=== PATIENT | male | born 1975 | race Caucasian/White ===

== ENCOUNTER 2024-07-14 11:38 | Inpatient (IN) | payer BC, SELFPAY ==
[2024-07-14] VITALS (60 sets, daily range): BP systolic 72–127; BP diastolic 47–91; PULSE 2–78; BMI 36.4; BMI 36.3
[2024-07-14] MEDS: DUONEB 3 ML INH ×2 (08:46→20:20)
--- NOTE | 2024-07-14 08:52 | ED.GENMED ---
History of Present Illness
<Sae Mott PA-C - Last Filed: 07/14/24 09:40>
General
Chief Complaint: Breathing Problem
Source: patient
Exam Limitations: none
Time Seen by Provider: 07/14/24 08:38
History of Present Illness
History of Present Illness:
49-year-old male with history of hypertension presents via EMS from home with increased difficulty breathing. He and his have been sick for the past several days with flulike symptoms including fever cough fatigue. Shortness of breath got
worse today. Patient denies chest pain. He was hypoxic on EMS arrival and they placed him on a nonrebreather and presented here.
Phy Exam
<Sae Mott PA-C - Last Filed: 07/14/24 09:40>
Physical Exam
Physical Exam:
General: Ill-appearing male with increased work of breathing
HEENT normocephalic atraumatic
Heart: Regular rate and rhythm
Lungs: Diffuse wheeze prolonged expiratory phase
Extremities: No edema
Abdomen is soft and nontender
Scores
<Sae Mott PA-C - Last Filed: 07/14/24 09:40>
Heart Failure Risk
Heart Failure Risk Score: Not Applicable
Course
<Sae Mott PA-C - Last Filed: 07/14/24 09:40>
Orders/Labs/Results
Orders:
Orders
07/14/24 08:39
Electrocardiogram (*1) Urgent
Reason for Study: Shortness of Breath
EKG- Treatment ONCE
Ipratropium/Albuterol Sulfate [Duoneb] 3 ml INH R NOW STA
CR Chest Portable - 1 View Urgent
Comment:
Reason For Exam: sob
Reason Study Needs to be Portable: Patient Unstable
07/14/24 08:45
Blood Culture Q30M
JEREMIAH Source: Blood/Venous
Specimen Description:
Hydrocortisone Sod Succinate [Solu-Cortef] 125 mg IV NOW STA
07/14/24 08:48
COVID-19 Antigen Stat
Source: Nasal Swab
Complete Blood Count/With Diff Urgent
Comprehensive Metabolic Panel Urgent
Lactic Acid Q4H
Comment: CANCEL 2nd LACTIC ACID IF 1st LACTIC ACID IS LESS THAN 2
NT-proBNP Urgent
Troponin I Urgent
Venous Blood Gas Urgent
%Oxygen/Room Air: nonrebreather
Blood Culture Q30M
JEREMIAH Source: Blood/Venous
Specimen Description:
Influenza A+B Rapid Molecular Urgent
JEREMIAH Source: Nasal Swab
Specimen Description:
07/14/24 09:34
0.9% Sodium Chloride 1000 ml [Nss] 1,000 ml IV BOLUS
07/14/24 12:45
Lactic Acid Q4H
Comment: CANCEL 2nd LACTIC ACID IF 1st LACTIC ACID IS LESS THAN 2
Abnormal Lab Results
07/14/24
08:48
RBC 4.12 L 10^6/uL
(4.70-6.10)
Hgb 12.5 L g/dL
(13.0-18.0)
MCV 94.9 H fL
(80.0-94.0)
MCHC 32.0 L g/dL
(33.0-37.0)
MPV 10.6 H fL
(7.4-10.4)
Absolute Neuts (auto) 8.4 H 10^3/uL
(1.4-6.5)
Absolute Monos (auto) 0.8 H 10^3/uL
(0.1-0.6)
Neutrophils % 78.7 H %
(42.2-75.2)
Lymphocytes % 12.5 L %
(20.5-51.1)
VBG pH 7.23 L
(7.32-7.43)
VBG pCO2 63 H mmHg
(35-48)
BUN 28 H mg/dl
(9-20)
Creatinine 2.9 H mg/dL
(0.7-1.3)
Glucose 121 H mg/dl
(70-99)
Alkaline Phosphatase 158 H U/L
(38-126)
07/14/24 08:48
07/14/24 08:48
Vital Signs
Initial and Last Documented VS:
Initial Vital Signs
Pulse Resp Pulse Ox
78 19 90
07/14/24 08:47 07/14/24 08:47 07/14/24 08:47
Last Documented Vital Signs
Temp Pulse Resp BP Pulse Ox
98.5 F 79 22 108/65 96
07/14/24 08:52 07/14/24 08:52 07/14/24 08:52 07/14/24 08:52 07/14/24 08:52
<Jazlyn Mohan, DO - Last Filed: 07/14/24 09:40>
Orders/Labs/Results
Orders:
Orders
07/14/24 08:39
Electrocardiogram (*1) Urgent
Reason for Study: Shortness of Breath
EKG- Treatment ONCE
Ipratropium/Albuterol Sulfate [Duoneb] 3 ml INH R NOW STA
CR Chest Portable - 1 View Urgent
Comment:
Reason For Exam: sob
Reason Study Needs to be Portable: Patient Unstable
07/14/24 08:45
Blood Culture Q30M
JEREMIAH Source: Blood/Venous
Specimen Description:
Hydrocortisone Sod Succinate [Solu-Cortef] 125 mg IV NOW STA
07/14/24 08:48
COVID-19 Antigen Stat
Source: Nasal Swab
Complete Blood Count/With Diff Urgent
Comprehensive Metabolic Panel Urgent
Lactic Acid Q4H
Comment: CANCEL 2nd LACTIC ACID IF 1st LACTIC ACID IS LESS THAN 2
NT-proBNP Urgent
Troponin I Urgent
Venous Blood Gas Urgent
%Oxygen/Room Air: nonrebreather
Blood Culture Q30M
JEREMIAH Source: Blood/Venous
Specimen Description:
Influenza A+B Rapid Molecular Urgent
JEREMIAH Source: Nasal Swab
Specimen Description:
07/14/24 09:34
0.9% Sodium Chloride 1000 ml [Nss] 1,000 ml IV BOLUS
07/14/24 12:45
Lactic Acid Q4H
Comment: CANCEL 2nd LACTIC ACID IF 1st LACTIC ACID IS LESS THAN 2
Abnormal Lab Results
07/14/24
08:48
RBC 4.12 L 10^6/uL
(4.70-6.10)
Hgb 12.5 L g/dL
(13.0-18.0)
MCV 94.9 H fL
(80.0-94.0)
MCHC 32.0 L g/dL
(33.0-37.0)
MPV 10.6 H fL
(7.4-10.4)
Absolute Neuts (auto) 8.4 H 10^3/uL
(1.4-6.5)
Absolute Monos (auto) 0.8 H 10^3/uL
(0.1-0.6)
Neutrophils % 78.7 H %
(42.2-75.2)
Lymphocytes % 12.5 L %
(20.5-51.1)
VBG pH 7.23 L
(7.32-7.43)
VBG pCO2 63 H mmHg
(35-48)
BUN 28 H mg/dl
(9-20)
Creatinine 2.9 H mg/dL
(0.7-1.3)
Glucose 121 H mg/dl
(70-99)
Alkaline Phosphatase 158 H U/L
(38-126)
07/14/24 08:48
07/14/24 08:48
Vital Signs
Initial and Last Documented VS:
Initial Vital Signs
Pulse Resp Pulse Ox
78 19 90
07/14/24 08:47 07/14/24 08:47 07/14/24 08:47
Last Documented Vital Signs
Temp Pulse Resp BP Pulse Ox
98.5 F 79 22 108/65 96
07/14/24 08:52 07/14/24 08:52 07/14/24 08:52 07/14/24 08:52 07/14/24 08:52
<Sae Mott PA-C - Last Filed: 07/14/24 09:40>
MDM/Problems Addressed
Differential Diagnosis Includes:
Respiratory distress. Consider pneumonia versus acute bronchitis versus COVID versus flu
Patient hypoxic here will require BiPAP. DuoNebs ordered. Septic workup initiated show portable chest x-ray pending
<Jazlyn Mohan DO - Last Filed: 07/14/24 09:40>
*Critical Care Note
Total Time (30-74mins, 75-104mins- exclusive of procedures): 37
comment:
The high probability of a clinically significant, sudden or life threatening deterioration of the cardiopulmonary system(s) required my full and direct attention, intervention and personal management. The aggregate critical care time was 37 minutes.
This time is in addition to time spent performing reported procedures but includes the following:
[x] Data Review and interpretation
[x] Patient assessment and monitoring of vital signs
[x] Documentation
[x] Medication orders and management
ED Attending Note
<Sae Mott PA-C - Last Filed: 07/14/24 09:40>
-
Portions of this chart may have been created with voice recognition software.� Occasional wrong word or��sound alike� substitutions may have occurred due to the inherent limitations of voice recognition software.
<Jazlyn Mohan DO - Last Filed: 07/14/24 09:40>
ED Attending Note
Patient seen and examined by attending physician: Yes
I performed the substantive portion of visit, reviewed & personally made and approve the management plan that is documented in note by myself or SHANTI.: Yes
I performed a history and physical exam of patient and discussed management with resident, I reviewed resident's note and agree with documented findings and plan of care.: Yes
ED Attending Note:
49-year-old male with history of tobacco abuse presenting to the emergency department for difficulty breathing. Patient arrives by medics, which were called by . Patient and his have been sick for the past several days with flulike
symptoms. Per medics, satting in the 70s on their arrival, placed on nonrebreather. Patient somewhat of a limited historian. Does admit to cough and difficulty breathing. Vital signs are significant for hypoxia.
On exam, patient with mild to moderate increased work of breathing, with diffuse rhonchorous breath sounds and expiratory wheezing. Ultimately suspect pneumonia versus viral syndrome with concomitant reactive airway disease. Patient denies known
history of asthma. Respiratory called to bedside for BiPAP given patient's oxygen saturations and work of breathing. Will plan for septic work include, VBG, cultures, lactic acid. Will obtain a chest x-ray imaging. Will start patient on DuoNebs
and steroids
09:15 -patient is flu positive. Consistent with symptoms. Saturations improved on BiPAP as well as respiratory effort. Holding antibiotics given positive viral infection. Plan for admission.
Discharge Plan
Departure
Patient Disposition: Admit
Date of Disposition: 07/14/24
Time of Disposition: 09:39
Presentation/result/management discussed w/ accepting MD/DO: Hospitalist
Discharge Problem:
Influenza A
Interventions
Interventions:
*Risk Screen - Suicide Last Done: 07/14/24 08:52
*General Assessment Last Done: 07/14/24 08:52
*Neglect/Abuse Screening Last Done: 07/14/24 08:52
*ED- Fall Risk Assessment Last Done: 07/14/24 08:52
*ED COVID-19 Vaccine History Last Done: 07/14/24 08:52
Discharge Date and Time
Print Language: URDU
[2024-07-14 08:58] LABS: Venous Blood Gas B.E. -2.4 mmol/L (-4 to +4); Venous Blood Gas HCO3 26.4 mmol/L (22-27); Venous Blood Gas O2 Sat % 68.7 %; Venous Blood Gas pCO2 63 mmHg (35-48); Venous Blood Gas pH 7.23 (7.32-7.43); Venous Blood Gas pO2 41 mmHg (30-50)
[2024-07-14 09:05] LABS: % Basophils 0.4 % (0-2); % Eosinophils 0.5 % (0-6); % Immature Granulocytes 0.3 % (0-0.5); % Lymphocytes 12.5 % (20.5-51.1); % Monocytes 7.6 % (1.7-9.3); % Neutrophils 78.7 % (42.2-75.2); Absolute Eosinophils 0.1 10^3/uL (0-0.7); Absolute Lymphocytes 1.3 10^3/uL (1.2-3.4); Absolute Monocytes 0.8 10^3/uL (0.1-0.6); Absolute Neutrophils 8.4 10^3/uL (1.4-6.5); Hematocrit 39.1 % (39.0-52.0); Hemoglobin 12.5 g/dL (13.0-18.0); Mean Corpuscular Hgb 30.3 pg (27.0-31.0); Mean Corpuscular Volume 94.9 fL (80.0-94.0); Mean Platelet Volume 10.6 fL (7.4-10.4); Nucleated Red Blood Cells % 0 % (-); Platelet Count 213 10^3/uL (130-400); Red Blood Cell Count 4.12 10^6/uL (4.70-6.10); White Blood Cell Count 10.6 10^3/uL (4.8-10.8)
[2024-07-14 09:13] LABS: Lactic Acid 1.1 mmol/L (0.7-2.0)
[2024-07-14 09:14] LABS: ALT (SGPT) 21 U/L (0-50); AST (SGOT) 30 U/L (17-59); Albumin 3.8 g/dl (3.5-5.0); Alkaline Phosphatase 158 U/L (38-126); Blood Urea Nitrogen 28 mg/dl (9-20); Calcium 8.7 mg/dl (8.4-10.2); Carbon Dioxide 28 mmol/L (22-30); Chloride 99 mmol/L (98-107); Estimated Creatinine Clearance 40 ml/min; Glucose 121 mg/dl (70-99); Sodium 135 mmol/L (135-145); Total Bilirubin 0.5 mg/dl (0.2-1.3); Total Protein 6.7 g/dl (6.3-8.2); eGFR 25.87
[2024-07-14 09:25] LABS: NT-proBNP 127 pg/ml; Troponin I < 0.012 ng/ml
[2024-07-14 09:30] LABS: COVID-19 Antigen Negative (Negative)
[2024-07-14] MEDS: SOLU-CORTEF 125 MG IV (09:44)
[2024-07-14] MEDS: NSS 1000 IV ×3 (09:46→23:29)
--- NOTE | 2024-07-14 10:09 | PHANOTE ---
MED REC NOTE- CALLED PATIENT SPOUSE BUT NO ANSWER, PATIENT HAS NO ECW. FATHER IN ROOM BUT DOES NOT KNOW MUCH ABOUT PATIENT MEDICATION
--- NOTE | 2024-07-14 10:22 | HPS.HSE ---
Family Physician
-
Family Physician: Giovani Voss
Chief Complaint
-
shortnoess of breath
History of Present Illness
Mr. Neil George is a 49 yo man with hx essential HTN, psychiatric history presents from home by EMS, as found patient lethargic and short of breath.
Patient arrived via EMS on 15L; when on RA dropped to SpO2 60's and was placed on BiPAP. Patient appears in less distress on BiPAP, able to answer questions. He states symptoms started 4 days ago. + cough/congestion and felt feverish. has
flu at home. No nausea/vomiting/diarrhea. He has not been eating or drinking a lot; also is on Mounjaro started one month ago.
+ chest pain with coughing. No LE swelling. No rash.
Medical History
Past Medical History
Past Medical History: Reports Other (essential HTN, psychiatric history)
Past Surgical History: Reports Other
Social History
Tobacco: Smoker
Alcohol: Occasional
Family History
Family History: Not pertinent
Allergies / Home Medications
Allergies reflects when Allergies were last updated in [facility].
Home Medications with original date entered in [facility]
Allergy/Medication List:
Allergies
Allergy/AdvReac Type Severity Reaction Status Date / Time
grass pollen Allergy Intermediate Rash Verified 07/14/24 08:56
Home Medications
atenolol 25 mg tablet 25 mg PO DAILY 07/14/24
atorvastatin 20 mg tablet (Lipitor) 20 mg PO QPM 07/14/24
fluvoxamine 100 mg tablet 100 mg PO HS 07/14/24
fluvoxamine 50 mg tablet 50 mg PO DAILY 07/14/24
lithium carbonate 300 mg tablet 1,200 mg PO HS 07/14/24
losartan 50 mg tablet 50 mg PO BID 07/14/24
lurasidone 40 mg tablet 40 mg PO QPM 07/14/24
pregabalin 50 mg capsule (Lyrica) 100 mg PO HS 07/14/24
quetiapine 50 mg tablet (Seroquel) 50 mg PO HS 07/14/24
tirzepatide (weight loss) 2.5 mg/0.5 mL subcutaneous solution (Zepbound) 2.5 mg SC QWEEK 07/14/24
awaiting home med rec
Review of Systems
-
History Source: Patient
A 12 point ROS was completed and negative except as noted: Yes
Physical Exam
Vital Signs
Vital Signs
Temp Pulse Resp BP Pulse Ox
98.5 F 79 22 108/65 96
07/14/24 08:52 07/14/24 08:52 07/14/24 08:52 07/14/24 08:52 07/14/24 08:52
Physical Exam
General: Other (somnolent on BiPAP, awakens to voice )
HEENT: PERRLA
Respiratory: Wheezes
Cardiac: S1/S2 and Regular Rhythm
GI: Soft, Non Tender and Non Distended
Musculoskeletal: No Edema
Skin: Warm and Dry; No Rash
Neuro: AO x 3
Psych: Calm
Laboratory Results
-
07/14/24 08:48
07/14/24 08:48
Laboratory Results
Lactic Acid 1.1 mmol/L (0.7-2.0) 07/14/24 08:48
Total Bilirubin 0.5 mg/dl (0.2-1.3) 07/14/24 08:48
AST 30 U/L (17-59) 07/14/24 08:48
ALT 21 U/L (0-50) 07/14/24 08:48
Alkaline Phosphatase 158 U/L (38-126) H 07/14/24 08:48
Troponin I < 0.012 ng/ml 07/14/24 08:48
Data Reviewed
-
Diagnostic Radiology: Report Reviewed by me
Lab Data: Labs Reviewed by me
Impression/Plan
-
Mr. Neil George is a 49 yo man with hx essential HTN, psychiatric history presents from home by EMS, as found patient lethargic and short of breath.
Triage VS: T 98.5, RR 22, P 79, BP 108/65, SpO2 90% (on 15L). Patient dropped to SpO2 70's on RA, placed on BiPAP. His systolic BP dropped to 70's s/p 2L with good response.
LABS: WBC 10.6, Hg 12.5, PLT 213, Na 135, K+ 4.0, Cl 99, CO2 28, BUN 28, Cr 2.9, Glucose 121, Lactate 1.1
Trop < 0.012, BNP 127
Covid Negative; Influenza Positive
CXR
IMPRESSION:
Increased interstitial markings within both lungs, most likely bilateral interstitial-type pneumonia. No evidence for associated pleural effusion.
MAR: Hydrocortisone, duonebs, 1L IVF
Influenza with superimposed bacterial infection
Hypoxic Respiratory Failure 2/2 Above
Sepsis 2/2 Above
-placed on BiPAP in ER
-admit to IMU
-start Tamiflu
-Vanc/Cefepime/Azithro
-F/U testing for Legionella; strep pneumo; MRSA swab
-sputum culture
-acapella, mucinex
Current smoker, suspect COPD acute exacerbation; wheezing heard on exam
-duonebs standing and PRN
-IV Decadron
-Pulmonary consulted
-nicotine cessation education, patch ordered
Psychiatry history
-*awaiting home med rec
Acute Kidney Injury
-patient recently started Mounjaro one month ago - likely need to hold at discharge
-urine studies
-s/p 2L in ER, NS @ 125
-trend renal function, avoid nephrotoxic medications
DVT PPx Hep subQ
FULL CODE
76 minutes spent on patient care
[2024-07-14] MEDS: TAMIFLU 75 MG PO (12:02)
[2024-07-14] MEDS: MAXIPIME 2000 MG IV ×2 (12:03→23:27)
[2024-07-14] MEDS: STERILE WATER FOR INJECTION 10 ML IV ×2 (12:04→23:27)
[2024-07-14] MEDS: ZITHROMAX INFUSION 250 IV (12:08)
--- NOTE | 2024-07-14 12:31 | CON.PUL ---
Consultation
Consultation Request
Date/Time Consultation Requested: 07/14/2024
Date/Time Consultation Performed: 07/14/2024
Requesting Provider: Dr. Vanegas
Performing Provider: Dr. Osmin Cotton
Reason for Consultation: Acute hypoxemic respiratory failure-pneumonia
Medical History
-
History of Present Illness:
49-year-old man with history of hypertension, psychiatric history presenting from home via EMS as a found him lethargic and short of breath.
Patient arrived via EMS with 15 L via nasal cannula. Saturations down to 60%. He was placed on BiPAP for increased work of breathing.
Symptoms started about 4 days ago. Including congestion, coughing and fevers. His has the flu at home.
Denies nausea, vomiting or diarrhea. Does report decreased appetite.
He started a month ago on Monjaro.
Patient is a smoker.
Chest x-ray showed increased interstitial markings bilaterally..
In the emergency room patient is somnolent but arousable-currently on BiPAP. Difficult to obtain history.
His father is at the bedside.
After taking a few deep breath pulse ox increased from 88 to 90%.
Denies abdominal pain
Past Medical History
Past Medical History: Other (See assessment and plan)
Social History
Tobacco: Smoker
Alcohol: None
Drug: None
Personal:
Living: With Family
Family History
Family History: Reviewed & Not Pertinent
Allergies / Home Medications
Allergies
Allergy/AdvReac Type Severity Reaction Status Date / Time
grass pollen Allergy Intermediate Rash Verified 07/14/24 08:56
Home Medications
�Medication �Instructions �Recorded �Confirmed �Last Taken �Type
atenolol 25 mg tablet 25 mg PO DAILY 07/14/24 Unknown History
atorvastatin 20 mg tablet (Lipitor) 20 mg PO QPM 07/14/24 Unknown History
fluvoxamine 100 mg tablet 100 mg PO HS 07/14/24 Unknown History
fluvoxamine 50 mg tablet 50 mg PO DAILY 07/14/24 Unknown History
lithium carbonate 300 mg tablet 1,200 mg PO HS 07/14/24 Unknown History
losartan 50 mg tablet 50 mg PO BID 07/14/24 Unknown History
lurasidone 40 mg tablet 40 mg PO QPM 07/14/24 Unknown History
pregabalin 50 mg capsule (Lyrica) 100 mg PO HS 07/14/24 Unknown History
quetiapine 50 mg tablet (Seroquel) 50 mg PO HS 07/14/24 Unknown History
tirzepatide (weight loss) 2.5 2.5 mg SC QWEEK 07/14/24 Unknown History
mg/0.5 mL subcutaneous solution
(Zepbound)
Review of Systems
-
Unable to Obtain full review of systems at this time due to: Acuity
Vitals / Labs / Diagnostic Testing
Vital Signs
Temp Pulse Resp BP Pulse Ox
98.5 F 79 22 108/65 96
07/14/24 08:52 07/14/24 08:52 07/14/24 08:52 07/14/24 08:52 07/14/24 08:52
Lab Data
07/14/24 08:48
07/14/24 08:48
Microbiology
07/14/24 08:48 Nasal Swab Influenza Types A & B (JAYLIN) - Final
Influenza A Positive, NAAT
Diagnostic Testing:
Physical Exam
-
HEENT: Normocephalic
Cardiovascular: S1/S2
Respiratory: Wheeze (Mild expiratory) and Rales
GI: Soft and Non Distended
Neurology: No Motor Deficits and Other (Drowsy but easily aroused. Will follow commands on demand. Taking deep breaths on demand. Coughing on demand.)
Skin: Warm
General: Respiratory Distress and Comfortable (On BiPAP therapy)
Assessment
-
49-year-old man with past medical history noted. Admitted through the emergency room via EMS-4 days of symptoms including cough and congestion. Patient was found lethargic and with increased work of breathing by . Found to be hypoxemic down
to 60%. Required noninvasive mechanical ventilation and oxygen supplementation in the emergency room. I was consulted for evaluation-patient seen by me in the emergency room. Concern for worsening respiratory failure.
Currently on BiPAP 15 L via nasal cannula. Unable to provide much history.
Acute hypoxemic respiratory failure due to influenza A-required noninvasive mechanical ventilation due to increased work of breathing-15 L.
COVID-negative
Chest x-ray with increased bilateral interstitial markings.
Normal troponins
Normal proBNP.
Acute kidney injury-suspect prerenal-volume depletion.
Altered mental status: Somnolent.
Conditions present prior admission:
Smoker
? Bipolar disorder-on multiple medications
Obesity
Hypertension
-
Assessment and plan:
Patient is critically ill: Hypoxemic respiratory failure-borderline hypotension. Suspect acute kidney injury from volume depletion-prerenal.
Clinical picture consistent with viral pneumonia and influenza A-cannot rule out bacterial superinfection.
Critically ill.
-
In the emergency room patient currently on BiPAP 17/7. 15 L nasal cannula pulse ox 88 to 90%.
He is somnolent but easily aroused-following commands.
Obtain ABG now-if there is decompensated hypercapnic respiratory failure despite BiPAP may need to move to intubation. Respiratory therapy has been notified.
-
Slight bronchospasm on exam. Patient is an active smoke-no formal COPD diagnosis.
Continue IV corticosteroids for now-hopefully can wean off quickly.
Dpzaty-nxq-rkzgn nebulizers
-
Agree with antibiotics to treat possible bacterial superinfection cefepime/azithromycin/vancomycin for severe pneumonia
Blood cultures
Sputum culture if able
Urine antigen testing for Legionella and strep pneumococcus
Tamiflu 5-10 days per
Monitor fever curve and leukocytosis.
-
For now would keep n.p.o. with head of the bed elevation
-
Patient takes multiple psychoactive medications.
Hopefully can restart tomorrow-today patient is very somnolent-would hold p.m. doses for now.
-
Hold antihypertensive
Follow hemodynamics.
IV hydration has been ordered.
Vasopressors will be started to maintain mean arterial blood pressure 65 mmHg or higher if necessary
Follow renal function
-
Smoking cessation-nicotine patch has been ordered
-
DVT prophylaxis with heparin subcu
-
I updated Dr. Vanegas-prefers this patient being transferred to the critical care unit due to borderline hemodynamics, change in mental status with lethargy/somnolence, risk for progression, acute kidney injury. High risk situation.
I updated critical care physician-Dr. Tan as well.
-
Dr. Cotton updated father at the bedside-critical situation. Risk of progressing to needing intubation and mechanical ventilation.
-
Critical care statement: A total of 38 minutes of critical care time was provided for this patient today. This includes management of unstable vital signs, evaluation of the patient at bedside, reviewing the patient�s pertinent medical records
including ventilator settings, arterial blood gases, radiographs, microbiology, laboratory evaluations and��discussion with primary team, critical care nursing, and respiratory therapy.
[2024-07-14] MEDS: VANCOCIN 540 MG IV (13:16)
--- NOTE | 2024-07-14 13:33 | PHA.VAN.IN ---
Assessment
- Assessment
Renal Function: Appears elevated from baseline (recent baseline unknown; presented in [facility])
Plan
- Plan
Initial / Loading Dose: 2000mg - 07/14 13:16
Maintenance Regimen: dosing by level
Monitoring: random 07/15 0600
MRSA Screen: Ordered per protocol
Pharmacokinetics Vancomycin I
- -
Patient Age: 49
Patient Sex: Male
Vancomycin Day #: 1
Indication: Pulmonary/Respiratory
Requesting Provider: Dr. Vanegas
Pertinent Antimicrobial Allergies:
no pertinent antibiotic allergies
Height / Weight:
Height 5 ft 10 in
Actual Weight 115 kg
Pertinent Past Medical History: BMI ~36
- Vital Signs / Lab Results
Temp Pulse Resp BP Pulse Ox
98.5 F 69 16 103/73 99
07/14/24 08:52 07/14/24 13:15 07/14/24 13:15 07/14/24 13:15 07/14/24 13:15
Lab Results - Hematology
07/14/24
08:48
WBC 10.6
Lab Results - Chemistry
07/14/24
08:48
BUN 28 H
Creatinine 2.9 H
Estimated Creat Clear 40
Albumin 3.8
07/14/24 07/14/24
08:48 12:45
Lactic Acid 1.1 Cancelled
Microbiology Results
07/14/24 08:48 Influenza Types A & B (JAYLIN) - Final
Nasal Swab Influenza A Positive, NAAT
[2024-07-14 13:42] LABS: B.E. -3.5 mmol/L; HCO3 23.5 mmol/L (21-28); O2 Saturation % 99.1 % (94-98); PCO2 50 mmHg (35-48); PO2 92 mmHg (83-108); pH 7.28 (7.35-7.45)
--- NOTE | 2024-07-14 16:06 | CM ---
CM attempted bedside meeting with pt- sleeping soundly
Call with spouse/Kassandra
They resides in a 2SH with 2STE, full flight to 2nd floor
Pt is indep with his ADLs, no DMEs in home
Currently unemployed and insurance coverage through spouse's plan
Pt daily smoker, 1 pack daily
Spouse also sick with flu at home
PCP- Giovani Wasserman
Rx- DAVID Mukherjee
Discharge Disposition- anticipate home, watch for O2 needs
[2024-07-14 16:12] LABS: B.E. -4.4 mmol/L; HCO3 22.9 mmol/L (21-28); O2 Saturation % 97.5 % (94-98); PCO2 51 mmHg (35-48); PO2 76 mmHg (83-108); pH 7.26 (7.35-7.45)
[2024-07-14] MEDS: HEPARIN 5000 UNITS SC ×2 (18:49→23:28)
[2024-07-14] MEDS: NICODERM TRANSDERMAL 21 MG TRANSDERM (18:49)
--- NOTE | 2024-07-14 19:10 | PTCARENOTE ---
Pt received from the ED, on BIPAP 15/8 15L in circuit, having some difficulty maintaining O2 sat initially but now that he is settled O2 is up to 95%. BiPAP settings switched to maintain TV of 550mls. Pt is Ox3 and somewhat drowsy. He occasionally
has a full body twitch, his tells me he was told to stop his lithium due to this. NSR on tele, + pulses, no edema. Round, obese, distended ABD. LBM 3 days ago. Normoactive bowel sounds. Pt has urinal in the room, informed of outstanding sample.
Skin intact. IV sites intact. Report given to next shift.
[2024-07-14] MEDS: LUVOX 100 MG PO (20:19)
[2024-07-14] MEDS: MUCINEX 600 MG PO (20:19)
[2024-07-14] MEDS: LIPITOR 20 MG PO (20:19)
[2024-07-14] MEDS: LATUDA 40 MG PO (20:19)
[2024-07-14] MEDS: SEROQUEL 50 MG PO (20:20)
[2024-07-14] MEDS: DUONEB INH (20:20)
[2024-07-14] MEDS: TAMIFLU 30 MG PO (20:20)
[2024-07-14] MEDS: DECADRON 4 MG IV (20:20)
[2024-07-14] MEDS: LYRICA 100 MG PO (20:20)
[2024-07-14 20:36] LABS: B.E. -3.9 mmol/L; PCO2 49 mmHg (35-48); PO2 100 mmHg (83-108); pH 7.28 (7.35-7.45)
[2024-07-14 20:58] LABS: Urine Albumin 1+ (Neg - Trace); Urine Bilirubin Negative (Negative); Urine Character Clear (Clear); Urine Color Yellow; Urine Glucose Negative (Negative); Urine Ketone Negative (Negative); Urine Leukocyte Negative (Negative); Urine Nitrite Negative (Negative); Urine Occult Blood Negative (Negative); Urine Urobilinogen Negative (Neg - 1+)
--- NOTE | 2024-07-14 21:15 | RESPNOTE ---
PT was taken off of the BIPAP for a trial, in order to have a little break, receive meds and a drink. PT was placed on a 15L midflow for the time being, will re-place the BIPAP for HS use, or earlier if needed
[2024-07-14 21:26] LABS: Urine Sodium 11 mmol/L (30-90)
[2024-07-14 21:42] LABS: Urine Bacteria Few (Negative); Urine Red Blood Cell 0-2 /HPF (0-2); Urine White Cell 0-2 /HPF (0-5)
--- NOTE | 2024-07-14 22:27 | PTCARENOTE ---
Pt received at 19:00, Ox3, drowsy but easily arousable to verbal stimuli. SR 60s-70s, occasional PVCs. Breath sounds coarse bilaterally, expiratory wheezes bilaterally upon initial assessment--since improved. Bipap 16/8 w/ 15L, pulse ox mid to upper
90s. Pt placed on midflow NC, 15L at 21:15. Pt desat to mid 70s on midflow NC approx 22:00, RT placed pt back on bipap--tolerating, sats now 98-100%. Condom cath now in place, cloudy yellow urine. Safe environment maintained, call cook within reach.
Pt updated.
[2024-07-15] VITALS (34 sets, daily range): BP systolic 74–117; BP diastolic 44–73; BMI 36.0
[2024-07-15 04:41] LABS: Venous Blood Gas HCO3 22.9 mmol/L (22-27); Venous Blood Gas O2 Sat % 99.7 %; Venous Blood Gas pCO2 60 mmHg (35-48); Venous Blood Gas pO2 113 mmHg (30-50)
[2024-07-15] MEDS: DECADRON 4 MG IV (04:42)
[2024-07-15 04:44] LABS: Venous Blood Gas pH 7.19 (7.32-7.43)
[2024-07-15 04:45] LABS: % Basophils 0.1 % (0-2); % Immature Granulocytes 0.3 % (0-0.5); % Lymphocytes 10.2 % (20.5-51.1); % Monocytes 3.7 % (1.7-9.3); % Neutrophils 85.7 % (42.2-75.2); Absolute Monocytes 0.4 10^3/uL (0.1-0.6); Absolute Neutrophils 8.4 10^3/uL (1.4-6.5); Hematocrit 37.2 % (39.0-52.0); Hemoglobin 11.7 g/dL (13.0-18.0); Mean Corp Hgb Conc. 31.5 g/dL (33.0-37.0); Mean Corpuscular Hgb 30.3 pg (27.0-31.0); Mean Corpuscular Volume 96.4 fL (80.0-94.0); Mean Platelet Volume 10.7 fL (7.4-10.4); Nucleated Red Blood Cells % 0 % (-); Platelet Count 212 10^3/uL (130-400); Red Blood Cell Count 3.86 10^6/uL (4.70-6.10); Red Cell Dist. Width 12.8 % (11.5-14.5); White Blood Cell Count 9.8 10^3/uL (4.8-10.8)
[2024-07-15 04:54] LABS: INR 0.96; PT 13.1 Sec (11.4-14.6)
[2024-07-15 04:55] LABS: APTT 29.4 Sec (23.4-35.0)
[2024-07-15 05:12] LABS: Vancomycin Random 16.1 ug/ml
[2024-07-15] MEDS: DIPRIVAN 100 IV ×3 (05:15→17:53)
[2024-07-15 05:17] LABS: Blood Urea Nitrogen 27 mg/dl (9-20); Carbon Dioxide 24 mmol/L (22-30); Chloride 111 mmol/L (98-107); Estimated Creatinine Clearance 57 ml/min; Glucose 135 mg/dl (70-99); Lithium 1.6 mmol/L (0.6-1.2); Potassium 5.1 mmol/L (3.5-5.1); Sodium 142 mmol/L (135-145); eGFR 40.41
--- NOTE | 2024-07-15 05:25 | W.PN.UPDATE ---
Addendum entered and electronically signed by QUYNH Arrieta 07/15/24 07:00:
After intubation patient continued to be hypoxic saturating in the 70-80s % sustained. Plateau pressures 20-30, peak pressure 30s. Given fentanyl 100mcg, versed 5mg IV, and nimbex for paralytic to help with oxygenation. Increased peep slowly to
20, adjusted TV from 500 to 400, oxyen saturation 80s%. Chest xray worsening infiltrates bilaterally with L>R. Turned patient to be on right side to help assist with ventilating by gravity to left lung. Case discussed with Dr. Tan, advertising layout worker.
Original Note:
Update Note
Progress Note Update
0500- Patient more obtundent on bipap, morning labs obtained. VBG results pH 7.19, CO2 60 (worsening hypercapnia from previous), HCO3 22.9. Decision made with worsening acute hypercapnic respiratory failure due to influenza and inability protect his
airway due to changes in mental status. Awoke patient and did tell him intubation was necessary, he verbalized 'yes' to intubation. Patient's Kassandra was called at [phone] and updated, agreed with intubation, all questions answered.
Patient's has also been sick with the flu and been coughing. Anesthesia CNRA was called for intubation, intubation without incident. Sedation protocol initiated with propofol and fentanyl gtts. Chest xray obtained for ETT placement.
--- NOTE | 2024-07-15 05:28 | W.PN.ANESINT ---
Anesthesia Intubation Note
- Intubation Note
Intubation Note:
Diagnosis: respiratory distress
Blade: glidescope 4
Tube Size: 8.0 HiLo
Depth: 23 cm
Side Taped: center
Drugs Used: 200 mg propofol, 50mg rocuronium
Grade View: 1
EtCO2 Present: ETCO2 color change present on ETCO2 detector
Atraumatic: yes
Attempts: 1
Insertion Start and Stop Time: 509 start 05 end
SaO2 Pre: 90
SaO2 Post: 94
Glidescope Used: yes
Other Airway Adjustments: none
Pre-Oxygenated: patient was on bipap prior to intubation
Portable Chest X-Ray: ordered
RSI: no
Suctioned: minimal secretions
Bilateral Breath Sounds Confirmed: yes
Vent Settings:
Settings per __X_Attending Physician
Yoko Kilgore CRNA
[2024-07-15] MEDS: SUBLIMAZE 100 MCG IV ×2 (05:30→05:54)
[2024-07-15] MEDS: SUBLIMAZE 100 IV ×2 (05:31→21:57)
[2024-07-15] MEDS: NSS 1000 IV (05:34)
[2024-07-15] MEDS: VERSED 5 MG IV (05:52)
[2024-07-15] MEDS: NIMBEX 17 MG IV (05:57)
[2024-07-15 06:34] LABS: ALT (SGPT) 20 U/L (0-50); AST (SGOT) 23 U/L (17-59); Alkaline Phosphatase 155 U/L (38-126); Direct Bilirubin 0.3 mg/dl (0.0-0.4); Total Bilirubin 0.5 mg/dl (0.2-1.3); Total Protein 6.8 g/dl (6.3-8.2)
[2024-07-15 06:59] LABS: Triglycerides 236 mg/dl (10-149)
--- NOTE | 2024-07-15 07:17 | PTCARENOTE ---
Addendum entered by Liliana Ritchie RN 07/15/24 07:19:
Pt now on AC 16/400/100%/+20.
Original Note:
Pt increasingly lethargic, VBG with AM labs 7.19/60/113/22.9. Pt intubated, #8ETT, at 25cm on the R. Initially placed on AC 16/500/100%/+5, desat to high 70s-low 80s, bagged with minimal effect. Placed back on ventilator, versed IVP x1 and fentanyl
IVP x1. Remained in the 80s, nimbex IVP ordered and given. TOF baseline 4/4 with 4mA. Coarse breath sounds, diminished more on the L than the R. Increased thick clear oral secretions. Kilpatrick catheter in place, clear yellow urine.
[2024-07-15] MEDS: LEVOPHED 250 IV (07:18)
--- NOTE | 2024-07-15 07:18 | RESPNOTE ---
PT was intubated @ 0500 and his sats never came up from the time he was on BIPAP until after intubation. Per LICENSE AND PERMIT SPECIALIST we proceeded to go up on the PEEP by +2 CM increments until PEEP +18, then decrease Vt to 400 ML and step his PEEP up to +20 CM and stop
there. PT sats came up some at times, but stayed in the mid 80's mostly. His peak pressures and plateau pressures were normal and stable throughout, despite the pressure changes.
--- NOTE | 2024-07-15 07:41 | W.PN.HOSP.TC ---
Addendum entered and electronically signed by Makenna Vanegas MD 07/15/24 15:11:
Toxic metabolic encephalopathy
in setting of hypercarbic resp failure now s/p intubation
Original Note:
Today's Communication/Plan
-
vent management per inpatient auditor
sedation
Levophed
Tamiflu
IV Vanc/Cefepime/Azithromycin
NS @ 125
Duonebs, steroids
F/U Psych recs on Higbee dosing
Assessment / Plan
Assessment / Plan
Mr. Neil George is a 49 yo man with hx essential HTN, psychiatric history presents from home by EMS, as found patient lethargic and short of breath. Patient was noted to be hypoxic, arrived on 15L NRB and required BiPAP in the ER.
Wheezing heard on exam. He tested positive for Influenza with CXR concerning for superimposed bacterial pneumonia.
CXR
IMPRESSION:
Increased interstitial markings within both lungs, most likely bilateral interstitial-type pneumonia. No evidence for associated pleural effusion.
Influenza with superimposed bacterial infection
Hypoxic Respiratory Failure 2/2 Above
Sepsis 2/2 Above; Septic Shock
-placed on BiPAP in ER; admitted to ICU and required intubation overnight in setting of worsening respiratory acidosis
-Pressors started overnight; continue Levophed as needed
-vent management per Preparation Plant Supervisor
-continue Tamiflu
-Vanc/Cefepime/Azithro (day 2)
-F/U testing for Legionella; strep pneumo; MRSA swab
-Follow up blood and sputum cultures
-acapella, mucinex
Current smoker, suspect COPD acute exacerbation; wheezing heard on exam
-duonebs standing and PRN
-IV Decadron
-Pulmonary/Preparation Plant Supervisor consult appreciated
-nicotine cessation education, patch ordered
Psychiatry history
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
Fluvoxamine 50mg PO QD
Fluvoxamine 100mg PO qhs
Higbee Carbonate 1200mg PO qhs
Lurasidone 40mg PO qhs
Seroquel 50mg PO qhs
-*lithium level is 1.6 --> I reached out to Psychiatry for recommendations on dosing - will hold now
Acute Kidney Injury
-patient recently started Mounjaro one month ago and has been eating and drinking less prior to illness - likely need to hold at discharge
-urine studies with low urine sodium
-s/p 2L in ER, NS @ 125; creatinine improving today (2.9 --> 2.0)
-avoid nephrotoxic medications
Essential HTN
-hold THREADING MACHINE TENDER regimen: ATenolol 25mg PO QD; Losartan 50mg PO BID; amlodipine 10mg PO QD
DVT PPx Hep subQ
GI PPx Protonix
FULL CODE
Total Critical Care Time 45 minutes. I was immediately available to the patient and staff. I personally examined, reviewed labs, diagnostic images/reports, interpretations, treatment plans, discussed patient care with other providers and family
or caregivers (if patient is unable to make decisions), entered orders as appropriate and documented the medical record.
Anticipated Discharge: > 48 hours
Subjective/Interval History
-
Date of Service: July 15, 2024
intubated, sedated
Objective Data
-
Labs:
Laboratory Results
07/14/24 07/15/24 07/15/24
20:29 04:33 06:00
WBC 9.8
Hgb 11.7 L
Hct 37.2 L
Plt Count 212
PT 13.1
INR 0.96
APTT 29.4
HCO3 23.0 Pending
Sodium 142
Potassium 5.1 D
Chloride 111 H
Carbon Dioxide 24
BUN 27 H
Creatinine 2.0 H
Glucose 135 H
Calcium 9.0
Total Bilirubin 0.5
AST 23
ALT 20
Alkaline Phosphatase 155 H
Vital Signs:
Vital Signs
Temp Pulse Resp BP Pulse Ox
98.4 F 66 15 110/72 85
07/15/24 00:00 07/15/24 00:45 07/15/24 00:45 07/15/24 00:00 07/15/24 06:30
I&O
07/14/24 07/15/24 07/16/24
06:59 06:59 06:59
Intake Total 1375 / 1375
Output Total 2400 / 2400
Balance -1025 / -1025
Review of Systems
-
Unable to obtain full review of systems at this time due to: Patient Intubation
History Source: Patient
Physical Exam
-
General: Intubated
Respiratory: Negative Wheezes
Cardiac: Regular Rhythm and S1/S2
GI: Soft and Nontender
Musculoskeletal: No Edema
Skin: Warm and Dry; Negative Rash
Neuro: Sedated
Psych: Calm
Data Reviewed
-
Diagnostic Radiology: Report Reviewed by me
Labs: Labs Reviewed by me
[2024-07-15] MEDS: DUONEB 3 ML INH ×4 (07:42→19:54)
[2024-07-15] MEDS: NICODERM TRANSDERMAL 21 MG TRANSDERM (07:44)
[2024-07-15] MEDS: HEPARIN 5000 UNITS SC ×2 (07:44→16:16)
[2024-07-15] MEDS: MUCINEX PO (08:39)
[2024-07-15] MEDS: ZITHROMAX 500 MG TUBE (08:39)
[2024-07-15 08:41] LABS: B.E. -6.5 mmol/L; HCO3 21.9 mmol/L (21-28); O2 Saturation % 99.8 % (94-98); PCO2 56 mmHg (35-48); PO2 114 mmHg (83-108)
[2024-07-15] MEDS: TAMIFLU 30 MG PO ×2 (09:01→20:42)
--- NOTE | 2024-07-15 09:39 | PTCARENOTE ---
all vss pulled over from previous shift
--- NOTE | 2024-07-15 12:05 | PTCARENOTE ---
Dr Tan at bedside placing central line and arnaldo, once done, plan to prone pt
[2024-07-15] MEDS: PROTONIX IV 40 MG IV (12:33)
[2024-07-15] MEDS: REFRESH CELLUVISC GEL 1 DROPS OPHTH ×2 (12:33→20:42)
[2024-07-15] MEDS: NSS (PRESERVATIVE FREE) 10 ML IV (12:34)
[2024-07-15] MEDS: STERILE WATER FOR INJECTION 10 ML IV (12:36)
[2024-07-15] MEDS: MAXIPIME 2000 MG IV (12:36)
[2024-07-15] MEDS: NIMBEX 200 MG IV (12:37)
[2024-07-15] MEDS: NIMBEX 200 ML IV (12:37)
[2024-07-15] MEDS: SUBLIMAZE 50 MCG IV ×6 (12:41→22:09)
[2024-07-15 13:27] LABS: B.E. -7.3 mmol/L; HCO3 20.5 mmol/L (21-28); O2 Saturation % 98.2 % (94-98); PCO2 50 mmHg (35-48); PO2 87 mmHg (83-108); pH 7.22 (7.35-7.45)
--- NOTE | 2024-07-15 13:30 | PTCARENOTE ---
Systems reviewed. No changes. Pt started on paralytic per Dr Tan prior to proning. BIS monitor noted and adjusted sedation as charted.
--- NOTE | 2024-07-15 13:30 | RESPNOTE ---
Patient placed in prone position per MD orders. Patient airway secure, ventilator volumes maintained with no loss of peep.
--- NOTE | 2024-07-15 14:09 | PN.CDI ---
CDI
- -
CDI:
Physician Documentation Request
Admit Date: 07/14/24 11:38
Dear Doctor Guilherme,
Please review the following and provide your response in the progress notes.
Clinical Indicators:
- Patient admit for sepsis and acute respiratory failure with Influenza A
- 07/14 H&P ' found patient lethargic and short of breath'
- RN note 'increasingly lethargic'
- 07/15 Update note 'Patient more obtundent on bipap...worsening acute hypercapnic respiratory failure'
Please clarify in the Progress Notes and Discharge Summary which, if any of the following, is the most likely etiology of the confusion/altered mental status.
Acute metabolic encephalopathy
Toxic metabolic encephalopathy
Acute or subacute confusional state due to (specify known or suspected etiology)
Other
Use of terms such as suspected, likely, concern for, or probable (associated with a specific diagnosis that is being evaluated, monitored, or treated as if it exists) are acceptable and can be coded in the inpatient setting, when documented at the
time of discharge.
Thank you,
Leanne Obrien RN
CDI Specialist
Please use your independent medical judgment in providing your response.
[2024-07-15] MEDS: LUVOX 50 MG TUBE (14:46)
--- NOTE | 2024-07-15 14:55 | W.PN.INTV ---
Addendum entered and electronically signed by Luz Tan MD 07/15/24 17:20:
5 PM, follow-up ABG shows PF ratio more than 300. FiO2 further lower down to 60%.
Addendum entered and electronically signed by Luz Tan MD 07/15/24 15:43:
ABG was repeated after proning. 1-1/2-hour after proning, 7.25, 46, 388. 100% FiO2 with PEEP of 18.
Considering significant improvement in PaO2 with proning, I contacted you plan center again and transfer for ECMO was paused.
Lower FiO2 to 80%, follow-up ABG at 5 PM. Continue high PEEP for now
Original Note:
Today's Communication / Plan
Recommendations
- Initiate paralytics, cisatracurium
- Start proning in view of severely reduced PF ratio
- Continue high PEEP at 18 and 100% FiO2
- Central line and arterial line placed
- Patient scheduled to be transferred to [facility] for ECMO initiation
Assessment
-
Patient is a 49-year-old gentleman with history of hypertension, depression, who was brought from home via EMS as patient's found him lethargic and short of breath. Patient reportedly had been sick for the last 3 to 4 days. Patient required
15 L via nasal cannula initially and was subsequently transition to BiPAP support as his initial saturations were around 60%. Patient responded well to BiPAP and was noted to have hypercapnia also. Overnight he continued to develop worsening
hypercapnia and inability to ventilate and oxygenate and required intubation and mechanical ventilation. Post ventilation, patient has been very difficult to oxygenate. He has been on 100% FiO2 and PEEP has been slowly increased all the way up to
18 now. His PF ratio continues to be severely low. He has been on deep sedation and also paralytics were initiated. Patient found to have influenza A screen positive.
#1. Influenza A with severe acute hypoxic respiratory failure. (Intubated 07/15)
- Patient was initially on 15 L oxygen, subsequently transition to BiPAP and now on mechanical ventilation
- Currently patient on lung protective mechanical ventilation, tidal volume 400 which is little less than 6 mL/kg body weight, 100% FiO2, PEEP of 18. Patient's peak pressures are around 29 and plateau pressure around 24 with driving pressure of
6-7. Most recent ABG on the settings are 7.22, 50, 87. With the PF ratio of 87.
-Initiate proning protocol
- Patient is currently deeply sedated and paralytic infusion has been started with cisatracurium. In view of low PF ratio of 87 on 100% FiO2 with PEEP of 18 in the setting of deep sedation and paralysis, contacted [facility]
transfer center. Case discussed with Dr. Christianson from ECMO service. Patient accepted at [facility] for further management.
- In view of influenza, steroids were discontinued. No wheezing noted on exam.
- Continue broad-spectrum empiric antibiotics with cefepime and azithromycin. Vancomycin was discontinued considering nasal MRSA screen was negative.
#2. ESAU on admission. Cr was 2.9 on admission, improved to 2.0 today after IVF bolus.
- Suspect prerenal, responded well to hydration. Nonoliguric. Total urine output 2.7 L.
- Discontinue maintenance IV fluids as patient is receiving multiple medications via IV
#3. Hypotension with shock. Suspect this is related to deep sedation as well as initiation of paralytic medications. Shock related to influenza A also in differential diagnosis.
- Left IJ central line placed, left radial artery line placed.
- Levophed initiated to keep MAP above 65.
#4. History of smoking. Patient might have underlying COPD.
- Continue DuoNeb.
- No wheezing on exam now. Discontinue steroids in the setting of influenza A.
DVT prophylaxis with subcu heparin. GI prophylaxis with pantoprazole.
Critical Care time 85 mins -- The patient is admitted for acute critical illness for the treatment of vital organ failure and/or prevention of further life-threatening conditions. Total care includes time spent in review of history, physical exam,
medications, hemodynamic/ventilator parameters, laboratory data, imaging and discussion with house staff, pharmacy, respiratory therapy, onshore diver, and nursing. Time also included updating patient's at bedside. Subsequently calls to
[facility] transfer center and discussion with CT surgery attending regarding ECMO initiation.
Subjective Dataa
Subjective Data
Date of Service:
Date of Service: July 15, 2024
Subjective:
Patient currently intubated, mechanically ventilated and sedated.
Review of Systems
General: Unobtainable - Sedation
Objective Data
Data Reviewed
Vital Signs / I&O / Oxygen:
Vital Signs
Temp Pulse Resp BP Pulse Ox
95.8 F L 69 20 105/62 99
07/15/24 14:00 07/15/24 14:00 07/15/24 14:00 07/15/24 12:45 07/15/24 14:00
Intake and Output
07/14/24 07/15/24 07/16/24
06:59 06:59 06:59
Intake Total 1375 / 1539.8 505.3 / 505.3
Output Total 2400 / 2445 320 / 320
Balance -1025 / -905.2 185.3 / 185.3
SaO2 [A/C] 97
SaO2 99
Physical Exam
General: Comfortable
HEENT: Normocephalic
Cardiovascular: S1-S2
Respiratory: Rhonchi
GI: Soft and Non Distended
Neurology: Other (Patient sedated with propofol and fentanyl)
Skin: Warm
Labs/Micro/Reports
Lab Data
07/15/24 04:33
07/15/24 04:33
Laboratory Results
07/14/24 07/14/24 07/15/24
16:00 20:29 04:33
PT 13.1
INR 0.96
APTT 29.4
pH 7.26 L 7.28 L
pCO2 51 H 49 H
pO2 76 L 100
HCO3 22.9 23.0
O2 Delivery Level
07/15/24 07/15/24
08:32 13:06
PT
INR
APTT
pH 7.20 L 7.22 L
pCO2 56 H 50 H
pO2 114 H 87
HCO3 21.9 20.5 L
O2 Delivery Level
Microbiology
07/15/24 04:32 Nose Nasal Screen MRSA (PCR) - Final
MRSA not detected - performed by PCR methodology.
07/14/24 08:48 Blood/Venous Blood Culture - Preliminary
No Growth in 24 hours- Final report to follow
07/14/24 20:39 Urine Legionella Urinary Antigen - Final
Negative for Legionella pneumophila Serogroup 1 antigen.
A negative result does not rule out the possiblity of
Legionella infection due to other serogroups or species of
Legionella. Clinical correlation is recommended.
07/14/24 20:39 Urine Streptococcus pneumoniae Antigen (M - Final
Negative for Streptococcus pneumoniae antigen.
A negative result does not exclude infection with
Streptococcus pneumoniae. Clinical correlation is
recommended.
07/14/24 08:48 Nasal Swab Influenza Types A & B (JAYLIN) - Final
Influenza A Positive, NAAT
--- NOTE | 2024-07-15 15:09 | OR.RPT ---
Operative Report
Operative Report
Left IJ Central Line placement
Indication: Shock, need central access for multiple pressors
Consent obtained from: Patient's spouse at bedside.
Time-out was performed and patient was placed in Trendelenburg position. Ultrasound was used to assess patency of left IJ vein. Under sterile conditions area was cleaned with chlorhexidine and then a full body drape was placed. 3 mL of local
anesthesia with lidocaine was injected. Under real-time ultrasound guidance, long axis view, the needle was inserted and vein was punctured, once blood was aspirated, syringe was removed and guidewire was advanced which did not meet any resistance.
Subsequently needle was withdrawn and guidewire was left in place. Ultrasound was used again to confirm presence of guidewire inside the vein lumen. A small yariel was placed at the skin and a dilator was advanced to about 50% of its length.
Dilator was removed and central venous catheter was advanced over guidewire and subsequently guidewire was removed. All 3 ports were capped and they were easy to flush and were withdrawing blood without any resistance. Central line was sutured to
the skin and dressing was applied.
Ultrasound of the lungs was performed and good lung sliding was obtained. Patient stayed hemodynamically stable through the procedure.
Complications: None
Blood loss: Minimal
Time spent: 30 min
Date of Service: 07/15/2024
--- NOTE | 2024-07-15 15:10 | OR.RPT ---
Operative Report
Operative Report
Left Radial Arterial catheter placement
Informed consent was obtained from patient's spouse at bedside. Patient in shock on pressor therapy and needs invasive blood pressure monitoring as well as frequent ABGs
Bedside ultrasound was used to confirm patency of left radial artery. Under sterile condition area was subsequently cleaned and a drape was placed. Under direct ultrasound visualization,, radial artery was cannulated. Once blood was noted in the
chamber guidewire was advanced. Arterial catheter was subsequently advanced over the guidewire, and then guidewire was removed. Pressure tubing was subsequently attached to the catheter and arterial waveform was noted on the monitor. Subsequently
a dressing was placed.
Complications: None
Blood loss: None
Time spent: 20 min
Date of service: 07/15/2024
[2024-07-15 15:11] LABS: B.E. -6.9 mmol/L; HCO3 20.2 mmol/L (21-28); PCO2 46 mmHg (35-48); PO2 388 mmHg (83-108); pH 7.25 (7.35-7.45)
--- NOTE | 2024-07-15 15:16 | W.PN.UPDATE ---
Update Note
Progress Note Update
Pt is a 49 yo man with HTN, psychiatric history, who was brought from home by EMS, found pt lethargic and short of breath. In ED O2 sat dropped to 60's on room air and pt was placed on BiPAP, was able to answer questions. Pt reported
cough/congestion/feeling feverish for 4 days. at home, has flu. Pt has not been eating or drinking a lot; was also started on Mounjaro one month ago. Pt + for influenza A, intubated due to CO2 retention, inadequate ventilation. Pt
prescribed [place] ER, level on admission 1.6. Pt also noted to be on Luvox, Latuda, Seroquel. Currently unable to take po.
MSE: pt intubated, sedated, calm.
Imp: Unspecified mood d/o, likely hx of Bipolar d/o, OCD- need further history to clarify
Rec: hold [place] and monitor level. Okay to hold off po psychotropics for now. Will reassess regimen when pt able to be interviewed
will follow
--- NOTE | 2024-07-15 15:22 | W.DCSUMMARY ---
Discharge Summary
Discharge Data
Date of Admission: 07/14/24
Date of Discharge: 07/15/24
-
Pending Results: Yes
Additional Pending Results:
blood cultures
Hospital Course
Discharging Physician : Dr. Makenna Vanegas
Disposition : [facility]
Primary care physician : Dr. Giovani Voss
Principal Discharge diagnosis : Influenza A with severe acute hypoxic respiratory failure
Hospital Course :
Mr. Neil George is a 49 yo man with hx essential HTN, psychiatric history presents from home by EMS as found patient lethargic and short of breath, he was placed on 15L NRB. Patient was noted to be hypoxic on arrival with SpO2 70's and
placed on BiPAP. He tested positive for influenza with CXR showing increased interstitial markings within both lungs. Wheezing heard on exam. He was started on Tamiflu, Vanc/Cefepime/Azithro, duonebs and steroids and admitted to the ICU. Patient
with worsening hypercarbic respiratory failure overnight requiring intubation. Post intubation patient difficulty to oxygenate requiring increasing PEEP with persistent low PF ratios. Paralytics initiated. Skiver Machine, Dr. Tan, discussed case
with Dr. Christianson from ECMO service at [facility] and decision made to transfer for further management.
Patient had ESAU on admission with creatinine 2.7, creatinine improving post fluids.
He became hypotensive post intubation requiring Levophed initiation. Left IJ central line placed, left radial artery line placed.
Time spent on discharge was 45 minutes.
Important imaging findings :
Procedure findings :
Discharge Plan
-
Patient Disposition: Acute Care Hospital
Discharge Orders:
Discharge Patient (As Directed); Ordered 07/15/24
Ordered By: Makenna Vanegas
Discharge Date and Time
Print Language: LIBYAN
[2024-07-15] MEDS: ROBITUSSIN 200 MG TUBE ×2 (16:16→20:42)
[2024-07-15] MEDS: LATUDA PO (16:16)
--- NOTE | 2024-07-15 16:21 | PTCARENOTE ---
systems reviewed. no new changes. continue to titrate sedation as charted. weaning fio2 based on abg per Dr Tan. remains on 18 peep. levo has been weaned off.
[2024-07-15 17:16] LABS: B.E. -6.5 mmol/L; HCO3 20.2 mmol/L (21-28); PCO2 44 mmHg (35-48); PO2 282 mmHg (83-108); pH 7.27 (7.35-7.45)
[2024-07-15] MEDS: LIPITOR 20 MG TUBE (17:22)
--- NOTE | 2024-07-15 18:09 | PTCARENOTE ---
prior to last repositioning, pt briefly opened eyes and having twitchy movements. had been off propofol about an hour. hr and bp increasing, gave fentanyl bolus which briefly improved symptoms, but shortly after hr, bp and movements continued.
additional fentanyl bolus given and propofol restarted as charted. nimbex not reduced at this time. sats maintained t/o 99%. Dr Tan updated. otherwise no changes.
[2024-07-15] MEDS: LUVOX 100 MG TUBE (20:43)
[2024-07-15] MEDS: SEROQUEL 50 MG TUBE (20:43)
[2024-07-15] MEDS: LYRICA 100 MG TUBE (20:44)
--- NOTE | 2024-07-15 22:50 | PTCARENOTE ---
Pt received at 19:00, intubated on sedation and paralytic and in prone position. BIS mostly 40s, increased to 70s-80 with PRN fentanyl boluses given as ordered. TOF with 2/4 at 4mA. Sinus cleopatra, 50s. L radial a-line, zeroed and transduced. #8 ETT,
25cm at the lip. AC 20/400/60%/+14. Received on PEEP 18, decreased by RT. Breath sounds coarse bilaterally. R nare DHT, 75cm. Kilpatrick with clear yellow urine. and sister at bedside, updated. Head turns q2h while prone.
[2024-07-15 23:06] LABS: HCO3 22.2 mmol/L (21-28); PCO2 44 mmHg (35-48); PO2 158 mmHg (83-108); pH 7.31 (7.35-7.45)
[2024-07-16] VITALS (21 sets, daily range): BP systolic 85–144; BP diastolic 46–77; BMI 35.8
[2024-07-16] MEDS: SUBLIMAZE 50 MCG IV ×6 (00:05→21:31)
[2024-07-16] MEDS: MAXIPIME 2000 MG IV ×2 (00:13→11:20)
[2024-07-16] MEDS: STERILE WATER FOR INJECTION 10 ML IV ×2 (00:13→11:20)
[2024-07-16] MEDS: ROBITUSSIN 200 MG TUBE ×6 (00:14→22:10)
[2024-07-16] MEDS: HEPARIN 5000 UNITS SC ×3 (00:14→15:50)
--- NOTE | 2024-07-16 00:52 | PTCARENOTE ---
ABG 7.31/44/158/22.2, vent settings changed per provider--AC 20/500/50%/+12. Tolerating, pulse ox 98%. TOF = 4/4 on 4mA. Paralytics off per provider, restraints re-ordered.
--- NOTE | 2024-07-16 01:43 | PTCARENOTE ---
Pt attempting to lift and turn head, PRN fentanyl given and propofol and fentanyl gtts titrated. Pt BIS = 82, RASS = +2, dyssynchronous with ventilator--low volumes and increased peak pressures. Bolus and gtt titrations effective.
[2024-07-16] MEDS: NIMBEX 17 MG IV ×4 (02:19→20:36)
[2024-07-16] MEDS: DIPRIVAN 100 IV ×4 (02:20→20:52)
[2024-07-16 03:18] LABS: B.E. -4.8 mmol/L; HCO3 19.4 mmol/L (21-28); O2 Saturation % 99.6 % (94-98); PCO2 32 mmHg (35-48); PO2 143 mmHg (83-108); pH 7.39 (7.35-7.45)
[2024-07-16 03:20] LABS: % Basophils 0.1 % (0-2); % Immature Granulocytes 0.1 % (0-0.5); % Lymphocytes 11.1 % (20.5-51.1); % Monocytes 5.9 % (1.7-9.3); % Neutrophils 82.8 % (42.2-75.2); Absolute Monocytes 0.5 10^3/uL (0.1-0.6); Absolute Neutrophils 7.5 10^3/uL (1.4-6.5); Hematocrit 31.6 % (39.0-52.0); Hemoglobin 10.3 g/dL (13.0-18.0); Mean Corp Hgb Conc. 32.6 g/dL (33.0-37.0); Mean Corpuscular Hgb 30.4 pg (27.0-31.0); Mean Corpuscular Volume 93.2 fL (80.0-94.0); Mean Platelet Volume 10.6 fL (7.4-10.4); Nucleated Red Blood Cells % 0 % (-); Platelet Count 201 10^3/uL (130-400); Red Blood Cell Count 3.39 10^6/uL (4.70-6.10); Red Cell Dist. Width 12.5 % (11.5-14.5); White Blood Cell Count 9.1 10^3/uL (4.8-10.8)
--- NOTE | 2024-07-16 03:36 | PTCARENOTE ---
With 02:00 head reposition, pt became agitated and biting on ETT, desat to 13%. Fentanyl and nimbex bolus given, ventilated with ambu bag. Now tolerating vent settings and satting 98-100%.
[2024-07-16 03:44] LABS: Triglycerides 286 mg/dl (10-149)
[2024-07-16 03:50] LABS: ALT (SGPT) 14 U/L (0-50); AST (SGOT) 15 U/L (17-59); Albumin 2.9 g/dl (3.5-5.0); Alkaline Phosphatase 118 U/L (38-126); Blood Urea Nitrogen 35 mg/dl (9-20); Calcium 9.3 mg/dl (8.4-10.2); Carbon Dioxide 20 mmol/L (22-30); Chloride 113 mmol/L (98-107); Direct Bilirubin 0.3 mg/dl (0.0-0.4); Estimated Creatinine Clearance 63 ml/min; Glucose 123 mg/dl (70-99); Magnesium 2.4 mg/dl (1.6-2.3); Potassium 4.8 mmol/L (3.5-5.1); Sodium 141 mmol/L (135-145); Total Bilirubin 0.5 mg/dl (0.2-1.3); Total Protein 5.4 g/dl (6.3-8.2); eGFR 45.86
--- NOTE | 2024-07-16 06:01 | PTCARENOTE ---
Pt repostitioned from prone to supine position 04:15. Pt given fentanyl and nimbex bolus prior. Tolerated repositioning. On current gtt settings, propofol 20mcg/kg/min and fent 125mcg/hr, opens eyes and bites ETT with repositioning. Pt desatting to
87%, vent settings adjusted, 20/500/60%/+12, now satting mid 90s. Dani hugger on, temp 96.6 rectally. Levophed restarted, at 2mcg/min to maintain map > 65.
[2024-07-16] MEDS: DUONEB 3 ML INH ×4 (07:13→20:05)
[2024-07-16 07:41] LABS: B.E. -7.5 mmol/L; HCO3 19.7 mmol/L (21-28); O2 Saturation % 96.2 % (94-98); PCO2 46 mmHg (35-48); PO2 72 mmHg (83-108); pH 7.24 (7.35-7.45)
--- NOTE | 2024-07-16 07:51 | PTCARENOTE ---
Shortly after report, pt coughed and dropped sats in to 70s with biting tube. RT placed oral airway, suctioned for yellow sputum and fentanyl bolus given with improvement in sats. Propofol increased slightly. ABG drawn and sent as requested, vent
settings adjusted to 20/450/18/[address] Tan based on am abg. Pt maintained on levo, fent and propofol per worklist. Otherwise please see worklist.
[2024-07-16] MEDS: SUBLIMAZE 100 IV ×2 (07:56→13:53)
[2024-07-16] MEDS: LUVOX 50 MG TUBE (08:01)
[2024-07-16] MEDS: NICODERM TRANSDERMAL 21 MG TRANSDERM (08:01)
[2024-07-16] MEDS: MIRALAX 17 GRAMS TUBE (08:01)
[2024-07-16] MEDS: PROTONIX IV 40 MG IV (08:02)
[2024-07-16] MEDS: REFRESH CELLUVISC GEL 1 DROPS OPHTH ×2 (08:02→21:31)
[2024-07-16] MEDS: NSS (PRESERVATIVE FREE) 10 ML IV (08:02)
[2024-07-16] MEDS: ZITHROMAX 500 MG TUBE (08:03)
[2024-07-16] MEDS: TAMIFLU 30 MG PO (08:05)
--- NOTE | 2024-07-16 08:35 | PTCARENOTE ---
Addendum entered by Tash Soares RN 07/16/24 09:13:
Dr Tan also increased fio2 to 80
Original Note:
pt agitated with mouth care, opening eyes, fighting ventilator, no improvement with fent bolus in addition to increase fent and prop gtts Dr Tan at bedsid, paralytic bolus given and drip resumed.
--- NOTE | 2024-07-16 09:13 | PTCARENOTE ---
Kassandra called and was given update
[2024-07-16 10:54] LABS: B.E. -6.5 mmol/L; HCO3 20.2 mmol/L (21-28); PCO2 44 mmHg (35-48); PO2 219 mmHg (83-108); pH 7.27 (7.35-7.45)
[2024-07-16] MEDS: LR 500 IV (11:09)
--- NOTE | 2024-07-16 11:33 | W.PN.HOSP.TC ---
Today's Communication/Plan
-
Continue Tamiflu and broad-spectrum
Trend ABG and P/F ratio
ICU planning to prone today
Trend BMP and UOP closely
Consider tube feeding
Holding lithium
Assessment / Plan
Assessment / Plan
#VDRF
#ARDS
#Influenza with superimposed CAP
-Presented with acute hypoxemic respiratory failure, failed BiPAP and required intubation
-Initially found to be flu positive, concerns for superimposed bacterial pneumonia
-Was started on Tamiflu and broad-spectrum antibiotics with vancomycin/cefepime/azithromycin
-Developed worsening P/F ratio on ABG, initial plan for transfer to [facility] for ECMO however improved with prone
-Urine Legionella antigen, strep pneumo antigen were negative; blood cultures NGTD
-Continue with broad-spectrum antibiotics, Tamiflu, pulmonary toileting
-Continue to prone as needed and monitor ABG and P/F
-May need to move forward with ECMO if proning becomes not effective
-Wean FiO2 as possible, SAT and SBT when appropriate
#Circulatory shock
-Likely either related to paralytic agents for intubation versus septic shock due to CAP
-Ultimately required Levophed for hemodynamic support, remains on as of 07/16
-Home antihypertensive regimen now held, BP borderline on lower-dose levo
-Remains on antibiotics as above, blood cultures NGTD
-Continue to wean vasopressors as possible, MAP goal >65
-Follow blood cultures and continue antibiotics for now
#Suspected COPD
#Current tobacco use
-Was noted to have wheezing earlier; no signs of significant hypercapnia
-Was on IV steroids temporarily, DC'd due to concurrent influenza and increased risk of mortality
-Will continue with bronchodilators RTC when able to provide
-nicotine cessation education, patch ordered
#Acute Kidney Injury
-Likely prerenal in the context of reduced intake prior to arrival, infection and shock here
-Urine studies with low sodium consistent with prerenal etiology, improving with IVF
-Creatinine trend here 2.9�2 0.0�1.8; remains with good UOP though slightly worse today
-Continue IVF and trend BMP and UOP, avoid nephrotoxins
-MAP goal >65
#Essential HTN
-No known history of hypertensive systemic disease
-Home regimen currently held due to circulatory shock as above
-hold MAPPING ENGINEER regimen: Atenolol 25mg PO QD; Losartan 50mg PO BID; amlodipine 10mg PO QD
#Psychiatry history
-continue MAPPING ENGINEER home regimen:
Fluvoxamine 50mg PO QD
Fluvoxamine 100mg PO qhs
[place] Carbonate 1200mg PO qhs
Lurasidone 40mg PO qhs
Seroquel 50mg PO qhs
-lithium level is 1.6 --> I reached out to Psychiatry for recommendations on dosing - will hold now
DVT PPx Hep subQ
GI PPx Protonix
Diet: NPO, will need post pyloric feeding for TFs, per ICU
FULL CODE
Anticipated Discharge: > 48 hours
Subjective/Interval History
-
Date of Service: July 16, 2024
Seen and examined at the bedside. No acute events reported overnight. Stable on mechanical ventilator and vasopressors
Yesterday had significant improvement to P/F ratio with proning, transferred to [place] for ECMO was held. Per nurse, urine output slightly lower today
ROS limited due to intubated status.
Objective Data
-
Labs:
Laboratory Results
07/16/24 07/16/24 07/16/24
03:10 07:31 10:44
WBC 9.1
Hgb 10.3 L
Hct 31.6 L
Plt Count 201
HCO3 19.4 L 19.7 L 20.2 L
Sodium 141
Potassium 4.8
Chloride 113 H
Carbon Dioxide 20 L
BUN 35 H
Creatinine 1.8 H
Glucose 123 H
Calcium 9.3
Total Bilirubin 0.5
AST 15 L
ALT 14
Alkaline Phosphatase 118
07/16/24
11:00
WBC
Hgb
Hct
Plt Count
HCO3 Cancelled
Sodium
Potassium
Chloride
Carbon Dioxide
BUN
Creatinine
Glucose
Calcium
Total Bilirubin
AST
ALT
Alkaline Phosphatase
Vital Signs:
Vital Signs
Temp Pulse Resp BP Pulse Ox
97.2 F 58 20 96/53 100
07/16/24 11:18 07/16/24 11:03 07/16/24 11:03 07/16/24 09:41 07/16/24 11:05
I&O
07/15/24 07/16/24 07/17/24
06:59 06:59 06:59
Intake Total 1375 / 1539.8 857.1 / 890.8 882.7 / 882.7
Output Total 2400 / 2445 1515 / 1545 135 / 135
Balance -1025 / -905.2 -657.9 / -654.2 747.7 / 747.7
Review of Systems
-
Unable to obtain full review of systems at this time due to: Patient Intubation
Physical Exam
-
General: Well Developed, No Apparent Distress and Obese
HEENT: Normocephalic, Atraumatic, Moist Mucous Membranes, Anicteric and PERRLA ([place] bilateral)
Respiratory: Clear to Auscultation and Non Labored Respirations; Negative Accessory Resp Muscle Use
Cardiac: Regular Rhythm and S1/S2; Negative Murmur, Rub or Gallop
GI: Soft, Nontender, Nondistended and Normal Bowel Sounds
Musculoskeletal: No Clubbing, No Cyanosis and No Edema
Skin: Warm, Dry and Normal Turgor; Negative Rash
Neuro: Sedated and Nonfocal/Grossly Intact
Data Reviewed
-
Labs: Labs Reviewed by me, Discussed with Physician (Color Paste Mixing Supervisor) and Discussed with Patient
--- NOTE | 2024-07-16 11:52 | PTCARENOTE ---
Systems reviewed. No changes at this time. ABG reviewed with Dr Tan, holding on proning at this time. Father and brother in to see pt and updated.
--- NOTE | 2024-07-16 12:52 | PTCARENOTE ---
Dr Tan in to update , tf initiated.
[2024-07-16] MEDS: LEVOPHED 250 IV (13:52)
--- NOTE | 2024-07-16 15:07 | W.PN.INTV ---
Today's Communication / Plan
Recommendations
- LR 500 mL bolus.
- Initiate tube feeding via Dobbhoff tube
- Change vent settings to volume control, 450, 20, 80%, PEEP of 18. ABGs every 6 hours
- Withhold proning considering PF ratio is above 150 today
- Follow-up labs in a.m.
-Continue deep sedation and paralytics. If continued improvement noted, will discontinue/wean paralytics in a.m.
- Follow-up chest x-ray in a.m.
Assessment
-
Patient is a 49-year-old gentleman with history of hypertension, depression, who was brought from home via EMS as patient's found him lethargic and short of breath. Patient reportedly had been sick for the last 3 to 4 days. Patient required
15 L via nasal cannula initially and was subsequently transition to BiPAP support as his initial saturations were around 60%. Patient responded well to BiPAP and was noted to have hypercapnia also. Overnight he continued to develop worsening
hypercapnia and inability to ventilate and oxygenate and required intubation and mechanical ventilation. Post ventilation, patient has been very difficult to oxygenate. He has been on 100% FiO2 and PEEP has been slowly increased all the way up to
18 now. His PF ratio continues to be severely low. He has been on deep sedation and also paralytics were initiated. Patient found to have influenza A screen positive.
#1. Influenza A with severe acute hypoxic respiratory failure. (Intubated 07/15)
- Patient was initially on 15 L oxygen, subsequently transition to BiPAP and now on mechanical ventilation
- Currently patient on lung protective mechanical ventilation, tidal volume 450 which is around 6 mL/kg body weight, 80% FiO2, PEEP of 18. Patient's peak pressures are around 30 and plateau pressure around 25 with driving pressure of 7. Most
recent ABG on the settings are 7.27, 44, 219.
- Current PF ratio 260, hold off proning today. Continue supine ventilation. Check serial ABGs every 6 hours
-Follow-up chest x-ray today stable.
- 07/15, patient had severely low PF ratio of 87 and [facility] was contacted for consideration of ECMO. Subsequently once patient was proned his PO2 significantly improved to above 300 hence transferred to [facility] was canceled.
- In view of influenza, steroids were discontinued. No wheezing noted on exam.
- Continue broad-spectrum empiric antibiotics with cefepime and azithromycin. Vancomycin was discontinued considering nasal MRSA screen was negative. Completed 3 days of azithromycin.
- Tracheal aspirate sent for culture and sensitivities
- Resume home psychiatric medications
#2. ESAU on admission. Cr was 2.9 on admission, improved to 1.9 today after IVF bolus.
- Suspect prerenal, responded well to hydration. Nonoliguric. Total urine output 1380 ml
- LR 500 ml bolus given. Labs in AM.
#3. Hypotension with shock. Suspect this is related to deep sedation as well as initiation of paralytic medications. Shock related to influenza A also in differential diagnosis.
- Left IJ central line placed, left radial artery line placed.
- Levophed initiated to keep MAP above 65.
#4. History of smoking. Patient might have underlying COPD.
- Continue DuoNeb.
- No wheezing on exam now. Discontinued steroids in the setting of influenza A.
DVT prophylaxis with subcu heparin. GI prophylaxis with pantoprazole.
Updated patient's spouse at bedside.
Critical Care time 48 mins -- The patient is admitted for acute critical illness for the treatment of vital organ failure and/or prevention of further life-threatening conditions. Total care includes time spent in review of history, physical exam,
medications, hemodynamic/ventilator parameters, laboratory data, imaging and discussion with house staff, pharmacy, respiratory therapy, slot technician, and nursing. Time also included updating patient's at bedside. Subsequently calls to
[facility] transfer center and discussion with CT surgery attending regarding ECMO initiation.
Subjective Dataa
Subjective Data
Date of Service:
Date of Service: July 16, 2024
Subjective:
Patient intubated, mechanically ventilated and sedated.
Review of Systems
General: Unobtainable - Sedation
Objective Data
Data Reviewed
Vital Signs / I&O / Oxygen:
Vital Signs
Temp Pulse Resp BP Pulse Ox
97.2 F 63 20 96/56 98
07/16/24 11:18 07/16/24 14:42 07/16/24 14:42 07/16/24 13:30 07/16/24 14:42
Intake and Output
07/15/24 07/16/24 07/17/24
06:59 06:59 06:59
Intake Total 1375 / 1539.8 857.1 / 890.8 1026.6 / 1026.6
Output Total 2400 / 2445 1515 / 1545 225 / 225
Balance -1025 / -905.2 -657.9 / -654.2 801.6 / 801.6
SaO2 [A/C] 99
SaO2 98
Physical Exam
General: Comfortable
HEENT: Normocephalic
Cardiovascular: S1-S2
Respiratory: Other (Good air entry bilaterally.)
GI: Soft and Non Distended
Neurology: Other (Patient sedated with propofol and fentanyl)
Skin: Warm
Labs/Micro/Reports
Lab Data
07/16/24 03:10
07/16/24 03:10
Laboratory Results
07/15/24 07/15/24 07/15/24
15:01 17:01 22:58
pH 7.25 L 7.27 L 7.31 L
pCO2 46 44 44
pO2 388 H 282 H 158 H
HCO3 20.2 L 20.2 L 22.2
O2 Delivery Level
07/15/24 07/16/24 07/16/24
23:00 03:10 07:31
pH Cancelled 7.39 7.24 L
pCO2 Cancelled 32 L 46
pO2 Cancelled 143 H 72 L
HCO3 Cancelled 19.4 L 19.7 L
O2 Delivery Level Cancelled
07/16/24 07/16/24
10:44 11:00
pH 7.27 L Cancelled
pCO2 44 Cancelled
pO2 219 H Cancelled
HCO3 20.2 L Cancelled
O2 Delivery Level Cancelled
Microbiology
07/16/24 07:38 Sputum Gram Stain - Preliminary
07/14/24 08:48 Blood/Venous Blood Culture - Preliminary
No Growth in 48 hours- Final report to follow
07/15/24 04:33 Blood/Venous Blood Culture - Preliminary
No Growth in 24 hours- Final report to follow
07/15/24 04:32 Nose Nasal Screen MRSA (PCR) - Final
MRSA not detected - performed by PCR methodology.
07/14/24 20:39 Urine Legionella Urinary Antigen - Final
Negative for Legionella pneumophila Serogroup 1 antigen.
A negative result does not rule out the possiblity of
Legionella infection due to other serogroups or species of
Legionella. Clinical correlation is recommended.
07/14/24 20:39 Urine Streptococcus pneumoniae Antigen (M - Final
Negative for Streptococcus pneumoniae antigen.
A negative result does not exclude infection with
Streptococcus pneumoniae. Clinical correlation is
recommended.
07/14/24 08:48 Nasal Swab Influenza Types A & B (JAYLIN) - Final
Influenza A Positive, NAAT
[2024-07-16 15:53] LABS: B.E. -5.7 mmol/L; HCO3 21.1 mmol/L (21-28); O2 Saturation % 99.1 % (94-98); PCO2 46 mmHg (35-48); PO2 123 mmHg (83-108); pH 7.27 (7.35-7.45)
--- NOTE | 2024-07-16 16:15 | PTCARENOTE ---
systems reviewed. Pt bis increasing with activity, but drops again once left alone. Sedation continues as charted. Paralytics continue, will decrease per protocol at 6 if no improvement in train of 4. Weaning levo as able, urine output has
improved. ABG results reviewed with DR Tan, fio2 decreased to 16 and repeat abg at 8pm. TF advanced as charted. in to see pt and updated.
[2024-07-16] MEDS: NIMBEX 200 ML IV (16:43)
[2024-07-16] MEDS: NIMBEX 200 MG IV (16:43)
[2024-07-16] MEDS: LIPITOR 20 MG TUBE (17:42)
[2024-07-16 20:11] LABS: HCO3 22.2 mmol/L (21-28); O2 Saturation % 99.1 % (94-98); PCO2 44 mmHg (35-48); PO2 93 mmHg (83-108); pH 7.31 (7.35-7.45)
--- NOTE | 2024-07-16 22:00 | RESPNOTE ---
PT was proned at his time, with his head facing left. PT was bagged during the turn and tolerated well.
[2024-07-16] MEDS: TAMIFLU 75 MG TUBE (22:10)
[2024-07-16] MEDS: LUVOX 100 MG TUBE (22:11)
[2024-07-16] MEDS: SEROQUEL 50 MG TUBE (22:11)
[2024-07-16] MEDS: LYRICA 100 MG TUBE (22:11)
[2024-07-16 22:52] LABS: B.E. -3.7 mmol/L; HCO3 22.1 mmol/L (21-28); O2 Saturation % 99.9 % (94-98); PCO2 42 mmHg (35-48); PO2 195 mmHg (83-108); pH 7.33 (7.35-7.45)
--- NOTE | 2024-07-17 | RESPNOTE ---
PT's head was turned form prone facing left to prone facing right at this time.
--- NOTE | 2024-07-17 00:28 | PTCARENOTE ---
Received pt at 19:00, intubated on sedation/pressors/paralytics. BIS 30s, TOF = 4/4 on 4mA-nimbex bolus given and gtt titrated. 20:00 ABG = 7.31/44/93/22.2 on AC 20/450/60%/+16. Dr. Tan notified of results, decision made to prone patiet. Pt
turned to prone position at 21:45, tolerating reposition. Post prone ABG at 22:45 = 7.33/45/195/22.1, Dr. Tan aware, no vent changes. Levophed titrated off, prop/fent/nimbex continue as ordered, titrations per protocol.
TOF now 1/4, 4mA, BIS remains high 30s-low 40s. NSR, HR 60s. weak but palpable pulses. L radial a-line, zeroed/transduced, correlating with cuff pressure. Breath sounds coarse bilaterally, #8 ETT, 25cm @ the lip, repositioning with head turns while
proned. Vent settings as above. R nare DHT, TF placed on hold to prone, remains on hold at this time. Kilpatrick with clear yellow urine. Skin intact, protective foams placed for proning.
updated, head turns q2h while prone. Plan of care ongoing.
[2024-07-17] MEDS: MAXIPIME 2000 MG IV (00:36)
[2024-07-17] MEDS: HEPARIN 5000 UNITS SC ×3 (00:36→16:21)
[2024-07-17] MEDS: STERILE WATER FOR INJECTION 10 ML IV (00:36)
[2024-07-17] MEDS: ROBITUSSIN 200 MG TUBE ×6 (00:37→19:34)
[2024-07-17] MEDS: SUBLIMAZE 100 IV ×3 (01:59→21:48)
--- NOTE | 2024-07-17 02:00 | RESPNOTE ---
PT's head was turned form prone facing right to prone facing left at this time, PT tolerated well and was bagged during the head turned without incident.
[2024-07-17] MEDS: DIPRIVAN 100 IV ×4 (02:13→20:51)
--- NOTE | 2024-07-17 04:00 | RESPNOTE ---
PTs head was turned form prone facing left to prone, facing right at this time and the PT tolerated well and was bagged during the turn andplaced back on the vent.
[2024-07-17 04:30] LABS: B.E. -3.5 mmol/L; HCO3 22.1 mmol/L (21-28); PCO2 41 mmHg (35-48); PO2 217 mmHg (83-108); pH 7.34 (7.35-7.45)
[2024-07-17 04:38] LABS: % Basophils 0.1 % (0-2); % Eosinophils 0.6 % (0-6); % Immature Granulocytes 0.5 % (0-0.5); % Lymphocytes 15.3 % (20.5-51.1); % Monocytes 6.8 % (1.7-9.3); % Neutrophils 76.7 % (42.2-75.2); Absolute Eosinophils 0.1 10^3/uL (0-0.7); Absolute Immature Granulocytes 0.1 10^3/uL (0-0.05); Absolute Lymphocytes 1.4 10^3/uL (1.2-3.4); Absolute Monocytes 0.6 10^3/uL (0.1-0.6); Absolute Neutrophils 7.2 10^3/uL (1.4-6.5); Hematocrit 32.3 % (39.0-52.0); Hemoglobin 10.3 g/dL (13.0-18.0); Mean Corp Hgb Conc. 31.9 g/dL (33.0-37.0); Mean Corpuscular Hgb 30.1 pg (27.0-31.0); Mean Corpuscular Volume 94.4 fL (80.0-94.0); Mean Platelet Volume 10.5 fL (7.4-10.4); Nucleated Red Blood Cells % 0 % (-); Platelet Count 235 10^3/uL (130-400); Red Blood Cell Count 3.42 10^6/uL (4.70-6.10); Red Cell Dist. Width 12.8 % (11.5-14.5); White Blood Cell Count 9.3 10^3/uL (4.8-10.8)
[2024-07-17 04:56] LABS: ALT (SGPT) 11 U/L (0-50); AST (SGOT) 10 U/L (17-59); Albumin 2.9 g/dl (3.5-5.0); Alkaline Phosphatase 116 U/L (38-126); Blood Urea Nitrogen 31 mg/dl (9-20); Carbon Dioxide 23 mmol/L (22-30); Chloride 116 mmol/L (98-107); Estimated Creatinine Clearance 71 ml/min; Glucose 122 mg/dl (70-99); Lithium 1.4 mmol/L (0.6-1.2); Magnesium 2.5 mg/dl (1.6-2.3); Phosphorus 3.2 mg/dl (2.5-4.5); Sodium 144 mmol/L (135-145); Total Bilirubin 0.6 mg/dl (0.2-1.3); Total Protein 5.5 g/dl (6.3-8.2); eGFR 52.82
--- NOTE | 2024-07-17 05:41 | PTCARENOTE ---
Pt assessment unchanged, tolerating prone position. Prop/fent/nimbex continue--see worklist.
--- NOTE | 2024-07-17 06:00 | RESPNOTE ---
PT head was turned from prone facing right to prone facing left at this time. PT tolerated the head turn fine and was bagged during the turn
[2024-07-17] MEDS: DUONEB 3 ML INH ×4 (07:41→19:55)
[2024-07-17] MEDS: NICODERM TRANSDERMAL 21 MG TRANSDERM (08:34)
[2024-07-17] MEDS: MIRALAX 17 GRAMS TUBE (08:34)
[2024-07-17] MEDS: LUVOX 50 MG TUBE (08:35)
[2024-07-17] MEDS: REFRESH CELLUVISC GEL 1 DROPS OPHTH ×2 (08:36→19:34)
[2024-07-17] MEDS: PROTONIX IV 40 MG IV (08:36)
[2024-07-17] MEDS: NSS (PRESERVATIVE FREE) 10 ML IV (08:36)
[2024-07-17] MEDS: TAMIFLU 75 MG TUBE ×2 (08:59→19:35)
--- NOTE | 2024-07-17 11:37 | W.PN.HOSP.TC ---
Today's Communication/Plan
-
Currently prone, per ICU will be supine and near 1 to 2 PM today
Continue to trend ABG and P to F ratio
Continue antibiotics and Tamiflu
Wean pressors, FiO2, PEEP as possible
SAT + SBT per ICU
Assessment / Plan
Assessment / Plan
#VDRF
#ARDS
#Influenza with superimposed CAP
-Initially found to be flu positive, concerns for superimposed bacterial pneumonia
-Was started on Tamiflu and broad-spectrum antibiotics with vancomycin/cefepime/azithromycin
-Urine Legionella antigen, strep pneumo antigen were negative; blood cultures NGTD
-Continue with broad-spectrum antibiotics, Tamiflu, pulmonary toileting
-Continue to prone as needed and monitor ABG and P/F ratio Q6
-May need to move forward with ECMO if proning loses efficacy
-Wean FiO2 and PEEP as possible, SAT and SBT when appropriate
#Circulatory shock
-Likely either related to paralytic agents for intubation versus septic shock due to CAP
-Ultimately required Levophed for hemodynamic support, remains on as of 07/16
-Home antihypertensive regimen now held, BP borderline on lower-dose levo
-Remains on antibiotics as above, blood cultures NGTD
-Continue to wean vasopressors as possible, MAP goal >65
-Follow blood cultures and continue antibiotics for now
#Suspected COPD
#Current tobacco use
-Was noted to have wheezing earlier; no signs of significant hypercapnia
-Was on IV steroids temporarily, DC'd due to concurrent influenza and increased risk of mortality
-Will continue with bronchodilators RTC when able to provide
-Nicotine cessation education, patch ordered
#Acute Kidney Injury
-Likely prerenal in the context of reduced intake prior to arrival, infection and shock here
-Urine studies with low sodium consistent with prerenal etiology, improving with IVF
-Creatinine trend here 2.9�2 0.0�1.8; remains with good UOP though slightly worse today
-Continue IVF and trend BMP and UOP, avoid nephrotoxins
-MAP goal >65
#Essential HTN
-No known history of hypertensive systemic disease
-Home regimen currently held due to circulatory shock as above
-hold PHYSICIAN OFFICE SPECIALIST regimen: Atenolol 25mg PO QD; Losartan 50mg PO BID; amlodipine 10mg PO QD
#Psychiatry history
-continue PHYSICIAN OFFICE SPECIALIST home regimen: Fluvoxamine (50 AM + 100 HS), lithium carbonate 1200 HS, lurasidone 40 HS, Seroquel 50 HS
-[place] level is 1.6 --> I reached out to Psychiatry for recommendations on dosing - was held at that time
-Repeat lithium level 1.4 as of 07/17, lithium remains held, no signs of nephrogenic DI
-psychiatry on board
DVT PPx Hep subQ
GI PPx Protonix
Diet: Tube feeds with Jevity
FULL CODE
Anticipated Discharge: > 48 hours
Subjective/Interval History
-
Date of Service: July 17, 2024
Seen and examined at the bedside. No acute events reported overnight. Hemodynamically stable on low-dose Levophed. Respiratory status stable on CMV 20/450/60/16 with P peak 27. Afebrile
Day 3 of mechanical ventilation and ICU level care. Has been responding well to proning. AM lithium level high at 1.4, renal function improving
No signs of barotrauma on high PEEP. No ROS due to intubated status and sedation
Objective Data
-
Labs:
Laboratory Results
07/17/24
04:22
WBC 9.3
Hgb 10.3 L
Hct 32.3 L
Plt Count 235
HCO3 22.1
Sodium 144
Potassium 4.0
Chloride 116 H
Carbon Dioxide 23
BUN 31 H
Creatinine 1.6 H
Glucose 122 H
Calcium 9.0
Total Bilirubin 0.6
AST 10 L
ALT 11
Alkaline Phosphatase 116
Vital Signs:
Vital Signs
Temp Pulse Resp BP Pulse Ox
97.2 F 56 20 94/54 100
07/17/24 07:54 07/17/24 11:29 07/17/24 11:29 07/16/24 20:00 07/17/24 11:29
I&O
07/16/24 07/17/24 07/18/24
06:59 06:59 06:59
Intake Total 857.1 / 890.8 2044.0 / 2077.3 281.1 / 281.1
Output Total 1515 / 1545 1930 / 1930 345 / 345
Balance -657.9 / -654.2 114.0 / 147.3 -63.9 / -63.9
Review of Systems
-
Unable to obtain full review of systems at this time due to: Patient Intubation
Physical Exam
-
General: Well Developed, No Apparent Distress and Obese
HEENT: Normocephalic, Atraumatic, Moist Mucous Membranes, Anicteric and PERRLA
Respiratory: Clear to Auscultation and Non Labored Respirations; Negative Wheezes, Rales or Rhonchi
Cardiac: Regular Rhythm and S1/S2; Negative Murmur, Rub or Gallop
GI: Soft, Nontender, Nondistended and Normal Bowel Sounds
Genito-urinary: Clear Urine and Kilpatrick
Musculoskeletal: No Clubbing, No Cyanosis and No Edema
Skin: Warm and Dry; Negative Rash
Neuro: Sedated and Nonfocal/Grossly Intact
Data Reviewed
-
Labs: Labs Reviewed by me and Discussed with Physician (Hand Bobbin Cleaner)
--- NOTE | 2024-07-17 12:18 | W.PN.INTV ---
Addendum entered and electronically signed by Luz Tan MD 07/17/24 16:38:
- ABG 1 hour after reverting to supine position, 7.3, 41, 126 at FiO2 of 60%, PF ratio 200.
- Will discontinue paralytics and continue propofol and fentanyl infusions with as needed Ativan for agitation. Will continue to try to minimize the use of paralytics.
Original Note:
Today's Communication / Plan
Recommendations
- Continue proning for 16 hrs, then supine.
- f/u ABG once supine. d/c Paralytics once supine.
- Continue lung protective ventilation, 450/20/16/60% currently with Peak pressure in mid 20's.
- Tube feeding
- D/c Cefepime
- CXR in AM
- Wean FiO2/PEEP as tolerated
Assessment
-
Patient is a 49-year-old gentleman with history of hypertension, depression, who was brought from home via EMS as patient's found him lethargic and short of breath. Patient reportedly had been sick for the last 3 to 4 days. Patient required
15 L via nasal cannula initially and was subsequently transition to BiPAP support as his initial saturations were around 60%. Patient responded well to BiPAP and was noted to have hypercapnia also. Overnight he continued to develop worsening
hypercapnia and inability to ventilate and oxygenate and required intubation and mechanical ventilation. Post ventilation, patient has been very difficult to oxygenate. He has been on 100% FiO2 and PEEP has been slowly increased all the way up to
18 now. His PF ratio continues to be severely low. He has been on deep sedation and also paralytics were initiated. Patient found to have influenza A screen positive.
#1. Influenza A with severe acute hypoxic respiratory failure. (Intubated 07/15)
- Patient was initially on 15 L oxygen, subsequently transition to BiPAP and now on mechanical ventilation
- Currently patient on lung protective mechanical ventilation, tidal volume 450 which is around 6 mL/kg body weight, FiO2 doen to 60%, PEEP of 16. Patient's peak pressures are around 26. Most recent ABG on the settings are 7.34, 41, 217, while
proned
- 07/15, patient had severely low PF ratio of 87 and [facility] was contacted for consideration of ECMO. Subsequently once patient was proned his PO2 significantly improved to above 300 hence transferred to [facility] was canceled.
- In view of influenza, steroids were discontinued. No wheezing noted on exam.
- Completed 3 days of azithromycin. off Vancomcyin since MRSA negative. d/c Cefepime as all cultures including tracheal aspirates negative, and no davis consolidation on imaging.
- Tracheal aspirate sent for culture and sensitivities, negative so far.
- Resumed home psychiatric medications
- Continue proning for 16 hrs then supine, f/u ABG after supine position. Once supine, will d/c paralytics and monitor. Continue Propofol (20) and Fentanyl (100).
- Continue Tube feeding
#2. ESAU on admission. Cr was 2.9 on admission, improved to 1.6 today after IVF bolus.
- Suspect prerenal, responded well to hydration. Nonoliguric. Total urine output 2135 ml last 24 hrs
#3. Hypotension with shock. Suspect this is related to deep sedation as well as initiation of paralytic medications. Shock related to influenza A also in differential diagnosis.
- Left IJ central line placed, left radial artery line placed.
- Levophed initiated to keep MAP above 65.
#4. History of smoking. Patient might have underlying COPD.
- Continue DuoNeb.
- No wheezing on exam now. Discontinued steroids in the setting of influenza A.
DVT prophylaxis with subcu heparin. GI prophylaxis with pantoprazole.
Updated patient's spouse at bedside.
Critical Care time 51 mins -- The patient is admitted for acute critical illness for the treatment of vital organ failure and/or prevention of further life-threatening conditions. Total care includes time spent in review of history, physical exam,
medications, hemodynamic/ventilator parameters, laboratory data, imaging and discussion with house staff, pharmacy, respiratory therapy, rivet tosser, and nursing. Time also included updating patient's at bedside. Subsequently calls to
[facility] transfer center and discussion with CT surgery attending regarding ECMO initiation.
Subjective Dataa
Subjective Data
Date of Service:
Date of Service: July 17, 2024
Subjective:
Patient intubated, sedated.
Review of Systems
General: Unobtainable - Sedation
Objective Data
Data Reviewed
Vital Signs / I&O / Oxygen:
Vital Signs
Temp Pulse Resp BP Pulse Ox
97.6 F 66 20 94/54 100
07/17/24 12:06 07/17/24 12:00 07/17/24 11:29 07/16/24 20:00 07/17/24 12:00
Intake and Output
07/16/24 07/17/24 07/18/24
06:59 06:59 06:59
Intake Total 857.1 / 890.8 2044.0 / 2077.3 312.0 / 312.0
Output Total 1515 / 1545 1930 / 1930 390 / 390
Balance -657.9 / -654.2 114.0 / 147.3 -78.0 / -78.0
SaO2 [A/C] 100
SaO2 100
Physical Exam
General: Comfortable
HEENT: Normocephalic
Cardiovascular: S1-S2
Respiratory: Non-Labored Respirations and Other (Good air entry bilaterally.)
GI: Soft and Non Distended
Neurology: Other (Patient sedated with propofol and fentanyl)
Skin: Warm
Labs/Micro/Reports
Lab Data
07/17/24 04:22
07/17/24 04:22
Laboratory Results
07/16/24 07/16/24 07/16/24
15:44 20:05 22:00
pH 7.27 L 7.31 L Cancelled
pCO2 46 44 Cancelled
pO2 123 H 93 Cancelled
HCO3 21.1 22.2 Cancelled
O2 Delivery Level Cancelled
07/16/24 07/17/24
22:46 04:22
pH 7.33 L 7.34 L
pCO2 42 41
pO2 195 H 217 H
HCO3 22.1 22.1
O2 Delivery Level
Microbiology
07/16/24 07:38 Sputum Respiratory Culture - Preliminary
Usual Respiratory Alana
07/16/24 07:38 Sputum Gram Stain - Preliminary
07/14/24 08:48 Blood/Venous Blood Culture - Preliminary
No Growth in 72 hours- Final report to follow
07/15/24 04:33 Blood/Venous Blood Culture - Preliminary
No Growth in 48 hours- Final report to follow
07/15/24 04:32 Nose Nasal Screen MRSA (PCR) - Final
MRSA not detected - performed by PCR methodology.
07/14/24 20:39 Urine Legionella Urinary Antigen - Final
Negative for Legionella pneumophila Serogroup 1 antigen.
A negative result does not rule out the possiblity of
Legionella infection due to other serogroups or species of
Legionella. Clinical correlation is recommended.
07/14/24 20:39 Urine Streptococcus pneumoniae Antigen (M - Final
Negative for Streptococcus pneumoniae antigen.
A negative result does not exclude infection with
Streptococcus pneumoniae. Clinical correlation is
recommended.
07/14/24 08:48 Nasal Swab Influenza Types A & B (JAYLIN) - Final
Influenza A Positive, NAAT
--- NOTE | 2024-07-17 12:20 | PTCARENOTE ---
Pt remains paralyzed and sedated in prone position. Will return to supine between 1330 and 1400 today. Levophed remains off. BP via left radial A-line. Sinus rhythm. +2 pedal edema. Lungs course. No secretions suctioned via ETT. No BM. Tube
feeds on hold. Clear yellow urine via [place]. All other assessments unchanged.
[2024-07-17 14:05] VITALS: BMI 36.3
--- NOTE | 2024-07-17 15:08 | PTCARENOTE ---
Supine at 1345. SpO2 99-100% on 60% FiO2. CXR complete. Tube feeds started. ABG drawn at 1501. Nimbex d/c'd. Remains on propofol and fentanyl. Family at bedside.
--- NOTE | 2024-07-17 15:14 | CM ---
Patient chart reviewed
Patient intubated on 07/15
PLAN: tbd, depends on patient progress, CM to continue to follow for needs
[2024-07-17 15:17] LABS: B.E. -5.9 mmol/L; HCO3 20.2 mmol/L (21-28); PCO2 41 mmHg (35-48); PO2 126 mmHg (83-108)
[2024-07-17] MEDS: SUBLIMAZE 50 MCG IV ×3 (16:09→20:13)
--- NOTE | 2024-07-17 16:41 | PTCARENOTE ---
Pt coughing and gagging on ETT with any care/repositioning. Vent dyssynchrony, pt not getting volumes, SpO2 dropping to 85%, lips and tongue cyanotic, BIS 97. Fentanyl bolus given, propofol and fentanyl gtts increased. Pt continued to
occasionally fight vent. MD notified and came to bedside. New order for Lorazepam.
[2024-07-17] MEDS: ATIVAN 2 MG IV ×2 (16:56→20:57)
[2024-07-17] MEDS: LIPITOR 20 MG TUBE (16:56)
[2024-07-17 18:08] VITALS: BP 84/56
--- NOTE | 2024-07-17 20:10 | PTCARENOTE ---
Resumed care of pt this evening. Received pt on deep sedation, intubated and vented. Pt tolerating vent settings satting at 98% pulse ox. 2000 PO2 >90. BIS greater than 40.
[2024-07-17 20:17] LABS: B.E. -4.4 mmol/L; HCO3 22.1 mmol/L (21-28); O2 Saturation % 99.1 % (94-98); PCO2 46 mmHg (35-48); PO2 91 mmHg (83-108); pH 7.29 (7.35-7.45)
[2024-07-17] MEDS: NSS (PRESERVATIVE FREE) 1 ML IV (20:58)
[2024-07-17] MEDS: SEROQUEL 50 MG TUBE (21:33)
[2024-07-17] MEDS: LUVOX 100 MG TUBE (21:33)
[2024-07-17] MEDS: LYRICA 100 MG TUBE (21:33)
[2024-07-18] VITALS (13 sets, daily range): BP systolic 79–112; BP diastolic 55–70; BMI 36.7
[2024-07-18] MEDS: HEPARIN 5000 UNITS SC ×3 (00:14→15:54)
[2024-07-18] MEDS: ROBITUSSIN 200 MG TUBE ×6 (00:14→20:00)
[2024-07-18] MEDS: SUBLIMAZE 50 MCG IV ×4 (00:44→15:55)
[2024-07-18] MEDS: TYLENOL ORAL SOLUTION 650 MG PO ×2 (01:10→20:00)
[2024-07-18] MEDS: ATIVAN 2 MG IV (01:12)
[2024-07-18] MEDS: NSS (PRESERVATIVE FREE) 1 ML IV (01:13)
[2024-07-18] MEDS: LEVOPHED 250 IV (02:11)
--- NOTE | 2024-07-18 02:30 | PTCARENOTE ---
Levo gtt initiated due to hypotension.
[2024-07-18] MEDS: SUBLIMAZE 100 IV ×4 (04:15→21:41)
[2024-07-18] MEDS: DIPRIVAN 100 IV ×3 (04:15→20:24)
[2024-07-18 04:58] LABS: % Basophils 0.1 % (0-2); % Eosinophils 1.9 % (0-6); % Immature Granulocytes 0.6 % (0-0.5); % Lymphocytes 20.3 % (20.5-51.1); % Monocytes 8.5 % (1.7-9.3); % Neutrophils 68.6 % (42.2-75.2); Absolute Eosinophils 0.2 10^3/uL (0-0.7); Absolute Immature Granulocytes 0.1 10^3/uL (0-0.05); Absolute Lymphocytes 2.1 10^3/uL (1.2-3.4); Absolute Monocytes 0.9 10^3/uL (0.1-0.6); Absolute Neutrophils 7.1 10^3/uL (1.4-6.5); B.E. -5.4 mmol/L; HCO3 21.9 mmol/L (21-28); Hematocrit 32.6 % (39.0-52.0); Mean Corp Hgb Conc. 30.7 g/dL (33.0-37.0); Mean Corpuscular Hgb 29.9 pg (27.0-31.0); Mean Corpuscular Volume 97.3 fL (80.0-94.0); Mean Platelet Volume 10.6 fL (7.4-10.4); Nucleated Red Blood Cells % 0 % (-); O2 Saturation % 98.5 % (94-98); PCO2 50 mmHg (35-48); PO2 82 mmHg (83-108); Platelet Count 212 10^3/uL (130-400); Red Blood Cell Count 3.35 10^6/uL (4.70-6.10); Red Cell Dist. Width 13.5 % (11.5-14.5); White Blood Cell Count 10.4 10^3/uL (4.8-10.8); pH 7.25 (7.35-7.45)
[2024-07-18 05:29] LABS: ALT (SGPT) 11 U/L (0-50); AST (SGOT) 10 U/L (17-59); Albumin 3.2 g/dl (3.5-5.0); Alkaline Phosphatase 125 U/L (38-126); Blood Urea Nitrogen 32 mg/dl (9-20); Calcium 8.6 mg/dl (8.4-10.2); Carbon Dioxide 22 mmol/L (22-30); Chloride 115 mmol/L (98-107); Direct Bilirubin 0.3 mg/dl (0.0-0.4); Estimated Creatinine Clearance 60 ml/min; Glucose 158 mg/dl (70-99); Potassium 4.3 mmol/L (3.5-5.1); Sodium 144 mmol/L (135-145); Total Bilirubin 0.4 mg/dl (0.2-1.3); Total Protein 5.9 g/dl (6.3-8.2); Triglycerides 400 mg/dl (10-149); eGFR 42.98
--- NOTE | 2024-07-18 06:10 | PTCARENOTE ---
Vent settings changed by RT per order.
[2024-07-18] MEDS: DUONEB 3 ML INH ×4 (07:15→20:18)
[2024-07-18] MEDS: TAMIFLU 75 MG TUBE ×2 (07:31→20:00)
[2024-07-18] MEDS: NICODERM TRANSDERMAL 21 MG TRANSDERM (07:31)
[2024-07-18] MEDS: NSS (PRESERVATIVE FREE) 10 ML IV (07:31)
[2024-07-18] MEDS: MIRALAX 17 GRAMS TUBE ×2 (07:31→20:00)
[2024-07-18] MEDS: LUVOX 50 MG TUBE (07:31)
[2024-07-18] MEDS: PROTONIX IV 40 MG IV (07:32)
[2024-07-18] MEDS: LR 500 IV ×2 (07:32→12:45)
[2024-07-18] MEDS: REFRESH CELLUVISC GEL 1 DROPS OPHTH ×2 (07:33→19:59)
[2024-07-18 08:13] LABS: B.E. -4.7 mmol/L; HCO3 21.1 mmol/L (21-28); PCO2 41 mmHg (35-48); PO2 91 mmHg (83-108); pH 7.32 (7.35-7.45)
--- NOTE | 2024-07-18 11:12 | W.PN.HOSP.TC ---
Today's Communication/Plan
-
Continue Tamiflu
Trend ABG and P/F ratio
Prone as indicated
May need to reinitiate transfer for ECMO if P/F worsening
500 mL LR bolus now (1 L total today)
Assessment / Plan
Assessment / Plan
#VDRF
#ARDS
#Influenza with superimposed CAP
-Initially found to be flu positive, concerns for superimposed bacterial pneumonia
-Was started on Tamiflu and broad-spectrum antibiotics with vancomycin/cefepime/azithromycin
-Urine Legionella antigen, strep pneumo antigen were negative; blood cultures were negative
-Broad-spectrum antibiotics discontinued, sputum cultures negative, no consolidation on x-ray
-Continue with Tamiflu for 10-day course, continue with pulmonary toileting
-Continue to prone as needed and monitor ABG and P/F ratio Q6
-May need to move forward with ECMO if proning loses efficacy
-Wean FiO2 and PEEP as possible, SAT and SBT when appropriate
#Circulatory shock
-Likely either related to paralytic agents for intubation versus septic shock due to CAP
-Ultimately required Levophed for hemodynamic support, remains on as of 07/16
-Home antihypertensive regimen now held, BP borderline on lower-dose levo
-Remains on antibiotics as above, blood cultures NGTD
-Continue to wean vasopressors as possible, MAP goal >65
-Follow blood cultures and continue antibiotics for now
#Suspected COPD
#Current tobacco use
-Was noted to have wheezing earlier; no signs of significant hypercapnia
-Was on IV steroids temporarily, DC'd due to concurrent influenza and increased risk of mortality
-Will continue with bronchodilators RTC when able to provide
-Nicotine cessation education, patch ordered
#Acute Kidney Injury
-Likely prerenal in the context of reduced intake prior to arrival, infection and shock here
-Urine studies with low sodium consistent with prerenal etiology, improving with IVF
-Creatinine trend here 2.9�2 0.0�1.8; remains with good UOP though slightly worse today
-Continue IVF and trend BMP and UOP, avoid nephrotoxins
-MAP goal >65
#Essential HTN
-No known history of hypertensive systemic disease
-Home regimen currently held due to circulatory shock as above
-hold IT COMPLIANCE MANAGER regimen: Atenolol 25mg PO QD; Losartan 50mg PO BID; amlodipine 10mg PO QD
#Psychiatry history
-continue IT COMPLIANCE MANAGER home regimen: Fluvoxamine (50 AM + 100 HS), lithium carbonate 1200 HS, lurasidone 40 HS, Seroquel 50 HS
-[place] level is 1.6 --> I reached out to Psychiatry for recommendations on dosing - was held at that time
-Repeat lithium level 1.4 as of 07/17, lithium remains held, no signs of nephrogenic DI
-psychiatry on board
DVT PPx Hep subQ
GI PPx Protonix
Diet: Tube feeds with Jevity
FULL CODE
Anticipated Discharge: > 48 hours
Subjective/Interval History
-
Date of Service: July 18, 2024
Seen and examined at the bedside. No acute events reported overnight. Remains on CMV 22//16/60 with P peak 31, day 4 of MV. Weaned off of pressors and hemodynamically stable as of this morning
Urine output has been low at times but responding to IV fluids. Renal function without improvement on morning labs. Last ABG with PO2 91
Unable to obtain ROS due to intubated status
Objective Data
-
Labs:
Laboratory Results
07/18/24 07/18/24 07/18/24
04:43 07:56 13:00
WBC 10.4
Hgb 10.0 L
Hct 32.6 L
Plt Count 212
HCO3 21.9 21.1 Pending
Sodium 144
Potassium 4.3
Chloride 115 H
Carbon Dioxide 22
BUN 32 H
Creatinine 1.9 H
Glucose 158 H
Calcium 8.6
Total Bilirubin 0.4
AST 10 L
ALT 11
Alkaline Phosphatase 125
Vital Signs:
Vital Signs
Temp Pulse Resp BP Pulse Ox
99.4 F 66 22 85/56 98
07/18/24 08:00 07/18/24 11:00 07/18/24 07:18 07/18/24 10:50 07/18/24 11:07
I&O
07/17/24 07/18/24 07/19/24
06:59 06:59 06:59
Intake Total 2044.0 / 2077.3 1736.3 / 1845.0 1061.0 / 1061.0
Output Total 1930 / 1929 1001 / 1001 440 / 440
Balance 114.0 / 147.3 735.3 / 844.0 621.0 / 621.0
Review of Systems
-
Unable to obtain full review of systems at this time due to: Patient Intubation
Physical Exam
-
General: Well Developed, No Apparent Distress, Intubated and Obese
HEENT: Normocephalic, Atraumatic, Moist Mucous Membranes, Anicteric and PERRLA
Respiratory: Clear to Auscultation and Non Labored Respirations; Negative Wheezes, Rales or Rhonchi
Cardiac: Regular Rhythm and S1/S2; Negative Murmur, Rub or Gallop
GI: Soft, Nontender, Nondistended and Normal Bowel Sounds
Genito-urinary: Clear Urine and [place]
Musculoskeletal: No Clubbing, No Cyanosis and No Edema
Skin: Warm, Dry and Normal Turgor; Negative Rash
Neuro: Sedated and Nonfocal/Grossly Intact
Psych: Calm
Data Reviewed
-
Labs: Labs Reviewed by me, Discussed with Physician (printing screen assembler) and Discussed with Patient
--- NOTE | 2024-07-18 12:00 | PTCARENOTE ---
Pt remains sedated on fentanyl and propofol. 500ml bolus given per order at 0732. Levophed off at 0834 and restarted at 1057.
All other assessments unchanged.
[2024-07-18 12:50] LABS: B.E. -4.5 mmol/L; HCO3 21.1 mmol/L (21-28); O2 Saturation % 99.1 % (94-98); PCO2 40 mmHg (35-48); PO2 89 mmHg (83-108); pH 7.33 (7.35-7.45)
--- NOTE | 2024-07-18 13:45 | RESPNOTE ---
Patient is now turned to the Prone position and ventilator settings are the same. Patient is tolerating the settings and vital signs are within limits. Will continue to monitor.
--- NOTE | 2024-07-18 13:56 | PTCARENOTE ---
Pt proned at 1330. SpO2 100% on 60% FiO2. Lungs course. Scant thin secretions via ETT. Received second 500ml bolus of LR and Levophed weaned off.
--- NOTE | 2024-07-18 14:09 | W.PN.INTV ---
Today's Communication / Plan
Recommendations
- Ringer lactate 500 mL bolus
- Changed to volume assist-control, 500/20/60%/16
- Resume proning considering PF ratio right around 150, for 16 hrs then supine
- Check ABG 1 hour after proning
Assessment
-
Patient is a 49-year-old gentleman with history of hypertension, depression, who was brought from home via EMS as patient's found him lethargic and short of breath. Patient reportedly had been sick for the last 3 to 4 days. Patient required
15 L via nasal cannula initially and was subsequently transition to BiPAP support as his initial saturations were around 60%. Patient responded well to BiPAP and was noted to have hypercapnia also. Overnight he continued to develop worsening
hypercapnia and inability to ventilate and oxygenate and required intubation and mechanical ventilation. Post ventilation, patient has been very difficult to oxygenate. He has been on 100% FiO2 and PEEP has been slowly increased all the way up to
18 now. His PF ratio continues to be severely low. He has been on deep sedation and also paralytics were initiated. Patient found to have influenza A screen positive.
#1. Influenza A with severe acute hypoxic respiratory failure. (Intubated 07/15)
- Patient was initially on 15 L oxygen, subsequently transition to BiPAP and now on mechanical ventilation
- Currently patient on lung protective mechanical ventilation, tidal volume 500 mL, around 7 mL/kg ideal body weight, respiratory rate 20, FiO2 60%, PEEP of 16. Plateau pressure 26, with a PEEP of 16, driving pressure around 10 with lung compliance
around 50
- 07/15, patient had severely low PF ratio of 87 and [facility] was contacted for consideration of ECMO. Subsequently once patient was proned his PO2 significantly improved to above 300 hence transferred to [facility] was canceled.
- 07/18. ABG 7.33, 40, 89 at 60% FiO2, PF ratio right around 150. Initiate proning at 1 PM today for 16 hours, check ABG 1 hour after proning
- In view of influenza, steroids were discontinued. No wheezing noted on exam.
- Completed 3 days of azithromycin. off Vancomcyin since MRSA negative. d/c Cefepime as all cultures including tracheal aspirates negative, and no davis consolidation on imaging.
-Mild volume loss noted on left lower lobe, atelectasis versus pneumonia. Patient has a normal white count, has minimal endotracheal secretions. Continue Tamiflu and monitor off antibiotics. Low-grade fever noted. 100.4 F.
- Tracheal aspirate sent for culture and sensitivities, negative so far.
- Resumed home psychiatric medications
- Continue Tube feeding
#2. ESAU on admission. Cr was 2.9 on admission
- Suspect prerenal, responded well to hydration
- Creatinine 1.9 today, urine output slightly decreasing, give 500 mL LR bolus, continue tube feeding with water flushes nearly at goal.
#3. Hypotension with shock. Suspect this is related to deep sedation as well as initiation of paralytic medications. Shock related to influenza A also in differential diagnosis.
- Left IJ central line placed, left radial artery line placed.
- Levophed initiated to keep MAP above 65.
#4. History of smoking. Patient might have underlying COPD.
- Continue DuoNeb.
- No wheezing on exam now. Discontinued steroids in the setting of influenza A.
DVT prophylaxis with subcu heparin. GI prophylaxis with pantoprazole.
Updated patient's spouse at bedside.
Critical Care time 48 mins -- The patient is admitted for acute critical illness for the treatment of vital organ failure and/or prevention of further life-threatening conditions. Total care includes time spent in review of history, physical exam,
medications, hemodynamic/ventilator parameters, laboratory data, imaging and discussion with house staff, pharmacy, respiratory therapy, mechanical spreader operator, and nursing. Time also included updating patient's at bedside. Subsequently calls to
[facility] transfer center and discussion with CT surgery attending regarding ECMO initiation.
Subjective Dataa
Subjective Data
Date of Service:
Date of Service: July 18, 2024
Subjective:
Patient intubated, mechanically ventilated and sedated
Review of Systems
General: Unobtainable - Sedation
Objective Data
Data Reviewed
Vital Signs / I&O / Oxygen:
Vital Signs
Temp Pulse Resp BP Pulse Ox
99.8 F 85 22 112/68 99
07/18/24 11:30 07/18/24 13:45 07/18/24 11:14 07/18/24 13:38 07/18/24 13:45
Intake and Output
07/17/24 07/18/24 07/19/24
06:59 06:59 06:59
Intake Total 2044.0 / 2077.3 1736.3 / 1845.0 1184.7 / 1184.7
Output Total 1930 / 1930 1001 / 1001 570 / 570
Balance 114.0 / 147.3 735.3 / 844.0 614.7 / 614.7
SaO2 [A/C] 95
SaO2 99
Physical Exam
General: Comfortable
HEENT: Normocephalic
Cardiovascular: S1-S2 and Peripheral Edema (Trace pedal edema)
Respiratory: Non-Labored Respirations and Other (Good air entry bilaterally.)
GI: Soft and Non Distended
Neurology: Other (Patient sedated with propofol and fentanyl)
Skin: Warm
Labs/Micro/Reports
Lab Data
07/18/24 04:43
07/18/24 04:43
Laboratory Results
07/17/24 07/17/24 07/18/24
15:01 20:04 04:43
pH 7.30 L 7.29 L 7.25 L
pCO2 41 46 50 H
pO2 126 H 91 82 L
HCO3 20.2 L 22.1 21.9
O2 Delivery Level
07/18/24 07/18/24
07:56 12:41
pH 7.32 L 7.33 L
pCO2 41 40
pO2 91 89
HCO3 21.1 21.1
O2 Delivery Level Not Reportable
Microbiology
07/16/24 07:38 Sputum Respiratory Culture - Final
Yeast
07/16/24 07:38 Sputum Gram Stain - Final
07/14/24 08:48 Blood/Venous Blood Culture - Preliminary
No Growth in 4 days- Final report to follow
07/15/24 04:33 Blood/Venous Blood Culture - Preliminary
No Growth in 72 hours- Final report to follow
07/15/24 04:32 Nose Nasal Screen MRSA (PCR) - Final
MRSA not detected - performed by PCR methodology.
[2024-07-18] MEDS: ATIVAN 1 MG IV (15:01)
[2024-07-18 15:55] LABS: B.E. -4.9 mmol/L; HCO3 20.6 mmol/L (21-28); PCO2 39 mmHg (35-48); PO2 147 mmHg (83-108); pH 7.33 (7.35-7.45)
--- NOTE | 2024-07-18 16:00 | PTCARENOTE ---
All assessments unchanged. Limited assessment while in prone position. Remains on fentanyl and propofol gtt. BP stable off Levophed. Tube feeds on hold. 400ml residual prior to proning.
[2024-07-18 16:31] LABS: Influenza A (H5) Spec Source Resp Swab; Influenza A by NAAT Detected (Not Detected); Influenza H5 by NAAT Not Detected (Not Detected)
--- NOTE | 2024-07-18 16:53 | CM ---
CM continues to follow for discharge planning. Pt remains in ICU and currently intubated.
[2024-07-18] MEDS: LATUDA 40 MG TUBE (17:14)
[2024-07-18] MEDS: LIPITOR 20 MG TUBE (17:14)
[2024-07-18] MEDS: SENNA SYRUP 8.8 MG TUBE (20:00)
--- NOTE | 2024-07-18 20:00 | PTCARENOTE ---
Resumed care of pt this evening. Received pt in prone position, vented, and sedated on prop and fent gtts infusing via left IJ central line. Pt tolerating vent settings satting at 99% pulse ox.
[2024-07-18] MEDS: SEROQUEL 50 MG TUBE (21:42)
[2024-07-18] MEDS: LUVOX 100 MG TUBE (21:42)
[2024-07-18] MEDS: LYRICA 100 MG TUBE (21:44)
--- NOTE | 2024-07-19 00:30 | PTCARENOTE ---
Pt continues to tolerate vent settings. Pt's head and arms repositioned Q2 hours per order.
[2024-07-19] MEDS: HEPARIN 5000 UNITS SC ×4 (00:53→23:29)
[2024-07-19] MEDS: ROBITUSSIN 200 MG TUBE ×7 (00:53→23:29)
[2024-07-19] MEDS: SUBLIMAZE 50 MCG IV ×4 (01:14→15:35)
[2024-07-19] MEDS: SUBLIMAZE 100 IV ×3 (02:49→13:49)
[2024-07-19 04:18] LABS: B.E. -3.8 mmol/L; HCO3 21.5 mmol/L (21-28); O2 Saturation % 99.8 % (94-98); PCO2 39 mmHg (35-48); PO2 174 mmHg (83-108); pH 7.35 (7.35-7.45)
[2024-07-19 04:21] LABS: % Basophils 0.3 % (0-2); % Eosinophils 4.1 % (0-6); % Immature Granulocytes 1.1 % (0-0.5); % Monocytes 8.2 % (1.7-9.3); % Neutrophils 66.3 % (42.2-75.2); Absolute Eosinophils 0.4 10^3/uL (0-0.7); Absolute Immature Granulocytes 0.1 10^3/uL (0-0.05); Absolute Monocytes 0.8 10^3/uL (0.1-0.6); Absolute Neutrophils 6.5 10^3/uL (1.4-6.5); Hemoglobin 9.7 g/dL (13.0-18.0); Mean Corp Hgb Conc. 31.3 g/dL (33.0-37.0); Mean Corpuscular Hgb 29.8 pg (27.0-31.0); Mean Corpuscular Volume 95.1 fL (80.0-94.0); Mean Platelet Volume 10.3 fL (7.4-10.4); Nucleated Red Blood Cells % 0 % (-); Platelet Count 196 10^3/uL (130-400); Red Blood Cell Count 3.26 10^6/uL (4.70-6.10); Red Cell Dist. Width 13.7 % (11.5-14.5); White Blood Cell Count 9.8 10^3/uL (4.8-10.8)
[2024-07-19 04:56] LABS: ALT (SGPT) 16 U/L (0-50); AST (SGOT) 18 U/L (17-59); Albumin 2.9 g/dl (3.5-5.0); Alkaline Phosphatase 116 U/L (38-126); Blood Urea Nitrogen 30 mg/dl (9-20); Calcium 8.9 mg/dl (8.4-10.2); Carbon Dioxide 23 mmol/L (22-30); Chloride 118 mmol/L (98-107); Direct Bilirubin 0.6 mg/dl (0.0-0.4); Estimated Creatinine Clearance 77 ml/min; Glucose 115 mg/dl (70-99); Lithium 1.1 mmol/L (0.6-1.2); Potassium 4.4 mmol/L (3.5-5.1); Sodium 145 mmol/L (135-145); Total Bilirubin 0.8 mg/dl (0.2-1.3); Total Protein 5.8 g/dl (6.3-8.2); Triglycerides 384 mg/dl (10-149); eGFR 57.07
[2024-07-19 06:00] VITALS: BMI 36.9
--- NOTE | 2024-07-19 06:00 | PTCARENOTE ---
Pt returned to supine position @ 0545.
[2024-07-19 06:41] VITALS: BP 93/61
[2024-07-19] MEDS: TYLENOL ORAL SOLUTION 650 MG PO ×3 (07:50→23:28)
[2024-07-19] MEDS: NSS (PRESERVATIVE FREE) 10 ML IV (07:52)
[2024-07-19] MEDS: MIRALAX 17 GRAMS TUBE ×2 (07:52→19:27)
[2024-07-19] MEDS: SENNA SYRUP 8.8 MG TUBE ×2 (07:52→19:27)
[2024-07-19] MEDS: NICODERM TRANSDERMAL 21 MG TRANSDERM (07:53)
[2024-07-19] MEDS: PROTONIX IV 40 MG IV (07:53)
[2024-07-19] MEDS: REFRESH CELLUVISC GEL 1 DROPS OPHTH ×2 (07:54→19:27)
[2024-07-19] MEDS: LUVOX 50 MG TUBE (07:54)
[2024-07-19] MEDS: TAMIFLU 75 MG TUBE ×2 (07:56→19:28)
[2024-07-19] MEDS: DUONEB 3 ML INH ×4 (07:57→20:14)
[2024-07-19] MEDS: DIPRIVAN 100 IV ×3 (08:06→21:16)
--- NOTE | 2024-07-19 08:07 | W.PN.INTV ---
Today's Communication / Plan
Recommendations
- Repeat blood cultures.
- Follow-up ABG at 1 PM today and then decide if additional proning needed
- Chest x-ray in a.m.
Assessment
-
Patient is a 49-year-old gentleman with history of hypertension, depression, who was brought from home via EMS as patient's found him lethargic and short of breath. Patient reportedly had been sick for the last 3 to 4 days. Patient required
15 L via nasal cannula initially and was subsequently transition to BiPAP support as his initial saturations were around 60%. Patient responded well to BiPAP and was noted to have hypercapnia also. Overnight he continued to develop worsening
hypercapnia and inability to ventilate and oxygenate and required intubation and mechanical ventilation. Post ventilation, patient has been very difficult to oxygenate. He has been on 100% FiO2 and PEEP has been slowly increased all the way up to
18 now. His PF ratio continues to be severely low. He has been on deep sedation and also paralytics were initiated. Patient found to have influenza A screen positive.
07/19. 99/70, not on any pressors. Saturating 97% on 60% FiO2. Low-grade temperature, 100.2 �F
Current infusions. IV fentanyl and propofol. Not on needing any pressors
ABG, 7.35, 39, 174, on volume assist-control 500/22/60%/16. PF ratio around 300 this is while patient was proned.
Hemoglobin 9.7, white count normal at 9.8. Normal platelet count. Electrolytes normal, creatinine at 1.5.
#1. Influenza A with severe acute hypoxic respiratory failure. (Intubated 07/15)
- Patient was initially on 15 L oxygen, subsequently transition to BiPAP and now on mechanical ventilation
- Currently patient on lung protective mechanical ventilation, tidal volume 500 mL, around 7 mL/kg ideal body weight, respiratory rate 22, FiO2 60%, PEEP of 16. Plateau pressure 25, with a PEEP of 16, driving pressure around 9 with lung compliance
around 55. PF ratio around 300 while proned, however patient tends to drop once he is supine. Follow-up ABG at 1 PM today and then decide if he needs additional proning.
- 07/15, patient had severely low PF ratio of 87 and [facility] was contacted for consideration of ECMO. Subsequently once patient was proned his PO2 significantly improved to above 300 hence transferred to [facility] was canceled.
- In view of influenza, steroids were discontinued. No wheezing noted on exam.
- Completed 3 days of azithromycin. Off Vancomcyin since MRSA negative. d/c Cefepime as all cultures including tracheal aspirates negative, and no davis consolidation on imaging.
- Mild volume loss noted on left lower lobe, atelectasis versus pneumonia. Patient has a normal white count, has minimal endotracheal secretions. Continue Tamiflu and monitor off antibiotics. Low-grade fever noted. 100.4 F. Repeat blood
cultures today.
- Tracheal aspirate sent for culture and sensitivities, negative so far except for yeast
- Resumed home psychiatric medications
- Continue Tube feeding
#2. ESAU on admission. Cr was 2.9 on admission. Today down to 1.5
- Suspect prerenal, responded well to hydration
- Creatinine 1.5 today. Fluid balance -341 mL.
#3. Hypotension with shock. Resolved. Suspect this is related to deep sedation as well as initiation of paralytic medications. Shock related to influenza A also in differential diagnosis.
- Left IJ central line placed, left radial artery line placed.
- Levophed initiated to keep MAP above 65. Currently off pressors
#4. History of smoking. Patient might have underlying COPD.
- Continue DuoNeb.
- No wheezing on exam now. Discontinued steroids in the setting of influenza A.
DVT prophylaxis with subcu heparin. GI prophylaxis with pantoprazole.
Critical Care time 48 mins -- The patient is admitted for acute critical illness for the treatment of vital organ failure and/or prevention of further life-threatening conditions. Total care includes time spent in review of history, physical exam,
medications, hemodynamic/ventilator parameters, laboratory data, imaging and discussion with house staff, pharmacy, respiratory therapy, electrical and instrument mechanic, and nursing. Time also included updating patient's at bedside. Subsequently calls to
[facility] transfer center and discussion with CT surgery attending regarding ECMO initiation.
Subjective Dataa
Subjective Data
Date of Service:
Date of Service: July 19, 2024
Subjective:
Patient currently intubated, mechanically ventilated and sedated.
Review of Systems
General: Unobtainable - Sedation
Objective Data
Data Reviewed
Vital Signs / I&O / Oxygen:
Vital Signs
Temp Pulse Resp BP Pulse Ox
100.2 F 103 22 99/70 97
07/19/24 07:00 07/19/24 06:15 07/18/24 20:20 07/18/24 14:55 07/19/24 06:15
Intake and Output
07/18/24 07/19/24 07/20/24
06:59 06:59 06:59
Intake Total 1736.3 / 1845.0 2543.8 / 2543.8
Output Total 1001 / 1001 2215 / 2215
Balance 735.3 / 844.0 328.8 / 328.8
SaO2 [A/C] 95
SaO2 97
Physical Exam
General: Comfortable
HEENT: Normocephalic
Cardiovascular: S1-S2 and Peripheral Edema (Trace pedal edema)
Respiratory: Non-Labored Respirations and Other (Good air entry bilaterally.)
GI: Soft and Non Distended
Neurology: Other (Patient sedated with propofol and fentanyl)
Skin: Warm
Labs/Micro/Reports
Lab Data
07/19/24 04:04
07/19/24 04:04
Laboratory Results
07/18/24 07/18/24 07/18/24
07:56 12:41 15:39
pH 7.32 L 7.33 L 7.33 L
pCO2 41 40 39
pO2 91 89 147 H
HCO3 21.1 21.1 20.6 L
O2 Delivery Level Not Reportable
07/19/24
04:04
pH 7.35
pCO2 39
pO2 174 H
HCO3 21.5
O2 Delivery Level
Microbiology
07/15/24 04:33 Blood/Venous Blood Culture - Preliminary
No Growth in 4 days- Final report to follow
07/16/24 07:38 Sputum Respiratory Culture - Final
Yeast
07/16/24 07:38 Sputum Gram Stain - Final
07/14/24 08:48 Blood/Venous Blood Culture - Preliminary
No Growth in 4 days- Final report to follow
[2024-07-19 08:25] VITALS: BP 103/62
--- NOTE | 2024-07-19 08:45 | PTCARENOTE ---
Assumed care of pt at 0700. VSS on ventillator, AC22/500/16/40%. Pt in supine position on fentanyl and propofol gtts. RASS -3. Rhonchi noted over R lung. SpO2 99%. NSR. A-line zeroed and leveled/coorelating with NIBP. Dobhoff placement checked and
TF restarted. BS hypoactive. No BM, bowel reg meds administered. Kilpatrick draining clear yellow urine. Skin intact. Blood cultures collected due to elevated temp.
--- NOTE | 2024-07-19 12:03 | W.PN.HOSP.TC ---
Today's Communication/Plan
-
Continue to trend ABG and prone as needed
500 mL LR today
Serial chest x-ray
Assessment / Plan
Assessment / Plan
#VDRF
#ARDS
#Influenza with superimposed CAP
-Initially found to be flu positive, concerns for superimposed bacterial pneumonia
-Was started on Tamiflu and broad-spectrum antibiotics with vancomycin/cefepime/azithromycin
-Urine Legionella antigen, strep pneumo antigen were negative; blood cultures were negative
-Broad-spectrum antibiotics discontinued, sputum cultures negative, no consolidation on x-ray
-Continue with Tamiflu for 10-day course, continue with pulmonary toileting
-Continue to prone as needed and monitor ABG and P/F ratio Q6
-May need to move forward with ECMO if proning loses efficacy
-Wean FiO2 and PEEP as possible, SAT and SBT when appropriate
#Circulatory shock
-Likely either related to paralytic agents for intubation versus septic shock due to CAP
-Ultimately required Levophed for hemodynamic support, remains on as of 07/16
-Home antihypertensive regimen now held, BP borderline on lower-dose levo
-Remains on antibiotics as above, blood cultures NGTD
-Continue to wean vasopressors as possible, MAP goal >65
-Resolved
#Suspected COPD
#Current tobacco use
-Was noted to have wheezing earlier; no signs of significant hypercapnia
-Was on IV steroids temporarily, DC'd due to concurrent influenza and increased risk of mortality
-Will continue with bronchodilators RTC when able to provide
-Nicotine cessation education, patch ordered
#Acute Kidney Injury
-Likely prerenal in the context of reduced intake prior to arrival, infection and shock here
-Urine studies with low sodium consistent with prerenal etiology, improving with IVF
-Creatinine trend here 2.9�2.0�1.8�1.5; remains with good UOP as of 07/19
-Continue PRN IVF and trend BMP and UOP, avoid nephrotoxins
-MAP goal >65
#Essential HTN
-No known history of hypertensive systemic disease
-Home regimen currently held due to circulatory shock as above
-hold UR COORDINATOR regimen: Atenolol 25mg PO QD; Losartan 50mg PO BID; amlodipine 10mg PO QD
#Psychiatry history
-continue UR COORDINATOR home regimen: Fluvoxamine (50 AM + 100 HS), lithium carbonate 1200 HS, lurasidone 40 HS, Seroquel 50 HS
-[place] level is 1.6 --> I reached out to Psychiatry for recommendations on dosing - was held at that time
-Repeat lithium level 1.4 as of 07/17, lithium remains held, no signs of nephrogenic DI
-psychiatry on board
DVT PPx Hep subQ
GI PPx Protonix
Diet: Tube feeds with Jevity
FULL CODE
Anticipated Discharge: > 48 hours
Subjective/Interval History
-
Date of Service: July 19, 2024
Seen and examined at the bedside. No acute events reported overnight. Remains mechanically ventilated, day 5, on CMV 22/500/60/16 with P peak high 20s. AFVSS otherwise off of vasopressors
X-ray this morning with mild opacification of the lung bases, likely atelectasis. Urine output remains adequate, creatinine down to 1.5
Remains sedated and intubated
Objective Data
-
Labs:
Laboratory Results
07/19/24 07/19/24
04:04 13:00
WBC 9.8
Hgb 9.7 L
Hct 31.0 L
Plt Count 196
HCO3 21.5 Pending
Sodium 145
Potassium 4.4
Chloride 118 H
Carbon Dioxide 23
BUN 30 H
Creatinine 1.5 H
Glucose 115 H
Calcium 8.9
Total Bilirubin 0.8
AST 18
ALT 16
Alkaline Phosphatase 116
Vital Signs:
Vital Signs
Temp Pulse Resp BP Pulse Ox
100.3 F 67 22 103/62 99
07/19/24 11:56 07/19/24 11:40 07/19/24 11:40 07/19/24 08:25 07/19/24 11:40
I&O
07/18/24 07/19/24 07/20/24
06:59 06:59 06:59
Intake Total 1736.3 / 1845.0 2543.8 / 2577.5 168.5 / 168.5
Output Total 1001 / 1001 2215 / 2265 280 / 280
Balance 735.3 / 844.0 328.8 / 312.5 -111.5 / -111.5
Review of Systems
-
Unable to obtain full review of systems at this time due to: Patient Intubation
Physical Exam
-
General: Well Developed, No Apparent Distress and Obese
HEENT: Normocephalic, Atraumatic and Moist Mucous Membranes
Respiratory: Clear to Auscultation and Non Labored Respirations
Cardiac: Regular Rhythm and S1/S2; Negative Murmur, Rub or Gallop
GI: Soft, Nontender and Nondistended
Musculoskeletal: No Clubbing, No Cyanosis and No Edema
Skin: Warm and Dry; Negative Rash
Neuro: Sedated and Nonfocal/Grossly Intact
Data Reviewed
-
Labs: Labs Reviewed by me and Discussed with Nurse
[2024-07-19] MEDS: LR 500 IV (12:22)
--- NOTE | 2024-07-19 12:33 | PTCARENOTE ---
Assessment unchanged. VSS. Family updated at bedside.
[2024-07-19 13:16] LABS: B.E. -2.1 mmol/L; HCO3 23.7 mmol/L (21-28); O2 Saturation % 99.2 % (94-98); PCO2 44 mmHg (35-48); PO2 101 mmHg (83-108); pH 7.34 (7.35-7.45)
[2024-07-19] MEDS: LR IV (16:52)
--- NOTE | 2024-07-19 16:54 | PTCARENOTE ---
Continues to tolerate vent settings in supine position. 500cc LR administered over 4hr.
[2024-07-19] MEDS: LIPITOR 20 MG TUBE (17:50)
[2024-07-19] MEDS: LATUDA 40 MG TUBE (17:50)
[2024-07-19] MEDS: ATIVAN 1 MG IV (19:49)
[2024-07-19] MEDS: NSS (PRESERVATIVE FREE) 0.5 ML IV (19:50)
--- NOTE | 2024-07-19 20:35 | PTCARENOTE ---
Received patient intubated, sedated, and restrained. PERRLA 2 mm, positive b/l corneals, cough and gag. Normal sinus 80s, BP stable 120s/60s, rectal temp 100.2. +1 generalized anasarca, weak pedal pulses b.l, 8.0 ETT, 27 at the lip, moved to the
center. AC 22/500/60%/16 saturating 98%. Lung sounds coarse with scattered rhonchi throughout. Thick nunes inline and oral secretions. Right nare DHT at 78 cm, residual 340 mls. Notified RADIO REPORTER, TF at goal and on hold for 2 hours. Osmolite 1.2 at 70 mls
with 25 ml flush. No BM, on bowel regimen, abdomen distended, hypoactive bowel sounds. Kilpatrick in place draining yellow urine. LIJ TLC patent, WNL. PIVs patent, WNL. Propofol and fentanyl gtt ongoing per order. Left radial arnaldo zeroed, flushed, and
leveled. Mouth care done, repositioned, hourly rounding and patient safety checks ongoing.
[2024-07-19] MEDS: SEROQUEL 50 MG TUBE (21:16)
[2024-07-19] MEDS: LUVOX 100 MG TUBE (21:16)
[2024-07-19] MEDS: LYRICA 100 MG TUBE (21:16)
[2024-07-19 21:22] VITALS: BP 93/59
--- NOTE | 2024-07-19 23:37 | PTCARENOTE ---
TF restarted, residual 120 mls. Tylenol given for rectal temp 100.7. Mouth care done, [place] care done, repositioned. Otherwise patient assessment unchanged from previous.
[2024-07-20] MEDS: SUBLIMAZE 100 IV ×4 (00:30→21:02)
[2024-07-20] MEDS: DIPRIVAN 100 IV ×4 (03:53→20:15)
[2024-07-20] MEDS: ROBITUSSIN 200 MG TUBE ×6 (03:53→22:58)
[2024-07-20 04:05] VITALS: BMI 37.5
[2024-07-20] MEDS: TYLENOL ORAL SOLUTION 650 MG PO ×4 (04:15→22:58)
[2024-07-20 04:19] LABS: B.E. -4.7 mmol/L; HCO3 22.4 mmol/L (21-28); O2 Saturation % 99.8 % (94-98); PCO2 50 mmHg (35-48); PO2 110 mmHg (83-108); pH 7.26 (7.35-7.45)
[2024-07-20 04:25] LABS: % Basophils 0.3 % (0-2); % Eosinophils 4.6 % (0-6); % Immature Granulocytes 1.9 % (0-0.5); % Lymphocytes 17.5 % (20.5-51.1); % Monocytes 9.5 % (1.7-9.3); % Neutrophils 66.2 % (42.2-75.2); Absolute Eosinophils 0.6 10^3/uL (0-0.7); Absolute Immature Granulocytes 0.2 10^3/uL (0-0.05); Absolute Lymphocytes 2.2 10^3/uL (1.2-3.4); Absolute Monocytes 1.2 10^3/uL (0.1-0.6); Absolute Neutrophils 8.4 10^3/uL (1.4-6.5); Hematocrit 32.4 % (39.0-52.0); Hemoglobin 9.8 g/dL (13.0-18.0); Mean Corp Hgb Conc. 30.2 g/dL (33.0-37.0); Mean Corpuscular Hgb 30.2 pg (27.0-31.0); Mean Corpuscular Volume 99.7 fL (80.0-94.0); Mean Platelet Volume 10.7 fL (7.4-10.4); Nucleated Red Blood Cells % 0.3 % (-); Platelet Count 214 10^3/uL (130-400); Red Blood Cell Count 3.25 10^6/uL (4.70-6.10); Red Cell Dist. Width 13.9 % (11.5-14.5); White Blood Cell Count 12.7 10^3/uL (4.8-10.8)
--- NOTE | 2024-07-20 04:41 | PTCARENOTE ---
CHG bath done, repositioned, mouth care done. Labs sent, propofol tubing changed, new TF set up. Hourly rounding and patient safety checks ongoing.
[2024-07-20 04:53] LABS: ALT (SGPT) 17 U/L (0-50); AST (SGOT) 15 U/L (17-59); Albumin 3.1 g/dl (3.5-5.0); Alkaline Phosphatase 121 U/L (38-126); Blood Urea Nitrogen 30 mg/dl (9-20); Calcium 8.7 mg/dl (8.4-10.2); Carbon Dioxide 21 mmol/L (22-30); Chloride 118 mmol/L (98-107); Estimated Creatinine Clearance 78 ml/min; Glucose 164 mg/dl (70-99); Magnesium 2.6 mg/dl (1.6-2.3); Potassium 4.5 mmol/L (3.5-5.1); Sodium 148 mmol/L (135-145); Total Bilirubin 0.6 mg/dl (0.2-1.3); Total Protein 6.1 g/dl (6.3-8.2); eGFR 57.07
[2024-07-20] MEDS: REFRESH CELLUVISC GEL 1 DROPS OPHTH ×2 (07:33→20:15)
[2024-07-20] MEDS: SENNA SYRUP 8.8 MG TUBE ×2 (07:33→20:15)
[2024-07-20] MEDS: LUVOX 50 MG TUBE (07:33)
[2024-07-20] MEDS: MIRALAX 17 GRAMS TUBE ×2 (07:34→20:15)
[2024-07-20] MEDS: NICODERM TRANSDERMAL 21 MG TRANSDERM (07:34)
[2024-07-20] MEDS: HEPARIN 5000 UNITS SC ×3 (07:34→22:59)
[2024-07-20] MEDS: NSS (PRESERVATIVE FREE) 10 ML IV (07:35)
[2024-07-20] MEDS: TAMIFLU 75 MG TUBE ×2 (07:35→20:17)
[2024-07-20] MEDS: PROTONIX IV 40 MG IV (07:35)
[2024-07-20] MEDS: DUONEB 3 ML INH ×4 (07:48→20:04)
[2024-07-20 07:51] VITALS: BP 93/59
[2024-07-20] MEDS: SUBLIMAZE 50 MCG IV ×4 (08:34→20:14)
--- NOTE | 2024-07-20 09:03 | PTCARENOTE ---
Assumed care of pt at 0700. VSS on ventillator, settings changed, AC22/550/14/60%. Pt in supine position on fentanyl and propofol gtts. RASS -2. Increased oral and nasal secretions, frequent cough. SpO2 97%. NSR. A-line zeroed and
leveled/coorelating with NIBP. Dobhoff placement checked and TF restarted. BS hypoactive. No BM, bowel reg meds administered. Kilpatrick draining clear yellow urine. Skin intact. Elevated temp. Newborn Hearing Screener notified. Sputum cultured.
[2024-07-20] MEDS: ATIVAN 1 MG IV ×3 (09:43→20:53)
[2024-07-20] MEDS: NSS (PRESERVATIVE FREE) 0.5 ML IV (09:44)
--- NOTE | 2024-07-20 09:45 | W.PN.INTV ---
Addendum entered and electronically signed by Luz Tan MD 07/20/24 17:41:
ABG noted 7.33/40/71 when PEEP was lowered to 14.
Vent changed to 500/22/60%/16. 1 hour f/u ABG 7.35/40/119. PF Ratio around 200. No proning planned. Continue high PEEP ventilation strategy. Pplat 23, Driving pressure, 7, good lung compliance.
Original Note:
Today's Communication / Plan
Recommendations
- Lasix 20 mg IV stat
- Increase free water flushes to 40 mL/h with tube feeding
- Send tracheal aspirate for culture
- Restart cefepime IV, follow-up on sputum culture
- Lower PEEP gradually to 14, follow-up ABG in 2 hours
- Follow-up chest x-ray and ABG in a.m.
Assessment
-
Patient is a 49-year-old gentleman with history of hypertension, depression, who was brought from home via EMS as patient's found him lethargic and short of breath. Patient reportedly had been sick for the last 3 to 4 days. Patient required
15 L via nasal cannula initially and was subsequently transition to BiPAP support as his initial saturations were around 60%. Patient responded well to BiPAP and was noted to have hypercapnia also. Overnight he continued to develop worsening
hypercapnia and inability to ventilate and oxygenate and required intubation and mechanical ventilation. Post ventilation, patient has been very difficult to oxygenate. He has been on 100% FiO2 and PEEP has been slowly increased all the way up to
18 now. His PF ratio continues to be severely low. He has been on deep sedation and also paralytics were initiated. Patient found to have influenza A screen positive.
Last 24 hours. 07/20 Patient has started to spike temperature 100.6. Increased endotracheal tube secretions noted which are nunes in color now.
93/59, currently not needing any pressors.
ABG 7.26, 50, 110 on volume assist-control 500/22/16/60%. PF ratio 183 while supine
Fluid balance, +1.4 L.
Hemoglobin stable at 9.8. WBC count increased up to 12.7, platelet count normal at 214
Sodium up at 148, creatinine stable at 1.5. Electrolytes otherwise unremarkable.
#1. Influenza A with severe acute hypoxic respiratory failure. (Intubated 07/15)
- Patient was initially on 15 L oxygen, subsequently transition to BiPAP and now on mechanical ventilation
- 07/15, patient had severely low PF ratio of 87 and [facility] was contacted for consideration of ECMO. Subsequently once patient was proned his PO2 significantly improved to above 300 hence transfer to [facility] was canceled.
-Patient has been on lung protective mechanical ventilation, Plateau pressure maintained below 25 at all times. He has required a high PEEP of 18 initially more lately 16. We have been proning patient daily up until 07/18 due to PF ratio below 150.
- Patient has not required proning in the last 24 hours, current PF ratio while supine is 183
- Will change mechanical ventilator settings to 550/22/60%/14. PEEP decreased by 2, will check arterial blood gas in about 2 hours to see if patient tolerates slight decrease in PEEP.
- In view of influenza, steroids were discontinued. No wheezing noted on exam.
- Completed 3 days of Azithromycin. Off Vancomcyin since MRSA screen negative. Cefepime was also discontinued since tracheal aspirates had shown only yeast.
-07/20. Patient now is spiking fever, somewhat increased by lobar lower lobe opacities noted on chest x-ray, CT tube aspirate is more nunes-colored now. Concern for VAP. Send tracheal aspirate for culture again. Blood cultures were drawn
yesterday, so far growth is negative. Resume cefepime, follow-up on tracheal aspirate cultures
- Resumed home psychiatric medications
- Continue Tube feeding
#2. ESAU on admission. Cr was 2.9 on admission. Today down to 1.5
- Suspect prerenal, responded well to hydration
- Creatinine 1.5 today. Fluid balance +1.4L, give lasix 1 dose
- In view of mild hypernatremia, increase free water flushes to 40 ml/h with tube feeding
#3. Hypotension with shock. Resolved. Suspect this is related to deep sedation as well as initiation of paralytic medications. Shock related to influenza A also in differential diagnosis.
- Levophed initiated to keep MAP above 65. Currently off pressors
#4. History of smoking. Patient might have underlying COPD.
- Continue DuoNeb.
- No wheezing on exam now. Discontinued steroids in the setting of influenza A.
DVT prophylaxis with subcu heparin. GI prophylaxis with pantoprazole.
Critical Care time 58 mins -- The patient is admitted for acute critical illness for the treatment of vital organ failure and/or prevention of further life-threatening conditions. Total care includes time spent in review of history, physical exam,
medications, hemodynamic/ventilator parameters, laboratory data, imaging and discussion with house staff, pharmacy, respiratory therapy, law writer, and nursing. Time also included updating patient's at bedside. Subsequently calls to
[facility] transfer center and discussion with CT surgery attending regarding ECMO initiation.
Subjective Dataa
Subjective Data
Date of Service:
Date of Service: July 20, 2024
Subjective:
Patient currently intubated, mechanically ventilated and sedated
Review of Systems
General: Unobtainable - Sedation
Objective Data
Data Reviewed
Vital Signs / I&O / Oxygen:
Vital Signs
Temp Pulse Resp BP Pulse Ox
100.6 F H 85 22 93/59 96
07/20/24 08:00 07/20/24 08:45 07/20/24 08:00 07/20/24 07:51 07/20/24 08:45
Intake and Output
07/19/24 07/20/24 07/21/24
06:59 06:59 06:59
Intake Total 2543.8 / 2577.5 3323.8 / 3347.5 47.4 / 47.4
Output Total 2215 / 2265 1525 / 1565 160 / 160
Balance 328.8 / 312.5 1798.8 / 1782.5 -112.6 / -112.6
SaO2 [A/C] 97
SaO2 96
Physical Exam
General: Comfortable
HEENT: Normocephalic
Cardiovascular: S1-S2 and Peripheral Edema (Trace pedal edema)
Respiratory: Non-Labored Respirations and Other (Good air entry bilaterally.)
GI: Soft and Non Distended
Neurology: Other (Patient sedated with propofol and fentanyl)
Skin: Warm
Labs/Micro/Reports
Lab Data
07/20/24 04:11
07/20/24 04:11
Laboratory Results
07/19/24 07/20/24
13:04 04:11
pH 7.34 L 7.26 L
pCO2 44 50 H
pO2 101 110 H
HCO3 23.7 22.4
O2 Delivery Level
Microbiology
07/19/24 08:54 Blood/Venous Blood Culture - Preliminary
No Growth in 24 hours- Final report to follow
07/19/24 08:54 Blood/Venous Blood Culture - Preliminary
No Growth in 24 hours- Final report to follow
07/15/24 04:33 Blood/Venous Blood Culture - Final
No Growth - Final Report
07/14/24 08:48 Blood/Venous Blood Culture - Final
No Growth - Final Report
07/16/24 07:38 Sputum Respiratory Culture - Final
Yeast
07/16/24 07:38 Sputum Gram Stain - Final
[2024-07-20 10:15] LABS: B.E. -4.5 mmol/L; HCO3 21.1 mmol/L (21-28); O2 Saturation % 97.2 % (94-98); PCO2 40 mmHg (35-48); PO2 71 mmHg (83-108); pH 7.33 (7.35-7.45)
[2024-07-20 10:16] LABS: O2 Therapy 60
[2024-07-20] MEDS: LASIX 20 MG IV (10:18)
[2024-07-20] MEDS: STERILE WATER FOR INJECTION 10 ML IV ×2 (10:18→17:42)
[2024-07-20] MEDS: MAXIPIME 2000 MG IV ×2 (10:18→17:42)
--- NOTE | 2024-07-20 10:52 | PTCARENOTE ---
SpO2 97% and tolerating vent settings. Pt laid flat for linen/gown change and CHG bath. Pt desated to 66% with slow recovery, coughing with copious amount secretions from nose and mouth. Given fent and ativan bolus and recovery took approx 10 min.
Max SpO2 after event 91%. ABG drawn and Dr. Tan notified.
--- NOTE | 2024-07-20 11:35 | W.PN.HOSP.TC ---
Today's Communication/Plan
-
Agree with IV cefepime and increased free water flushes
Follow-up sputum cultures
Trend CBC and temperature
Trend ABG and P/F
Proning per ICU team
Assessment / Plan
Assessment / Plan
#VDRF secondary to ARDS
#Influenza with superimposed CAP
#Concern for ventilator associated pneumonia
-Initially found to be flu positive, concerns for superimposed bacterial pneumonia
-Urine Legionella antigen, strep pneumo antigen were negative; blood cultures were negative
-Received Tamiflu and broad-spectrum antibiotics on arrival; antibiotics eventually DC'd
-Spiked fevers on 07/19, new leukocytosis, mild opacity on CXR; resumed IV cefepime 07/20 for possible VAP
-Remains hemodynamically stable off vasopressors at this time, still fragile respiratory status
-Tracheal aspirate culture sent today (07/20) due to worsening yellow secretion
-Day 6 of mechanical ventilation, weaning PEEP
Plan
-Continue with Tamiflu for 10-day course
-Continue IV cefepime and follow tracheal aspirate cultures, CBC, temperature curve
-Continue to prone as needed and monitor ABG and P/F ratio; wean PEEP and FiO2 as able
-Continue with pulmonary toileting
-SAT and SBT when appropriate
-PRN IV lasix
#Hypernatremia
-Serum sodium 148 as of this morning
-Box Gluer increased free water flushes to 40 mL/h
-Will monitor BMP and increase free water flushes further if needed
#Circulatory shock
-Likely either related to paralytic agents for intubation versus septic shock due to CAP
-Ultimately required Levophed for hemodynamic support, remains on as of 07/16
-Home antihypertensive regimen now held, levo has been weaned off
-Initial blood cultures and repeat from 07/19 remain negative
-Resolved
#Suspected COPD
#Current tobacco use
-Was noted to have wheezing earlier; no signs of significant hypercapnia
-Was on IV steroids temporarily, DC'd due to concurrent influenza and increased risk of mortality
-Will continue with bronchodilators RTC when able to provide
-Nicotine cessation education, patch ordered
#Acute Kidney Injury
-Likely prerenal in the context of reduced intake prior to arrival, infection and shock here
-Urine studies with low sodium consistent with prerenal etiology, improving with IVF
-Creatinine trend here 2.9�2.0�1.8�1.5; remains with good UOP as of 07/20
-Continue PRN IVF and trend BMP and UOP, avoid nephrotoxins
-MAP goal >65
#Essential HTN
-No known history of hypertensive systemic disease
-Home regimen currently held due to circulatory shock as above
-hold WEIGHT COUNT OPERATOR regimen: Atenolol 25mg PO QD; Losartan 50mg PO BID; amlodipine 10mg PO QD
-Blood pressure remains borderline on home meds and vasopressors, likely secondary to sedation
#Psychiatry history
-continue WEIGHT COUNT OPERATOR home regimen: Fluvoxamine (50 AM + 100 HS), lithium carbonate 1200 HS, lurasidone 40 HS, Seroquel 50 HS
-[place] level is 1.6 --> I reached out to Psychiatry for recommendations on dosing - was held at that time
-Repeat lithium level 1.4 as of 07/17, lithium remains held, no signs of nephrogenic DI
-psychiatry on board
DVT PPx Hep subQ
GI PPx Protonix
Diet: Tube feeds with Jevity
FULL CODE
Anticipated Discharge: > 48 hours
Subjective/Interval History
-
Date of Service: July 20, 2024
Seen and examined at the bedside. Began spiking low-grade fevers near 101 �F overnight. Remains febrile this morning, otherwise hemodynamically stable and remains on mechanical ventilator day 6.
WBC increased to 12.7 associated with fevers. Chest x-ray this morning with mild opacification concerning for VAP. Started on IV cefepime by operating room assistant. Sodium up to 148, chloride 118
Remains on CMV /60/14 with P peak 29. Box Gluer de-escalating PEEP
Objective Data
-
Labs:
Laboratory Results
07/20/24 07/20/24 07/20/24
04:11 10:05 12:00
WBC 12.7 H
Hgb 9.8 L
Hct 32.4 L
Plt Count 214
HCO3 22.4 21.1 Pending
Sodium 148 H
Potassium 4.5
Chloride 118 H
Carbon Dioxide 21 L
BUN 30 H
Creatinine 1.5 H
Glucose 164 H
Calcium 8.7
Total Bilirubin 0.6
AST 15 L
ALT 17
Alkaline Phosphatase 121
Vital Signs:
Vital Signs
Temp Pulse Resp BP Pulse Ox
100.7 F H 74 22 93/59 92
07/20/24 11:20 07/20/24 11:15 07/20/24 08:00 07/20/24 07:51 07/20/24 11:15
I&O
07/19/24 07/20/24 07/21/24
06:59 06:59 06:59
Intake Total 2543.8 / 2577.5 3323.8 / 3347.5 533.5 / 533.5
Output Total 2215 / 2265 1525 / 1565 460 / 460
Balance 328.8 / 312.5 1798.8 / 1782.5 73.5 / 73.5
Review of Systems
-
History Source: Patient
All other systems: Reviewed and negative
Physical Exam
-
General: Well Developed, No Apparent Distress, Intubated and Obese
HEENT: Normocephalic, Atraumatic, Moist Mucous Membranes and Anicteric
Respiratory: Clear to Auscultation and Non Labored Respirations; Negative Wheezes, Rales or Rhonchi
Cardiac: Regular Rhythm and S1/S2; Negative Murmur, Rub or Gallop
GI: Soft, Nontender, Nondistended and Normal Bowel Sounds
Genito-urinary: Clear Urine and [place]
Musculoskeletal: No Clubbing, No Cyanosis and No Edema
Skin: Warm, Dry and Normal Turgor; Negative Rash
Neuro: Sedated and Nonfocal/Grossly Intact; Negative Tremors
Data Reviewed
-
Labs: Labs Reviewed by me, Discussed with Physician (ICU) and Discussed with Nurse
[2024-07-20 12:22] LABS: B.E. -3.3 mmol/L; HCO3 22.1 mmol/L (21-28); O2 Saturation % 99.8 % (94-98); PCO2 40 mmHg (35-48); PO2 119 mmHg (83-108); pH 7.35 (7.35-7.45)
[2024-07-20 12:23] LABS: O2 Therapy 25/500/16/60%
--- NOTE | 2024-07-20 15:11 | PTCARENOTE ---
Pt tolerating AC25/500/16/60% with SpO2 95%. Mod-lg amt oral secretions continues. Assessment unchanged.
[2024-07-20] MEDS: LIPITOR 20 MG TUBE (17:42)
[2024-07-20] MEDS: LATUDA 40 MG TUBE (17:42)
--- NOTE | 2024-07-20 20:30 | PTCARENOTE ---
assumed care @ 1900. pt intubated/sedated w/ prop/fent. #8.0 ETT, 27cm @ lip. AC 25/500/16/60%, oral care done and ETT adjusted on lip. b/l soft wrist restraints in place. SR on monitor, arteriall line leveled and zeroed. DHT R nare @ 75cm, TF at
goal rate. [place] w/ adequate UOP. CHG wipes provided, [place] care done. care ongoing.
[2024-07-20] MEDS: SEROQUEL 50 MG TUBE (22:58)
[2024-07-20] MEDS: LUVOX 100 MG TUBE (22:58)
[2024-07-20] MEDS: LYRICA 100 MG TUBE (22:59)
[2024-07-20 23:41] VITALS: BP 110/65
[2024-07-21] VITALS (27 sets, daily range): BP systolic 94–131; BP diastolic 54–72; BMI 37.2
--- NOTE | 2024-07-21 00:12 | PTCARENOTE ---
pt reassessed. vent settings unchanged, spO2 97% and above, PIPs high 20s. PRN tylenol given for temp 101.1. assessment unchanged otherwise. oral care done, pt repositioned. care continues
[2024-07-21] MEDS: STERILE WATER FOR INJECTION 10 ML IV ×3 (01:52→19:47)
[2024-07-21] MEDS: MAXIPIME 2000 MG IV (01:52)
[2024-07-21] MEDS: DIPRIVAN 100 IV ×5 (01:52→23:25)
[2024-07-21] MEDS: ROBITUSSIN 200 MG TUBE ×6 (03:00→23:25)
[2024-07-21] MEDS: SUBLIMAZE 50 MCG IV ×5 (03:02→23:38)
[2024-07-21] MEDS: SUBLIMAZE 100 IV ×3 (03:02→19:45)
[2024-07-21] MEDS: TYLENOL ORAL SOLUTION 650 MG PO ×4 (03:10→20:45)
[2024-07-21 03:16] LABS: B.E. -4.5 mmol/L; HCO3 20.1 mmol/L (21-28); O2 Saturation % 99.5 % (94-98); PCO2 34 mmHg (35-48); PO2 90 mmHg (83-108); pH 7.38 (7.35-7.45)
[2024-07-21 03:34] LABS: % Basophils 0.4 % (0-2); % Eosinophils 4.1 % (0-6); % Immature Granulocytes 2.2 % (0-0.5); % Lymphocytes 15.7 % (20.5-51.1); % Monocytes 11.3 % (1.7-9.3); % Neutrophils 66.3 % (42.2-75.2); Absolute Eosinophils 0.5 10^3/uL (0-0.7); Absolute Immature Granulocytes 0.3 10^3/uL (0-0.05); Absolute Lymphocytes 1.8 10^3/uL (1.2-3.4); Absolute Monocytes 1.3 10^3/uL (0.1-0.6); Absolute Neutrophils 7.5 10^3/uL (1.4-6.5); Hematocrit 28.7 % (39.0-52.0); Hemoglobin 8.8 g/dL (13.0-18.0); Mean Corp Hgb Conc. 30.7 g/dL (33.0-37.0); Mean Corpuscular Hgb 29.9 pg (27.0-31.0); Mean Corpuscular Volume 97.6 fL (80.0-94.0); Mean Platelet Volume 10.8 fL (7.4-10.4); Nucleated Red Blood Cells % 0 % (-); Platelet Count 236 10^3/uL (130-400); Red Blood Cell Count 2.94 10^6/uL (4.70-6.10); Red Cell Dist. Width 13.9 % (11.5-14.5); White Blood Cell Count 11.3 10^3/uL (4.8-10.8)
[2024-07-21 03:51] LABS: Blood Urea Nitrogen 35 mg/dl (9-20); Calcium 8.5 mg/dl (8.4-10.2); Carbon Dioxide 21 mmol/L (22-30); Chloride 117 mmol/L (98-107); Estimated Creatinine Clearance 65 ml/min; Glucose 155 mg/dl (70-99); Magnesium 2.6 mg/dl (1.6-2.3); Potassium 4.2 mmol/L (3.5-5.1); Sodium 146 mmol/L (135-145); eGFR 45.86
--- NOTE | 2024-07-21 04:10 | PTCARENOTE ---
AM labs sent. pt with moderate size liquid BM, rectal trumpet inserted. vent settings unchanged. O2 sat currently 100%, oral care and suction provided, ETT moved to R side. PRN tylenol given for temp 100.7. care continues
[2024-07-21] MEDS: LUVOX 50 MG TUBE (07:15)
[2024-07-21] MEDS: HEPARIN 5000 UNITS SC ×3 (07:15→23:25)
[2024-07-21] MEDS: NICODERM TRANSDERMAL 21 MG TRANSDERM (07:16)
[2024-07-21] MEDS: NSS (PRESERVATIVE FREE) 10 ML IV (07:17)
[2024-07-21] MEDS: PROTONIX IV 40 MG IV (07:17)
[2024-07-21] MEDS: REFRESH CELLUVISC GEL 1 DROPS OPHTH ×2 (07:17→19:46)
[2024-07-21] MEDS: SENNA SYRUP 8.8 MG TUBE ×2 (07:18→19:46)
[2024-07-21] MEDS: TAMIFLU 75 MG TUBE ×2 (07:22→19:46)
[2024-07-21] MEDS: MIRALAX TUBE (07:23)
[2024-07-21] MEDS: DUONEB 3 ML INH ×4 (07:58→19:25)
--- NOTE | 2024-07-21 08:16 | W.PN.INTV ---
Today's Communication / Plan
Recommendations
Check echo
Trend serum Na
Optimize ventilator to maintain plateau pressures <30, keep SpO2 >88-90%, and driving pressures 15�20
If patient continues to have PF ratio tomorrow which is 150 or less then will consider CT chest to assess lung parenchyma
Continue Abx; follow up ETT cultures
Resume lithium
Deeply sedate with goal RASS -2 to -3
Treat fever with anti-pyretics
Assessment
-
Patient is a 49-year-old gentleman with history of hypertension, depression, who was brought from home via EMS as patient's found him lethargic and short of breath. Patient reportedly had been sick for the last 3 to 4 days. Patient required
15 L via nasal cannula initially and was subsequently transition to BiPAP support as his initial saturations were around 60%. Patient responded well to BiPAP and was noted to have hypercapnia also. Overnight he continued to develop worsening
hypercapnia and inability to ventilate and oxygenate and required intubation and mechanical ventilation. Post ventilation, patient has been very difficult to oxygenate. He has been on 100% FiO2 and PEEP has been slowly increased all the way up to
18 now. His PF ratio continues to be severely low. He has been on deep sedation and also paralytics were initiated. Patient found to have influenza A screen positive.
#1. Influenza A with severe acute hypoxic respiratory failure. (Intubated 07/15)
- Patient was initially on 15 L oxygen, subsequently transitioned to BiPAP and now on mechanical ventilation
- 07/15, patient had severely low PF ratio of 87 and [facility] was contacted for consideration of ECMO. Subsequently once patient was proned his PO2 significantly improved to above 300 hence transfer to [facility] was canceled.
-Patient has been on lung protective mechanical ventilation, Plateau pressure maintained below 25-30 at all times. He has required a high PEEP of 18 initially more -39. We have been proning patient daily up until 07/18 due to PF ratio
below 150.
- Patient has not required proning in the last 24 hours, current PF ratio while supine is 150 as of 07/21
- Continue to lower PEEP as tolerated while keeping driving pressure 15-20
- Titrate FiO2 + PEEP to maintain SpO2 >88%
- In view of influenza, steroids were discontinued. No wheezing noted on exam.
- Completed 3 days of Azithromycin. Off Vancomcyin since MRSA screen negative. Cefepime was also discontinued since tracheal aspirates had shown only yeast.
-07/20. Patient now is spiking fever, somewhat increased by lobar lower lobe opacities noted on chest x-ray, ET tube aspirate is more nunes-colored now. Concern for VAP. Sent tracheal aspirate for culture again on 07/20. Blood cultures were drawn
on 07/19, so far growth is negative. Resumed cefepime on 07/20, follow-up on tracheal aspirate cultures
- Resumed home psychiatric medications (lithium resumed today as Li level not toxic)
- Continue Tube feeding
#2. ESAU on admission. Cr was 2.9 on admission. Today down to 1.8
- Suspect prerenal, responded well to hydration
- Continue to trend serum Na level
- In view of mild hypernatremia, increased free water flushes to 40 ml/h with tube feeding
- Renally dose all meds/ABx
#3. Hypotension with shock. Resolved. Suspect this is related to deep sedation as well as initiation of paralytic medications. Shock related to influenza A also in differential diagnosis.
-Keep MAP above 65. Currently off pressors
- Check echo
#4. History of smoking. Patient might have underlying COPD.
- Continue DuoNeb.
- No wheezing on exam now. Discontinued steroids in the setting of influenza A.
- Nicotine patch
DVT prophylaxis with subcu heparin. GI prophylaxis with pantoprazole.
Continue ICU level of care for this critically ill patient
Critical care statement: A total of 43 minutes of critical care time was provided for this patient today. This includes management of unstable vital signs, evaluation of the patient at bedside, reviewing the patient's pertinent medical records
including radiographs, microbiology, laboratory evaluations, and discussion with primary team, consultants, pharmacy, nutrition, physical therapy, case management, charge nurse, critical care nursing, and respiratory therapy.
Subjective Dataa
Subjective Data
Date of Service:
Date of Service: July 21, 2024
Chief Complaint: Housing Relocation Follow Up
Subjective:
Patient was seen and evaluated this morning. Patient's , Kassandra, at bedside and all questions were answered. Remains intubated on AC/CMV 500/25/16/60%, with PEEP lowered to 14 this morning with PIP 30 cmH2O, VTe 517 cc and breathing at 25
breaths/minute. Heart rate 81, saturating 97% with BP 120/65. End-tidal CO2 30. Minimal ETT secretions with more oral secretions. Sedated on fentanyl 125mcg/hr and propofol at 20mcg/kg/min. Last proned on Sunday (3 days ago).
Review of Systems
General: Unobtainable - Sedation
Objective Data
Data Reviewed
Vital Signs / I&O / Oxygen:
Vital Signs
Temp Pulse Resp BP Pulse Ox
99.7 F 85 30 120/69 97
07/21/24 07:12 07/21/24 08:30 07/21/24 08:09 07/21/24 08:00 07/21/24 08:30
Intake and Output
07/20/24 07/21/24 07/22/24
06:59 06:59 06:59
Intake Total 3323.8 / 3347.5 3066.9 / 3205.6 377.4 / 377.4
Output Total 1525 / 1565 1760 / 1820 110 / 110
Balance 1798.8 / 1782.5 1306.9 / 1385.6 267.4 / 267.4
SaO2 [A/C] 93
SaO2 97
Physical Exam
General: Respiratory Distress (negative), Chills (negative) and Sweats (negative)
HEENT: Normocephalic and Anicteric
Cardiovascular: S1-S2, Rub (negative) and Peripheral Edema (Trace pedal edema)
Respiratory: Wheeze (negative), Crackles (Bilateral), Non-Labored Respirations, ET Tube (Mechanical breath sounds heard bilaterally) and Other (Good air entry bilaterally.)
GI: Soft, Distended (Abdominal obesity), Non Tender and Normal Bowel Sounds
Neurology: Tremors (negative) and Other (Patient sedated with propofol and fentanyl)
Skin: Warm, Dry, Cyanosis (negative) and Jaundice (negative)
Labs/Micro/Reports
Lab Data
07/21/24 03:07
07/21/24 03:07
Laboratory Results
07/20/24 07/20/24 07/21/24
10: 12:12 03:07
pH 7.33 L 7.35 7.38
pCO2 40 40 34 L
pO2 71 L 119 H 90
HCO3 21.1 22.1 20.1 L
O2 Delivery Level 60 25/500/16/60%
Microbiology
07/19/24 08:54 Blood/Venous Blood Culture - Preliminary
No Growth in 48 hours- Final report to follow
07/19/24 08:54 Blood/Venous Blood Culture - Preliminary
No Growth in 48 hours- Final report to follow
07/20/24 08:23 Tracheal Aspirate Gram Stain - Preliminary
07/15/24 04:33 Blood/Venous Blood Culture - Final
No Growth - Final Report
07/14/24 08:48 Blood/Venous Blood Culture - Final
No Growth - Final Report
07/16/24 07:38 Sputum Respiratory Culture - Final
Yeast
07/16/24 07:38 Sputum Gram Stain - Final
--- NOTE | 2024-07-21 08:26 | W.PN.HOSP.TC ---
Today's Communication/Plan
-
Continue Tamiflu
Continue cefepime
Continue mechanical ventilation
Start oral iron supplementation
Restart lithium.
Assessment / Plan
Assessment / Plan
Assessment/plan
49-year-old male admitted to the ICU for acute hypoxemic respiratory failure, requiring intubation and mechanical ventilation.
#Acute hypoxic respiratory failure
#Ventilator dependent
Initially found to be flu positive, concerns for superimposed bacterial pneumonia
Patient was started on Tamiflu�day 09/18.
Urine Legionella antigen, strep pneumo antigen were negative; blood cultures were negative
Completed 3 days of Azithromycin. Off Vancomcyin since MRSA screen negative. Cefepime was also discontinued since tracheal aspirates had shown only yeast.
Spiked fevers on 07/19, new leukocytosis, mild opacity on CXr
Resumed IV cefepime 07/20 for possible VAP
Monitor fever curve, pending blood and respiratory cultures.
Currently off of vasopressors at this time
Day 7 of mechanical ventilation
mechanical ventilator settings to 500/25/60%/16, wean PEEP and FiO2 as able
Continue to prone as needed and monitor ABG and P/F ratio
SAT and SBT when appropriate
IV Protonix
HOB elevation
Pulmonary toilet
#Multifactorial anemia
TIBC low
Start oral iron supplementation.
Monitor CBC.
#Hypernatremia
-Serum sodium 146 as of this morning
-free water flushes
-Will monitor BMP and increase free water flushes further if needed
#Circulatory shock
-Likely either related to paralytic agents for intubation versus septic shock due to CAP
-Ultimately required Levophed for hemodynamic support
Home antihypertensive regimen now held, levo has been weaned off
Initial blood cultures and repeat from 07/19 remain negative
Repeat cultures pending.
#Acute Kidney Injury
-Likely prerenal in the context of reduced intake prior to arrival, infection and shock here
-Urine studies with low sodium consistent with prerenal etiology, improving with IVF
-Creatinine at 1.8, remains with good UOP as of 07/21
-Continue PRN IVF and trend BMP and UOP, avoid nephrotoxins
#Essential HTN
-No known history of hypertensive systemic disease
-Home regimen currently held due to circulatory shock as above
-hold LEASING ASSOCIATE regimen: Atenolol 25mg PO QD; Losartan 50mg PO BID; amlodipine 10mg PO QD
-Blood pressure remains borderline on home meds and vasopressors, likely secondary to sedation
#Psychiatry history
-continue LEASING ASSOCIATE home regimen: Fluvoxamine (50 AM + 100 HS), lithium carbonate 1200 HS, lurasidone 40 HS, Seroquel 50 HS
-[place] level was 1.6.
-Repeat lithium level 1.0
-[place] restarted
-psychiatry on board
DVT PPx Hep subQ
GI PPx Protonix
Diet: Tube feeds with Jevity
FULL CODE
Anticipated Discharge: > 48 hours
Subjective/Interval History
-
Date of Service: July 21, 2024
Patient is sedated and ventilated.
Objective Data
-
Labs:
Laboratory Results
07/21/24
03:07
WBC 11.3 H
Hgb 8.8 L
Hct 28.7 L
Plt Count 236
HCO3 20.1 L
Sodium 146 H
Potassium 4.2
Chloride 117 H
Carbon Dioxide 21 L
BUN 35 H
Creatinine 1.8 H
Glucose 155 H
Calcium 8.5
Vital Signs:
Vital Signs
Temp Pulse Resp BP Pulse Ox
99.7 F 79 30 130/67 99
07/21/24 07:12 07/21/24 08:09 07/21/24 08:09 07/21/24 04:00 07/21/24 08:09
I&O
07/20/24 07/21/24 07/22/24
06:59 06:59 06:59
Intake Total 3323.8 / 3347.5 3066.9 / 3205.6 377.4 / 377.4
Output Total 1525 / 1565 1760 / 1820 110 / 110
Balance 1798.8 / 1782.5 1306.9 / 1385.6 267.4 / 267.4
Review of Systems
-
Unable to obtain full review of systems at this time due to: Patient Intubation
Physical Exam
-
General: Intubated
HEENT: Normocephalic and Atraumatic
Respiratory: Other (Good air entry bilaterally)
Cardiac: S1/S2 and Other (Pedal edema)
GI: Soft, Nondistended and Normal Bowel Sounds
Skin: Warm
Neuro: Other (Patient sedated with propofol and fentanyl)
[2024-07-21 09:34] LABS: Iron 34 ug/dl (49-181)
[2024-07-21 09:58] LABS: NT-proBNP 184 pg/ml; Percent Saturation 17 % (20-50); Total Iron Binding Capacity 190 ug/dl (261-462)
[2024-07-21 10:09] LABS: Reticulocyte Count 2.2 % (0.4-2.8)
[2024-07-21] MEDS: MAXIPIME IV (10:31)
[2024-07-21 10:57] LABS: Folate 3.4 ng/ml (2.76-20); Vitamin B12 339 pg/ml (239-931)
[2024-07-21] MEDS: STERILE WATER FOR INJECTION IV (11:24)
[2024-07-21] MEDS: MAXIPIME 1000 MG IV ×2 (11:30→19:47)
--- NOTE | 2024-07-21 12:00 | PTCARENOTE ---
Systems reviewed. No new changes. Peep has been weaned to 14. Sats low 90s. Tolerating tf at goal. Maintained deep sedation, fentanyl weaned as charted.
[2024-07-21] MEDS: FERROUS SULFATE ORAL LIQUID 300 MG TUBE (12:02)
--- NOTE | 2024-07-21 14:12 | CM ---
CM following re: discharge planning.
Reviewed pt's chart, met with pt, spoke to [place] insurance office manager Morena [phone] to updated on pt's clinical.
Per chart review, pt intubated on 07/15/24, remains intubated, continue supportive care.
Pt lives with spouse 2SH, 2 steps to enter, has no children, has supportive father, sister, brother, cousins and they visit the pt. Pt's spouse just left home.
D/C plan: uncertain at this time and will depend on pt's progress.
CM will follow with discharge plan updates as hospitalization progresses
[2024-07-21] MEDS: ATIVAN 1 MG IV (15:00)
--- NOTE | 2024-07-21 15:01 | WOUNDNOTE ---
WOC RN NOTE: Patient on HAP report for stage 2 PI to right nose. The wound was reported on 07/19 and then removed from the worklist. Upon assessment no wound is noted. Will sign off.
--- NOTE | 2024-07-21 15:29 | PTCARENOTE ---
After repositioning for 2pm, pt opened eyes and coughed, head turned purple and sats dropped as low as 80%. Pt suctioned for large amount white/clear oral secretions, min to mod via ett with little improvement in sats. pt given 100% oxygen and
fentanyl bolus given, sats briefly improved but quickly dropped again. additional fent bolus given and propofol increased. resp therapist also in to eval pt. dr bey in to see pt. peep back to 16 and fio2 up to 70%. pt given dose of ativan
as well. took pt more then 30 minutes to recover to sats 89%
[2024-07-21] MEDS: NIMBEX 20 MG IV (16:01)
--- NOTE | 2024-07-21 16:32 | PTCARENOTE ---
Decision made to given nimbex bolus given persistent hypoxia despite sedation. No improvement in sats until pt repositioned to left side. sats then low 90s. Pt also febrile. Dr Patterson aware. Otherwise systems unchanged.
[2024-07-21] MEDS: ESKALITH 300 MG TUBE ×2 (16:35→23:25)
[2024-07-21] MEDS: LIPITOR 20 MG TUBE (17:47)
[2024-07-21] MEDS: LATUDA 40 MG TUBE (17:47)
[2024-07-21] MEDS: MIRALAX 17 GRAMS TUBE (19:47)
[2024-07-21] MEDS: LUVOX 100 MG TUBE (23:25)
[2024-07-21] MEDS: SEROQUEL 50 MG TUBE (23:25)
[2024-07-21] MEDS: LYRICA 100 MG TUBE (23:26)
--- NOTE | 2024-07-21 23:54 | PTCARENOTE ---
pt reassessed. vent settings unchanged. SpO2 05% and above. oral care and suction provided. LIJ dressing saturated, new dressing applied w/ biopatch. CHG bath, [place] care done. PRN tylenol given with good effect on temp, see VS. care ongoing
[2024-07-22] VITALS (39 sets, daily range): BP systolic 95–148; BP diastolic 57–84; BMI 37.6
[2024-07-22] MEDS: ATIVAN 1 MG IV ×4 (00:31→12:05)
[2024-07-22] MEDS: STERILE WATER FOR INJECTION 10 ML IV (03:17)
[2024-07-22] MEDS: MAXIPIME 1000 MG IV (03:17)
[2024-07-22] MEDS: TYLENOL ORAL SOLUTION 650 MG PO ×2 (03:17→09:07)
[2024-07-22] MEDS: ROBITUSSIN 200 MG TUBE ×6 (03:17→23:23)
[2024-07-22 03:43] LABS: B.E. -5.8 mmol/L; HCO3 19.4 mmol/L (21-28); O2 Therapy 80; PCO2 36 mmHg (35-48); PO2 74 mmHg (83-108); pH 7.34 (7.35-7.45)
[2024-07-22] MEDS: SUBLIMAZE 50 MCG IV ×8 (03:45→22:24)
[2024-07-22 03:50] LABS: % Basophils 0.3 % (0-2); % Eosinophils 4.3 % (0-6); % Immature Granulocytes 2.3 % (0-0.5); % Lymphocytes 13.5 % (20.5-51.1); % Neutrophils 66.6 % (42.2-75.2); Absolute Eosinophils 0.5 10^3/uL (0-0.7); Absolute Immature Granulocytes 0.3 10^3/uL (0-0.05); Absolute Lymphocytes 1.6 10^3/uL (1.2-3.4); Absolute Monocytes 1.5 10^3/uL (0.1-0.6); Absolute Neutrophils 7.9 10^3/uL (1.4-6.5); Hematocrit 29.1 % (39.0-52.0); Mean Corp Hgb Conc. 30.9 g/dL (33.0-37.0); Mean Corpuscular Hgb 30.2 pg (27.0-31.0); Mean Corpuscular Volume 97.7 fL (80.0-94.0); Mean Platelet Volume 10.7 fL (7.4-10.4); Nucleated Red Blood Cells % 0.3 % (-); Platelet Count 267 10^3/uL (130-400); Red Blood Cell Count 2.98 10^6/uL (4.70-6.10); Red Cell Dist. Width 14.3 % (11.5-14.5); White Blood Cell Count 11.9 10^3/uL (4.8-10.8)
--- NOTE | 2024-07-22 04:02 | PTCARENOTE ---
pt reassessed. AM labs sent. vent settings unchanged. pO2 74 this morning. prop/fent gtts continue. TF set up changed and new bag hung. oral care and sxn provided. care continues
[2024-07-22 04:09] LABS: ALT (SGPT) 41 U/L (0-50); AST (SGOT) 44 U/L (17-59); Albumin 2.7 g/dl (3.5-5.0); Alkaline Phosphatase 142 U/L (38-126); Blood Urea Nitrogen 41 mg/dl (9-20); Calcium 8.8 mg/dl (8.4-10.2); Carbon Dioxide 20 mmol/L (22-30); Chloride 120 mmol/L (98-107); Estimated Creatinine Clearance 58 ml/min; Glucose 156 mg/dl (70-99); Magnesium 2.7 mg/dl (1.6-2.3); Potassium 4.9 mmol/L (3.5-5.1); Sodium 144 mmol/L (135-145); Total Bilirubin 0.6 mg/dl (0.2-1.3); Total Protein 5.8 g/dl (6.3-8.2); eGFR 40.41
[2024-07-22] MEDS: DIPRIVAN 100 IV ×5 (04:09→21:31)
[2024-07-22] MEDS: SUBLIMAZE 100 IV ×3 (05:08→20:19)
[2024-07-22] MEDS: LUVOX 50 MG TUBE (07:35)
[2024-07-22] MEDS: HEPARIN 5000 UNITS SC ×3 (07:35→23:23)
[2024-07-22] MEDS: ESKALITH 300 MG TUBE ×3 (07:35→20:16)
[2024-07-22] MEDS: NICODERM TRANSDERMAL 21 MG TRANSDERM (07:36)
[2024-07-22] MEDS: NSS (PRESERVATIVE FREE) 10 ML IV (07:36)
[2024-07-22] MEDS: MIRALAX 17 GRAMS TUBE ×2 (07:36→20:16)
[2024-07-22] MEDS: REFRESH CELLUVISC GEL 1 DROPS OPHTH ×2 (07:37→20:17)
[2024-07-22] MEDS: TAMIFLU 75 MG TUBE ×2 (07:37→20:33)
[2024-07-22] MEDS: PROTONIX IV 40 MG IV (07:37)
[2024-07-22] MEDS: SENNA SYRUP 8.8 MG TUBE ×2 (07:37→20:17)
[2024-07-22] MEDS: DUONEB 3 ML INH ×4 (07:39→19:33)
--- NOTE | 2024-07-22 07:41 | W.PN.HOSP.TC ---
Today's Communication/Plan
-
CT chest
Prone position if PF ratio <150
Continue tube feeds
Switch from cefepime to Zosyn
Assessment / Plan
Assessment / Plan
Assessment/plan
49-year-old male admitted to the ICU for acute hypoxemic respiratory failure, requiring intubation and mechanical ventilation.
#Acute hypoxic respiratory failure
#Ventilator dependent
Initially found to be flu positive, concerns for superimposed bacterial pneumonia
Patient was started on Tamiflu�10/19.
Urine Legionella antigen, strep pneumo antigen were negative; blood cultures were negative
Completed 3 days of Azithromycin. Off Vancomcyin since MRSA screen negative. Cefepime was also discontinued since tracheal aspirates had shown only yeast.
Spiked fevers on 07/19, new leukocytosis, mild opacity on CXr
Patient still has fever spikes Tmax�101.4 overnight.
Monitor fever curve, pending blood and respiratory cultures.
Currently off of vasopressors at this time
Day 8 of mechanical ventilation
mechanical ventilator settings to 500/25/80%/16, wean PEEP and FiO2 as able
Continue to prone as needed and monitor ABG and P/F ratio- 92
SAT and SBT when appropriate
IV Protonix
HOB elevation
Pulmonary toilet
#Suspicion for drug-induced fever
Patient was started on cefepime, concern for VAP
Overnight spiking temperatures, Tmax 101.4
Will switch to Zosyn
#Multifactorial anemia
TIBC low, % sat�17%
Start oral iron supplementation.
Monitor CBC.
#Hypernatremia
-Serum sodium 144 as of this morning
-Will monitor BMP and free water flushes further if needed
#Circulatory shock
-Likely either related to paralytic agents for intubation versus septic shock due to CAP
-Ultimately required Levophed for hemodynamic support
Home antihypertensive regimen now held, levo has been weaned off
Initial blood cultures and repeat from 07/19 remain negative
Repeat cultures pending.
#Acute Kidney Injury
-Likely prerenal in the context of reduced intake prior to arrival, infection and shock here
-Urine studies with low sodium consistent with prerenal etiology, improving with IVF
-Creatinine at 2, remains with good UOP as of
-Continue PRN IVF and trend BMP and UOP, avoid nephrotoxins
�Renally dose all medications
#Essential HTN
-No known history of hypertensive systemic disease
-Home regimen currently held due to circulatory shock
-hold UNIVERSITY TUTOR regimen: Atenolol 25mg PO QD; Losartan 50mg PO BID; amlodipine 10mg PO QD
#Psychiatry history
-continue UNIVERSITY TUTOR home regimen: Fluvoxamine (50 AM + 100 HS), lithium carbonate 1200 HS, lurasidone 40 HS, Seroquel 50 HS
-[place] level was 1.6.
-Repeat lithium level 1.0
-[place] restarted
-psychiatry on board
DVT PPx Hep subQ
GI PPx Protonix
Diet: Tube feeds with Jevity
FULL CODE
Anticipated Discharge: > 48 hours
Subjective/Interval History
-
Date of Service: July 22, 2024
Patient on mechanical ventilation and sedated with propofol and fentanyl.
Tmax of 101.4 overnight.
Vent�500/25/16/80 %
Objective Data
-
Labs:
Laboratory Results
07/22/24
03:35
WBC 11.9 H
Hgb 9.0 L
Hct 29.1 L
Plt Count 267
HCO3 19.4 L
Sodium 144
Potassium 4.9
Chloride 120 H
Carbon Dioxide 20 L
BUN 41 H
Creatinine 2.0 H
Glucose 156 H
Calcium 8.8
Total Bilirubin 0.6
AST 44
ALT 41
Alkaline Phosphatase 142 H
Vital Signs:
Vital Signs
Temp Pulse Resp BP Pulse Ox
100.7 F H 75 25 112/61 99
07/22/24 03:06 07/22/24 06:30 07/21/24 19:38 07/22/24 06:30 07/22/24 06:30
I&O
07/21/24 07/22/24 07/23/24
06:59 06:59 06:59
Intake Total 3066.9 / 3205.6 3807.7 / 3807.7
Output Total 1760 / 1820 2064 / 2064
Balance 1306.9 / 1385.6 1742.7 / 1742.7
Review of Systems
-
Unable to obtain full review of systems at this time due to: Patient Intubation
Physical Exam
-
General: Intubated
HEENT: Normocephalic and Atraumatic
Respiratory: Chest Tubes (Good air entry bilaterally)
Cardiac: Regular Rhythm, S1/S2 and Other (Pedal edema)
GI: Soft and Normal Bowel Sounds
Skin: Warm and Dry
Neuro: Other (Patient sedated with propofol and fentanyl)
--- NOTE | 2024-07-22 08:01 | W.PN.INTV ---
Today's Communication / Plan
Recommendations
Start systemic steroids + Flovent
Trend serum Na
Start proning today for 18 hours, then supine for 6 hours, and while patient is prone reduce FiO2 to keep saturations >88-90% while keeping PEEP at 16 to optimize alveolar recruitment
Maintain driving pressures 15�20 with plateau pressures <25�30
Resume lithium; psych following; goal level 0.7 --> recheck level in 4-5 days
Deeply sedate with goal RASS -2 to -3
Treat fever with anti-pyretics; change cefepime to Zosyn and follow up ETT cultures; check CT head; exchange [place]
Patient remains critically ill
Assessment
-
Patient is a 49-year-old gentleman with history of hypertension, depression, who was brought from home via EMS as patient's found him lethargic and short of breath. Patient reportedly had been sick for the last 3 to 4 days. Patient required
15 L via nasal cannula initially and was subsequently transition to BiPAP support as his initial saturations were around 60%. Patient responded well to BiPAP and was noted to have hypercapnia also. Overnight he continued to develop worsening
hypercapnia and inability to ventilate and oxygenate and required intubation and mechanical ventilation. Post ventilation, patient has been very difficult to oxygenate. He has been on 100% FiO2 and PEEP has been slowly increased all the way up to
18 now. His PF ratio continues to be severely low. He has been on deep sedation and also paralytics were initiated. Patient found to have influenza A screen positive.
#1. Influenza A with severe acute hypoxic respiratory failure. (Intubated 07/15)
- Patient was initially on 15 L oxygen, subsequently transitioned to BiPAP and now on mechanical ventilation
- 07/15, patient had severely low PF ratio of 87 and [facility] was contacted for consideration of ECMO. Subsequently once patient was proned his PO2 significantly improved to above 300 hence transfer to [facility] was canceled.
-Patient has been on lung protective mechanical ventilation, Plateau pressure maintained below 25-30 at all times. He has required a high PEEP of 18 initially more lately 14-16. We have been proning patient daily up until 07/18 due to PF ratio
below 150.
- Patient has not required proning since 07/18, however as of 07/21, his PF ratio is now <100 and he is having worsening hypoxia. CT chest obtained showing bilateral bronchiolitis with significant bronchial wall thickening, and evidence of LLL
pneumonia.
- Start proning today for 18 hours, then flipped back supine 6 hours and would do this for 3 days straight. While proned, would reduce FiO2 as tolerated while keeping saturations >88-90% and leave PEEP at 16 to help optimize alveolar recruitment
- Keep driving pressure 15-20
- Titrate FiO2 + PEEP to maintain SpO2 >88-90%
- In view of influenza, steroids were discontinued. No wheezing noted on exam. As of 07/22, however, CT chest shows significant bronchial wall thickening with left lower lobe pneumonia, possibly aspiration. Systemic steroids started in addition to
Flovent as believe that he would benefit from this given the bronchiolitis seen on imaging as well as severe pneumonia with hypoxia
- Completed 3 days of Azithromycin. Off Vancomcyin since MRSA screen negative. Cefepime had been discontinued since tracheal aspirates had shown only yeast.
-07/20. Patient now is spiking fever, somewhat increased by lobar lower lobe opacities noted on chest x-ray, ET tube aspirate is more nunes-colored now. Concern for VAP. Sent tracheal aspirate for culture again on 07/20. Blood cultures were drawn
on 07/19, so far growth is negative. Resumed cefepime on 07/20, follow-up on tracheal aspirate cultures
- Resumed home psychiatric medications (lithium resumed 07/21 as Li level not toxic --> goal level 0.7 per psych who is continuing to follow)
- Continue Tube feeding
#2. ESAU on admission. Cr was 2.9 on admission. Now starting to worsen
- Give IVF bolus and continue to trend sCr and UOP
- Suspect prerenal, responded well to hydration
- Continue to trend serum Na level, which is now normal as of 07/22
- In view of mild hypernatremia, increased free water flushes to 40 ml/h with tube feeding --> Na level now normal as of 07/22
- Renally dose all meds/ABx
#3. Hypotension with shock. Resolved. Suspect this is related to deep sedation as well as initiation of paralytic medications. Shock related to influenza A also in differential diagnosis.
- Keep MAP above 65. Currently off pressors
- Echo checked 07/21 which was a technically difficult study with preserved LVEF at 60-65% with no regional WMA, mild concentric LVH, no significant valvular disease, normal RV size and function with normal RA size
#4. Fevers
- Concern for drug induced fever
- Change cefepime to Zosyn
- Treat fever with tylenol and cooling blanket as needed
- Exchange [place] as it has been present for ~ 10 days
#5. History of smoking. Patient might have underlying COPD.
- Continue DuoNebs QID
- No wheezing on exam now. Discontinued steroids in the setting of influenza A, now resumed given CT chest findings with concern for bronchiolitis as well as left lower lobe pneumonia with RLL opacities
- Nicotine patch
DVT prophylaxis with subcu heparin. GI prophylaxis with pantoprazole.
updated at bedside
Continue ICU level of care for this critically ill patient
Critical care statement: A total of 41 minutes of critical care time was provided for this patient today. This includes management of unstable vital signs, evaluation of the patient at bedside, reviewing the patient's pertinent medical records
including radiographs, microbiology, laboratory evaluations, and discussion with primary team, consultants, pharmacy, nutrition, physical therapy, case management, charge nurse, critical care nursing, and respiratory therapy.
Subjective Dataa
Subjective Data
Date of Service:
Date of Service: July 22, 2024
Chief Complaint: [facility] Follow Up
Subjective:
Patient was seen and evaluated this morning. He is expiring air to baseline in his breaths upon review of the ventilator waveforms - he was air trapping yesterday which also resolved after he received Nimbex X1. Current vent settings are AC/CMV
25/500/16/80% with PIP 29 cmH2O, VTe 498 cc and breathing at 25 breaths/minute. Heart rate 75, BP via A-line: 85/57, SpO2 97%, and BP via NIBP: 112 and 61. End-tidal CO2 30. Sedated on fentanyl at 100mcg/hr and propofol 30mcg/kg/min.
Review of Systems
General: Unobtainable - Sedation
Objective Data
Data Reviewed
Vital Signs / I&O / Oxygen:
Vital Signs
Temp Pulse Resp BP Pulse Ox
100.3 F 74 25 109/62 97
07/22/24 08:00 07/22/24 10:07 07/22/24 07:45 07/22/24 10:07 07/22/24 10:07
Intake and Output
07/21/24 07/22/24 07/23/24
06:59 06:59 06:59
Intake Total 3066.9 / 3205.6 3807.7 / 3948.2 722.0 / 722.0
Output Total 1760 / 1820 2065 / 2125 260 / 260
Balance 1306.9 / 1385.6 1742.7 / 1823.2 462.0 / 462.0
SaO2 [A/C] 100
SaO2 97
Physical Exam
General: Respiratory Distress (negative), Chills (negative), Sweats (negative) and Other (Middle-age male, intubated/sedated on mechanical ventilation in NAD)
HEENT: Normocephalic, Anicteric and Other (ETT in place)
Cardiovascular: S1-S2, Rub (negative) and Peripheral Edema (Trace pedal edema)
Respiratory: Wheeze (negative), Crackles (Bilateral), Non-Labored Respirations, ET Tube (Mechanical breath sounds heard bilaterally) and Other (Good air entry bilaterally.)
GI: Soft, Distended (Abdominal obesity), Non Tender and Normal Bowel Sounds
Neurology: Tremors (negative) and Other (Patient sedated with propofol and fentanyl)
Skin: Warm, Dry, Cyanosis (negative) and Jaundice (negative)
Labs/Micro/Reports
Lab Data
07/22/24 03:35
07/22/24 03:35
Laboratory Results
07/22/24
03:35
pH 7.34 L
pCO2 36
pO2 74 L
HCO3 19.4 L
O2 Delivery Level 80
Microbiology
07/19/24 08:54 Blood/Venous Blood Culture - Preliminary
No Growth in 72 hours- Final report to follow
07/19/24 08:54 Blood/Venous Blood Culture - Preliminary
No Growth in 72 hours- Final report to follow
07/20/24 08:23 Tracheal Aspirate Respiratory Culture - Preliminary
07/20/24 08:23 Tracheal Aspirate Gram Stain - Preliminary
07/15/24 04:33 Blood/Venous Blood Culture - Final
No Growth - Final Report
07/14/24 08:48 Blood/Venous Blood Culture - Final
No Growth - Final Report
[2024-07-22] MEDS: NSS (PRESERVATIVE FREE) 0.5 ML IV (11:28)
[2024-07-22 12:04] LABS: Triglycerides 303 mg/dl (10-149)
[2024-07-22] MEDS: ZOSYN 50 IV ×3 (13:13→23:23)
[2024-07-22] MEDS: SOLU-MEDROL PF 40 MG IV ×2 (13:31→20:18)
[2024-07-22] MEDS: LR 500 IV (13:32)
--- NOTE | 2024-07-22 13:37 | PTCARENOTE ---
given plan to prone pt, ashford exchanged prior to taking pt to ct scan. scab noted at 110clock, after removal of prior [place], care given. ulcer noted at internal area under scab. nonadhesive foam applied around penile shaft and air pillow placed
under area when proned.
[2024-07-22] MEDS: FLOVENT 220 MCG INHALER 2 PUFF INH ×2 (13:38→19:33)
--- NOTE | 2024-07-22 13:52 | PTCARENOTE ---
Pt taken to ct scan as ordered. Pre medicated with fentanyl and ativan. While laying flat in ct, pt coughing and sats down to 93%, additional ativan and fentanyl given, pt tolerated well after. Upon return to room, pt proned as planned.
Tolerated well and sats improved to 100%, discussed with Dr Patterson, plan to wean fio2 to keep sats above 90, currently down to 70%. Otherwise assessment unchanged.
[2024-07-22 14:09] LABS: Urine Sodium 15 mmol/L (30-90)
--- NOTE | 2024-07-22 14:44 | W.PN.UPDATE ---
Update Note
Progress Note Update
Pt seen, reviewed with at bedside; pt remains intubated. reports pt diagnosed with Bipolar d/o, depressed, in treatment since his early 20's. reports pt on the same medication regimen for years, mood has been stable with no recent
psychiatric hospitalizations. Pt's [place] level was reportedly elevated recently; pt was referred to his PCP for eval and the dose was lowered per . Discussed Pandora with Dr Patterson by text; restarting at lower dose, since pt has been
agitated each time he awakens with drop in O2 sat. [place] level 1.0 on 07/21/24.
Imp: Bipolar d/o by history, has reportedly been stable on existing medications. Remains intubated, sedated
Rec: Agree with restarting [place] and monitoring level; continue existing psychotropic medications via tube, given pt's history
will follow
--- NOTE | 2024-07-22 16:27 | PTCARENOTE ---
Systems reviewed. BS coarse, sc rhonchi b/l more air movement noted. fio2 has been weaned to 60%. pt agitated with head turn with premedication, but settled after a few minutes without further intervention. Sedation continues as charted. TF
remain on hold per freelance displayer while prone. Rectal trumpet in place, flushed for patency. [place] draining yellow urine. Otherwise no changes.
[2024-07-22] MEDS: LATUDA 40 MG TUBE (17:08)
[2024-07-22] MEDS: LIPITOR 20 MG TUBE (17:08)
[2024-07-22 17:29] LABS: Glucose - Point of Care 161 mg/dl (70-99)
[2024-07-22] MEDS: NOVOLOG FLEXPEN-MODERATE RESISTANCE 1 UNITS SC ×2 (18:04→23:19)
--- NOTE | 2024-07-22 20:00 | PTCARENOTE ---
rec`d pt at 1900 intubated and sedated on prop and fent through left triple luman IJ. q2H head prone turns continued. pupils = and reactive. deep sedation. +2 general edema. #8 ETT @26. vent settings 25/500/50%/ 16 of peep. POX 99%. rt nare dobhoff
flushed and patent. rectal trumpet in place draining loose brown BMs. therm [place] draining clear yellow urine. elbow protective foams placed for protection. safe environment maintained. pt`s updated via phone call.
[2024-07-22] MEDS: LUVOX 100 MG TUBE (20:16)
[2024-07-22] MEDS: SEROQUEL 50 MG TUBE (20:17)
[2024-07-22] MEDS: LYRICA 100 MG TUBE (20:18)
[2024-07-22 23:39] LABS: Glucose - Point of Care 170 mg/dl (70-99)
[2024-07-23] VITALS (27 sets, daily range): BP systolic 107–135; BP diastolic 63–87; BMI 37.9
--- NOTE | 2024-07-23 | PTCARENOTE ---
pt reassessed no changes in pt assessment.
[2024-07-23] MEDS: DIPRIVAN 100 IV ×6 (01:39→20:01)
[2024-07-23] MEDS: SOLU-MEDROL PF 40 MG IV ×4 (01:47→20:25)
[2024-07-23] MEDS: SUBLIMAZE 100 IV ×4 (02:37→21:25)
[2024-07-23 03:31] LABS: B.E. -6.8 mmol/L; HCO3 18.3 mmol/L (21-28); O2 Therapy 100; PCO2 34 mmHg (35-48); PO2 145 mmHg (83-108); pH 7.34 (7.35-7.45)
[2024-07-23 03:36] LABS: % Basophils 0.3 % (0-2); % Eosinophils 0.1 % (0-6); % Immature Granulocytes 1.4 % (0-0.5); % Lymphocytes 6.5 % (20.5-51.1); % Monocytes 3.6 % (1.7-9.3); % Neutrophils 88.1 % (42.2-75.2); Absolute Immature Granulocytes 0.2 10^3/uL (0-0.05); Absolute Lymphocytes 0.8 10^3/uL (1.2-3.4); Absolute Monocytes 0.4 10^3/uL (0.1-0.6); Absolute Neutrophils 10.6 10^3/uL (1.4-6.5); Hematocrit 27.8 % (39.0-52.0); Hemoglobin 8.5 g/dL (13.0-18.0); Mean Corp Hgb Conc. 30.6 g/dL (33.0-37.0); Mean Corpuscular Hgb 29.3 pg (27.0-31.0); Mean Corpuscular Volume 95.9 fL (80.0-94.0); Mean Platelet Volume 10.8 fL (7.4-10.4); Nucleated Red Blood Cells % 0 % (-); Platelet Count 289 10^3/uL (130-400); Red Cell Dist. Width 13.8 % (11.5-14.5); White Blood Cell Count 12.1 10^3/uL (4.8-10.8)
[2024-07-23 03:50] LABS: ALT (SGPT) 62 U/L (0-50); AST (SGOT) 44 U/L (17-59); Albumin 2.9 g/dl (3.5-5.0); Alkaline Phosphatase 179 U/L (38-126); Blood Urea Nitrogen 52 mg/dl (9-20); Carbon Dioxide 18 mmol/L (22-30); Chloride 117 mmol/L (98-107); Estimated Creatinine Clearance 56 ml/min; Glucose 183 mg/dl (70-99); Potassium 5.7 mmol/L (3.5-5.1); Sodium 144 mmol/L (135-145); Total Bilirubin 0.6 mg/dl (0.2-1.3); Total Protein 6.1 g/dl (6.3-8.2); eGFR 38.11
[2024-07-23] MEDS: CALCIUM GLUCONATE 1000 MG IV (04:32)
[2024-07-23] MEDS: NOVOLIN R 10 UNITS IV (04:33)
[2024-07-23] MEDS: ROBITUSSIN 200 MG TUBE ×5 (04:33→20:25)
[2024-07-23] MEDS: DEXTROSE 50% SYRINGE 25 GRAMS IV (04:33)
--- NOTE | 2024-07-23 04:55 | PTCARENOTE ---
a line tubing changed. potassium 5.7. insulin and dextrose given. q2h head turns continued while being prone. safe environment maintained.
[2024-07-23] MEDS: ZOSYN 50 IV ×3 (05:07→17:19)
[2024-07-23 05:55] LABS: Glucose - Point of Care 179 mg/dl (70-99)
[2024-07-23] MEDS: NOVOLOG FLEXPEN-MODERATE RESISTANCE 1 UNITS SC ×2 (05:59→17:32)
[2024-07-23 06:49] LABS: Glucose - Point of Care 168 mg/dl (70-99)
--- NOTE | 2024-07-23 06:56 | W.PN.HOSP.TC ---
Addendum entered and electronically signed by Martin Cerrato DO 07/24/24 14:41:
Mergenthaloer CDI: Stage I upper lateral penis pressure injury from proning
Original Note:
Today's Communication/Plan
-
Continue Zosyn
Continue Solu-Medrol
Reduce FiO2 as tolerated, keeping saturations >88-90%.
Assessment / Plan
Assessment / Plan
Assessment/plan
49-year-old male admitted to the ICU for acute hypoxemic respiratory failure, requiring intubation and mechanical ventilation.
#Acute hypoxic respiratory failure
On mechanical ventilation
Initially found to be flu positive
Patient was started on 11/19.
Urine Legionella antigen, strep pneumo antigen were negative; blood cultures were negative.
Patient was restarted on antibiotics, cefepime as chest x-ray showed mild opacities for possible VAP
Patient spiked fevers on cefepime, suspected drug-induced fevers, so was switched to Zosyn
Tracheal aspirate cultures came back positive for F group Streptococcus.
CT chest�left lower lobe consolidation, patchy airspace opacities in the right lower lung, suspicious for multifocal PNA.
Continue Zosyn
Monitor fever curve, white count
Started on Solu-Medrol�40 mg IV, q8. And Flovent
Day 9 of mechanical ventilation
mechanical ventilator settings to 500/25/50%/16, wean PEEP and FiO2 as able
P/F ratio when prone�290
SAT and SBT when appropriate
IV Protonix
HOB elevation
Pulmonary toilet
#Multifactorial anemia
TIBC low, % sat�17%
Continue iron supplementation via tube
Monitor CBC.
#Hypernatremia
Resolved
-Serum sodium 144 as of this morning
-Will monitor BMP and free water flushes further if needed
#Circulatory shock
-Likely either related to paralytic agents for intubation versus septic shock due to CAP
-Ultimately required Levophed for hemodynamic support
Home antihypertensive regimen now held, levo has been weaned off
Initial blood cultures and repeat from 07/19 remain negative
Repeat cultures NGTD
#Acute Kidney Injury
-Urine studies with low sodium consistent with prerenal etiology, improving with IVF
-Creatinine at 2.1, remains with good UOP as of
-Continue PRN IVF and trend BMP and UOP, avoid nephrotoxins
�Renally dose all medications
#Essential HTN
-No known history of hypertensive systemic disease
-Home regimen currently held due to circulatory shock
-hold [employer] regimen: Atenolol 25mg PO QD; Losartan 50mg PO BID; amlodipine 10mg PO QD
#Psychiatry history
-continue [employer] home regimen: Fluvoxamine (50 AM + 100 HS), lithium carbonate , lurasidone 40 HS, Seroquel 50 HS
-[place] level was 1.6., Repeat level 1.0
-[place] restarted at low-dose 300 mg 3 times daily, recheck lithium levels in 4 to 5 days
-psychiatry on board
DVT PPx Hep subQ
GI PPx Protonix
Diet: Tube feeds with Jevity
FULL CODE
Anticipated Discharge: > 48 hours
Subjective/Interval History
-
Date of Service: July 23, 2024
Patient on mechanical ventilation and sedated with propofol and fentanyl.
Patient is in prone position.
Vent settings�500/25/16/50%
Objective Data
-
Labs:
Laboratory Results
07/23/24 07/23/24 07/23/24
03:17 06:51 08:00
WBC 12.1 H
Hgb 8.5 L
Hct 27.8 L
Plt Count 289
HCO3 18.3 L
Sodium 144
Potassium 5.7 H Cancelled Pending
Chloride 117 H
Carbon Dioxide 18 L
BUN 52 H
Creatinine 2.1 H
Glucose 183 H
Calcium 9.0
Total Bilirubin 0.6
AST 44
ALT 62 H
Alkaline Phosphatase 179 H
Vital Signs:
Vital Signs
Temp Pulse Resp BP Pulse Ox
98.7 F 66 25 130/84 100
07/23/24 03:12 07/23/24 06:00 07/22/24 15:18 07/23/24 06:00 07/23/24 06:00
I&O
07/21/24 07/22/24 07/23/24
06:59 06:59 06:59
Intake Total 3066.9 / 3205.6 3807.7 / 3948.2 2317.0 / 2317.0
Output Total 1760 / 1820 2065 / 2125 3620 / 3620
Balance 1306.9 / 1385.6 1742.7 / 1823.2 -1303.0 / -1303.0
Physical Exam
-
General: Intubated; Negative Respiratory Distress
HEENT: Normocephalic, Atraumatic and Other (Endotracheal tube in place)
Respiratory: Other (Good air entry bilaterally)
Cardiac: Regular Rhythm, S1/S2 and Other (1+ pedal edema)
Skin: Warm and Dry
Neuro: Sedated
[2024-07-23] MEDS: NSS (PRESERVATIVE FREE) 10 ML IV (07:34)
[2024-07-23] MEDS: NICODERM TRANSDERMAL 21 MG TRANSDERM (07:35)
[2024-07-23] MEDS: PROTONIX IV 40 MG IV (07:35)
--- NOTE | 2024-07-23 08:13 | W.PN.INTV ---
Today's Communication / Plan
Recommendations
Continue systemic steroids + Flovent
Trend serum Na
Continue proning for 18 hours, then supine for 6 hours, and while patient is prone reduce FiO2 to keep saturations >88-90%
Maintain driving pressures 15�20 with plateau pressures <25�30
[place] now being stopped per psychiatry given ESAU with risk of lithium toxicity
Deeply sedate with goal RASS -2 to -3
Fever now resolved
Continue Zosyn
If patient not extubated or close to extubation by this weekend then will consult ENT for tracheostomy evaluation
Continue ICU level of care for this critically ill patient
Assessment
-
Patient is a 49-year-old gentleman with history of hypertension, depression, who was brought from home via EMS as patient's found him lethargic and short of breath. Patient reportedly had been sick for the last 3 to 4 days. Patient required
15 L via nasal cannula initially and was subsequently transition to BiPAP support as his initial saturations were around 60%. Patient responded well to BiPAP and was noted to have hypercapnia also. Overnight he continued to develop worsening
hypercapnia and inability to ventilate and oxygenate and required intubation and mechanical ventilation. Post ventilation, patient has been very difficult to oxygenate. He has been on 100% FiO2 and PEEP has been slowly increased all the way up to
18 now. His PF ratio continues to be severely low. He has been on deep sedation and also paralytics were initiated. Patient found to have influenza A screen positive.
#1. Influenza A with severe acute hypoxic respiratory failure. (Intubated 07/15)
- Patient was initially on 15 L oxygen, subsequently transitioned to BiPAP and now on mechanical ventilation
- 07/15, patient had severely low PF ratio of 87 and [facility] was contacted for consideration of ECMO. Subsequently once patient was proned his PO2 significantly improved to above 300 hence transfer to [facility] was canceled.
-Patient has been on lung protective mechanical ventilation, Plateau pressure maintained below 25-30 at all times. He has required a high PEEP of 18 initially more lately 14-16. We have been proning patient daily up until 07/18 due to PF ratio
below 150.
- Patient has not required proning since 07/18, however as of 07/21, his PF ratio is now <100 and he is having worsening hypoxia. CT chest obtained showing bilateral bronchiolitis with significant bronchial wall thickening, and evidence of LLL
pneumonia.
- PEEP raised today from 16 to 18 to optimize driving pressure
- Started proning on 07/22for 18 hours, then flip back supine 6 hours and would do this for 3 days straight. While proned, would reduce FiO2 as tolerated while keeping saturations >88-90% and leave PEEP at 18 to help optimize alveolar recruitment
- Keep driving pressure 15-20
- Titrate FiO2 + PEEP to maintain SpO2 >88-90%
- In view of influenza, steroids were discontinued. No wheezing noted on exam. As of 07/22, however, CT chest shows significant bronchial wall thickening with left lower lobe pneumonia, possibly aspiration. Systemic steroids started in addition to
Flovent as believe that he would benefit from this given the bronchiolitis seen on imaging as well as severe pneumonia with hypoxia
- Completed 3 days of Azithromycin. Off Vancomcyin since MRSA screen negative. Cefepime had been discontinued since tracheal aspirates had shown only yeast.
-07/20. Patient now is spiking fever, somewhat increased by lobar lower lobe opacities noted on chest x-ray, ET tube aspirate is more nunes-colored now. Concern for VAP. Sent tracheal aspirate for culture again on 07/20. Blood cultures were drawn
on 07/19, so far growth is negative. Resumed cefepime on 07/20, follow-up on tracheal aspirate cultures
- Resumed home psychiatric medications (lithium resumed 07/21 as Li level not toxic --> goal level 0.7 per psych who is continuing to follow) - psych feels that given ESAU the risk of Li toxicity is high - Li now stopped as of 07/23
- Continue Tube feeding
#2. ESAU on admission. Cr was 2.9 on admission - worsening
- Give IVF bolus and continue to trend sCr and UOP
- Suspect prerenal, responded well to hydration
- Continue to trend serum Na level, which is now normal as of 07/22
- In view of mild hypernatremia, increased free water flushes to 40 ml/h with tube feeding --> Na level normal as of 07/22
- Renally dose all meds/ABx
- Given that urine sodium is low, IVF started with NS 0.9% at 100 cc/h. Continue to trend serum creatinine and monitor for signs of volume overload
- If creatinine continues to increase then we will consult nephrology
- Monitor potassium level and treat with temporizing agents if needed for goal K 4 to 5.1
#3. Hypotension with shock. Resolved. Suspect this is related to deep sedation as well as initiation of paralytic medications. Shock related to influenza A also in differential diagnosis.
- Keep MAP above 65. Currently off pressors
- Echo checked 07/21 which was a technically difficult study with preserved LVEF at 60-65% with no regional WMA, mild concentric LVH, no significant valvular disease, normal RV size and function with normal RA size
#4. Fevers
- Concern for drug induced fever
- On 07/22 we changed cefepime to Zosyn
-Fever resolved as of morning of 07/22
- Treat fever with tylenol and cooling blanket as needed
- [place] exchanged on 07/22 as it had been present for ~ 10 days
#5. History of smoking. Patient might have underlying COPD.
- Continue DuoNebs QID
- No wheezing on exam now. Discontinued steroids in the setting of influenza A, now resumed given CT chest findings with concern for bronchiolitis as well as left lower lobe pneumonia with RLL opacities
- Nicotine patch
DVT prophylaxis with subcu heparin. GI prophylaxis with pantoprazole.
updated at bedside on 07/[address] Patterson
Continue ICU level of care for this critically ill patient
Critical care statement: A total of 38 minutes of critical care time was provided for this patient today. This includes management of unstable vital signs, evaluation of the patient at bedside, reviewing the patient's pertinent medical records
including radiographs, microbiology, laboratory evaluations, and discussion with primary team, consultants, pharmacy, nutrition, physical therapy, case management, charge nurse, critical care nursing, and respiratory therapy.
Subjective Dataa
Subjective Data
Date of Service:
Date of Service: July 23, 2024
Chief Complaint: [facility]ular [facility]eter Follow Up
Subjective:
Patient was seen and evaluated this morning. Proned yesterday and remained proned overnight. Currently, patient is flipped to supine with vent settings AC/CMV at 25/500/16/50%, with PIP 30 cmH2O, VTe 498 mL and breathing at 25 breaths/minute.
Heart rate 66, BP via A-line 116/68, saturating 94% with BP via NIBP: 134/80. Currently sedated on fentanyl at 175 mcg/hr + propofol at 40 mcg/kg/min. Plateau pressures morning 25, total PEEP is 16 this morning. Plateau pressures while proned
overnight was .
Review of Systems
General: Unobtainable - Sedation
Objective Data
Data Reviewed
Vital Signs / I&O / Oxygen:
Vital Signs
Temp Pulse Resp BP Pulse Ox
98.2 F 72 29 129/76 93
07/23/24 07:15 07/23/24 09:00 07/23/24 08:29 07/23/24 09:00 07/23/24 09:31
Intake and Output
07/22/24 07/23/24 07/24/24
06:59 06:59 06:59
Intake Total 3807.7 / 3948.2 2317.0 / 2352.5 295.8 / 295.8
Output Total 2064 / 5 3620 / 3760 305 / 305
Balance 1742.7 / 1823.2 -1303.0 / -1407.5 -9.2 / -9.2
SaO2 [A/C] 99
SaO2 93
Physical Exam
General: Respiratory Distress (negative), Comfortable, Chills (negative), Sweats (negative) and Other (Middle-age male, intubated/sedated on mechanical ventilation in NAD)
HEENT: Normocephalic, Anicteric and Other (ETT in place)
Cardiovascular: S1-S2, Rub (negative) and Peripheral Edema (Trace pedal edema)
Respiratory: Wheeze (negative), Crackles (Bilateral), Non-Labored Respirations, ET Tube (Mechanical breath sounds heard bilaterally) and Other (Good air entry bilaterally)
GI: Soft, Distended (Abdominal obesity), Non Tender and Normal Bowel Sounds
Neurology: Tremors (negative) and Other (Patient sedated with propofol and fentanyl)
Skin: Warm, Dry, Cyanosis (negative) and Jaundice (negative)
Labs/Micro/Reports
Lab Data
07/23/24 03:17
07/23/24 07:49
Laboratory Results
07/23/24
03:17
pH 7.34 L
pCO2 34 L
pO2 145 H
HCO3 18.3 L
O2 Delivery Level 100
Microbiology
07/19/24 08:54 Blood/Venous Blood Culture - Preliminary
No Growth in 4 days- Final report to follow
07/19/24 08:54 Blood/Venous Blood Culture - Preliminary
No Growth in 4 days- Final report to follow
07/20/24 08:23 Tracheal Aspirate Respiratory Culture - Final
Group F Streptococcus
07/20/24 08:23 Tracheal Aspirate Gram Stain - Final
[2024-07-23] MEDS: FLOVENT 220 MCG INHALER 2 PUFF INH (08:19)
[2024-07-23] MEDS: DUONEB 3 ML INH ×4 (08:19→19:42)
[2024-07-23] MEDS: SUBLIMAZE 50 MCG IV (08:32)
[2024-07-23 08:43] LABS: Potassium 5.6 mmol/L (3.5-5.1)
[2024-07-23] MEDS: SENNA SYRUP 8.8 MG TUBE ×2 (08:55→20:24)
[2024-07-23] MEDS: REFRESH CELLUVISC GEL 1 DROPS OPHTH ×2 (08:55→20:24)
[2024-07-23] MEDS: MIRALAX 17 GRAMS TUBE ×2 (08:55→20:25)
[2024-07-23] MEDS: ESKALITH 300 MG TUBE ×3 (08:55→21:24)
[2024-07-23] MEDS: HEPARIN 5000 UNITS SC ×2 (08:56→15:37)
[2024-07-23] MEDS: LUVOX 50 MG TUBE (08:56)
[2024-07-23] MEDS: FERROUS SULFATE ORAL LIQUID 300 MG TUBE (09:00)
[2024-07-23 09:02] LABS: Glucose - Point of Care 170 mg/dl (70-99)
[2024-07-23] MEDS: TAMIFLU 75 MG TUBE ×2 (09:06→20:25)
--- NOTE | 2024-07-23 09:30 | PTCARENOTE ---
Rec'd care of patient at 0700. Patient in prone position. Sedated on Fentanyl and Propofol drips. Ordered for deep sedation. RASS -4. +Corneal/gag/cough reflexes. NSR on tele monitor. Rate in the 60-70's. +1 generalized anasarca. Palpable pulses. #8
ett, 26cm @ the lip. Vent settings: A/C 25/500/16/50%. Pulse ox 99-100% while proned. Lung sounds coarse/diminished throughout. Patient placed in supine position at 0830. Pulse ox 92-96%. +BS. TFs restarted through DHT. Rectal trumpet in place for
bowel incontinence. Kilpatrick in place for critical I/O. Output 65-140 cc/hr. Fentanyl and Propofol infusing through [facility]. Left radial arnaldo leveled and zeroed. Repeat K level checked s/p calcium gluconate, insulin and dextrose at 0430. Repeat level
5.6.
[2024-07-23] MEDS: NOVOLOG FLEXPEN-MODERATE RESISTANCE 3 UNITS SC (11:06)
[2024-07-23 11:08] LABS: Glucose - Point of Care 204 mg/dl (70-99)
[2024-07-23] MEDS: LOKELMA 10 GRAM PO (11:54)
--- NOTE | 2024-07-23 12:32 | PTCARENOTE ---
No major changes in assessment. Patient remains sedated. Vitals stable. NSR on tele. PEEP increased to 18 by Clay Miller. Pulse ox 92-93%. Plan to prone patient around 1430. Lokelma administered for hyperkalemia. IVFs ordered. Repeat labs sent.
[2024-07-23 12:50] LABS: Blood Urea Nitrogen 62 mg/dl (9-20); Calcium 9.3 mg/dl (8.4-10.2); Carbon Dioxide 18 mmol/L (22-30); Chloride 117 mmol/L (98-107); Estimated Creatinine Clearance 56 ml/min; Glucose 228 mg/dl (70-99); Magnesium 2.9 mg/dl (1.6-2.3); Phosphorus 4.6 mg/dl (2.5-4.5); Potassium 5.4 mmol/L (3.5-5.1); Sodium 143 mmol/L (135-145); eGFR 38.11
[2024-07-23] MEDS: NSS 1000 IV ×2 (13:09→22:30)
[2024-07-23] MEDS: NOVOLIN N vial 0.05 UNITS SC (13:41)
[2024-07-23 13:42] LABS: Glucose - Point of Care 254 mg/dl (70-99)
[2024-07-23 14:44] LABS: Glucose - Point of Care 222 mg/dl (70-99)
--- NOTE | 2024-07-23 14:50 | W.PN.UPDATE ---
Update Note
Progress Note Update
reviewed chart and spoke with nursing. patient currently intubated. noted that he has been restarted on all of his psych meds. would stop lithium as his creatinine is 2.2 and lithium is entirely excreted by the kidney and his level was definitely
high when it was initially done. have still ordered a lithium level for tomorrow to see where it was. if his creatinine returns to normal lithium could be reordered. of course stopping the lithium could influence his mood lability but he is getting
a good amount of fentanyl and ativan which should help. increasing latuda would also be an option. he is on seroquel q hs which i would guess was added for sleep. it might not be my choice as increasing latuda would give mood control and hopefully
improve sleep without increasing patient weight which is substantial. would reassess when he is able to talk . these issues were discussed with dr bey. when i visited his room today he was calm. dr bey says plan may be for extubation
sunday. .
[2024-07-23] MEDS: SUBLIMAZE 100 MCG IV (14:55)
[2024-07-23 15:47] LABS: Glucose - Point of Care 206 mg/dl (70-99)
--- NOTE | 2024-07-23 15:49 | CM ---
Patient remains intubated. Psych meds restarted. Discharge POC remains TBD.
--- NOTE | 2024-07-23 16:58 | PTCARENOTE ---
Patient placed back in prone position at 1500. Once in prone position, arnaldo unable to be zeroed. Upon taking down dressing, arnaldo found to be coiled. Melvin removed and Airplane Pilot Helper notified. Vitals stable. Systems reviewed. Patient opening eyes
during proning. Fentanyl bolus administered and RASS back to -4 in response. NSR on tele. Lung sounds unchanged. TFs restarted per order at a rate of 10 mL/hr. Rectal trumpet and [place] maintained.
[2024-07-23] MEDS: LATUDA 40 MG TUBE (17:19)
[2024-07-23] MEDS: LIPITOR 20 MG TUBE (17:19)
[2024-07-23 17:34] LABS: Glucose - Point of Care 187 mg/dl (70-99)
[2024-07-23 17:47] LABS: Blood Urea Nitrogen 66 mg/dl (9-20); Calcium 9.4 mg/dl (8.4-10.2); Carbon Dioxide 19 mmol/L (22-30); Chloride 116 mmol/L (98-107); Estimated Creatinine Clearance 56 ml/min; Glucose 202 mg/dl (70-99); Potassium 5.3 mmol/L (3.5-5.1); Sodium 143 mmol/L (135-145); eGFR 38.11
[2024-07-23] MEDS: LOKELMA 10 GRAM TUBE (18:38)
[2024-07-23] MEDS: FLOVENT 220 MCG INHALER 4 PUFF INH (19:42)
[2024-07-23 19:48] LABS: Glucose - Point of Care 225 mg/dl (70-99)
--- NOTE | 2024-07-23 20:00 | PTCARENOTE ---
rec`d pt at 1900 intubated and sedated on prop and fent. assessment as documented. restraints. SB to SR on monitor. 8 ETT @26. vent settings 25/500/50/16of peep. dobhoff w/ TF. ashford. rectal trumpet draining loose brown BM. triple luman IJ flushed
and patent. left radial a line. safe environment maintained. q2h head turns continued.
[2024-07-23] MEDS: NOVOLOG FLEXPEN 3 UNITS SC (20:17)
[2024-07-23] MEDS: LYRICA 100 MG TUBE (21:24)
[2024-07-23] MEDS: SEROQUEL 50 MG TUBE (21:24)
[2024-07-23] MEDS: LUVOX 100 MG TUBE (21:24)
[2024-07-23 23:57] LABS: Glucose - Point of Care 218 mg/dl (70-99)
[2024-07-24] VITALS (25 sets, daily range): BP systolic 119–143; BP diastolic 73–89; BMI 38.8
--- NOTE | 2024-07-24 | PTCARENOTE ---
pt remains prone. no changes in pt assessment. safe environment maintained.
[2024-07-24] MEDS: NOVOLOG FLEXPEN 3 UNITS SC ×3 (00:43→11:41)
[2024-07-24] MEDS: NOVOLOG FLEXPEN-MODERATE RESISTANCE 3 UNITS SC ×3 (00:44→11:41)
[2024-07-24] MEDS: ROBITUSSIN 200 MG TUBE ×7 (00:48→23:30)
[2024-07-24] MEDS: ZOSYN 50 IV ×5 (00:48→23:31)
[2024-07-24] MEDS: HEPARIN 5000 UNITS SC ×4 (00:49→23:31)
[2024-07-24] MEDS: DIPRIVAN 100 IV ×8 (02:46→23:25)
[2024-07-24] MEDS: SUBLIMAZE 100 IV ×4 (02:53→20:25)
[2024-07-24 03:37] LABS: Hematocrit 26.6 % (39.0-52.0); Hemoglobin 8.2 g/dL (13.0-18.0); Mean Corp Hgb Conc. 30.8 g/dL (33.0-37.0); Mean Corpuscular Hgb 29.6 pg (27.0-31.0); Mean Platelet Volume 11.1 fL (7.4-10.4); Platelet Count 326 10^3/uL (130-400); Red Blood Cell Count 2.77 10^6/uL (4.70-6.10); Red Cell Dist. Width 13.9 % (11.5-14.5); White Blood Cell Count 13.1 10^3/uL (4.8-10.8)
[2024-07-24 03:50] LABS: Blood Urea Nitrogen 73 mg/dl (9-20); Calcium 9.3 mg/dl (8.4-10.2); Carbon Dioxide 18 mmol/L (22-30); Chloride 117 mmol/L (98-107); Estimated Creatinine Clearance 59 ml/min; Glucose 205 mg/dl (70-99); Lithium 1.6 mmol/L (0.6-1.2); Magnesium 2.9 mg/dl (1.6-2.3); Potassium 5.3 mmol/L (3.5-5.1); Sodium 141 mmol/L (135-145); eGFR 40.41
[2024-07-24 05:08] LABS: Glucose - Point of Care 209 mg/dl (70-99)
[2024-07-24] MEDS: DEXTROSE 50% SYRINGE 25 GRAMS IV (05:08)
[2024-07-24] MEDS: NOVOLIN R 10 UNITS IV (05:08)
[2024-07-24] MEDS: SODIUM BICARBONATE 50 MEQ IV (05:08)
[2024-07-24 05:25] LABS: B.E. -4.2 mmol/L; O2 Saturation % 99.9 % (94-98); PCO2 38 mmHg (35-48); PO2 137 mmHg (83-108); pH 7.35 (7.35-7.45)
[2024-07-24 06:33] LABS: Glucose - Point of Care 218 mg/dl (70-99)
--- NOTE | 2024-07-24 06:44 | W.PN.HOSP.TC ---
Today's Communication/Plan
-
Nephrology consulted
[place] on hold
Continue Solu-Medrol plus Flovent
Monitor serum sodium
Prone 18 hours/supine 6 hours
Continue Zosyn
Assessment / Plan
Assessment / Plan
Assessment/plan
49-year-old male admitted to the ICU for acute hypoxemic respiratory failure, requiring intubation and mechanical ventilation.
#Acute hypoxic respiratory failure
On mechanical ventilation
Initially found to be flu positive
Patient was started on Tamiflu�day 12/19.
Urine Legionella antigen, strep pneumo antigen were negative; blood cultures were negative.
Patient was restarted on antibiotics, cefepime as chest x-ray showed mild opacities for possible VAP
Patient spiked fevers on cefepime, suspected drug-induced fevers, so was switched to Zosyn
Tracheal aspirate cultures came back positive for F group Streptococcus.
CT chest�left lower lobe consolidation, patchy airspace opacities in the right lower lung, suspicious for multifocal PNA.
Continue Zosyn
Monitor fever curve, white count
Started on Solu-Medrol�40 mg IV, q8. And Flovent
Day 10 of mechanical ventilation
mechanical ventilator settings to 500/25/50%/18, wean PEEP and FiO2 as able
P/F ratio when prone�approximately 270
SAT and SBT when appropriate
IV Protonix
HOB elevation
Pulmonary toilet
#Acute Kidney Injury
Urine studies with low sodium consistent with prerenal etiology, improving with IVF
Persistently elevated creatinine at 2.1, although has good UOP.
Patient is hyperkalemic at 5.3, despite being managed with Lokelma, insulin/dextrose/bicarb.
IVF�1L NS
Nephrology consulted
[place] on hold
Continue PRN IVF and trend BMP and UOP, avoid nephrotoxins
Renally dose all medications
#Multifactorial anemia
TIBC low, % sat�17%
Continue iron supplementation via tube
Monitor CBC.
#Hypernatremia
Resolved
-Serum sodium 144 as of this morning
-Will monitor BMP and free water flushes further if needed
#Circulatory shock
-Likely either related to paralytic agents for intubation versus septic shock due to CAP
-Ultimately required Levophed for hemodynamic support
Home antihypertensive regimen now held, levo has been weaned off
Initial blood cultures and repeat from 07/19 remain negative
Repeat cultures NGTD
#Essential HTN
-No known history of hypertensive systemic disease
-Home regimen currently held due to circulatory shock
-hold [employer] regimen: Atenolol 25mg PO QD; Losartan 50mg PO BID; amlodipine 10mg PO QD
#Psychiatry history
Psychiatry on board
continued on [employer] home regimen: Fluvoxamine (50 AM + 100 HS), lithium carbonate , lurasidone 40 HS, Seroquel 50 HS
[place] level was 1.6., Repeat level 1.0
[place] restarted at low-dose 300 mg 3 times daily, but repeat lithium level at 1.6
[place] was held as per psych as his creatinine is trending up.
Goal lithium levels <0.7.
DVT PPx Hep subQ
GI PPx Protonix
Diet: Tube feeds with Jevity
FULL CODE
Anticipated Discharge: > 48 hours
Subjective/Interval History
-
Date of Service: July 24, 2024
Patient on mechanical ventilation, sedated with propofol and fentanyl. Patient in prone position.
Vent settings�
Objective Data
-
Labs:
Laboratory Results
07/24/24 07/24/24 07/24/24
03:25 05:19 07:27
WBC 13.1 H
Hgb 8.2 L
Hct 26.6 L
Plt Count 326
HCO3 21.0
Sodium 141
Potassium 5.3 H Pending
Chloride 117 H
Carbon Dioxide 18 L
BUN 73 H
Creatinine 2.0 H
Glucose 205 H
Calcium 9.3
Vital Signs:
Vital Signs
Temp Pulse Resp BP Pulse Ox
98.1 F 70 25 136/87 98
07/24/24 03:30 07/24/24 06:00 07/24/24 06:00 07/24/24 06:00 07/24/24 06:00
I&O
07/22/24 07/23/24 07/24/24
06:59 06:59 06:59
Intake Total 3807.7 / 3948.2 2317.0 / 2352.5 3966.6 / 3966.6
Output Total 2064 / 2124 3620 / 3760 2079 / 2079
Balance 1742.7 / 1823.2 -1303.0 / -1407.5 1886.6 / 1886.6
Review of Systems
-
Unable to obtain full review of systems at this time due to: Patient Intubation
Physical Exam
-
General: Intubated and Other (Patient is in prone position)
HEENT: Normocephalic and Atraumatic
Respiratory: Non Labored Respirations and Other (Good air entry bilaterally, mechanical breath sounds.)
Cardiac: Regular Rhythm and S1/S2
Genito-urinary: Kilpatrick
Skin: Warm and Dry
Neuro: Sedated (With propofol and fentanyl)
[2024-07-24] MEDS: SENNA SYRUP 8.8 MG TUBE ×2 (07:32→20:13)
[2024-07-24] MEDS: NICODERM TRANSDERMAL 21 MG TRANSDERM (07:32)
[2024-07-24] MEDS: MIRALAX 17 GRAMS TUBE ×2 (07:32→20:14)
[2024-07-24 07:33] LABS: Glucose - Point of Care 213 mg/dl (70-99)
[2024-07-24] MEDS: NSS (PRESERVATIVE FREE) 10 ML IV (07:33)
[2024-07-24] MEDS: LUVOX 50 MG TUBE (07:33)
[2024-07-24] MEDS: PROTONIX IV 40 MG IV (07:33)
[2024-07-24] MEDS: SOLU-MEDROL PF 40 MG IV ×3 (07:34→23:31)
[2024-07-24] MEDS: NSS 1000 IV ×2 (08:12→18:21)
--- NOTE | 2024-07-24 08:16 | W.PN.INTV ---
Today's Communication / Plan
Recommendations
Continue systemic steroids + Flovent --> hopefully I can start lowering steroids over next 1-2 days
Check CRP and ESR tomorrow
Trend serum Cr and UOP; nephro now consulted; cautiously continue IVF but monitor for volume overload
Continue proning for 18 hours, then supine for 6 hours, and while patient is prone reduce FiO2 to keep saturations >88-90% - last night of proning tonight
Maintain plateau pressures <25�30
[place] stopped as of 07/23 per psychiatry given ESAU with risk of lithium toxicity; Continue to trend Li levels
Deeply sedate with goal RASS -2 to -3 --> will start to lighten up sedation tomorrow; if still not close to extubation by tomorrow then will consult ENT for trach
Continue Zosyn
Goal BG 140�180; continue basal�bolus insulin and may need insulin drip if sugars remain uncontrolled today
Bowel regimen
Continue ICU level of care for this critically ill patient
Assessment
-
Patient is a 49-year-old gentleman with history of hypertension, depression, who was brought from home via EMS as patient's found him lethargic and short of breath. Patient reportedly had been sick for the last 3 to 4 days. Patient required
15 L via nasal cannula initially and was subsequently transition to BiPAP support as his initial saturations were around 60%. Patient responded well to BiPAP and was noted to have hypercapnia also. Overnight he continued to develop worsening
hypercapnia and inability to ventilate and oxygenate and required intubation and mechanical ventilation. Post ventilation, patient has been very difficult to oxygenate. He has been on 100% FiO2 and PEEP has been slowly increased all the way up to
18 now. His PF ratio continues to be severely low. He has been on deep sedation and also paralytics were initiated. Patient found to have influenza A screen positive.
#1. Influenza A with severe acute hypoxic respiratory failure. (Intubated 07/15)
- Patient was initially on 15 L oxygen, subsequently transitioned to BiPAP and now on mechanical ventilation
- 07/15, patient had severely low PF ratio of 87 and [facility] was contacted for consideration of ECMO. Subsequently once patient was proned his PO2 significantly improved to above 300 hence transfer to [facility] was canceled.
-Patient has been on lung protective mechanical ventilation, Plateau pressure maintained below 25-30 at all times. He has required a high PEEP of 18 initially. He had been proned patient daily up until 07/18 due to PF ratio below 150.
- Patient has not required proning since 07/18, however as of 07/21, his PF ratio was <[address] chest obtained showing bilateral bronchiolitis with significant bronchial wall thickening, and evidence of LLL pneumonia.
- PEEP raised on 07/24 from 16 to 18 to optimize driving pressure
- Started proning on 07/22 for 18 hours, then flip back supine 6 hours and would do this for 3 days straight. While proned, would reduce FiO2 as tolerated while keeping saturations >88-90%
- Would start to lower PEEP to goal of [address] Chest/CXR not indicative of ARDS
- Titrate FiO2 + PEEP to maintain SpO2 >88-90%
- In view of influenza, steroids were discontinued. No wheezing noted on exam. As of 07/22, however, CT chest shows significant bronchial wall thickening with left lower lobe pneumonia, possibly aspiration. Systemic steroids started in addition to
Flovent as believe that he would benefit from this given the bronchiolitis seen on imaging as well as severe pneumonia with hypoxia
- Completed 3 days of Azithromycin. Off Vancomcyin since MRSA screen negative. Cefepime had been discontinued since tracheal aspirates had shown only yeast.
-07/20. Patient now is spiking fever, somewhat increased by lobar lower lobe opacities noted on chest x-ray, ET tube aspirate is more nunes-colored now. Concern for VAP. Sent tracheal aspirate for culture again on 07/20. Blood cultures were drawn
on 07/19, so far growth is negative. Resumed cefepime on 07/20, follow-up on tracheal aspirate cultures
- Resumed home psychiatric medications (lithium resumed 07/21 as Li level not toxic --> goal level 0.7 per psych who is continuing to follow) - as of 07/23, psych feels that given ESAU the risk of Li toxicity is high - Li stopped as of 07/23; Li levels
were elevated today (07/24) --> continue to trend
- Continue Tube feeding
#2. ESAU on admission. Cr was 2.9 on admission - 2 humberto, stable from yesterday
- Give IVF and continue to trend sCr and UOP
- Nephrology consulted
- Continue to trend serum Na level, which is now normal as of 07/22
- In view of mild hypernatremia, increased free water flushes to 40 ml/h with tube feeding --> Na level normal as of 07/22
- Renally dose all meds/ABx
- Given that urine sodium is low, IVF started with NS 0.9% at 100 cc/h. Continue to trend serum creatinine and monitor for signs of volume overload
- Monitor potassium level and treat with temporizing agents if needed for goal K 4 to 5.1
#3. Hypotension with shock. Resolved. Suspect this is related to deep sedation as well as initiation of paralytic medications. Shock related to influenza A also in differential diagnosis.
- Keep MAP above 65. Currently off pressors
- Echo checked 07/21 which was a technically difficult study with preserved LVEF at 60-65% with no regional WMA, mild concentric LVH, no significant valvular disease, normal RV size and function with normal RA size
#4. Fevers
- Concern for drug induced fever
- On 07/22 we changed cefepime to Zosyn
- Fever resolved as of morning of 07/22
- Treat fever with tylenol and cooling blanket as needed
- Kilpatrick exchanged on 07/22 as it had been present for ~ 10 days
#5. History of smoking. Patient might have underlying COPD.
- Continue DuoNebs QID
- No wheezing on exam now. Discontinued steroids in the setting of influenza A, now resumed given CT chest findings with concern for bronchiolitis as well as left lower lobe pneumonia with RLL opacities
- Nicotine patch
FEN:
Continue tube feeds
Goal BG 140-180mg/dL - may need insulin gtt if BG continues to remain uncontrolled. For now, add scheduled aspart 3 units q6hr in addition to insulin NPH 8 units BID with ISS
DVT prophylaxis with subcu heparin. GI prophylaxis with pantoprazole.
updated at bedside on 07/[address] Patterson
Continue ICU level of care for this critically ill patient
Critical care statement: A total of 41 minutes of critical care time was provided for this patient today. This includes management of unstable vital signs, evaluation of the patient at bedside, reviewing the patient's pertinent medical records
including radiographs, microbiology, laboratory evaluations, and discussion with primary team, consultants, pharmacy, nutrition, physical therapy, case management, charge nurse, critical care nursing, and respiratory therapy.
Subjective Dataa
Subjective Data
Date of Service:
Date of Service: July 24, 2024
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
Subjective:
Patient seen and evaluated this morning. Remains intubated on AC/CMV at 25/500/18/50% with PIP 31 cmH2O, VTe 505 mL and breathing at 25 breaths/minute. Saturating 97% with heart rate 52, BP 133/78. Sedated on fentanyl at 200 mcg/hr and propofol
at 50 mcg/kg/minute. Flipped from prone to supine this morning at around 9:30 AM. PEEP lowered this morning to 16 and plateau pressure was 24 cmH2O. UOP at 100cc/hr.
Review of Systems
General: Unobtainable - Sedation
Objective Data
Data Reviewed
Vital Signs / I&O / Oxygen:
Vital Signs
Temp Pulse Resp BP Pulse Ox
98.5 F 63 25 133/78 94
07/24/24 07:39 07/24/24 10:00 07/24/24 10:00 07/24/24 10:00 07/24/24 10:00
Intake and Output
07/23/24 07/24/24 07/25/24
06:59 06:59 06:59
Intake Total 2317.0 / 2352.5 3966.6 / 4286.4 767.1 / 767.1
Output Total 3620 / 3760 2080 / 2315 615 / 615
Balance -1303.0 / -1407.5 1886.6 / 1971.4 152.1 / 152.1
SaO2 [A/C] 98
SaO2 94
Physical Exam
General: Respiratory Distress (negative), Comfortable, Chills (negative), Sweats (negative) and Other (Middle-age male, intubated/sedated on mechanical ventilation in NAD)
HEENT: Normocephalic, Anicteric, Other (ETT in place) and Other (thick neck)
Cardiovascular: S1-S2, Rub (negative) and Peripheral Edema (Trace bilateral pitting edema)
Respiratory: Wheeze (negative), Non-Labored Respirations, ET Tube (Mechanical breath sounds heard bilaterally) and Other (Good air entry bilaterally with coarse breath sounds)
GI: Soft, Distended (Abdominal obesity), Non Tender and Normal Bowel Sounds
Neurology: Tremors (negative) and Other (Patient sedated with propofol and fentanyl)
Skin: Warm, Dry, Cyanosis (negative) and Jaundice (negative)
Labs/Micro/Reports
Lab Data
07/24/24 03:25
Laboratory Results
07/24/24
05:19
pH 7.35
pCO2 38
pO2 137 H
HCO3 21.0
O2 Delivery Level
Microbiology
07/19/24 08:54 Blood/Venous Blood Culture - Final
No Growth - Final Report
07/19/24 08:54 Blood/Venous Blood Culture - Final
No Growth - Final Report
07/20/24 08:23 Tracheal Aspirate Respiratory Culture - Final
Group F Streptococcus
07/20/24 08:23 Tracheal Aspirate Gram Stain - Final
[2024-07-24] MEDS: DUONEB 3 ML INH ×4 (08:20→19:53)
[2024-07-24] MEDS: FLOVENT 220 MCG INHALER 4 PUFF INH ×2 (08:20→19:53)
[2024-07-24] MEDS: SUBLIMAZE 100 MCG IV ×3 (08:22→15:46)
[2024-07-24] MEDS: ESKALITH TUBE (08:40)
--- NOTE | 2024-07-24 09:00 | W.CON.NEPH ---
Consultation
-
Date/Time Consultation Requested: 07/24/2024 7 AM
Date/Time Consultation Performed: 07/24/2024 9 AM
Requesting Provider: Dr. Vanegas
Performing Provider: Dr. Corrigan
Reason for Consultation: ESAU
Medical History
-
Chief Complaint: Hypoxic respiratory failure
History of Present Illness:
This is a 49-year-old gentleman who has hypertension typically controlled with a multidrug regimen including losartan, mood disorder not explicitly stated as bipolar controlled with lithium therapy and stable levels, hyperlipidemia controlled with
statin therapy. He came to the emergency room on July 14 with lethargy and shortness of breath. He was severely hypoxic at that time requiring BiPAP. Unfortunately his respiratory status decompensated and he was intubated. Subsequently he was
found to be positive for influenza A. His respiration has worsened however and he required proning protocol. He remains on high ventilator requirements. His creatinine was elevated at 2.9 on admission. Kilpatrick had improved down to 1.5 in the first
week of admission it had worsened and now is stuck at 2.0. We are asked to assist with management of the acute kidney injury. His pressures currently stable. Urine output is stable. He is currently critically ill in the ICU on the ventilator and
prone positioning. No recent baseline creatinine is known.
Past Medical History
Hypertension
Hyperlipidemia
Mood disorder unspecified
Obesity
Sleep apnea
Reflux
Right knee ACL reconstruction
Social History
Tobacco: Smoker
Family History
Family History: Not Pertinent
Allergies / Home Medications
Allergy/AdvReac Type Severity Reaction Status Date / Time
grass pollen Allergy Intermediate Rash Verified 07/14/24 08:56
�Medication �Instructions �Recorded �Confirmed �Type
amlodipine 10 mg tablet (Norvasc) 10 mg PO DAILY Blood Pressure 07/14/24 07/14/24 History
atenolol 25 mg tablet 25 mg PO DAILY Blood Pressure 07/14/24 07/14/24 History
atorvastatin 20 mg tablet (Lipitor) 20 mg PO QPM High Cholesterol 07/14/24 07/14/24 History
fluvoxamine 100 mg tablet 100 mg PO HS Mental Health/Anxiety 07/14/24 07/14/24 History
fluvoxamine 50 mg tablet 50 mg PO DAILY Mental 07/14/24 07/14/24 History
Health/Anxiety
ibuprofen 400 mg tablet 400 mg PO Q6HPRN PRN mild pain 07/14/24 07/14/24 History
lithium carbonate 300 mg 1,200 mg PO HS Mental Health 07/14/24 07/14/24 History
tablet,extended release
losartan 50 mg tablet 50 mg PO BID Blood Pressure 07/14/24 07/14/24 History
lurasidone 40 mg tablet 40 mg PO QPM Mental health 07/14/24 07/14/24 History
pregabalin 50 mg capsule (Lyrica) 100 mg PO HS Neurological Condition 07/14/24 07/14/24 History
quetiapine 50 mg tablet (Seroquel) 50 mg PO HS Mental health 07/14/24 07/14/24 History
tirzepatide (weight loss) 2.5 2.5 mg SC TH Weight 07/14/24 07/14/24 History
mg/0.5 mL subcutaneous solution
(Zepbound)
Review of Systems
-
Intubated and sedated
Unable to obtain full review of systems at this time due to: Patient Intubation
Physical Exam
Vital Signs
Vital Signs
Temp Pulse Resp BP Pulse Ox
98.5 F 61 25 132/87 99
07/24/24 07:39 07/24/24 08:24 07/24/24 08:24 07/24/24 08:00 07/24/24 08:24
Lab Results
WBC 13.1 10^3/uL (4.8-10.8) H 07/24/24 03:25
RBC 2.77 10^6/uL (4.70-6.10) L 07/24/24 03:25
Hgb 8.2 g/dL (13.0-18.0) L 07/24/24 03:25
Hct 26.6 % (39.0-52.0) L 07/24/24 03:25
Plt Count 326 10^3/uL (130-400) 07/24/24 03:25
Sodium 141 mmol/L (135-145) 07/24/24 03:25
Potassium 5.0 mmol/L (3.5-5.1) 07/24/24 07:31
Chloride 117 mmol/L (98-107) H 07/24/24 03:25
Carbon Dioxide 18 mmol/L (22-30) L 07/24/24 03:25
BUN 73 mg/dl (9-20) H 07/24/24 03:25
Creatinine 2.0 mg/dL (0.7-1.3) H 07/24/24 03:25
eGFR 40.41 07/24/24 03:25
Glucose 205 mg/dl (70-99) H 07/24/24 03:25
Calcium 9.3 mg/dl (8.4-10.2) 07/24/24 03:25
Phosphorus 4.6 mg/dl (2.5-4.5) H 07/23/24 12:19
Xdz-S-Htcslbcpcmm Pept 184 pg/ml 07/21/24 03:07
Albumin 2.9 g/dl (3.5-5.0) L 07/23/24 03:17
Laboratory Tests
18/07/19/24 07/22/24
07:49 04:04 12:23
Creatinine 1.0 1.5 H
Urine Creatinine 87.100
Urine Sodium [address] chest abdomen pelvis 07/22/2024 no IV contrast
IMPRESSION:
There is a left lower lobe consolidation with air bronchograms as well as patchy airspace opacities within the right lower lung which are suspicious for multifocal pneumonia. There are trace bilateral pleural effusions.
Air-fluid levels within the colon which can be seen with diarrheal illness. Fecal management system is present.
Cholelithiasis.
Mild splenomegaly measuring 15.2 cm.
Urinary bladder is decompressed Kilpatrick catheter.
Physical Exam
Patient is intubated and sedated. Ears and nose are intact. Oropharynx was clear. Neck was supple with trachea midline and no thyromegaly. Heart was regular rate and rhythm without rubs. Lower extremities with 1+ edema. Lungs were clear to
auscultation bilaterally and with normal excursion. Abdomen was soft, nontender, with normal active bowel sounds, and no hepatosplenomegaly. Skin was without rash and with normal turgor.
Data Reviewed
-
Radiology: Image Personally Visualized and interpreted (Chest 07/23/2024 by my read left lower lobe infiltrate)
CT Scan: Report Reviewed by me
Medical Tests (Nuc Med, Echo etc): Report Reviewed by me (Echocardiogram 07/21/2024 ejection fraction 60% no valvular disease mild concentric LVH)
Labs: Labs Reviewed by me
Old Records: Reviewed
Assessment/Plan
-
Assessment
ESAU
VDRF
InfA
HTN
Plan
Vent management per butter wrapper
Blood pressure stable without pressors
Recent fractional excretion of sodium was low
Continue IV fluids
Check lactate
Follow potassium, treat medically can change IV fluids to bicarbonate based if potassium remains elevated
Try to obtain more recent creatinine values to determine whether or not he is close to baseline
Critical care time spent 40 minutes
--- NOTE | 2024-07-24 09:45 | PTCARENOTE ---
Rec'd care of patient at 0700. Patient intubated and sedated. Fentanyl and Propofol gtts infusing through [facility]. NSR on tele. +2 generalized anasarca. Palpable pulses. #8 ett, 26cm @ the lip. Vent settings: A/C 25/500/18/50%. Lung sounds
diminished throughout. +BS. Tfs infusing through DHT. Placed on hold for turn. Rectal trumpet in place for bowel incontinence. Kilpatrick in place for critical I/O . Output 125-235 cc/hr. Patient placed in supine position at 0940. Repeat labs sent.
[2024-07-24 09:52] LABS: Glucose - Point of Care 203 mg/dl (70-99)
[2024-07-24] MEDS: REFRESH CELLUVISC GEL 1 DROPS OPHTH ×2 (09:57→20:14)
--- NOTE | 2024-07-24 11:00 | PN.CDI ---
CDI
- -
CDI:
Physician Documentation Request
Admit Date: 07/14/24 11:38
Dear Doctor Saqib,
Please review the following and provide your response in the progress notes.
Clinical Indicators:
- RN skin assessments indicate Stage 1 upper lateral penis pressure injury
Physician documentation of the type and location of wounds is required for compliant documentation. Based on the above clinical findings and your assessment, please provide the following in your progress note:
1. Location of the ulcer/wound, including laterality.
2. Type (etiology) of ulcer/wound:
- Arterial (ischemic) ulcer
- Traumatic wound
- Pressure (decubitus) ulcer
- Other
Use of terms such as suspected, likely, concern for, or probable (associated with a specific diagnosis that is being evaluated, monitored, or treated as if it exists) are acceptable and can be coded in the inpatient setting, when documented at the
time of discharge.
Thank you,
Leanne Obrien RN
CDI Specialist
Please use your independent medical judgment in providing your response.
*Source: National Pressure Ulcer Advisory Panel (NPUAP)
[2024-07-24 11:37] LABS: Glucose - Point of Care 232 mg/dl (70-99)
--- NOTE | 2024-07-24 12:15 | PTCARENOTE ---
Systems reviewed. Patient sedated. SB/NSR on tele, rate in the 50-60's. Generalized anasarca increased from prior assessment. Pulse ox 97%. PEEP reduced to 14 by RT. Lung sounds unchanged. +BS. TFs resumed. No other changes.
[2024-07-24] MEDS: HUMULIN N KWIKPEN 8 UNITS SC (12:19)
[2024-07-24 12:21] LABS: Glucose - Point of Care 250 mg/dl (70-99)
--- NOTE | 2024-07-24 13:16 | W.PN.UPDATE ---
Update Note
Progress Note Update
patient seen chart reviewed. spoke with nursing and with dr bey. the patient remains intubated therefore could not interact . he was calmly and peacefully lying in bed. notable lithium level even with holding lithium was 1.6. this will need to
be carefully watched and hopefully will decrease in the next day or so. creatinine today is 2.0 renal note appreciated. discussed with why lithium had to be dc'ed at this time given kidney. i would suggest that lithium should not be restarted
at this time. he is on latuda and that could serve as a mood stabilizer. he is also on seroquel i would recommend that latuda (when he is awake ) be increased if more mood stabilization is needed and seroquel be dc'ed. seroquel will only lead to
more weight gain which this patient clearly does not need. would watch qtc. will dc pregabalin also metabolized by kidney this is a small dose and unlikely to cause wd sx. patient is treated for bipolar by miguel turcios md. i will let dr turcios know
at 's request. psych will follow
--- NOTE | 2024-07-24 14:42 | CM ---
Remains intubated, IV/Fentanyl and Propofol, steroids, proning schedule, LiCo3 D/Cd due to ESAU. Possible ENT consult for trach if unabe to extubate within a few days. Discharge POC: TBD based on medical progression.
[2024-07-24 15:00] LABS: Lactic Acid 0.8 mmol/L (0.7-2.0)
[2024-07-24 15:01] LABS: Blood Urea Nitrogen 72 mg/dl (9-20); Calcium 9.1 mg/dl (8.4-10.2); Carbon Dioxide 18 mmol/L (22-30); Chloride 117 mmol/L (98-107); Estimated Creatinine Clearance 59 ml/min; Glucose 271 mg/dl (70-99); Potassium 4.9 mmol/L (3.5-5.1); Sodium 142 mmol/L (135-145); eGFR 40.41
[2024-07-24 16:07] LABS: B.E. -7.7 mmol/L; HCO3 18.3 mmol/L (21-28); O2 Saturation % 98.2 % (94-98); PCO2 38 mmHg (35-48); PO2 80 mmHg (83-108); pH 7.29 (7.35-7.45)
[2024-07-24] MEDS: ATIVAN 1 MG IV (16:19)
--- NOTE | 2024-07-24 16:31 | PTCARENOTE ---
Patient placed in prone position at 1615. Patient tremulous throughout body once in prone position. Salvage Engineer at bedside. Advised RN to administer PRN 1mg IV Ativan. Vitals stable. Afebrile. NSR on tele. HR in the 80's. Lung sounds diminished
throughout. Pulse ox 99%. PEEP down to 12. Deep sedation maintained.
[2024-07-24] MEDS: LATUDA 40 MG TUBE (17:34)
[2024-07-24] MEDS: LIPITOR 20 MG TUBE (17:34)
[2024-07-24 17:42] LABS: Glucose - Point of Care 243 mg/dl (70-99)
--- NOTE | 2024-07-24 17:48 | PTCARENOTE ---
Blood sugars remain high throughout shift. Discussed with Anesthetist and Pharmacist. Glycemic protocol to be initiated.
[2024-07-24] MEDS: NOVOLIN R 4 UNITS IV (18:11)
[2024-07-24 18:13] LABS: Glucose - Point of Care 241 mg/dl (70-99)
[2024-07-24] MEDS: NOVOLIN R INSULIN INFUSION 100 IV (18:14)
[2024-07-24 18:55] LABS: Glucose - Point of Care 240 mg/dl (70-99)
--- NOTE | 2024-07-24 20:00 | PTCARENOTE ---
rec`d pt at 1900 intubated and sedated on prop and fent through left IJ triple luman. NS going at 100cc. glycemic protocol continued. q2h head turns continued as pt is prone. +2 to +3 general edema. + pulses. a/c 25/500/50%/ 12 of peep. POX 99% SB
on monitor. afebrile. rectal trumpet. [place] draining clear yellow urine. dobhoff running with TF at 10/hr w/ 25 water flush. foams on elbows for protection. safe environment maintained.
[2024-07-24 20:07] LABS: Glucose - Point of Care 203 mg/dl (70-99)
[2024-07-24 21:05] LABS: Glucose - Point of Care 213 mg/dl (70-99)
[2024-07-24] MEDS: LUVOX 100 MG TUBE (21:25)
[2024-07-24] MEDS: SEROQUEL 50 MG TUBE (21:25)
[2024-07-24 22:08] LABS: Glucose - Point of Care 192 mg/dl (70-99)
[2024-07-24 22:59] LABS: Glucose - Point of Care 171 mg/dl (70-99)
[2024-07-24 23:59] LABS: Glucose - Point of Care 158 mg/dl (70-99)
[2024-07-25] VITALS (23 sets, daily range): BP systolic 114–145; BP diastolic 70–86; BMI 39.0
--- NOTE | 2024-07-25 00:45 | PTCARENOTE ---
pt desatted to 92% during head turn. pt bumped 100%. now POX is 96-97%.
[2024-07-25] MEDS: SUBLIMAZE 100 IV ×5 (01:09→23:57)
[2024-07-25 01:10] LABS: Glucose - Point of Care 154 mg/dl (70-99)
[2024-07-25] MEDS: DIPRIVAN 100 IV ×7 (01:56→20:01)
[2024-07-25 01:58] LABS: Glucose - Point of Care 135 mg/dl (70-99)
[2024-07-25] MEDS: NSS 1000 IV (02:40)
[2024-07-25 03:00] LABS: Glucose - Point of Care 145 mg/dl (70-99)
[2024-07-25] MEDS: ROBITUSSIN 200 MG TUBE ×5 (04:02→23:13)
[2024-07-25 04:03] LABS: % Basophils 0.1 % (0-2); % Immature Granulocytes 1.3 % (0-0.5); % Lymphocytes 5.9 % (20.5-51.1); % Monocytes 5.9 % (1.7-9.3); % Neutrophils 86.8 % (42.2-75.2); Absolute Immature Granulocytes 0.2 10^3/uL (0-0.05); Absolute Lymphocytes 0.7 10^3/uL (1.2-3.4); Absolute Monocytes 0.7 10^3/uL (0.1-0.6); Absolute Neutrophils 10.4 10^3/uL (1.4-6.5); Hematocrit 27.7 % (39.0-52.0); Hemoglobin 8.6 g/dL (13.0-18.0); Mean Corpuscular Hgb 29.9 pg (27.0-31.0); Mean Corpuscular Volume 96.2 fL (80.0-94.0); Mean Platelet Volume 10.7 fL (7.4-10.4); Nucleated Red Blood Cells % 0.3 % (-); Platelet Count 368 10^3/uL (130-400); Red Blood Cell Count 2.88 10^6/uL (4.70-6.10); Red Cell Dist. Width 13.3 % (11.5-14.5); White Blood Cell Count 11.9 10^3/uL (4.8-10.8)
[2024-07-25] MEDS: NOVOLIN R INSULIN INFUSION 100 IV ×2 (04:13→18:05)
[2024-07-25 04:18] LABS: HCO3 18.5 mmol/L (21-28); O2 Saturation % 99.3 % (94-98); PCO2 32 mmHg (35-48); PO2 115 mmHg (83-108); pH 7.37 (7.35-7.45)
[2024-07-25 04:19] LABS: O2 Therapy %Oxygen/Room Air 50
[2024-07-25 04:26] LABS: Erythrocyte Sed Rate 89 mm/hour (0-20)
[2024-07-25 04:28] LABS: ALT (SGPT) 55 U/L (0-50); AST (SGOT) 21 U/L (17-59); Albumin 2.8 g/dl (3.5-5.0); Alkaline Phosphatase 135 U/L (38-126); Blood Urea Nitrogen 75 mg/dl (9-20); Calcium 9.4 mg/dl (8.4-10.2); Carbon Dioxide 19 mmol/L (22-30); Chloride 122 mmol/L (98-107); Estimated Creatinine Clearance 62 ml/min; Glucose 128 mg/dl (70-99); Lithium 1.2 mmol/L (0.6-1.2); Magnesium 2.9 mg/dl (1.6-2.3); Phosphorus 3.8 mg/dl (2.5-4.5); Potassium 4.7 mmol/L (3.5-5.1); Sodium 147 mmol/L (135-145); Total Bilirubin 0.4 mg/dl (0.2-1.3); Total Protein 5.8 g/dl (6.3-8.2); eGFR 42.98
[2024-07-25 04:56] LABS: Glucose - Point of Care 135 mg/dl (70-99)
[2024-07-25] MEDS: ZOSYN 50 IV ×4 (04:59→23:13)
--- NOTE | 2024-07-25 06:32 | W.PN.HOSP.TC ---
Documented by User: Jerson Wood MD, Resident 07/25/24 08:23
Today's Communication/Plan
-
Continue Zosyn
Continue steroids
Prone/supine, wean PEEP/FiO2 as able
Monitor BMP, creatinine, urine output
Insulin gtt. for BG goal 140�180s
May need ENT consult for trach
Assessment / Plan
Assessment / Plan
Assessment/plan
49-year-old male admitted to the ICU for acute hypoxemic respiratory failure, requiring intubation and mechanical ventilation. day 11 of mechanical ventilation
#Acute hypoxic respiratory failure
On mechanical ventilation
Initially found to be flu positive
Finished 10-day course of Tamiflu yesterday.
Urine Legionella antigen, strep pneumo antigen were negative; blood cultures were negative.
Patient was restarted on antibiotics, cefepime as chest x-ray showed mild opacities for possible VAP
Patient spiked fevers on cefepime, suspected drug-induced fevers, so was switched to Zosyn
Tracheal aspirate cultures came back positive for F group Streptococcus.
CT chest�left lower lobe consolidation, patchy airspace opacities in the right lower lung, suspicious for multifocal PNA.
Continue Zosyn
Monitor fever curve, white count
Continue Solu-Medrol�40 mg IV, q8. And Flovent
mechanical ventilator settings to 500/25/50%/12, wean PEEP and FiO2 as able
P/F ratio when prone�approximately 230
SAT and SBT when appropriate
IV Protonix
HOB elevation
Pulmonary toilet
May require tracheostomy and PEG tube eventually.
#Acute Kidney Injury
Urine studies with low sodium consistent with prerenal etiology, improving with IVF
Persistently elevated creatinine, today at 2.1, has good UOP.
Continue IVF
Potassium trending down 5.3 >4-5 5 > 4.9 > 4.7.
Temporizing measures for hyperkalemia, goal K+ 4-5.
Nephrology on board
Recommends IV bicarb if potassium levels remain persistently elevated.
[employer] on hold
Continue PRN IVF and trend BMP and UOP, avoid nephrotoxins
Renally dose all medications
#Multifactorial anemia
TIBC low, % sat�17%
Continue iron supplementation via tube
Monitor CBC.
#Hypernatremia
Serum sodium 147 as of this morning
Will monitor BMP and free water flushes further if needed
#Circulatory shock
-Likely either related to paralytic agents for intubation versus septic shock due to CAP
-Ultimately required Levophed for hemodynamic support
Home antihypertensive regimen now held, levo has been weaned off
Initial blood cultures and repeat from 07/19 remain negative
Repeat cultures NGTD
#Psychiatry history
Psychiatry on board
continued on EMPLOYMENT OFFIC[employer] home regimen: Fluvoxamine (50 AM + 100 HS), lithium carbonate , lurasidone 40 HS, Seroquel 50 HS
[employer] was held as per psych as his creatinine is trending up, peak lithium levels at 1.6
Goal <0.7.
[employer] level today�1.2
DVT PPx Hep subQ
GI PPx Protonix IV
Insulin GTT for uncontrolled BG's, goal blood glucose 140-180.
Tube feeds with Jevity
FULL CODE
Anticipated Discharge: > 48 hours
Subjective/Interval History
-
Date of Service: July 25, 2024
Patient in prone position, mechanically ventilated, sedated with propofol and fentanyl.
Vent settings�25/500/12/50%
Objective Data
-
Labs:
Laboratory Results
07/25/24 07/25/24
03:56 04:09
WBC 11.9 H
Hgb 8.6 L
Hct 27.7 L
Plt Count 368
HCO3 18.5 L
Sodium 147 H
Potassium 4.7
Chloride 122 H
Carbon Dioxide 19 L
BUN 75 H
Creatinine 1.9 H
Glucose 128 H
Calcium 9.4
Total Bilirubin 0.4
AST 21
ALT 55 H
Alkaline Phosphatase 135 H
Vital Signs:
Vital Signs
Temp Pulse Resp BP Pulse Ox
98.1 F 56 25 124/79 98
07/25/24 03:05 07/25/24 05:00 07/25/24 05:00 07/25/24 05:00 07/25/24 05:00
I&O
07/23/24 07/24/24 07/25/24
06:59 06:59 06:59
Intake Total 2317.0 / 2352.5 3966.6 / 4286.4 4815.6 / 4815.6
Output Total 3620 / 3760 2080 / 2315 3430 / 3430
Balance -1303.0 / -1407.5 1886.6 / 1971.4 1385.6 / 1385.6
Review of Systems
-
Unable to obtain full review of systems at this time due to: Patient Intubation
Physical Exam
-
General: No Apparent Distress
HEENT: Normocephalic, Atraumatic and Other (Endotracheal tube in place)
Respiratory: Non Labored Respirations and Other (Good air entry bilaterally)
Cardiac: Regular Rhythm and S1/S2
Skin: Warm and Dry
Neuro: Sedated

Documented by User: Martin Cerrato DO 07/25/24 12:56
Assessment / Plan
Assessment / Plan
Assessment/plan
49-year-old male admitted to the ICU for acute hypoxemic respiratory failure, requiring intubation and mechanical ventilation. day 11 of mechanical ventilation
#Acute hypoxic respiratory failure
On mechanical ventilation
Initially found to be flu positive
Finished 10-day course of Tamiflu yesterday.
Urine Legionella antigen, strep pneumo antigen were negative; blood cultures were negative.
Patient was restarted on antibiotics, cefepime as chest x-ray showed mild opacities for possible VAP
Patient spiked fevers on cefepime, suspected drug-induced fevers, so was switched to Zosyn
Tracheal aspirate cultures came back positive for F group Streptococcus.
CT chest�left lower lobe consolidation, patchy airspace opacities in the right lower lung, suspicious for multifocal PNA.
Continue Zosyn
Monitor fever curve, white count
Continue Solu-Medrol�40 mg IV, q8. And Flovent
mechanical ventilator settings to 500/25/50%/12, wean PEEP and FiO2 as able
P/F ratio when prone�approximately 230
SAT and SBT when appropriate
IV Protonix
HOB elevation
Pulmonary toilet
May require tracheostomy and PEG tube eventually.
#Acute Kidney Injury
Urine studies with low sodium consistent with prerenal etiology, improving with IVF
Persistently elevated creatinine, today at 2.1, has good UOP.
Continue IVF
Potassium trending down 5.3 >4-5 5 > 4.9 > 4.7.
Temporizing measures for hyperkalemia, goal K+ 4-5.
Nephrology on board
Recommends IV bicarb if potassium levels remain persistently elevated.
[employer] on hold
Continue PRN IVF and trend BMP and UOP, avoid nephrotoxins
Renally dose all medications
#Multifactorial anemia
TIBC low, % sat�17%
Continue iron supplementation via tube
Monitor CBC.
#Hypernatremia
Serum sodium 147 as of this morning
Will monitor BMP and free water flushes further if needed
#S/P Circulatory shock
-Likely either related to paralytic agents for intubation versus septic shock due to CAP
-Ultimately required Levophed for hemodynamic support
Home antihypertensive regimen now held, levo has been weaned off
Initial blood cultures and repeat from 07/19 remain negative
Repeat cultures NGTD
#Psychiatry history
Psychiatry on board
continued on EMPLOYMENT OFFIC[employer] home regimen: Fluvoxamine (50 AM + 100 HS), lithium carbonate , lurasidone 40 HS, Seroquel 50 HS
[employer] was held as per psych as his creatinine is trending up, peak lithium levels at 1.6
Goal <0.7.
[employer] level today�1.2
DVT PPx Hep subQ
GI PPx Protonix IV
Insulin GTT for uncontrolled BG's, goal blood glucose 180-220
Tube feeds with Jevity
FULL CODE
[2024-07-25 07:17] LABS: Glucose - Point of Care 128 mg/dl (70-99)
[2024-07-25] MEDS: DUONEB 3 ML INH ×4 (07:39→19:33)
[2024-07-25] MEDS: FLOVENT 220 MCG INHALER 4 PUFF INH ×2 (07:39→19:34)
--- NOTE | 2024-07-25 07:57 | W.PN.NEPH.PH ---
Today's Communication / Plan
-
Creatinine improving nonoliguric via [place]
Hemodynamically stable
change IV fluids to 1/2
Assessment/Plan
-
Assessment
ESAU
VDRF
InfA
HTN
Hypernatremia
Plan
Creatinine stable at 1.9, nonoliguric
Vent management per veterinary virus serum inspector
Blood pressure stable with midodrine
Recent fractional excretion of sodium was low
Continue IV fluids but transition to more hypotonic
K normalized
Try to obtain more recent creatinine values to determine whether or not he is close to baseline
Patient critically ill with vent dependent respiratory failure due to influenza A
critical care time spent 31 minutes
Total Time Spent with Patient (in minutes): 31
-
-
Date of Service: July 25, 2024
CC / HPI / ROS
-
Chief Complaint:
ESAU
History of Present Illness:
Creatinine stable at 1.9
Hemodynamically stable with midodrine support
Remains intubated and proned in setting resp failure
Review of Systems:
non oliguric via [place]
intubated and sedated
weights up
Labs
-
Labs:
WBC 11.9 10^3/uL (4.8-10.8) H 07/25/24 03:56
RBC 2.88 10^6/uL (4.70-6.10) L 07/25/24 03:56
Hgb 8.6 g/dL (13.0-18.0) L 07/25/24 03:56
Hct 27.7 % (39.0-52.0) L 07/25/24 03:56
Plt Count 368 10^3/uL (130-400) 07/25/24 03:56
Sodium 147 mmol/L (135-145) H 07/25/24 03:56
Potassium 4.7 mmol/L (3.5-5.1) 07/25/24 03:56
Chloride 122 mmol/L (98-107) H 07/25/24 03:56
Carbon Dioxide 19 mmol/L (22-30) L 07/25/24 03:56
BUN 75 mg/dl (9-20) H 07/25/24 03:56
Creatinine 1.9 mg/dL (0.7-1.3) H 07/25/24 03:56
eGFR 42.98 07/25/24 03:56
Glucose 128 mg/dl (70-99) H 07/25/24 03:56
Calcium 9.4 mg/dl (8.4-10.2) 07/25/24 03:56
Phosphorus 3.8 mg/dl (2.5-4.5) 07/25/24 03:56
Adx-K-Hwyjgskrnvt Pept 184 pg/ml 07/21/24 03:07
Albumin 2.8 g/dl (3.5-5.0) L 07/25/24 03:56
Physical Exam
-
Vital Signs:
Vital Signs
Temp Pulse Resp BP Pulse Ox
98.2 F 54 25 124/79 98
07/25/24 07:43 07/25/24 07:50 07/25/24 07:50 07/25/24 05:00 07/25/24 07:50
Cardiovascular:: Regular rate and rhythm
Respiratory:: Bilateral: Coarse
Lung Excursion:: Normal
Abdomen:: Nontender and Soft
Bowel Sounds:: Normal
Extremity Edema:: +1: Bilateral:
[place] Catheter: Yes
--- NOTE | 2024-07-25 08:00 | PN.DE.MGMTRT ---
Insulin Management
- -
07/25/2024: Diabetes Management Consult
49 year old male with PMH: HTN, Depression and T2DM, brought to the ED from home on 07/14/24 via EMS as patient's found him lethargic and short of breath. He was admitted ti the hospital for acute hypoxemic respiratory failure, requiring
intubation and mechanical ventilation.
Pt remains intubated, Day 11, unable to interview or interact, no family at bedside. Information obtained form chart review.
He was taking Mounjaro 2.5mf weekly/ . A1C 6.0%, Cr 2.9-->1.9, eGFR 42.98
On 07/24, Pt was started on steroids, Pred 40mg Q8 hrs and tube feeding contributing to Hyperglycemia.
Critical care glycemia protocol was initiated, glucose remains elevated, 128 to 188 requiring 6-8 unit of insulin/hour.
Will make no changes to current regimen, given critical condition and high insulin requirement.
Discussed with ICU rounding team and Nurse. Will follow up on Sunday.
Diabetes History
- -
Type of Diabetes: 2
Pre-Admission Diabetes Regimen
07/24/24 07/25/24
14:39 03:56
Creatinine 2.0 H 1.9 H
Lab Results
Hemoglobin A1c Cancelled 07/24/24 17:38
Insulin Pump Settings
IP Diabetes Regimen
07/24/24 07/24/24 07/24/24
09:45 11:33 12:18
Glucose
POC Glucose 203 H 232 H 250 H
07/24/24 07/24/24 07/24/24
14:39 17:31 18:07
Glucose 271 H
POC Glucose 243 H 241 H
07/24/24 07/24/24 07/24/24
18:53 20:04 21:03
Glucose
POC Glucose 240 H 203 H 213 H
07/24/24 07/24/24 07/24/24
22:06 22:58 23:57
Glucose
POC Glucose 192 H 171 H 158 H
07/25/24 07/25/24 07/25/24
01:08 01:55 02:58
Glucose
POC Glucose 154 H 135 H 145 H
07/25/24 07/25/24 07/25/24
03:56 04:54 07:15
Glucose 128 H
POC Glucose 135 H 128 H
Patient Education
--- NOTE | 2024-07-25 08:16 | W.PN.INTV ---
Today's Communication / Plan
Recommendations
Continue systemic steroids + Flovent --> will plan to reduce solumedrol to 40mg IV q12hr tomorrow
CRP (57) and ESR (89) elevated
Trend serum Cr and UOP; nephro now consulted; cautiously continue IVF but monitor for volume overload
Keep saturations >88-90% - last night of proning last night into this AM - flipped back supine this AM
Maintain plateau pressures <25�30
[place] stopped as of 07/23 per psychiatry given ESAU with risk of lithium toxicity; Continue to trend Li levels
Change deep sedation to light sedation --> if still not close to extubation by this weekend then will consult ENT for trach
Continue Zosyn
Goal BG 140�180 with insulin gtt
Increase Seroquel to 50mg BID to help us liberate him from the vent
Bowel regimen
Continue ICU level of care for this critically ill patient
Assessment
-
Patient is a 49-year-old gentleman with history of hypertension, depression, who was brought from home via EMS as patient's found him lethargic and short of breath. Patient reportedly had been sick for the last 3 to 4 days. Patient required
15 L via nasal cannula initially and was subsequently transition to BiPAP support as his initial saturations were around 60%. Patient responded well to BiPAP and was noted to have hypercapnia also. Overnight he continued to develop worsening
hypercapnia and inability to ventilate and oxygenate and required intubation and mechanical ventilation. Post ventilation, patient has been very difficult to oxygenate. He has been on 100% FiO2 and PEEP has been slowly increased all the way up to
18 now. His PF ratio continues to be severely low. He has been on deep sedation and also paralytics were initiated. Patient found to have influenza A screen positive.
#1. Influenza A with severe acute hypoxic respiratory failure. (Intubated 07/15)
- Patient was initially on 15 L oxygen, subsequently transitioned to BiPAP and now on mechanical ventilation
- 07/15, patient had severely low PF ratio of 87 and [facility] was contacted for consideration of ECMO. Subsequently once patient was proned his PO2 significantly improved to above 300 hence transfer to [facility] was canceled.
-Patient has been on lung protective mechanical ventilation, Plateau pressure maintained below 25-30 at all times. He has required a high PEEP of 18 initially. He had been proned patient daily up until 07/18 due to PF ratio below 150.
- Patient had not required proning since 07/18, however on 07/21, his PF ratio was <[address] chest obtained showing bilateral bronchiolitis with significant bronchial wall thickening, and evidence of LLL pneumonia.
- PEEP raised on 07/24 from 16 to 18 to optimize driving pressure and for alveolar recruitment
- Started proning on 07/22 for 18 hours, then flip back supine 6 hours and would do this for 3 days straight - he finished proning on 07/24 - 07/25
- Would start to lower PEEP to goal of [address] Chest/CXR not indicative of ARDS
- Titrate FiO2 + PEEP to maintain SpO2 >88-90%
- In view of influenza, steroids were discontinued. No wheezing noted on exam. As of 07/22, however, CT chest shows significant bronchial wall thickening with left lower lobe pneumonia, possibly aspiration. Systemic steroids started in addition to
Flovent as believe that he would benefit from this given the bronchiolitis seen on imaging as well as severe pneumonia with hypoxia
- Plan to reduce steroids to 40 mg IV q12hr tomorrow
- Completed 3 days of Azithromycin. Off Vancomcyin since MRSA screen negative. Cefepime had been discontinued since tracheal aspirates had shown only yeast.
-07/20. Patient now is spiking fever, somewhat increased by lobar lower lobe opacities noted on chest x-ray, ET tube aspirate is more nunes-colored now. Concern for VAP. Sent tracheal aspirate for culture again on 07/20. Blood cultures were drawn
on 07/19, so far growth is negative. Resumed cefepime on 07/20, follow-up on tracheal aspirate cultures
- Resumed home psychiatric medications (lithium resumed 07/21 as Li level not toxic --> goal level 0.7 per psych who is continuing to follow) - as of 07/23, psych feels that given ESAU the risk of Li toxicity is high - Li stopped as of 07/23; Li levels
were elevated on 07/24 --> continue to trend
- Continue tube feeding
#2. ESAU on admission. Cr was 2.9 on admission - 1.9 today, improved from yesterday
- Cntinue to trend sCr and UOP
- Nephrology consulted - recs appreciated
- Continue to trend serum Na level, which was normal from 07/22 - 07/24; he is now slightly hypernatremic as of 07/25 --> 1/2NS started per nephrology
- In view of mild hypernatremia, increased free water flushes to 40 ml/h with tube feeding --> Na level was normal as of 07/22
- Renally dose all meds/ABx
- Given that urine sodium is low, IVF started with NS 0.9% at 100 cc/h. Continue to trend serum creatinine and monitor for signs of volume overload
- Monitor potassium level and treat with temporizing agents if needed for goal K 4 to 5.1
#3. Hypotension with shock. Resolved. Suspect this is related to deep sedation as well as initiation of paralytic medications. Shock related to influenza A also in differential diagnosis.
- Now that patient is no longer being proned and FiO2 down to 50% with PEEP down to 10, sedation changed to light and we will continue reducing sedation to prepare for SBT
- Keep MAP above 65. Currently off pressors
- Echo checked 07/21 which was a technically difficult study with preserved LVEF at 60-65% with no regional WMA, mild concentric LVH, no significant valvular disease, normal RV size and function with normal RA size
#4. Fevers - resolved
- There was a concern for drug induced fever
- On 07/22 we changed cefepime to Zosyn
- Fever resolved as of morning of 07/22
- Treat fever with tylenol and cooling blanket as needed
- [place] exchanged on 07/22 as it had been present for ~ 10 days
#5. History of smoking. Patient might have underlying COPD.
- Continue DuoNebs QID
- No wheezing on exam now. Discontinued steroids in the setting of influenza A, now resumed given CT chest findings with concern for bronchiolitis as well as left lower lobe pneumonia with RLL opacities
- Nicotine patch
FEN:
Continue tube feeds
Continue insulin gtt with goal BG 140-180mg/dL
DVT prophylaxis with subcu heparin. GI prophylaxis with pantoprazole.
updated at bedside on 07/[address] Patterson
Continue ICU level of care for this critically ill patient
Critical care statement: A total of 43 minutes of critical care time was provided for this patient today. This includes management of unstable vital signs, evaluation of the patient at bedside, reviewing the patient's pertinent medical records
including radiographs, microbiology, laboratory evaluations, and discussion with primary team, consultants, pharmacy, nutrition, physical therapy, case management, charge nurse, critical care nursing, and respiratory therapy.
Subjective Dataa
Subjective Data
Date of Service:
Date of Service: July 25, 2024
Chief Complaint: Winder Helper Follow Up
Subjective:
Patient seen and evaluated this morning. Currently on AC/CMV at 25/500/10/50% with PIP 26 cmH2O, VTe 505 mL and breathing at 25 breaths/minute. Heart rate 54, SaO2 95% and BP 136/77. Currently sedated on propofol at 50 mcg/kg/min and fentanyl
200mcg/hr. On insulin drip at 5 units/hr.
Review of Systems
General: Unobtainable - Sedation
Objective Data
Data Reviewed
Vital Signs / I&O / Oxygen:
Vital Signs
Temp Pulse Resp BP Pulse Ox
98.2 F 58 25 136/81 98
07/25/24 07:43 07/25/24 08:00 07/25/24 08:00 07/25/24 08:00 07/25/24 08:00
Intake and Output
05/07/25/24 07/26/24
06:59 06:59 06:59
Intake Total 3966.6 / 4286.4 4815.6 / 4975.8 480.6 / 480.6
Output Total 2080 / 2315 3430 / 3730 900 / 900
Balance 1886.6 / 1971.4 1385.6 / 1245.8 -419.4 / -419.4
SaO2 [A/C] 98
SaO2 98
Physical Exam
General: Respiratory Distress (negative), Comfortable, Chills (negative), Sweats (negative) and Other (Middle-age male, intubated/sedated on mechanical ventilation in NAD)
HEENT: Normocephalic, Anicteric, Other (ETT in place) and Other (thick neck)
Cardiovascular: S1-S2, Rub (negative) and Peripheral Edema (Trace bilateral pitting edema)
Respiratory: Wheeze (negative), Non-Labored Respirations, ET Tube (Mechanical breath sounds heard bilaterally) and Other (Good air entry bilaterally with coarse breath sounds)
GI: Soft, Distended (Abdominal obesity), Non Tender and Normal Bowel Sounds
Neurology: Tremors (negative) and Other (Patient sedated with propofol and fentanyl)
Skin: Warm, Dry, Cyanosis (negative) and Jaundice (negative)
Labs/Micro/Reports
Lab Data
07/25/24 03:56
07/25/24 03:56
Laboratory Results
07/24/24 07/25/24
15:57 04:09
pH 7.29 L 7.37
pCO2 38 32 L
pO2 80 L 115 H
HCO3 18.3 L 18.5 L
O2 Delivery Level %oxygen/room air 50
Microbiology
07/19/24 08:54 Blood/Venous Blood Culture - Final
No Growth - Final Report
07/19/24 08:54 Blood/Venous Blood Culture - Final
No Growth - Final Report
07/20/24 08:23 Tracheal Aspirate Respiratory Culture - Final
Group F Streptococcus
07/20/24 08:23 Tracheal Aspirate Gram Stain - Final
--- NOTE | 2024-07-25 09:00 | PTCARENOTE ---
Rec'd pt at 0800 resting in bed in PRONE postition. Sedated on Diprivan at 50 mcg and Fentanyl at 200 mcg. RASS is a -4. Did have sl eye opening to deep stimuli. Pupils are sluggish at 2mm. SKin is pale pink wm and dry. Respirs are intact on the
Vent- currently at 50% Fio2, AC 25, tv 500, peep 12. BS are sl coarse at the bases otherwise clear. Sats are 97-98%. Does not add rate or volume. ETT at the 26 cm marcelino -will reposition once supine. Monitor SBrady in the 48-53 range. + pulses. +3
generalized anasarca. Tube feeds placed on hold at 0800 when it was discovered that his R nare feeding tube was out at the 65 cm marcelino- and as he is due to be supinated shortly. Tube feeds were running Osmolite 1.2 at 10 ml/hr with 25 ml/hr flush.
Rectal trumpet in place for loose brown stool. Irrigated without difficulty. Thermistor ashford with yellow urine- sometimes large amts. IV NSS at 100 ml/hr/Fentanyl/Propophol and Insulin via the glycemic protocol all infusing via [facility] TLC-site wnl.
Partial CHG bath given and will complete when supine.
[2024-07-25 09:06] LABS: Glucose - Point of Care 115 mg/dl (70-99)
[2024-07-25] MEDS: SOLU-MEDROL PF 40 MG IV ×3 (09:07→23:13)
[2024-07-25] MEDS: NSS (PRESERVATIVE FREE) 10 ML IV (09:08)
[2024-07-25] MEDS: PROTONIX IV 40 MG IV (09:08)
[2024-07-25] MEDS: NICODERM TRANSDERMAL 21 MG TRANSDERM (09:11)
[2024-07-25] MEDS: HEPARIN 5000 UNITS SC ×3 (09:12→23:13)
[2024-07-25] MEDS: REFRESH CELLUVISC GEL 1 DROPS OPHTH ×2 (09:20→19:46)
[2024-07-25] MEDS: SUBLIMAZE 100 MCG IV (09:26)
[2024-07-25] MEDS: ROBITUSSIN TUBE (09:56)
[2024-07-25] MEDS: SENNA SYRUP 8.8 MG TUBE ×2 (10:04→19:46)
[2024-07-25] MEDS: MIRALAX 17 GRAMS TUBE ×2 (10:05→19:45)
[2024-07-25] MEDS: LUVOX 50 MG TUBE (10:05)
[2024-07-25] MEDS: FERROUS SULFATE ORAL LIQUID 300 MG TUBE (10:07)
[2024-07-25] MEDS: 0.45%NACL 1000 IV ×2 (10:08→18:59)
--- NOTE | 2024-07-25 10:15 | PTCARENOTE ---
Pt supinated at 0930. Tolerated turning without significant desaturation. RASS remains a -4. Sats currently are 94-95%. RR remains controlled at 25 on the vent. Resp therapy in and PEEP decreased to 10 cm. ETT retaped at the 26 cm marcelino on the R side
of the mouth once supine. BS are sl coarse. Suctioned for small amt of thick whitish secretions. R nare feeding tube had advanced out to the 65 cm marcelino on initial assessment this morning- now that he is supine- tube repositioned back to the original
75 cm marcelino and CXray taken as ordered. Once placement reconfirmed Osmolite 1.2 tube feeds restarted- per orders 95ml/hr with 25 ml/hr flush. IV fluids changed to 1/2 NSS at 100 ml/hr.
[2024-07-25 11:22] LABS: Glucose - Point of Care 151 mg/dl (70-99)
--- NOTE | 2024-07-25 12:00 | PTCARENOTE ---
Pt placed on Sport bed per MD order. Tolerated movement. Now that he is on the lat rotation mattress will start to wean the Propophol as requested.
--- NOTE | 2024-07-25 12:45 | PTCARENOTE ---
Starting to wean Propophol per MD request- currently at 45 mcg. RASS has been a -4 this shift. Kumar at 2mm. ETT repostioned in the center of the mouth at the 26 cm marcelino. Will occasionally desat to 88-89% but not sustained. If given a 100% O2 flush
will then stay up in the 93-95% range. VS as documented. Tolerating tube feeds. Remains on the Glycemic protocol. No other changes in assessment.
[2024-07-25] MEDS: SEROQUEL 50 MG TUBE ×2 (12:49→19:46)
[2024-07-25 13:13] LABS: Glucose - Point of Care 140 mg/dl (70-99)
--- NOTE | 2024-07-25 14:00 | PTCARENOTE ---
in to see pt and updated. Pt starting to open eyes but not following commands yet. Intermittently adding 1-2 additional breaths on the vent. Currently Propophol at 35 mcg-will continue to wean
[2024-07-25 15:05] LABS: Glucose - Point of Care 171 mg/dl (70-99)
[2024-07-25] MEDS: NOVOLOG FLEXPEN 4 UNITS SC ×3 (15:06→23:13)
[2024-07-25 15:11] LABS: Triglycerides 388 mg/dl (10-149)
--- NOTE | 2024-07-25 15:29 | CM ---
Vent wean, tube feeds. Discharge POC: TBD based on medical progression.
--- NOTE | 2024-07-25 15:30 | PTCARENOTE ---
Pt on occasion will add 1-2 extra breaths on the vent- but not sustained the is mostly controlled at 25.
--- NOTE | 2024-07-25 16:30 | PTCARENOTE ---
Pt with eyes open more since Propophol being weaned. Currently at 20 mcg and now will try to wean Fentanyl - weaned to [address] Patterson. Will open eyes a little more to name but otherwise not following commands. Vent settings are
unchanged. Sats are mostly 92-94%. BS are overall clear-sl decreased. Suctioned for small amt of thick whitish secretions. Will intermittently desat to 88-89%- but will come back up to 92-93%. Tolerated percussion and tolerating rotation on the lat
rotation mattress. VS as documented. ABd is soft- tolerating tube feeds. Updated the diesel technology instructor about the fact that he is not being proned and as such tube feeds adjusted to 75 ml/hr with 25 ml/hr flush. Rectal trumpet with loose brown stool. Kilpatrick
with yellow urine.
[2024-07-25 17:12] LABS: Glucose - Point of Care 166 mg/dl (70-99)
[2024-07-25] MEDS: LIPITOR 20 MG TUBE (18:05)
[2024-07-25] MEDS: LATUDA 40 MG TUBE (18:05)
[2024-07-25 18:10] LABS: Glucose - Point of Care 146 mg/dl (70-99)
--- NOTE | 2024-07-25 18:30 | PTCARENOTE ---
No changes in assessment. Eyes intermittently open with stimulation but no focus or tracking. Propophol at 20 mcg. Fentanyl decreased to 150 mcg currently and will continue to wean as tolerated.
[2024-07-25 18:59] LABS: Glucose - Point of Care 165 mg/dl (70-99)
--- NOTE | 2024-07-25 20:00 | PTCARENOTE ---
Received pt. at 1900. Pt. currently intubated and sedated. No signs of pain.discomfort. Afebrile. Heart rhythm sinus. Blood pressure normotensive. Ventilator settings verified. Synchronous with ventilator. Tube feeds running via dobhoff tube. Rectal
trumpet in place. Kilpatrick catheter in place, draining without issue. Skin as documented. Vital signs stable at this time.
[2024-07-25 20:58] LABS: Glucose - Point of Care 160 mg/dl (70-99)
[2024-07-25] MEDS: LUVOX 100 MG TUBE (21:37)
[2024-07-25 23:05] LABS: Glucose - Point of Care 163 mg/dl (70-99)
[2024-07-26] VITALS (29 sets, daily range): BP systolic 126–172; BP diastolic 75–99; BMI 40.0
--- NOTE | 2024-07-26 | PTCARENOTE ---
Pt. assessment unchanged at this time. Opening eyes but not following commands. No signs of pain/discomfort. Vital signs stable at this time.
[2024-07-26 01:08] LABS: Glucose - Point of Care 162 mg/dl (70-99)
[2024-07-26] MEDS: DIPRIVAN 100 IV ×2 (01:27→05:56)
[2024-07-26 02:56] LABS: Glucose - Point of Care 149 mg/dl (70-99)
[2024-07-26] MEDS: ROBITUSSIN 200 MG TUBE ×6 (03:09→23:26)
[2024-07-26 03:17] LABS: % Basophils 0.1 % (0-2); % Immature Granulocytes 2.1 % (0-0.5); % Lymphocytes 5.8 % (20.5-51.1); % Monocytes 6.9 % (1.7-9.3); % Neutrophils 85.1 % (42.2-75.2); Absolute Immature Granulocytes 0.3 10^3/uL (0-0.05); Absolute Lymphocytes 0.8 10^3/uL (1.2-3.4); Absolute Monocytes 0.9 10^3/uL (0.1-0.6); Absolute Neutrophils 11.2 10^3/uL (1.4-6.5); Hematocrit 28.4 % (39.0-52.0); Hemoglobin 8.8 g/dL (13.0-18.0); Mean Corpuscular Hgb 29.6 pg (27.0-31.0); Mean Corpuscular Volume 95.6 fL (80.0-94.0); Mean Platelet Volume 10.7 fL (7.4-10.4); Nucleated Red Blood Cells % 0.2 % (-); Platelet Count 375 10^3/uL (130-400); Red Blood Cell Count 2.97 10^6/uL (4.70-6.10); Red Cell Dist. Width 13.6 % (11.5-14.5); White Blood Cell Count 13.1 10^3/uL (4.8-10.8)
[2024-07-26 03:42] LABS: ALT (SGPT) 111 U/L (0-50); AST (SGOT) 47 U/L (17-59); Albumin 2.9 g/dl (3.5-5.0); Alkaline Phosphatase 125 U/L (38-126); Blood Urea Nitrogen 79 mg/dl (9-20); Calcium 9.2 mg/dl (8.4-10.2); Carbon Dioxide 17 mmol/L (22-30); Chloride 122 mmol/L (98-107); Estimated Creatinine Clearance 63 ml/min; Glucose 150 mg/dl (70-99); Lithium 1.1 mmol/L (0.6-1.2); Potassium 5.2 mmol/L (3.5-5.1); Sodium 146 mmol/L (135-145); Total Bilirubin 0.3 mg/dl (0.2-1.3); Total Protein 5.9 g/dl (6.3-8.2); eGFR 42.98
--- NOTE | 2024-07-26 04:00 | PTCARENOTE ---
Pt. assessment remains unchanged. AM labs drawn. Vital signs stable at this time.
[2024-07-26 04:38] LABS: B.E. -8.1 mmol/L; O2 Saturation % 96.9 % (94-98); PCO2 33 mmHg (35-48); PO2 75 mmHg (83-108); pH 7.32 (7.35-7.45)
[2024-07-26] MEDS: 0.45%NACL 1000 IV (04:41)
[2024-07-26 04:58] LABS: Glucose - Point of Care 131 mg/dl (70-99)
[2024-07-26] MEDS: NOVOLOG FLEXPEN 4 UNITS SC ×4 (05:13→23:25)
[2024-07-26] MEDS: ZOSYN 50 IV ×4 (05:14→23:26)
[2024-07-26] MEDS: NOVOLIN R INSULIN INFUSION 100 IV ×2 (05:14→19:31)
[2024-07-26 06:53] LABS: Glucose - Point of Care 143 mg/dl (70-99)
[2024-07-26] MEDS: HEPARIN 5000 UNITS SC ×3 (07:32→23:26)
[2024-07-26] MEDS: SODIUM BICARBONATE 50 MEQ IV (07:32)
[2024-07-26] MEDS: LOKELMA 10 GRAM TUBE (07:32)
[2024-07-26] MEDS: PROTONIX IV 40 MG IV (07:33)
[2024-07-26] MEDS: NICODERM TRANSDERMAL 21 MG TRANSDERM (07:33)
[2024-07-26] MEDS: NSS (PRESERVATIVE FREE) 10 ML IV (07:33)
[2024-07-26] MEDS: SOLU-MEDROL PF 40 MG IV ×2 (07:34→19:36)
[2024-07-26] MEDS: REFRESH CELLUVISC GEL 1 DROPS OPHTH ×2 (07:34→19:35)
[2024-07-26] MEDS: DUONEB 3 ML INH ×4 (07:40→19:30)
[2024-07-26] MEDS: FLOVENT 220 MCG INHALER 4 PUFF INH ×2 (07:40→19:31)
--- NOTE | 2024-07-26 07:52 | W.PN.HOSP.TC ---
Today's Communication/Plan
-
Continue IV Zosyn
Steroid taper�Solu-Medrol 40 mg every 12 hours
IV fluids�half-normal saline
Temporizing measures for hyperkalemia
Continue insulin GTT
Likely SAT and SBT today
Assessment / Plan
Assessment / Plan
Assessment/plan
49-year-old male admitted to the ICU for acute hypoxemic respiratory failure, requiring intubation and mechanical ventilation. day 12 of mechanical ventilation
#Acute hypoxic respiratory failure
On mechanical ventilation
Initially found to be flu positive
Finished 10-day course of Tamiflu.
Urine Legionella antigen, strep pneumo antigen were negative; blood cultures were negative.
Patient was restarted on antibiotics, cefepime as chest x-ray showed mild opacities for possible VAP
Patient spiked fevers on cefepime, suspected drug-induced fevers, so was switched to Zosyn
Tracheal aspirate cultures came back positive for F group Streptococcus.
CT chest�left lower lobe consolidation, patchy airspace opacities in the right lower lung, suspicious for multifocal PNA-ventilator associated pneumonia
Continue Zosyn
Monitor fever curve, white count
Solu-Medrol�40 mg IV, q8, start tapering to 40 mg IV every 12 HRS.
mechanical ventilator settings to 500/25/50%/10, wean PEEP and FiO2 as able
P/F ratio when prone�approximately 250
SAT and SBT trial likely today
IV Protonix 40 mg once daily
HOB elevation
Pulmonary toilet
#Acute Kidney Injury
Urine studies with low sodium consistent with prerenal etiology, improving with IVF
Persistently elevated creatinine, today at 1.9, has good UOP.
Continue IVF�half-normal saline
Temporizing measures for hyperkalemia, goal K+ 4-5.
Lokelma in the a.m., potassium�5.2
Nephrology on board
Recommends IV bicarb if potassium levels remain persistently elevated.
[place] on hold
Continue PRN IVF and trend BMP and UOP, avoid nephrotoxins
Renally dose all medications
#Multifactorial anemia
TIBC low, % sat�17%
Continue iron supplementation via tube
Monitor CBC.
#Hypernatremia
Serum sodium 146 as of this morning
Will monitor BMP and free water flushes further if needed
#S/P Circulatory shock
-Likely either related to paralytic agents for intubation versus septic shock due to CAP
-Ultimately required Levophed for hemodynamic support
Home antihypertensive regimen now held, levo has been weaned off
Initial blood cultures and repeat from 07/19 remain negative
Repeat cultures NGTD
#Psychiatry history
Psychiatry on board
continued on [employer] home regimen: Fluvoxamine (50 AM + 100 HS), lithium carbonate , lurasidone 40 HS, Seroquel 50 HS
[place] was held as per psych as his creatinine is trending up, peak lithium levels at 1.6
Goal <0.7.
[place] level today�1.1
DVT PPx Hep subQ
GI PPx Protonix IV
Insulin GTT for uncontrolled BG's, goal blood glucose 180-220
Tube feeds with Jevity
FULL CODE
Anticipated Discharge: > 48 hours
Subjective/Interval History
-
Date of Service: July 26, 2024
Patient supine, did not require to be proned overnight.
Patient on mechanical ventilation, sedated with propofol and fentanyl.
Objective Data
-
Labs:
Laboratory Results
07/26/24 07/26/24 07/26/24
03:04 04:03 09:19
WBC 13.1 H
Hgb 8.8 L
Hct 28.4 L
Plt Count 375
HCO3 17.0 L
Sodium 146 H
Potassium 5.2 H Cancelled
Chloride 122 H
Carbon Dioxide 17 L
BUN 79 H
Creatinine 1.9 H
Glucose 150 H
Calcium 9.2
Total Bilirubin 0.3
AST 47
ALT 111 H
Alkaline Phosphatase 125
07/26/24 07/26/24
11:30 12:00
WBC
Hgb
Hct
Plt Count
HCO3
Sodium Pending
Potassium Cancelled Pending
Chloride Pending
Carbon Dioxide Pending
BUN Pending
Creatinine Pending
Glucose Pending
Calcium Pending
Total Bilirubin
AST
ALT
Alkaline Phosphatase
Vital Signs:
Vital Signs
Temp Pulse Resp BP Pulse Ox
99.9 F 70 25 141/81 94
07/26/24 04:00 07/26/24 07:46 07/26/24 07:46 07/26/24 06:00 07/26/24 07:46
I&O
07/25/24 07/26/24 07/27/24
06:59 06:59 06:59
Intake Total 4815.6 / 5110.8 6330.5 / 6330.5
Output Total 3430 / 3730 4090 / 4090
Balance 1385.6 / 1380.8 2240.5 / 2240.5
Review of Systems
-
Unable to obtain full review of systems at this time due to: Patient Intubation
Physical Exam
-
General: No Apparent Distress and Intubated
HEENT: Normocephalic and Atraumatic
Respiratory: Other (Good air entry bilaterally)
Cardiac: Regular Rhythm, S1/S2 and Other (2+ bilateral pedal edema)
GI: Soft and Normal Bowel Sounds
Skin: Warm and Dry
Neuro: Sedated
--- NOTE | 2024-07-26 07:57 | W.PN.NEPH.PH ---
Today's Communication / Plan
-
DC IV fluid
Creatinine stable at 1.9 and grossly nonoliguric
Changed tube flushes to 75 cc/h for hypernatremia
Closely monitor metabolic acidosis
Assessment/Plan
-
Assessment
ESAU
VDRF
InfA
HTN
Hypernatremia
Plan
Creatinine stable at 1.9, nonoliguric, BUN up to 79 (may be related to steriods)
Metabolic acidosis worsening
Vent management per dairy scientist
Hypernatremia persist with half-normal saline,uop > 3liters
Weights up, will DC IV fluid
Increase tube flushes to 75 cc/h in setting of hypernatremia
Blood pressure stable with midodrine
Recent fractional excretion of sodium was low
K rising
Zosyn renally dosed
Try to obtain more recent creatinine values to determine whether or not he is close to baseline
Patient critically ill with vent dependent respiratory failure due to influenza A
critical care time spent 31 minutes
Total Time Spent with Patient (in minutes): 31
-
-
Date of Service: July 26, 2024
CC / HPI / ROS
-
Chief Complaint:
ESAU
History of Present Illness:
Creatinine stable at 1.9
Hemodynamically stable with midodrine support
Remains intubated and proned in setting resp failure
Metabolic acidosis worsening
Hypernatremia persist
Remains on tube feeds
Review of Systems:
non oliguric via ashford
intubated and sedated
weights up
Labs
-
Labs:
WBC 13.1 10^3/uL (4.8-10.8) H 07/26/24 03:04
RBC 2.97 10^6/uL (4.70-6.10) L 07/26/24 03:04
Hgb 8.8 g/dL (13.0-18.0) L 07/26/24 03:04
Hct 28.4 % (39.0-52.0) L 07/26/24 03:04
Plt Count 375 10^3/uL (130-400) 07/26/24 03:04
eGFR 42.98 07/26/24 03:04
Phosphorus 3.8 mg/dl (2.5-4.5) 07/25/24 03:56
Fyu-I-Ombqiluzkpb Pept 184 pg/ml 07/21/24 03:07
Albumin 2.9 g/dl (3.5-5.0) L 07/26/24 03:04
Physical Exam
-
Vital Signs:
Vital Signs
Temp Pulse Resp BP Pulse Ox
99.9 F 70 25 141/81 94
07/26/24 04:00 07/26/24 07:46 07/26/24 07:46 07/26/24 06:00 07/26/24 07:46
Cardiovascular:: Regular rate and rhythm
Respiratory:: Bilateral: Coarse
Lung Excursion:: Normal
Abdomen:: Nontender and Soft
Bowel Sounds:: Normal
Extremity Edema:: +1: Bilateral:
Ashford Catheter: Yes
--- NOTE | 2024-07-26 08:16 | W.PN.INTV ---
Today's Communication / Plan
Recommendations
Continue systemic steroids + Flovent --> reduce solumedrol to 40mg IV q12hr today
CRP (57) and ESR (89) elevated on 07/25
Trend serum Cr and UOP; nephro now consulted; cautiously continue IVF but monitor for volume overload --> given rising serum Na, start D5W
Keep saturations >88-90% - last night of proning was 07/24 - 07/25 - flipped back supine on AM of 07/25
Maintain plateau pressures <25�30
Hendley stopped as of 07/23 per psychiatry given ESAU with risk of lithium toxicity; Continue to trend Li levels (1.1 today)
Continue light sedation with goal RASS 0 to -2--> if still not close to extubation by tomorrow then will consult ENT for trach
Continue Zosyn
Goal BG 140�180 with insulin gtt
Increased Seroquel on 07/25 to 50mg BID to help us liberate him from the vent
Continue bowel regimen
Continue ICU level of care for this critically ill patient
Assessment
-
Patient is a 49-year-old gentleman with history of hypertension, depression, who was brought from home via EMS as patient's found him lethargic and short of breath. Patient reportedly had been sick for the last 3 to 4 days. Patient required
15 L via nasal cannula initially and was subsequently transition to BiPAP support as his initial saturations were around 60%. Patient responded well to BiPAP and was noted to have hypercapnia also. Overnight he continued to develop worsening
hypercapnia and inability to ventilate and oxygenate and required intubation and mechanical ventilation. Post ventilation, patient has been very difficult to oxygenate. He has been on 100% FiO2 and PEEP has been slowly increased all the way up to
18 now. His PF ratio continues to be severely low. He has been on deep sedation and also paralytics were initiated. Patient found to have influenza A screen positive.
#1. Influenza A with severe acute hypoxic respiratory failure. (Intubated 07/15)
- Patient was initially on 15 L oxygen, subsequently transitioned to BiPAP and now on mechanical ventilation
- 07/15, patient had severely low PF ratio of 87 and [facility] was contacted for consideration of ECMO. Subsequently once patient was proned his PO2 significantly improved to above 300 hence transfer to [facility] was canceled.
-Patient has been on lung protective mechanical ventilation, Plateau pressure maintained below 25-30 at all times. He has required a high PEEP of 18 initially. He had been proned patient daily up until 07/18 due to PF ratio below 150.
- Patient had not required proning since 07/18, however on 07/21, his PF ratio was <[address] chest obtained showing bilateral bronchiolitis with significant bronchial wall thickening, and evidence of LLL pneumonia.
- PEEP raised on 07/24 from 16 to 18 to optimize driving pressure and for alveolar recruitment
- Started proning on 07/22 for 18 hours, then flip back supine 6 hours and would do this for 3 days straight - he finished proning on 07/24 - 07/25
- Ok to leave PEEP between 8-10; of note, CT Chest/CXR not indicative of ARDS
- Titrate FiO2 + PEEP to maintain SpO2 >88-90%
- In view of influenza, steroids were discontinued. No wheezing noted on exam. As of 07/22, however, CT chest shows significant bronchial wall thickening with left lower lobe pneumonia, possibly aspiration. Systemic steroids started in addition to
Flovent as believe that he would benefit from this given the bronchiolitis seen on imaging as well as severe pneumonia with hypoxia
- Reduce steroids to 40 mg IV q12hr today
- Completed 3 days of Azithromycin. Off Vancomcyin since MRSA screen negative. Cefepime had been discontinued since tracheal aspirates had shown only yeast.
-07/20. Patient now is spiking fever, somewhat increased by lobar lower lobe opacities noted on chest x-ray, ET tube aspirate is more nunes-colored now. Concern for VAP. Sent tracheal aspirate for culture again on 07/20. Blood cultures were drawn
on 07/19, so far growth is negative. Resumed cefepime on 07/20, follow-up on tracheal aspirate cultures
- Resumed home psychiatric medications (lithium resumed 07/21 as Li level not toxic --> goal level 0.7 per psych who is continuing to follow) - as of 07/23, psych feels that given ESAU the risk of Li toxicity is high - Li stopped as of 07/23; Li levels
were elevated on 07/24 --> continue to trend (1.1 today - 07/26)
- Continue tube feeding
#2. ESAU on admission. Cr was 2.9 on admission - 1.9 today, stable from yesterday
- Continue to trend sCr and UOP
- Nephrology consulted - recs appreciated
- Continue to trend serum Na level, which was normal from 07/22 - 07/24; he is now slightly hypernatremic as of 07/25 --> 1/2NS started per nephrology --> start D5W today
- In view of mild hypernatremia, increased free water flushes to 40 ml/h with tube feeding --> Na level was normal as of 07/22
- Renally dose all meds/ABx
- Given that urine sodium is low, IVF started with NS 0.9% at 100 cc/h. Continue to trend serum creatinine and monitor for signs of volume overload
- Monitor potassium level and treat with temporizing agents if needed for goal K 4 to 5.1
#3. Hypotension with shock. Resolved. Suspect this is related to deep sedation as well as initiation of paralytic medications. Shock related to influenza A also in differential diagnosis.
- Now that patient is no longer being proned and FiO2 down to 50% with PEEP down to 10, sedation changed to light and we will continue reducing sedation to prepare for SBT
- Keep MAP above 65. Currently off pressors
- Echo checked 07/21 which was a technically difficult study with preserved LVEF at 60-65% with no regional WMA, mild concentric LVH, no significant valvular disease, normal RV size and function with normal RA size
#4. Fevers -febrile this morning to 100.4 �F; prior to that has been afebrile since overnight on 07/22
- There was a concern for drug induced fever
- On 07/22 we changed cefepime to Zosyn
- Fever resolved as of morning of 07/22
- Treat fever with tylenol and cooling blanket as needed
- Kiplatrick exchanged on 07/22 as it had been present for ~ 10 days
#5. History of smoking. Patient might have underlying COPD.
- Continue DuoNebs QID
- No wheezing on exam now. Discontinued steroids in the setting of influenza A, now resumed given CT chest findings with concern for bronchiolitis as well as left lower lobe pneumonia with RLL opacities
- Nicotine patch
FEN:
Continue tube feeds
Continue insulin gtt with goal BG 140-180mg/dL
DVT prophylaxis with subcu heparin. GI prophylaxis with pantoprazole.
updated at bedside on 07/[address] Patterson
Continue ICU level of care for this critically ill patient
Critical care statement: A total of 46 minutes of critical care time was provided for this patient today. This includes management of unstable vital signs, evaluation of the patient at bedside, reviewing the patient's pertinent medical records
including radiographs, microbiology, laboratory evaluations, and discussion with primary team, consultants, pharmacy, nutrition, physical therapy, case management, charge nurse, critical care nursing, and respiratory therapy.
Subjective Dataa
Subjective Data
Date of Service:
Date of Service: July 26, 2024
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
Subjective:
Patient seen and evaluated today at bedside. Placed onto an SBT this morning at 5/8 cmH2O at 50% FiO2, with PIP 16 cmH2O, VTe 566 mL and breathing at 22 breaths/minute. He is more awake but still not following commands. Does not appear agitated.
End-tidal CO2: 29, heart rate 75, BP 141/82 and saturating 93%. Currently sedated on fentanyl at 50 mcg/hr + propofol at 20 mcg/kg/minute; also on insulin drip at 8 units/hr.
Review of Systems
General: Unobtainable - Sedation
Objective Data
Data Reviewed
Vital Signs / I&O / Oxygen:
Vital Signs
Temp Pulse Resp BP Pulse Ox
100.4 F H 70 25 141/81 96
07/26/24 08:00 07/26/24 07:46 07/26/24 07:46 07/26/24 06:00 07/26/24 08:00
Intake and Output
07/25/24 07/26/24 07/27/24
06:59 06:59 06:59
Intake Total 4815.6 / 5110.8 6330.5 / 6563.6 556.2 / 556.2
Output Total 3430 / 3730 4090 / 4240 300 / 300
Balance 1385.6 / 1380.8 2240.5 / 2323.6 256.2 / 256.2
SaO2 [A/C] 96
SaO2 94
Physical Exam
General: Respiratory Distress (negative), Comfortable, Chills (negative), Sweats (negative) and Other (Middle-age male, intubated/sedated on mechanical ventilation in NAD)
HEENT: Normocephalic, Anicteric, Other (ETT in place) and Other (thick neck)
Cardiovascular: S1-S2, Rub (negative) and Peripheral Edema (Trace bilateral pitting edema)
Respiratory: Wheeze (negative), Rhonchi (negative), Non-Labored Respirations, ET Tube (Mechanical breath sounds heard bilaterally) and Other (Good air entry bilaterally with coarse breath sounds)
GI: Soft, Distended (Abdominal obesity), Non Tender and Normal Bowel Sounds
Neurology: Tremors (negative) and Other (Patient sedated with propofol and fentanyl)
Skin: Warm, Dry, Cyanosis (negative) and Jaundice (negative)
Labs/Micro/Reports
Lab Data
07/26/24 03:04
Laboratory Results
07/26/24
04:03
pH 7.32 L
pCO2 33 L
pO2 75 L
HCO3 17.0 L
O2 Delivery Level
Microbiology
07/19/24 08:54 Blood/Venous Blood Culture - Final
No Growth - Final Report
07/19/24 08:54 Blood/Venous Blood Culture - Final
No Growth - Final Report
[2024-07-26] MEDS: LUVOX 50 MG TUBE (08:18)
[2024-07-26] MEDS: MIRALAX 17 GRAMS TUBE ×2 (08:18→19:34)
[2024-07-26] MEDS: SEROQUEL 50 MG TUBE ×2 (08:19→19:34)
[2024-07-26] MEDS: SENNA SYRUP 8.8 MG TUBE ×2 (08:19→19:34)
[2024-07-26 08:59] LABS: Glucose - Point of Care 179 mg/dl (70-99)
--- NOTE | 2024-07-26 09:40 | PTCARENOTE ---
propofol placed on hold and fentanyl decreased per protocol. pt placed on wean /, 50% in attempts to wean. pt not very interactive, not following commands but tolerating wean with sats mid 90s. otherwise please see work list
[2024-07-26 11:04] LABS: Glucose - Point of Care 132 mg/dl (70-99)
[2024-07-26 11:53] LABS: HCO3 18.5 mmol/L (21-28); PCO2 32 mmHg (35-48); PO2 153 mmHg (83-108); pH 7.37 (7.35-7.45)
--- NOTE | 2024-07-26 11:53 | PTCARENOTE ---
Sedation now off. Pt has been weaning since about 1000. Had brief episode of tachycardia in 110s and rr 30s that resolved with talking to pt alone. Remains minimally interactive otherwise. at bedside and updated. Otherwise please see work
list.
[2024-07-26] MEDS: SUBLIMAZE 50 MCG IV ×2 (12:15→22:04)
--- NOTE | 2024-07-26 12:20 | PTCARENOTE ---
pt intermittently agitated/restless. prn fentanyl given. repeat bmp drawn and sent as ordered.
[2024-07-26 12:39] LABS: Blood Urea Nitrogen 80 mg/dl (9-20); Calcium 9.2 mg/dl (8.4-10.2); Carbon Dioxide 19 mmol/L (22-30); Chloride 122 mmol/L (98-107); Estimated Creatinine Clearance 64 ml/min; Glucose 148 mg/dl (70-99); Potassium 4.5 mmol/L (3.5-5.1); Sodium 148 mmol/L (135-145); eGFR 42.98
[2024-07-26] MEDS: PRECEDEX 100 IV ×2 (12:47→21:12)
[2024-07-26 13:17] LABS: Glucose - Point of Care 141 mg/dl (70-99)
[2024-07-26] MEDS: D5W 1000 IV (13:19)
[2024-07-26] MEDS: ATIVAN 1 MG IV ×2 (14:56→22:05)
[2024-07-26 15:04] LABS: Glucose - Point of Care 127 mg/dl (70-99)
[2024-07-26] MEDS: ZAROXOLYN 5 MG TUBE (15:14)
[2024-07-26] MEDS: REGLAN 10 MG IV (15:25)
--- NOTE | 2024-07-26 16:22 | PTCARENOTE ---
Systems reviewed. Precedex has been adjusted as charted. Pt previously had another coughing episode leading to vomiting of bile. Bolus dose of ativan given as pt was biting ett and unable to suction/bag pt. Pt also given reglan as charted. EKG
completed. TF have now been switched to nepro given increased potassium. IVF added to D5W with increased sodium despite increasing water flushes with repeat bmp. Pt continues to wean, plan to rest overnight on asv and wean again tomorrow as pt
not following commands despite less sedation. Otherwise please see work list.
[2024-07-26 17:15] LABS: Glucose - Point of Care 147 mg/dl (70-99)
[2024-07-26] MEDS: LIPITOR 20 MG TUBE (17:23)
[2024-07-26] MEDS: LATUDA 40 MG TUBE (17:23)
--- NOTE | 2024-07-26 17:52 | PTCARENOTE ---
Pt having mildly more work of breathing, resp therapist in and pt placed on asv to rest, as previously planned
[2024-07-26 18:58] LABS: Glucose - Point of Care 143 mg/dl (70-99)
--- NOTE | 2024-07-26 20:00 | PTCARENOTE ---
Received pt. at 1900. Pt. currently intubated and sedated. No signs of pain/discomfort. Afebrile. Heart rhythm sinus. Blood pressure normotensive. Ventilator settings verified. Synchronous with ventilator. Tube feeds running via dobhoff tube. Rectal
trumpet in place. Kilpatrick catheter in place, draining without issue. Skin as documented. Vital signs stable at this time.
[2024-07-26 20:59] LABS: Glucose - Point of Care 142 mg/dl (70-99)
[2024-07-26] MEDS: LUVOX 100 MG TUBE (21:12)
[2024-07-26 23:01] LABS: Glucose - Point of Care 143 mg/dl (70-99)
[2024-07-27] VITALS (23 sets, daily range): BP systolic 114–167; BP diastolic 71–97; BMI 40.1
--- NOTE | 2024-07-27 | PTCARENOTE ---
Pt. assessment unchanged. Remains on ventilator in ASV mode. Fentanyl infusion is off. Vital signs stable at this time.
[2024-07-27] MEDS: SUBLIMAZE 50 MCG IV ×8 (00:16→23:08)
[2024-07-27] MEDS: ATIVAN 1 MG IV (00:41)
[2024-07-27 01:05] LABS: Glucose - Point of Care 152 mg/dl (70-99)
[2024-07-27] MEDS: PRECEDEX 100 IV ×3 (02:15→18:04)
[2024-07-27] MEDS: D5W 1000 IV (02:16)
[2024-07-27] MEDS: ROBITUSSIN 200 MG TUBE ×6 (02:59→23:02)
[2024-07-27 03:00] LABS: Glucose - Point of Care 137 mg/dl (70-99)
[2024-07-27 03:20] LABS: Hematocrit 30.3 % (39.0-52.0); Hemoglobin 9.6 g/dL (13.0-18.0); Mean Corp Hgb Conc. 31.7 g/dL (33.0-37.0); Mean Corpuscular Hgb 29.7 pg (27.0-31.0); Mean Corpuscular Volume 93.8 fL (80.0-94.0); Mean Platelet Volume 10.7 fL (7.4-10.4); Platelet Count 330 10^3/uL (130-400); Red Blood Cell Count 3.23 10^6/uL (4.70-6.10); Red Cell Dist. Width 13.2 % (11.5-14.5); White Blood Cell Count 15.1 10^3/uL (4.8-10.8)
[2024-07-27 03:33] LABS: ALT (SGPT) 189 U/L (0-50); AST (SGOT) 64 U/L (17-59); Albumin 3.1 g/dl (3.5-5.0); Alkaline Phosphatase 124 U/L (38-126); Blood Urea Nitrogen 78 mg/dl (9-20); Calcium 9.2 mg/dl (8.4-10.2); Carbon Dioxide 16 mmol/L (22-30); Chloride 122 mmol/L (98-107); Estimated Creatinine Clearance 67 ml/min; Glucose 148 mg/dl (70-99); Magnesium 2.4 mg/dl (1.6-2.3); Phosphorus 3.8 mg/dl (2.5-4.5); Potassium 4.6 mmol/L (3.5-5.1); Sodium 147 mmol/L (135-145); Total Bilirubin 0.4 mg/dl (0.2-1.3); Total Protein 6.2 g/dl (6.3-8.2); eGFR 45.86
--- NOTE | 2024-07-27 03:50 | PTCARENOTE ---
Pt. assessment remains unchanged. AM labs drawn. Vital signs stable at this time.
[2024-07-27 04:19] LABS: B.E. -4.8 mmol/L; O2 Saturation % 96.5 % (94-98); PCO2 30 mmHg (35-48); PO2 67 mmHg (83-108); pH 7.41 (7.35-7.45)
[2024-07-27 04:57] LABS: Glucose - Point of Care 156 mg/dl (70-99)
[2024-07-27] MEDS: ZOSYN 50 IV ×4 (05:02→23:02)
[2024-07-27] MEDS: NOVOLOG FLEXPEN 4 UNITS SC ×3 (05:03→17:43)
[2024-07-27] MEDS: SODIUM BICARBONATE 50 MEQ IV (06:07)
[2024-07-27] MEDS: TYLENOL ORAL SOLUTION 650 MG PO (06:13)
--- NOTE | 2024-07-27 06:33 | W.PN.HOSP.TC ---
Today's Communication/Plan
-
Dextrose with sodium bicarb
Steroid taper
Continue Zosyn
Continue insulin GTT
Assessment / Plan
Assessment / Plan
Assessment/plan
49-year-old male admitted to the ICU for acute hypoxemic respiratory failure, requiring intubation and mechanical ventilation. day 12 of mechanical ventilation
# Ventilator dependent respiratory failure
#Ventilator associated pneumonia�tracheal aspirate with group of Streptococcus
On mechanical ventilation, patient currently on ASV� 25/500/50%/8.
Initially found to be flu positive
S/p 10-day course of Tamiflu
Urine Legionella antigen, strep pneumo antigen were negative; blood cultures were negative.
Patient was restarted on antibiotics, cefepime as chest x-ray showed mild opacities for possible VAP
Patient spiked fevers on cefepime, suspected drug-induced fevers, so was switched to Zosyn
CT chest�left lower lobe consolidation, patchy airspace opacities in the right lower lung, suspicious for multifocal PNA-ventilator associated pneumonia
Continue Zosyn
Monitor fever curve, white count
On Solu-Medrol Solu-Medrol taper, 40 mg IV every 12 HRS.
SAT and SBT trial when able
IV Protonix 40 mg once daily
HOB elevation
Pulmonary toilet
#Acute Kidney Injury
#Metabolic acidosis
#Hypernatremia
Urine studies with low sodium consistent with prerenal etiology
Creatinine stable at 1.8, good urine output.
IV fluids�dextrose with sodium bicarb
Nephrology on board
Hypernatremia at 147�Free water flushes at 75 cc/h
IV Lasix
[place] on hold
trend BMP and UOP, avoid nephrotoxins
Renally dose all medications
#Hypertension
Continue amlodipine 10 mg
#Multifactorial anemia
TIBC low, % sat�17%
Continue iron supplementation via tube
Monitor CBC.
#S/P Circulatory shock
-Likely either related to paralytic agents for intubation versus septic shock due to CAP
-Ultimately required Levophed for hemodynamic support
Home antihypertensive regimen now held, levo has been weaned off
Initial blood cultures and repeat from 07/19 remain negative
Repeat cultures NGTD
#Psychiatry history
Psychiatry on board
continued on [employer]ATION[employer] home regimen: Fluvoxamine (50 AM + 100 HS), lithium carbonate , lurasidone 40 HS, Seroquel 50 HS
[place] was held as per psych as his creatinine is trending up, peak lithium levels at 1.6
Goal <0.7.
[place] level today�1.1
DVT PPx Hep subQ
GI PPx Protonix IV
Insulin GTT for uncontrolled BG's, goal blood glucose 180-220
Tube feeds with Jevity
FULL CODE
Anticipated Discharge: > 48 hours
Subjective/Interval History
-
Date of Service: July 27, 2024
Episodes of fever spikes overnight with Tmax�100.6.
Patient is on ASV-25/500/50%/8.
Does not appear agitated.
On Precedex, fentanyl, insulin gtt., IVF dextrose with bicarb.
Objective Data
-
Labs:
Laboratory Results
07/27/24 07/27/24
03:08 04:08
WBC 15.1 H
Hgb 9.6 L
Hct 30.3 L
Plt Count 330
HCO3 19.0 L
Sodium 147 H
Potassium 4.6
Chloride 122 H
Carbon Dioxide 16 L
BUN 78 H
Creatinine 1.8 H
Glucose 148 H
Calcium 9.2
Total Bilirubin 0.4
AST 64 H
ALT 189 H
Alkaline Phosphatase 124
Vital Signs:
Vital Signs
Temp Pulse Resp BP Pulse Ox
100.5 F H 67 28 162/93 92
07/27/24 03:39 07/27/24 05:00 07/27/24 05:00 07/27/24 05:00 07/27/24 05:00
I&O
07/25/24 07/26/24 07/27/24
06:59 06:59 06:59
Intake Total 4815.6 / 5110.8 6330.5 / 6563.6 5279.5 / 5279.5
Output Total 3430 / 3730 4090 / 4240 4700 / 4700
Balance 1385.6 / 1380.8 2240.5 / 2323.6 579.5 / 579.5
Review of Systems
-
Unable to obtain full review of systems at this time due to: Patient Intubation
Physical Exam
-
General: No Apparent Distress
HEENT: Normocephalic and Atraumatic
Respiratory: Other (Clear air entry bilaterally)
Cardiac: Regular Rhythm, S1/S2 and Other (Bilateral 2+ pitting edema)
GI: Soft, Nontender and Normal Bowel Sounds
Skin: Warm and Dry
Neuro: Sedated
[2024-07-27 07:01] LABS: Glucose - Point of Care 139 mg/dl (70-99)
[2024-07-27] MEDS: DUONEB 3 ML INH ×4 (07:50→19:39)
[2024-07-27] MEDS: FLOVENT 220 MCG INHALER 4 PUFF INH ×2 (07:50→19:40)
--- NOTE | 2024-07-27 07:51 | W.PN.NEPH.PH ---
Today's Communication / Plan
-
Add back amlodipine
Hypotonic IV fluids with sodium bicarbonate for worsening metabolic acidosis and persistent hypernatremia
Lasix 20 mg IV for volume overload
Assessment/Plan
-
Assessment
ESAU (unknown)
VDRF
InfA
HTN
Hypernatremia
Plan
Creatinine stable at 1.8, nonoliguric, BUN up to 79 (may be related to steroids)
Metabolic acidosis worsening, will add bicarbonate to hypotonic IVFs
Vent management per veterans adviser Fio2 50%
Hypernatremia persists with FWF at 75cc/hr,urine dilute: likely due to DI from chronic Benitez ingestion
4 liters of uop :
Blood pressure stable elevated: will add back amlodipine
Recent fractional excretion of sodium was low
Zosyn renally dosed
Lasix 20 mg IV given cautiously for volume overload in setting of worsening hypernatremia
Try to obtain more recent creatinine values to determine whether or not he is close to baseline
Patient critically ill with vent dependent respiratory failure due to influenza A
critical care time spent 31 minutes
Total Time Spent with Patient (in minutes): 31
-
-
Date of Service: July 27, 2024
CC / HPI / ROS
-
Chief Complaint:
ESAU
History of Present Illness:
Creatinine stable at 1.8
Hemodynamically stable with midodrine support
Remains intubated and proned in setting resp failure
Metabolic acidosis worsening
Hypernatremia persist 147
Remains on tube feeds
Review of Systems:
non oliguric via [place]
intubated and sedated
weights up
Labs
-
Labs:
WBC 15.1 10^3/uL (4.8-10.8) H 07/27/24 03:08
RBC 3.23 10^6/uL (4.70-6.10) L 07/27/24 03:08
Hgb 9.6 g/dL (13.0-18.0) L 07/27/24 03:08
Hct 30.3 % (39.0-52.0) L 07/27/24 03:08
Plt Count 330 10^3/uL (130-400) 07/27/24 03:08
Sodium 147 mmol/L (135-145) H 07/27/24 03:08
Potassium 4.6 mmol/L (3.5-5.1) 07/27/24 03:08
Chloride 122 mmol/L (98-107) H 07/27/24 03:08
Carbon Dioxide 16 mmol/L (22-30) L 07/27/24 03:08
BUN 78 mg/dl (9-20) H 07/27/24 03:08
Creatinine 1.8 mg/dL (0.7-1.3) H 07/27/24 03:08
eGFR 45.86 07/27/24 03:08
Glucose 148 mg/dl (70-99) H 07/27/24 03:08
Calcium 9.2 mg/dl (8.4-10.2) 07/27/24 03:08
Phosphorus 3.8 mg/dl (2.5-4.5) 07/27/24 03:08
Uqc-Z-Veeyfrzpemp Pept 184 pg/ml 07/21/24 03:07
Albumin 3.1 g/dl (3.5-5.0) L 07/27/24 03:08
Physical Exam
-
Vital Signs:
Vital Signs
Temp Pulse Resp BP Pulse Ox
100.6 F H 74 25 156/95 97
07/27/24 07:43 07/27/24 06:00 07/27/24 06:00 07/27/24 06:00 07/27/24 06:00
Cardiovascular:: Regular rate and rhythm
Respiratory:: Bilateral: Coarse
Lung Excursion:: Normal
Abdomen:: Nontender and Soft
Bowel Sounds:: Normal
Extremity Edema:: +1: Bilateral:
[place] Catheter: Yes
[2024-07-27] MEDS: HEPARIN 5000 UNITS SC ×3 (08:09→23:02)
[2024-07-27] MEDS: NSS (PRESERVATIVE FREE) 10 ML IV (08:10)
[2024-07-27] MEDS: LUVOX 50 MG TUBE (08:10)
[2024-07-27] MEDS: PROTONIX IV 40 MG IV (08:10)
[2024-07-27] MEDS: MIRALAX TUBE (08:10)
[2024-07-27] MEDS: NICODERM TRANSDERMAL 21 MG TRANSDERM (08:10)
[2024-07-27] MEDS: REFRESH CELLUVISC GEL 1 DROPS OPHTH ×2 (08:11→19:34)
[2024-07-27] MEDS: SENNA SYRUP 8.8 MG TUBE ×2 (08:16→19:34)
[2024-07-27] MEDS: SOLU-MEDROL PF 40 MG IV ×2 (08:17→19:34)
[2024-07-27] MEDS: SEROQUEL 50 MG TUBE ×2 (08:17→19:33)
--- NOTE | 2024-07-27 08:19 | W.PN.INTV ---
Today's Communication / Plan
Recommendations
Continue systemic steroids + Flovent --> reduced solumedrol to 40mg IV q12hr on 07/26
CRP (57) and ESR (89) elevated on 07/25
Trend serum Cr and UOP; nephro now consulted; cautiously continue IVF but monitor for volume overload --> given rising serum Na, started D5W on 07/26, and now on D5-bicarb gtt
Keep saturations >88-90% - last night of proning was 07/24 - 07/25 - flipped back supine on AM of 07/25
Maintain plateau pressures <25�30
[place] stopped as of 07/23 per psychiatry given ESAU with risk of lithium toxicity; Continue to trend Li levels (1.1 on 07/26)
Continue light sedation with goal RASS 0 to -2--> consult ENT for trach eval as he has been intubated since 07/15
Continue Zosyn
Goal BG 140�180 with insulin gtt
Increased Seroquel on 07/25 to 50mg BID to help us liberate him from the vent
Continue bowel regimen
Check RUQ US to evaluate for acute cholecystitis
Continue ICU level of care for this critically ill patient
Assessment
-
Patient is a 49-year-old gentleman with history of hypertension, depression, who was brought from home via EMS as patient's found him lethargic and short of breath. Patient reportedly had been sick for the last 3 to 4 days. Patient required
15 L via nasal cannula initially and was subsequently transition to BiPAP support as his initial saturations were around 60%. Patient responded well to BiPAP and was noted to have hypercapnia also. Overnight he continued to develop worsening
hypercapnia and inability to ventilate and oxygenate and required intubation and mechanical ventilation. Post ventilation, patient has been very difficult to oxygenate. He has been on 100% FiO2 and PEEP has been slowly increased all the way up to
18 now. His PF ratio continues to be severely low. He has been on deep sedation and also paralytics were initiated. Patient found to have influenza A screen positive.
#1. Influenza A with severe acute hypoxic respiratory failure. (Intubated 07/15)
- Patient was initially on 15 L oxygen, subsequently transitioned to BiPAP and now on mechanical ventilation
- 07/15, patient had severely low PF ratio of 87 and [facility] was contacted for consideration of ECMO. Subsequently once patient was proned his PO2 significantly improved to above 300 hence transfer to [facility] was canceled.
-Patient has been on lung protective mechanical ventilation, Plateau pressure maintained below 25-30 at all times. He has required a high PEEP of 18 initially. He had been proned patient daily up until 07/18 due to PF ratio below 150.
- Patient had not required proning since 07/18, however on 07/21, his PF ratio was <[address] chest obtained showing bilateral bronchiolitis with significant bronchial wall thickening, and evidence of LLL pneumonia.
- PEEP raised on 07/24 from 16 to 18 to optimize driving pressure and for alveolar recruitment
- Started proning on 07/22 for 18 hours, then flip back supine 6 hours and did this for 3 days straight - he finished proning on 07/24 - 07/25
- Ok to leave PEEP between 8-10; of note, CT Chest/CXR not indicative of ARDS
- Titrate FiO2 + PEEP to maintain SpO2 >88-90%
- Changed to ASV on 07/26 with PS trials during the day as tolerated
- In view of influenza, steroids were discontinued. No wheezing noted on exam. As of 07/22, however, CT chest shows significant bronchial wall thickening with left lower lobe pneumonia, possibly aspiration. Systemic steroids started in addition to
Flovent as believe that he would benefit from this given the bronchiolitis seen on imaging as well as severe pneumonia with hypoxia
- Reduced steroids to 40 mg IV q12hr on 07/26
- Completed 3 days of Azithromycin. Off Vancomcyin since MRSA screen negative. Cefepime had been discontinued since tracheal aspirates had shown only yeast.
-07/20. Patient now is spiking fever, somewhat increased by lobar lower lobe opacities noted on chest x-ray, ET tube aspirate is more nunes-colored now. Concern for VAP. Sent tracheal aspirate for culture again on 07/20. Blood cultures were drawn
on 07/19, so far growth is negative. Resumed cefepime on 07/20, follow-up on tracheal aspirate cultures
- Resumed home psychiatric medications (lithium resumed 07/21 as Li level not toxic --> goal level 0.7 per psych who is continuing to follow) - as of 07/23, psych feels that given ESAU the risk of Li toxicity is high - Li stopped as of 07/23; Li levels
were elevated on 07/24 --> continue to trend (1.1 on 07/26)
- Consult ENT to eval for trach as he may need more time to continue vent weaning trials
- Continue tube feeding
#2. ESAU on admission. Cr was 2.9 on admission - 1.8 today, improved from yesterday
- Continue to trend sCr and UOP
- Nephrology consulted - recs appreciated
- Continue to trend serum Na level, which was normal from 07/22 - 07/24; he is now slightly hypernatremic as of 07/25 --> 1/2NS started per nephrology --> started D5W on 07/26; now on bicarb gtt
- In view of mild hypernatremia, increased free water flushes to 40 ml/h with tube feeding --> Na level was normal as of 07/22
- Renally dose all meds/ABx
- Given that urine sodium is low, IVF started with NS 0.9% at 100 cc/h. Continue to trend serum creatinine and monitor for signs of volume overload
- Monitor potassium level and treat with temporizing agents if needed for goal K 4 to 5.1
#3. Hypotension with shock. Resolved. Suspect this is related to deep sedation as well as initiation of paralytic medications. Shock related to influenza A also in differential diagnosis.
- Now that patient is no longer being proned and FiO2 down to 50% with PEEP down to 10, sedation changed to light and we will continue reducing sedation to prepare for SBT
- Keep MAP above 65. Currently off pressors
- Echo checked 07/21 which was a technically difficult study with preserved LVEF at 60-65% with no regional WMA, mild concentric LVH, no significant valvular disease, normal RV size and function with normal RA size
#4. Fevers -febrile on AM of 07/26 and continues to spike low grade fevers; prior to this he has been afebrile since overnight on 07/22
- There was a concern for drug induced fever
- On 07/22 we changed cefepime to Zosyn
- Fever resolved as of morning of 07/22, then recurred on 07/26
- Treat fever with tylenol and cooling blanket as needed
- Given that he had cholelithiasis seen on CT chest/abdomen, check RUQ US to assess for acute cholecystitis
- Kilpatrick exchanged on 07/22 as it had been present for ~ 10 days
#5. History of smoking. Patient might have underlying COPD.
- Continue DuoNebs QID
- No wheezing on exam now. Discontinued steroids in the setting of influenza A, now resumed given CT chest findings with concern for bronchiolitis as well as left lower lobe pneumonia with RLL opacities
- Nicotine patch
FEN:
Continue tube feeds
Continue insulin gtt with goal BG 140-180mg/dL
DVT prophylaxis with subcu heparin. GI prophylaxis with pantoprazole.
updated at bedside on 07/[address] Patterson
Continue ICU level of care for this critically ill patient
Critical care statement: A total of 41 minutes of critical care time was provided for this patient today. This includes management of unstable vital signs, evaluation of the patient at bedside, reviewing the patient's pertinent medical records
including radiographs, microbiology, laboratory evaluations, and discussion with primary team, consultants, pharmacy, nutrition, physical therapy, case management, charge nurse, critical care nursing, and respiratory therapy.
Subjective Dataa
Subjective Data
Date of Service:
Date of Service: July 27, 2024
Chief Complaint: [employer] Follow Up
Subjective:
Patient was seen and evaluated today at bedside. Has been spiking low-grade fevers, temperature of 100.6 �F this morning. Yesterday he weaned on the ventilator on PS 5, PEEP: 8 for approximately 8 hours and did well.
Today he is more tachypneic during weaning trial and is now on ASV at 110% but respiratory rate now in the 40s. ASV placed up to 145% and he was given oxycodone given that he was on fentanyl for about 2 weeks which is now off. PIP currently 19
cmH2O, VTe 542 mL and breathing at 30 breaths/min. Precedex at 0.4 mcg/kg/hr and insulin drip at 4 units/hr.
Review of Systems
General: Unobtainable - Sedation (+ Intubated)
Objective Data
Data Reviewed
Vital Signs / I&O / Oxygen:
Vital Signs
Temp Pulse Resp BP Pulse Ox
100.6 F H 64 22 167/97 94
07/27/24 07:43 07/27/24 09:00 07/27/24 09:00 07/27/24 09:00 07/27/24 09:00
Intake and Output
07/26/24 07/27/24 07/28/24
06:59 06:59 06:59
Intake Total 6330.5 / 6563.6 5512.0 / 5745.7 776.1 / 776.1
Output Total 4090 / 4240 4850 / 4975 570 / 570
Balance 2240.5 / 2323.6 662.0 / 770.7 206.1 / 206.1
SaO2 [ASV] 93
SaO2 [CPAP/PSV] 93
SaO2 [A/C] 96
SaO2 94
Physical Exam
General: Respiratory Distress (negative), Comfortable, Chills (negative), Sweats (negative) and Other (Middle-age male, intubated/sedated on mechanical ventilation in NAD)
HEENT: Normocephalic, Anicteric, Other (ETT in place) and Other (thick neck)
Cardiovascular: S1-S2, Rub (negative) and Peripheral Edema (+1 lower extremity pitting edema bilaterally)
Respiratory: Wheeze (negative), Rhonchi (negative), Non-Labored Respirations, ET Tube (Mechanical breath sounds heard bilaterally) and Other (Good air entry bilaterally with coarse breath sounds)
GI: Soft, Distended (Abdominal obesity), Non Tender and Normal Bowel Sounds
Neurology: Tremors (negative) and Other (Sedated although arousable to voice but not following any commands; pupils 3 mm bilaterally and brisk)
Skin: Warm, Dry, Cyanosis (negative) and Jaundice (negative)
Labs/Micro/Reports
Lab Data
07/27/24 03:08
07/27/24 03:08
Laboratory Results
07/26/24 07/27/24
11:42 04:08
pH 7.37 7.41
pCO2 32 L 30 L
pO2 153 H 67 L
HCO3 18.5 L 19.0 L
O2 Delivery Level
Microbiology
07/19/24 08:54 Blood/Venous Blood Culture - Final
No Growth - Final Report
07/19/24 08:54 Blood/Venous Blood Culture - Final
No Growth - Final Report
[2024-07-27] MEDS: NORVASC 10 MG PO (08:41)
[2024-07-27] MEDS: LASIX 20 MG IV (08:41)
[2024-07-27 08:58] LABS: Glucose - Point of Care 130 mg/dl (70-99)
[2024-07-27] MEDS: SODIUM BICARBONATE 1050 MEQ IV ×2 (09:11→21:30)
[2024-07-27] MEDS: NOVOLIN R INSULIN INFUSION 100 IV (09:18)
[2024-07-27 11:12] LABS: Glucose - Point of Care 128 mg/dl (70-99)
[2024-07-27] MEDS: ROXICODONE 20 MG TUBE (11:20)
--- NOTE | 2024-07-27 11:37 | PTCARENOTE ---
Pt had episode of tachypnea, increased wob with sats as low as 90%. Dr Patterson at bedside and wanted asv increased back to 150. Pt medicated with prn fentanyl. Pt also given dose of oxy via tube given ? component of withdrawal with decreased
pain medicine with fentanyl drip now off. Pt did settle. Precedex adjusted as well. Pt much more comfortable after meds given. Continues to diurese after am lasix. Continues with rotation/percussion on sport bed. Systems otherwise unchanged.
Please see work list.
[2024-07-27 12:59] LABS: Glucose - Point of Care 133 mg/dl (70-99)
[2024-07-27 14:58] LABS: Glucose - Point of Care 135 mg/dl (70-99)
[2024-07-27 15:56] LABS: Glucose - Point of Care 146 mg/dl (70-99)
--- NOTE | 2024-07-27 16:45 | PTCARENOTE ---
systems reviewed. no new changes. sedation previously adjusted again for increased rr/restlessness. Tolerating turning well since. No desaturation.
[2024-07-27 16:58] LABS: Glucose - Point of Care 150 mg/dl (70-99)
[2024-07-27] MEDS: LIPITOR 20 MG TUBE (17:42)
[2024-07-27] MEDS: ROXICODONE 15 MG PO ×2 (17:42→23:02)
[2024-07-27] MEDS: LATUDA 40 MG TUBE (17:42)
[2024-07-27 17:58] LABS: Glucose - Point of Care 148 mg/dl (70-99)
[2024-07-27 18:57] LABS: Glucose - Point of Care 178 mg/dl (70-99)
--- NOTE | 2024-07-27 20:00 | PTCARENOTE ---
Received pt intubated and lightly sedated on precedex gtt at 0.4mcg. Pt. opens eyes to verbal at times but no tracking, no commands followed and no purposeful movement. Noted all extremities to be moving but weakly. No restraints in place. Pupils
4mm, sluggish B/L. NSR on tele, HR 60s. BP 120s/80s. +3 gen anasarca. + pulses. Temp 100.1 core. #8 ETT 26cm at the lip, moved to the left. Lungs diminished, coarse throughout. Tolerating ASV 130 MV, +8, 50%. Percussion Q4hrs. Abdomen round, obese.
+ bowel sounds. DH tube with nepro at 65ml/hr and 75ml/hr h20 flush. Rectal trumpet draining brown loose stool - flushed. [place] draining large amts yellow urine - see I&O. L IJ TLC with insulin gtt for glycemic protocol, precedex and D5W w/ bicarb
infusing as ordered. Turning Q2 hrs.
[2024-07-27 20:08] LABS: Glucose - Point of Care 136 mg/dl (70-99)
[2024-07-27] MEDS: LUVOX 100 MG TUBE (21:30)
[2024-07-27 22:02] LABS: Glucose - Point of Care 160 mg/dl (70-99)
[2024-07-27 23:52] LABS: Glucose - Point of Care 141 mg/dl (70-99)
[2024-07-28] VITALS (32 sets, daily range): BP systolic 103–148; BP diastolic 69–95; PULSE 45–48; BMI 39.1
--- NOTE | 2024-07-28 00:19 | PTCARENOTE ---
Tube feeding held at 0000 per orders for abdominal ultrasound in AM. Around 2300, pt. had episode of tachypnea (RR high 30s), moving arms around more in bed, seemed more agitated. PRN fentanyl IVP given with good effect. No other changes in
assessment
[2024-07-28] MEDS: PRECEDEX 100 IV ×4 (00:23→21:54)
[2024-07-28] MEDS: NOVOLOG FLEXPEN SC ×5 (00:23→23:09)
[2024-07-28 01:00] LABS: Glucose - Point of Care 145 mg/dl (70-99)
[2024-07-28] MEDS: SUBLIMAZE 50 MCG IV ×3 (01:45→19:17)
--- NOTE | 2024-07-28 01:54 | PTCARENOTE ---
Restraints reapplied as pt. was bringing hands up towards face/ETT (not purposefully). Tachypneic again, shifting his body around in bed. PRN fentanyl given, pt repositioned.
[2024-07-28 02:33] LABS: Glucose - Point of Care 130 mg/dl (70-99)
[2024-07-28 03:35] LABS: Glucose - Point of Care 136 mg/dl (70-99)
[2024-07-28] MEDS: NOVOLIN R INSULIN INFUSION 100 IV (04:18)
[2024-07-28] MEDS: ATIVAN 1 MG IV ×3 (04:18→21:54)
[2024-07-28 04:22] LABS: B.E. -1.9 mmol/L; HCO3 21.9 mmol/L (21-28); O2 Saturation % 98.5 % (94-98); PCO2 33 mmHg (35-48); PO2 76 mmHg (83-108); pH 7.43 (7.35-7.45)
[2024-07-28 04:23] LABS: O2 Therapy VENT
[2024-07-28 04:25] LABS: % Basophils 0.1 % (0-2); % Eosinophils 0.1 % (0-6); % Immature Granulocytes 1.4 % (0-0.5); % Lymphocytes 5.9 % (20.5-51.1); % Monocytes 6.2 % (1.7-9.3); % Neutrophils 86.3 % (42.2-75.2); Absolute Immature Granulocytes 0.2 10^3/uL (0-0.05); Absolute Lymphocytes 0.9 10^3/uL (1.2-3.4); Absolute Monocytes 0.9 10^3/uL (0.1-0.6); Absolute Neutrophils 12.6 10^3/uL (1.4-6.5); Hematocrit 30.6 % (39.0-52.0); Hemoglobin 9.7 g/dL (13.0-18.0); Mean Corp Hgb Conc. 31.7 g/dL (33.0-37.0); Mean Corpuscular Hgb 29.5 pg (27.0-31.0); Nucleated Red Blood Cells % 0.2 % (-); Platelet Count 265 10^3/uL (130-400); Red Blood Cell Count 3.29 10^6/uL (4.70-6.10); Red Cell Dist. Width 13.1 % (11.5-14.5); White Blood Cell Count 14.6 10^3/uL (4.8-10.8)
[2024-07-28 04:37] LABS: Glucose - Point of Care 124 mg/dl (70-99)
[2024-07-28 04:54] LABS: ALT (SGPT) 218 U/L (0-50); AST (SGOT) 49 U/L (17-59); Alkaline Phosphatase 129 U/L (38-126); Blood Urea Nitrogen 74 mg/dl (9-20); Calcium 8.8 mg/dl (8.4-10.2); Carbon Dioxide 23 mmol/L (22-30); Chloride 116 mmol/L (98-107); Estimated Creatinine Clearance 71 ml/min; Glucose 142 mg/dl (70-99); Magnesium 2.2 mg/dl (1.6-2.3); Sodium 144 mmol/L (135-145); Total Bilirubin 0.5 mg/dl (0.2-1.3); Total Protein 5.8 g/dl (6.3-8.2); Triglycerides 213 mg/dl (10-149); eGFR 49.11
[2024-07-28] MEDS: ROBITUSSIN 200 MG TUBE ×6 (05:10→23:13)
[2024-07-28] MEDS: ROXICODONE 15 MG PO ×4 (05:10→23:13)
[2024-07-28] MEDS: ZOSYN 50 IV ×2 (05:10→12:12)
--- NOTE | 2024-07-28 05:33 | PTCARENOTE ---
Pt did wake up slightly more, tracking a few times and able to weak squeeze hands on command. Required ativan to calm him down as he appeared very anxious, eyes wide open, trying to sit up. Attempted to orient him to situation and place but
continued with anxiety. Ativan had good effect.
[2024-07-28 06:28] LABS: Glucose - Point of Care 149 mg/dl (70-99)
--- NOTE | 2024-07-28 07:35 | W.PN.HOSP.TC ---
Addendum entered and electronically signed by Gunner Almanza MD 07/28/24 16:08:
Acute hypoxemic respiratory failure now vent dependent respiratory failure. Which is likely secondary to pneumonia continue SAT SBT follow ICU recommendations for vent weaning. Continue GI prophylaxis with IV Protonix
12 point ROS completed everything negative apart from what is stated above
CAP versus viral pneumonia versus aspiration continue Zosyn and Solu-Medrol. Continue pulmonary toilet head of bed elevation.
ESAU improving
Original Note:
Today's Communication/Plan
-
Wean off trial.
Discontinue bicarbonate drip per nephrology.
ENT consult per ICU, tentative plan for tracheostomy on .
N.p.o. beginning Sunday night.
Continue insulin GTT, and hold lithium.
Continue IV Lasix.
Assessment / Plan
Assessment / Plan
Assessment/plan
49-year-old male admitted to the ICU for acute hypoxic respiratory failure requiring intubation and mechanical ventilation. Switched to ASV, day 14 of VDRF.
Plan-
VDRF-
VDRF dependent pneumonia-
Ventilated dependent-initially on BiPAP upon admission, was transition to mechanical ventilation on 07/15/2024. (On day of intubation, low PF ratio at 87 which subsequently improved to greater than 300).
Continues to remain on ASV since 07/26 with PS trials.
PEEP at 8, FiO2 50%. He was initially started on cefepime, and then there was concern for drug-induced fevers with cefepime and Precedex. Cefepime was switched to Zosyn with temporary improvement in fevers.
Patient had a Tmax of 100 point 6 in the AM yesterday.
Suspect likely secondary to Precedex.
If successful wean off (SAT, SBT) not possible, plan is to tentatively do tracheostomy on . ENT consulted by educational speech language clinician. Appreciate ENT inputs, and educational speech language clinician management.
IV Protonix 40 mg once daily to prevent stress ulcerations.
Fevers and CAP-
Initially attributed to flu and CAP with some aspiration.
Was switched to Zosyn, currently on Solu-Medrol taper 40 mg IV every 12 hours.
Receiving pulmonary toilet, HOB evaluation.
Could be drug-induced secondary to Precedex.
Monitor fever curve, trend temperatures.
ESAU and NAGMA-
Urine studies consistent with prerenal etiology
Suspect hypoperfusion injury secondary to circulatory shock upon initial presentation.
Serum creatinine improving, today at 1.7, with good urine output.
Bicarbonate drip discontinued, continue IV dextrose.
Trend BMP and urine output, avoid nephrotoxins.
Renally dose all medications.
Hypernatremia-
serum sodium at 147, free water flushes at 75 cc/h discontinued as serum sodium improved. Currently patient hyponatremic, mild. Suspect dilutional secondary to fluid overload versus secondary to IV Lasix.
Continue to trend serum sodium levels.
Hypertension-
Continue amlodipine 10 mg
Multifactorial anemia-
Continue iron supplementation via tube monitor CBC
Schizophrenia and bipolar disorder-
Psychiatry on board
Currently lithium on hold given supratherapeutic levels and ESAU.
Goal lithium less than 0.7.
[employer] WORKER home regimen-fluvoxamine, lurasidone, Seroquel 50 continued.
Appreciate psychiatry input.
Circulatory shock-resolved.
Initial blood cultures from 07/15 and repeat from 07/19 remain negative.
Required pressors (Levophed) for hemodynamic support.
Insulin gtt. for uncontrolled blood sugars
Goal blood glucose 180-220
Tube feeds-
Nephrin
DVT prophylaxis-
Heparin subcu
CODE STATUS-
Full code.
Anticipated Discharge: 24 - 48 hours
Subjective/Interval History
-
Date of Service: July 28, 2024
Overnight-patient condition remained stable on ASV
Objective Data
-
Labs:
Laboratory Results
07/28/24 07/28/24
03:58 04:08
WBC 14.6 H
Hgb 9.7 L
Hct 30.6 L
Plt Count 265
HCO3 21.9
Sodium 144
Potassium 4.0
Chloride 116 H
Carbon Dioxide 23
BUN 74 H
Creatinine 1.7 H
Glucose 142 H
Calcium 8.8
Total Bilirubin 0.5
AST 49
ALT 218 H
Alkaline Phosphatase 129 H
Vital Signs:
Vital Signs
Temp Pulse Resp BP Pulse Ox
99.3 F 68 14 108/90 97
07/28/24 03:28 07/28/24 07:00 07/28/24 07:00 07/28/24 07:00 07/28/24 04:00
I&O
07/27/24 07/28/24 07/29/24
06:59 06:59 06:59
Intake Total 5512.0 / 5745.7 5040.6 / 5129.5 88.9 / 88.9
Output Total 4850 / 4975 7575 / 7740 165 / 165
Balance 662.0 / 770.7 -2534.4 / -2610.5 -76.1 / -76.1
Review of Systems
-
Unable to obtain full review of systems at this time due to: Patient Intubation
Physical Exam
-
General: Comfortable, Obese and Other (Intubated, on mechanical ventilation, mildly sedated)
HEENT: Moist Mucous Membranes and Anicteric
Respiratory: Clear to Auscultation (And bilateral upper lobes) and Crackles (In bilateral lower lobes with coarse breath sound); Negative Wheezes, Rales or Rhonchi
Cardiac: Regular Rhythm, S1/S2 and Other (IJ access on the left.); Negative Murmur, Rub or Gallop
GI: Soft, Nontender, Nondistended, Normal Bowel Sounds and Other (NG tube. Rectal tube.)
Musculoskeletal: No Clubbing, No Cyanosis, Edema, Right Upper Extrem, Edema, Left Upper Extrem, Edema, Right Lower Extrem and Edema, Left Lower Extrem
Skin: Warm
Neuro: AO x 3 and No Motor Deficits
Psych: Calm
Data Reviewed
-
Diagnostic Radiology: Image personally visualized and interpreted, Report Reviewed by me and Discussed with Physician
CT Scan: Image personally visualized and interpreted, Report Reviewed by me and Discussed with Physician
[2024-07-28] MEDS: FLOVENT 220 MCG INHALER 4 PUFF INH ×2 (07:38→20:38)
[2024-07-28] MEDS: DUONEB 3 ML INH ×4 (07:38→20:38)
[2024-07-28] MEDS: SENNA SYRUP 8.8 MG TUBE ×2 (07:45→19:20)
[2024-07-28] MEDS: NICODERM TRANSDERMAL 21 MG TRANSDERM (07:45)
[2024-07-28] MEDS: LUVOX 50 MG TUBE (07:46)
[2024-07-28] MEDS: SEROQUEL 50 MG TUBE ×2 (07:46→21:58)
[2024-07-28] MEDS: SOLU-MEDROL PF 40 MG IV (07:47)
[2024-07-28] MEDS: REFRESH CELLUVISC GEL 1 DROPS OPHTH ×2 (07:47→19:20)
[2024-07-28] MEDS: HEPARIN 5000 UNITS SC ×3 (07:47→23:13)
[2024-07-28] MEDS: PROTONIX IV 40 MG IV (07:48)
[2024-07-28] MEDS: NSS (PRESERVATIVE FREE) 10 ML IV (07:48)
[2024-07-28] MEDS: NORVASC 10 MG PO (07:50)
[2024-07-28] MEDS: FERROUS SULFATE ORAL LIQUID 300 MG TUBE (07:50)
--- NOTE | 2024-07-28 08:22 | PN.DE.MGMTRT ---
Insulin Management
- -
07/28/2024: Diabetes Management Follow up
49 year old male with PMH: HTN, Depression and T2DM, brought to the ED from home on 07/14/24 via EMS as patient's found him lethargic and short of breath. He was admitted ti the hospital for acute hypoxemic respiratory failure, requiring
intubation and mechanical ventilation.
Pt remains intubated, Day 11, unable to interview or interact, no family at bedside. Information obtained form chart review.
He was taking Mounjaro 2.5mf weekly/ . A1C 6.0%, Cr 2.9-->1.9, eGFR 42.98
On 07/24, Pt was started on steroids, Pred 40mg Q8 hrs and tube feeding contributing to Hyperglycemia.
Pt remains critically ill, intubated on steroids, pred 40mg Q12 hrs and Tube feeds @ 65cc/hr, on Critical care glycemia protocol, glucose 124 to 149 requiring 2.6-3.5 unit of insulin/hour. POC down to 88, insulin drip on hold, Prednisone tapered
down to 40 mg daily and Tube feeds are on hold in process of weaning.
Will cont current regimen for now. Per ICU team, likelihood of extubating today is too low and tube feeds will probably be resumed today.
Discussed with ICU rounding team and Nurse. Will cont to follow and assess for readiness to transition off insulin drip.
Diabetes History
- -
Type of Diabetes: 2 requiring insulin
Pre-Admission Diabetes Regimen
07/28/24
03:58
Creatinine 1.7 H
Lab Results
Hemoglobin A1c Cancelled 07/24/24 17:38
Insulin Pump Settings
IP Diabetes Regimen
07/27/24 07/27/24 07/27/24
08:56 11:11 12:58
Glucose
POC Glucose 130 H 128 H 133 H
07/27/24 07/27/24 07/27/24
14:57 15:54 16:56
Glucose
POC Glucose 135 H 146 H 150 H
07/27/24 07/27/24 07/27/24
17:57 18:56 20:07
Glucose
POC Glucose 148 H 178 H 136 H
07/27/24 07/27/24 07/28/24
22:01 23:51 00:59
Glucose
POC Glucose 160 H 141 H 145 H
07/28/24 07/28/24 07/28/24
02:32 03:34 03:58
Glucose 142 H
POC Glucose 130 H 136 H
07/28/24 07/28/24
04:35 06:27
Glucose
POC Glucose 124 H 149 H
Patient Education
[2024-07-28 08:34] LABS: Glucose - Point of Care 89 mg/dl (70-99)
--- NOTE | 2024-07-28 09:15 | PTCARENOTE ---
Rec'd care of patient at 0700. Patient intubated. Precedex gtt infusing for light sedation. Patient opening eyes to verbal stimuli. Pupils equal and reactive. +4mm, sluggish. Staring off. Occasionally following simple commands. MAEx4. SB-NSR on
tele. +3 generalized anasarca. Palpable pulses. #8 ett, 26cm @ the lip. Vent settings: ASV 130mv, PEEP 8, 50% fio2. Lung sounds coarse/diminished throughout. +BS. TFs on hold for abdominal US. Incontinent of bowel and bladder. Rectal trumpet in
place. Kilpatrick for critical I/O. Output 165-270 cc/hr. Precedex and IVFs infusing through [facility]. Insulin gtt stopped per GP.
[2024-07-28 09:43] LABS: Glucose - Point of Care 116 mg/dl (70-99)
--- NOTE | 2024-07-28 10:33 | W.PN.NEPH.PH ---
Today's Communication / Plan
-
d/c bicarb IVF
recheck labs later today and adjust FWF vs IVF
Assessment/Plan
-
Assessment
ESAU (unknown)
VDRF
InfA
HTN
Hypernatremia
Plan
Creatinine slightly improving to 1.7, BUN improving slowly
brisk response to lasix , wt is down
Metabolic acidosis-improved, will d/c bicarb IVF
Vent management and steroids per placement director Fio2 50%
Hypernatremia-improving, getting FWF 75cc/hr in TF
there is concern of DI from chronic Starbuck ingestion-check U osmo later
holding lasix since still with significant UOP
Blood pressure stable on amlodipine
Zosyn renally dosed
US abd noted no acute findings, follow LFTs
Try to obtain more recent creatinine values to determine whether or not he is close to baseline
Patient critically ill with vent dependent respiratory failure due to influenza A
critical care time spent 31 minutes
d/w nursing
-
-
Date of Service: July 28, 2024
CC / HPI / ROS
-
Chief Complaint:
ESAU
History of Present Illness:
Creatinine slightly better at 1.7
Hemodynamically stable on Amlodipine
Remains intubated
Metabolic acidosis resolved at 23
Hypernatremia better at 144
Remains on tube feeds-held for US and will resume
Review of Systems:
non oliguric via ashford
intubated and sedated
weights down
low grade fever last night
Labs
-
Labs:
WBC 14.6 10^3/uL (4.8-10.8) H 07/28/24 03:58
RBC 3.29 10^6/uL (4.70-6.10) L 07/28/24 03:58
Hgb 9.7 g/dL (13.0-18.0) L 07/28/24 03:58
Hct 30.6 % (39.0-52.0) L 07/28/24 03:58
Plt Count 265 10^3/uL (130-400) 07/28/24 03:58
Sodium 144 mmol/L (135-145) 07/28/24 03:58
Potassium 4.0 mmol/L (3.5-5.1) 07/28/24 03:58
Chloride 116 mmol/L (98-107) H 07/28/24 03:58
Carbon Dioxide 23 mmol/L (22-30) 07/28/24 03:58
BUN 74 mg/dl (9-20) H 07/28/24 03:58
Creatinine 1.7 mg/dL (0.7-1.3) H 07/28/24 03:58
eGFR 49.11 07/28/24 03:58
Glucose 142 mg/dl (70-99) H 07/28/24 03:58
Calcium 8.8 mg/dl (8.4-10.2) 07/28/24 03:58
Phosphorus 3.8 mg/dl (2.5-4.5) 07/27/24 03:08
Geb-C-Jahlnkjhapy Pept 184 pg/ml 07/21/24 03:07
Albumin 3.0 g/dl (3.5-5.0) L 07/28/24 03:58
Physical Exam
-
Vital Signs:
Vital Signs
Temp Pulse Resp BP Pulse Ox
97.9 F 59 11 131/80 95
07/28/24 07:38 07/28/24 10:00 07/28/24 10:00 07/28/24 10:00 07/28/24 10:05
Cardiovascular:: Regular rate and rhythm
Respiratory:: Bilateral: Coarse
Lung Excursion:: Abnormal
Abdomen:: Nontender and Soft
Extremity Edema:: +3: Bilateral:
Ashford Catheter: Yes
[2024-07-28 10:44] LABS: Glucose - Point of Care 163 mg/dl (70-99)
--- NOTE | 2024-07-28 10:47 | PTCARENOTE ---
Patient placed on SBT by RT. Precedex weaned for RASS 0. Intermittently following commands. MAEx4. Pulse ox currently 95% on vent settings 8/8 50% fio2. ABG ordered for 1130.
[2024-07-28 11:37] LABS: Glucose - Point of Care 160 mg/dl (70-99)
--- NOTE | 2024-07-28 12:04 | CON.MD ---
Consultation - Medical
-
Pt seen and consult dictated.
We are tentatively consulted for trach secondary to prolonged intubation.
We will plan for trach this , but would of course cancel if he is successfully weaned.
I have d/w Kassandra Calle over the phone. She understands the rationale as well as risks and benefits and consents to the procedure.
Will need to hold any tube feeds after Sunday at midnight.
[2024-07-28 12:06] LABS: B.E. 0.1 mmol/L; HCO3 23.8 mmol/L (21-28); PCO2 35 mmHg (35-48); pH 7.44 (7.35-7.45)
[2024-07-28 12:18] LABS: O2 Saturation % 97.4 % (94-98); PO2 68 mmHg (83-108)
--- NOTE | 2024-07-28 12:30 | PTCARENOTE ---
Systems reviewed. RASS 0. NSR on tele. Tolerating wean. Lung sounds coarse/diminished throughout. Crackles auscultated in left base. +BS. TFs remain on hold for wean. No bm since am. Kilpatrick draining 200-300 cc/hr. Patient washed and repositioned for
comfort. No other changes.
[2024-07-28 13:02] LABS: Glucose - Point of Care 171 mg/dl (70-99)
[2024-07-28] MEDS: NSS (PRESERVATIVE FREE) 0.5 ML IV (13:30)
--- NOTE | 2024-07-28 13:54 | PTCARENOTE ---
1300: ABG resulted. Records Management Manager at bedside to assess patient. Patient having brief periods of apnea. Inconsistently following commands; staring off at ceiling. Brief periods of apnea observed. Decision made by Records Management Manager to place patient back on
ASV mode. at bedside and updated on plan of care.
1330: Patient biting on ett. Agitated. Attempting to sit up and kick legs off bed. PRN Ativan administered. Bite block placed. Patient now resting comfortably. RASS -1. Precedex gtt continued. Placed back on ASV mode by RT.
--- NOTE | 2024-07-28 13:55 | PTCARENOTE ---
1300: ABG resulted. Second Baller at bedside to assess patient. Patient having brief periods of apnea. Inconsistently following commands; staring off at ceiling. Decision made by Second Baller to place patient back on ASV mode. at bedside and
updated on plan of care. TFs restarted.
1330: Patient placed back on ASV mode by RT. Settings: 130mv, PEEP 8, 50% fio2. Patient biting on ett. Agitated. Attempting to sit up and kick legs off bed. PRN Ativan administered. Bite block placed. Patient now resting comfortably. RASS -1.
Precedex gtt maintained.
[2024-07-28 15:20] LABS: Glucose - Point of Care 149 mg/dl (70-99)
[2024-07-28 15:44] LABS: Blood Urea Nitrogen 71 mg/dl (9-20); Calcium 8.8 mg/dl (8.4-10.2); Carbon Dioxide 25 mmol/L (22-30); Chloride 115 mmol/L (98-107); Estimated Creatinine Clearance 74 ml/min; Glucose 189 mg/dl (70-99); Potassium 3.9 mmol/L (3.5-5.1); Sodium 146 mmol/L (135-145); eGFR 52.82
--- NOTE | 2024-07-28 15:53 | W.PN.INTV ---
Today's Communication / Plan
Recommendations
- Daily SAT/SBT. If unable to extubate, tentative tracheostomy
- Lower Solu-Medrol to 40 mg daily
- Lowered Seroquel to 50 mg nightly
- Change Zosyn to IV Unasyn
- Chest x-ray and ABG in a.m.
- Lasix 40 mg IV x 1
Assessment
-
Patient is a 49-year-old gentleman with history of hypertension, depression, who was brought from home via EMS as patient's found him lethargic and short of breath. Patient reportedly had been sick for the last 3 to 4 days. Patient required
15 L via nasal cannula initially and was subsequently transition to BiPAP support as his initial saturations were around 60%. Patient responded well to BiPAP and was noted to have hypercapnia also. Overnight he continued to develop worsening
hypercapnia and inability to ventilate and oxygenate and required intubation and mechanical ventilation. Post ventilation, patient has been very difficult to oxygenate. He has been on 100% FiO2 and PEEP has been slowly increased all the way up to
18 now. His PF ratio continues to be severely low. He has been on deep sedation and also paralytics were initiated. Patient found to have influenza A screen positive.
#1. Influenza A with severe acute hypoxic respiratory failure. (Intubated 07/15), complicated by VAP Streptococcus
-Patient was initially on 15 L oxygen, subsequently transitioned to BiPAP and now on mechanical ventilation
-07/15, patient had severely low PF ratio of 87 and [facility] was contacted for consideration of ECMO. Subsequently once patient was proned his PO2 significantly improved to above 300 hence transfer to [facility] was canceled.
-With severely reduced PF ratio, patient has required proning along with high FiO2 and high PEEP as high as 18, currently down to 50% FiO2 and 8 of PEEP
-Patient has been on lung protective mechanical ventilation, currently on ASV, PEEP of 8, FiO2 50%. Patient triggering all breaths himself, currently at 130% of minute ventilation.
-Off proning since 07/25
-Patient placed on SAT/SBT on 07/28. Tolerated well for about an hour and a half, subsequently patient appeared more lethargic however no tachypnea or tachycardia was noted and he was switched back to ASV. Will continue to attempt a daily SAT/SBT
-ENT service consulted, if unable to extubate by , plan for tracheostomy.
-Status posttreatment with Zosyn for ventilator associated pneumonia with Streptococcus noted on tracheal aspirate, switch to Unasyn, target to treat for a total of 10 days of antibiotics.
-Lower Solu-Medrol to 40 mg daily, will taper over next few days
-Right upper quadrant ultrasound, negative for cholecystitis. Patient previously was on cefepime and drug fever was also thought to be a possibility, hence was changed to Zosyn, currently now on Unasyn.
#2. ESAU on admission. Cr was 2.9 on admission - 1.7 today, improving
- Nephrology service on case
-Off bicarb infusion
-2+ pedal edema on exam, give Lasix 40 mg IV x 1
#3. Hypotension with shock. Resolved. Suspect this is related to deep sedation as well as initiation of paralytic medications. Shock related to influenza A also in differential diagnosis.
- Now that patient is no longer being proned and FiO2 down to 50% with PEEP down to 8, sedation changed to Precedex
- Keep MAP above 65. Currently off pressors
- Echo checked 07/21 which was a technically difficult study with preserved LVEF at 60-65% with no regional WMA, mild concentric LVH, no significant valvular disease, normal RV size and function with normal RA size
#4. History of smoking. Patient might have underlying COPD.
- Continue DuoNebs QID
- No wheezing on exam now. Discontinued steroids in the setting of influenza A, now resumed given CT chest findings with concern for bronchiolitis as well as left lower lobe pneumonia with RLL opacities
- Nicotine patch
FEN:
Continue tube feeds
Continue insulin gtt with goal BG 140-180mg/dL
DVT prophylaxis with subcu heparin. GI prophylaxis with pantoprazole.
Updated patient's at bedside
Continue ICU level of care for this critically ill patient
Critical care statement: A total of 62 minutes of critical care time was provided for this patient today. This includes management of unstable vital signs, evaluation of the patient at bedside, reviewing the patient's pertinent medical records
including radiographs, microbiology, laboratory evaluations, and discussion with primary team, consultants, pharmacy, nutrition, physical therapy, case management, charge nurse, critical care nursing, and respiratory therapy.
Subjective Dataa
Subjective Data
Date of Service:
Date of Service: July 28, 2024
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
Subjective:
Patient more awake, able to perform SAT/SBT for almost 2 years
Review of Systems
Genitourinary: Other (Patient intubated )
Objective Data
Data Reviewed
Vital Signs / I&O / Oxygen:
Vital Signs
Temp Pulse Resp BP Pulse Ox
98.5 F 60 15 103/69 97
07/28/24 15:35 07/28/24 15:29 07/28/24 15:29 07/28/24 14:00 07/28/24 15:31
Intake and Output
07/27/24 07/28/24 07/29/24
06:59 06:59 06:59
Intake Total 5512.0 / 5745.7 5040.6 / 5130.4 863.3 / 863.3
Output Total 4850 / 4975 7575 / 7740 1964 / 1964
Balance 662.0 / 770.7 -2534.4 / -2609.6 -1101.7 / -1101.7
SaO2 [ASV] 98
SaO2 [CPAP/PSV] 95
SaO2 [A/C] 96
SaO2 97
Physical Exam
General: Comfortable
HEENT: Normocephalic and Anicteric
Cardiovascular: S1-S2 and Peripheral Edema (+2 lower extremity pitting edema bilaterally)
Respiratory: Non-Labored Respirations and ET Tube (min secretions )
GI: Soft, Non Tender and Normal Bowel Sounds
Neurology: Awake and Alert
Skin: Warm and Dry
Labs/Micro/Reports
Lab Data
07/28/24 03:58
07/28/24 15:17
Laboratory Results
07/28/24 07/28/24
04:08 11:57
pH 7.43 7.44
pCO2 33 L 35
pO2 76 L 68 L
HCO3 21.9 23.8
O2 Delivery Level Vent
[2024-07-28] MEDS: LASIX 40 MG IV (16:19)
--- NOTE | 2024-07-28 16:30 | PTCARENOTE ---
Systems reviewed. No major changes in assessment. RASS -1 to 0, with intermittent periods of agitation/restlessness. Precedex infusing. NSR on tele. Lung sounds coarse/diminished throughout. Vent settings unchanged. +BS. TFs infusing. Incontinent of
a small amount of liquid brown stool. Kilpatrick output 100-285 cc/hr. 40mg IV Lasix administered per MD order. No other changes.
--- NOTE | 2024-07-28 16:36 | CM ---
Remains intubated. Plan for tracheostomy if not weaned by 07/31/24. Discharge POC: TBD based on medical progression.
[2024-07-28 17:10] LABS: Glucose - Point of Care 226 mg/dl (70-99)
[2024-07-28] MEDS: LATUDA 40 MG TUBE (17:24)
[2024-07-28] MEDS: LIPITOR 20 MG TUBE (17:24)
[2024-07-28] MEDS: UNASYN IV ×2 (17:39→23:13)
[2024-07-28 18:33] LABS: Glucose - Point of Care 192 mg/dl (70-99)
--- NOTE | 2024-07-28 19:20 | PTCARENOTE ---
Rec'd pt w/ wrists restrained, eyes open, staring, does appear to track, CARY but not to command, OMARI at 4mm, sluggish, fent 50mic IV given before turning, pt trying to put legs off bed, precedex gtt at 0.6mic,SR/ Sinus cleopatra, bp stable, weak dsital
pulses, + anasarca, skin warm/dry, weak lower pulses, #8 oral ett- 26cm - moved to R, asv 130, 8 peep, 50%, sat 95, lungs coarse, white secretions, + bowel sounds, rectal trumpet to str drainage bag draining brown loose stool, R nares dobhoff at 75
cm, rec nepro at 65/hr & 100ml h20 flush/hr, abd obese, ashford draining clear yellow urine, on glycemic protocal- see flow sheet for titrations
[2024-07-28 19:29] LABS: Glucose - Point of Care 155 mg/dl (70-99)
[2024-07-28 20:30] LABS: Glucose - Point of Care 174 mg/dl (70-99)
[2024-07-28 21:32] LABS: Glucose - Point of Care 169 mg/dl (70-99)
[2024-07-28] MEDS: LUVOX 100 MG TUBE (21:58)
--- NOTE | 2024-07-28 22:00 | PTCARENOTE ---
agitated, legs over side rails, ativan 1 mg iv given
[2024-07-28 23:36] LABS: Glucose - Point of Care 150 mg/dl (70-99)
[2024-07-29] VITALS (24 sets, daily range): BP systolic 99–156; BP diastolic 63–97; PULSE 75; O2SAT 96; BMI 37.9
--- NOTE | 2024-07-29 00:11 | PTCARENOTE ---
sys reviewed, chg bath done, linens changed, percussion done
[2024-07-29 01:39] LABS: Glucose - Point of Care 160 mg/dl (70-99)
[2024-07-29] MEDS: PRECEDEX 100 IV ×7 (02:53→22:23)
[2024-07-29] MEDS: ATIVAN 1 MG IV ×2 (02:53→06:44)
--- NOTE | 2024-07-29 02:54 | PTCARENOTE ---
restlkess, ativan 1mg iv given
[2024-07-29] MEDS: ROBITUSSIN 200 MG TUBE ×6 (03:03→23:24)
[2024-07-29 03:22] LABS: % Basophils 0.1 % (0-2); % Eosinophils 1.3 % (0-6); % Lymphocytes 11.6 % (20.5-51.1); % Monocytes 6.2 % (1.7-9.3); % Neutrophils 79.8 % (42.2-75.2); Absolute Eosinophils 0.2 10^3/uL (0-0.7); Absolute Immature Granulocytes 0.1 10^3/uL (0-0.05); Absolute Lymphocytes 1.6 10^3/uL (1.2-3.4); Absolute Monocytes 0.9 10^3/uL (0.1-0.6); Absolute Neutrophils 11.2 10^3/uL (1.4-6.5); Hematocrit 31.7 % (39.0-52.0); Mean Corp Hgb Conc. 31.5 g/dL (33.0-37.0); Mean Corpuscular Hgb 29.5 pg (27.0-31.0); Mean Corpuscular Volume 93.5 fL (80.0-94.0); Mean Platelet Volume 11.2 fL (7.4-10.4); Nucleated Red Blood Cells % 0.1 % (-); Platelet Count 231 10^3/uL (130-400); Red Blood Cell Count 3.39 10^6/uL (4.70-6.10); Red Cell Dist. Width 13.2 % (11.5-14.5)
--- NOTE | 2024-07-29 03:25 | PTCARENOTE ---
Biting ETT, restless, fent 50 glenroy iv given
[2024-07-29] MEDS: SUBLIMAZE 50 MCG IV ×7 (03:26→19:09)
[2024-07-29 03:36] LABS: ALT (SGPT) 157 U/L (0-50); AST (SGOT) 26 U/L (17-59); Albumin 3.1 g/dl (3.5-5.0); Alkaline Phosphatase 136 U/L (38-126); Blood Urea Nitrogen 67 mg/dl (9-20); Calcium 8.9 mg/dl (8.4-10.2); Carbon Dioxide 27 mmol/L (22-30); Chloride 115 mmol/L (98-107); Estimated Creatinine Clearance 79 ml/min; Glucose 171 mg/dl (70-99); Potassium 3.3 mmol/L (3.5-5.1); Sodium 147 mmol/L (135-145); Total Bilirubin 0.6 mg/dl (0.2-1.3); eGFR 57.07
[2024-07-29 03:41] LABS: Glucose - Point of Care 156 mg/dl (70-99)
[2024-07-29] MEDS: KCL 100 IV (04:08)
--- NOTE | 2024-07-29 04:10 | PTCARENOTE ---
sys reviewed, percussion done, ett repos on left side at 26cm, 40 kcl/100 hung over 4 hr for k-3.3
[2024-07-29 04:33] LABS: B.E. 2.2 mmol/L; HCO3 26.5 mmol/L (21-28); O2 Saturation % 97.7 % (94-98); PCO2 39 mmHg (35-48); PO2 67 mmHg (83-108); pH 7.44 (7.35-7.45)
[2024-07-29] MEDS: UNASYN IV (05:13)
[2024-07-29] MEDS: ROXICODONE 15 MG PO (05:13)
[2024-07-29] MEDS: NOVOLOG FLEXPEN SC ×2 (05:15→11:15)
--- NOTE | 2024-07-29 05:27 | PTCARENOTE ---
biting ett, restless, not following commands, fent 50mic iv given
[2024-07-29 05:41] LABS: Glucose - Point of Care 140 mg/dl (70-99)
--- NOTE | 2024-07-29 06:46 | PTCARENOTE ---
Resp rate 30, biting ett, restless,still not following commands, ativan 1mg iv given
[2024-07-29] MEDS: DUONEB 3 ML INH ×4 (07:36→20:30)
[2024-07-29] MEDS: FLOVENT 220 MCG INHALER 4 PUFF INH ×2 (07:36→20:31)
[2024-07-29 07:49] LABS: Glucose - Point of Care 130 mg/dl (70-99)
--- NOTE | 2024-07-29 08:09 | PN.DE.MGMTRT ---
Insulin Management
- -
07/29/2024: Diabetes Management Follow up
Patient admitted 07/14/24 via EMS as patient's found him lethargic and short of breath. He was admitted for acute hypoxemic respiratory failure, requiring intubation and mechanical ventilation. PMH: HTN, Depression and T2DM
Pt remains intubated, Day 12, unable to interview or interact, no family at bedside. Information obtained form chart review.
He was taking Zepbound 2.5mf weekly/ . A1C 6.0%, Cr 2.9 on admission
On 07/24, Pt was started on steroids, Pred 40mg Q8 hrs and tube feeding contributing to Hyperglycemia.
Pt remains critically ill, intubated, less responsive today than yesterday, Tube feeds @ 65cc/hr.
Continues of Critical care glycemia protocol, requiring 1.6-3 unit of insulin/hour. POC down to 88, insulin drip on hold, Prednisone stopped today. Due to patient being less responsive there will be no attempt to wean today, patient for trach on
.
Will cont current regimen for now.
Discussed with ICU rounding team and Nurse. Will cont to follow and assess for readiness to transition off insulin drip.
Diabetes History
- -
Type of Diabetes: 2
Pre-Admission Diabetes Regimen
07/28/24 07/29/24
15:17 03:02
Creatinine 1.6 H 1.5 H
Lab Results
Hemoglobin A1c Cancelled 07/24/24 17:38
Insulin Pump Settings
IP Diabetes Regimen
07/28/24 07/28/24 07/28/24
08:33 09:41 10:43
Glucose
POC Glucose 89 116 H 163 H
07/28/24 07/28/24 07/28/24
11:36 13:00 15:17
Glucose 189 H
POC Glucose 160 H 171 H 149 H
07/28/24 07/28/24 07/28/24
17:06 18:31 19:27
Glucose
POC Glucose 226 H 192 H 155 H
07/28/24 07/28/24 07/28/24
20:29 21:31 23:36
Glucose
POC Glucose 174 H 169 H 150 H
07/29/24 07/29/24 07/29/24
01:28 03:02 03:30
Glucose 171 H
POC Glucose 160 H 156 H
07/29/24 07/29/24
05:30 07:38
Glucose
POC Glucose 140 H 130 H
Patient Education
[2024-07-29] MEDS: SENNA SYRUP 8.8 MG TUBE ×2 (08:46→19:02)
[2024-07-29] MEDS: NICODERM TRANSDERMAL 21 MG TRANSDERM (08:47)
[2024-07-29] MEDS: REFRESH CELLUVISC GEL 1 DROPS OPHTH ×2 (08:47→19:03)
[2024-07-29] MEDS: HEPARIN 5000 UNITS SC ×3 (08:47→23:21)
[2024-07-29] MEDS: SOLU-MEDROL PF 40 MG IV (08:48)
[2024-07-29] MEDS: LUVOX TUBE (08:48)
[2024-07-29] MEDS: PROTONIX IV 40 MG IV (08:48)
[2024-07-29] MEDS: NSS (PRESERVATIVE FREE) 10 ML IV (08:48)
[2024-07-29] MEDS: NORVASC 5 MG TUBE (09:02)
[2024-07-29 09:28] LABS: Osmolality Urine 376 mOsm/kg (300-900)
--- NOTE | 2024-07-29 09:30 | PTCARENOTE ---
Rec'd care of patient at 0700. Patient remains intubated. Precedex drip infusing for RASS 0 to -2. Patient drowsy with periods of agitation. Thrashing in bed, kicking legs and pulling on restraints with any stimulation. Unable to reorient. Patient
staring off. Does not make eye contact nor follow any commands. Director Voice aware. Pupils +4mm, sluggish. MAEx4. NSR on tele. ST, rate in the low 100's with agitation. +2 generalized anasarca. Palpable pulses. #8.0 ett, positioned 26cm @ the lip.
Vent settings: ASV 130 mv, PEEP 8, 50% fio2. Lung sounds coarse/diminished. +BS. TFs running at goal through DHT. Rectal trumpet in place for bowel incontinence. Kilpatrick for critical I/O. Output >300 cc/hr. GP maintained. Insulin and Precedex gtts
infusing through [facility]. K-3.3 on am labs. Repletion infusing.
[2024-07-29 09:42] LABS: Urine Sodium 68 mmol/L (30-90)
[2024-07-29 09:45] LABS: Glucose - Point of Care 116 mg/dl (70-99)
--- NOTE | 2024-07-29 10:44 | PTCARENOTE ---
VAT at bedside to place midline. Patient agitated with stimulation. Fentanyl bolus administered.
[2024-07-29] MEDS: KLONOPIN 0.5 MG TUBE ×2 (11:15→19:02)
[2024-07-29 11:41] LABS: Glucose - Point of Care 139 mg/dl (70-99)
--- NOTE | 2024-07-29 11:45 | W.PN.NEPH.PH ---
Today's Communication / Plan
-
cont high FWF and add D5w
labs later today
replace k
Assessment/Plan
-
Assessment
ESAU (unknown)
VDRF
InfA
HTN
Hypernatremia
Plan
Creatinine slightly improving to 1.5, BUN improving slowly
polyuric possible post ATN diuresis, U osmo 376
Vent management and steroids per digital coordinator
Hypernatremia-little worse today 147, FWD 3.5lit
FWF up at 100cc/hr in TF, will add D5W too
there is concern of DI from chronic Bieber ingestion-unlikely since U osmo is >300
holding lasix since still with significant UOP
Blood pressure stable on amlodipine
Zosyn renally dosed
follow LFTs
Try to obtain more recent creatinine values to determine whether or not he is close to baseline
Patient critically ill with vent dependent respiratory failure due to influenza A
critical care time spent 31 minutes
d/w nursing
-
-
Date of Service: July 29, 2024
CC / HPI / ROS
-
Chief Complaint:
ESAU
History of Present Illness:
Creatinine slightly better at 1.5
Hemodynamically stable on Amlodipine
Remains intubated
Metabolic acidosis resolved at 27
Hypernatremia up at 147
Remains on tube feeds
Review of Systems:
non oliguric via ash[place]
intubated and sedated
weights down
low grade fever last night
Labs
-
Labs:
WBC 14.0 10^3/uL (4.8-10.8) H 07/29/24 03:02
RBC 3.39 10^6/uL (4.70-6.10) L 07/29/24 03:02
Hgb 10.0 g/dL (13.0-18.0) L 07/29/24 03:02
Hct 31.7 % (39.0-52.0) L 07/29/24 03:02
Plt Count 231 10^3/uL (130-400) 07/29/24 03:02
Sodium 147 mmol/L (135-145) H 07/29/24 03:02
Potassium 3.3 mmol/L (3.5-5.1) L 07/29/24 03:02
Chloride 115 mmol/L (98-107) H 07/29/24 03:02
Carbon Dioxide 27 mmol/L (22-30) 07/29/24 03:02
BUN 67 mg/dl (9-20) H 07/29/24 03:02
Creatinine 1.5 mg/dL (0.7-1.3) H 07/29/24 03:02
eGFR 57.07 07/29/24 03:02
Glucose 171 mg/dl (70-99) H 07/29/24 03:02
Calcium 8.9 mg/dl (8.4-10.2) 07/29/24 03:02
Phosphorus 3.8 mg/dl (2.5-4.5) 07/27/24 03:08
Fyb-Y-Ehptsqibnmy Pept 184 pg/ml 07/21/24 03:07
Albumin 3.1 g/dl (3.5-5.0) L 07/29/24 03:02
Physical Exam
-
Vital Signs:
Vital Signs
Temp Pulse Resp BP Pulse Ox
98.6 F 72 16 124/77 94
07/29/24 08:00 07/29/24 11:09 07/29/24 11:09 07/29/24 11:09 07/29/24 11:31
Cardiovascular:: Regular rate and rhythm
Respiratory:: Bilateral: Coarse
Lung Excursion:: Abnormal
Abdomen:: Nontender and Soft
Extremity Edema:: +1: Bilateral:
Ashford Catheter: Yes
--- NOTE | 2024-07-29 11:55 | W.PN.HOSP.TC ---
Addendum entered and electronically signed by Gunner Almanza MD 07/29/24 16:46:
Acute hypoxemic respiratory failure now vent dependent respiratory failure. Which is likely secondary to pneumonia continue SAT SBT follow ICU recommendations for vent weaning. Continue GI prophylaxis with IV Protonix
12 point ROS completed everything negative apart from what is stated above
CAP versus viral pneumonia versus aspiration continue Zosyn and Solu-Medrol. Continue pulmonary toilet head of bed elevation.
ESAU improving
Original Note:
Today's Communication/Plan
-
Discontinue fluvoxamine, Seroquel once in the night.
Spontaneous breathing trials per intensive care team.
Reduce sedation.
Assessment / Plan
Assessment / Plan
Assessment/plan
49-year-old male admitted to the ICU for acute hypoxic respiratory failure requiring intubation and mechanical ventilation. Switched to ASV, day 15 of VDRF.
Plan-
VDRF-
VDRF dependent pneumonia-
Patient tolerated spontaneous breathing trial for about 3 hours, but he stopped following verbal commands. Counted as failure to wean off and was reintubated.
Ventilated dependent-initially on BiPAP upon admission, was transition to mechanical ventilation on 07/15/2024. (On day of intubation, low PF ratio at 87 which subsequently improved to greater than 300).
Continues to remain on ASV since 07/26 with PS trials.
PEEP at 8, FiO2 50%. He was initially started on cefepime, and then there was concern for drug-induced fevers with cefepime and Precedex. Cefepime was switched to Zosyn with temporary improvement in fevers.
Patient had a Tmax of 100 point 6 in the AM yesterday.
Suspect likely secondary to Precedex.
If successful wean off (SAT, SBT) not possible, plan is to tentatively do tracheostomy on . ENT consulted by policy service coordinator. Appreciate ENT inputs, and policy service coordinator management.
IV Protonix 40 mg once daily to prevent stress ulcerations.
Fevers and CAP-
Initially attributed to flu and CAP with some aspiration.
Was switched to Zosyn, currently on Solu-Medrol taper 40 mg IV every 12 hours.
Receiving pulmonary toilet, HOB evaluation.
Could be drug-induced secondary to Precedex.
Monitor fever curve, trend temperatures.
ESAU and NAGMA-
Urine studies consistent with prerenal etiology
Suspect hypoperfusion injury secondary to circulatory shock upon initial presentation.
Serum creatinine improving, today at 1.5 with good urine output.
Bicarbonate drip discontinued, continue IV dextrose.
Trend BMP and urine output, avoid nephrotoxins.
Renally dose all medications.
Hypernatremia-
serum sodium at 147, free water flushes at 75 cc/h discontinued as serum sodium improved. Currently patient hyponatremic, mild. Suspect dilutional secondary to fluid overload versus secondary to IV Lasix.
Continue to trend serum sodium levels.
Hypokalemia-
Replaced potassium in the a.m.
Trend serum potassium levels.
Hypertension-
Continue amlodipine 10 mg
Multifactorial anemia-
Continue iron supplementation via tube monitor CBC
Chronic pain syndrome-
Morphine milliequivalents of opioids-discontinued
patient is currently on oxycodone 7 out of 10 doses.
Rest of the oxycodones for breakthrough pain not discontinued.
Schizophrenia and bipolar disorder-
Psychiatry on board
Currently lithium on hold given supratherapeutic levels and ESAU.
Goal lithium less than 0.7.
PRACTICAL NURSING FACULTY home regimen- lurasidone,
Seroquel reduced to once at night dose, fluvoxamine discontinued, lithium on hold.
Appreciate psychiatry input.
Circulatory shock-resolved.
Initial blood cultures from 07/15 and repeat from 07/19 remain negative.
Required pressors (Levophed) for hemodynamic support.
Insulin gtt. for uncontrolled blood sugars
Goal blood glucose 180-220
Tube feeds-
Nephrin
DVT prophylaxis-
Heparin subcu
CODE STATUS-
Full code.
Anticipated Discharge: Within 24 hours
Subjective/Interval History
-
Date of Service: July 29, 2024
Patient not following verbal commands.
Objective Data
-
Labs:
Laboratory Results
07/29/24 07/29/24 07/29/24
03:02 04:25 20:00
WBC 14.0 H
Hgb 10.0 L
Hct 31.7 L
Plt Count 231
HCO3 26.5
Sodium 147 H Pending
Potassium 3.3 L Pending
Chloride 115 H Pending
Carbon Dioxide 27 Pending
BUN 67 H Pending
Creatinine 1.5 H Pending
Glucose 171 H Pending
Calcium 8.9 Pending
Total Bilirubin 0.6
AST 26
ALT 157 H
Alkaline Phosphatase 136 H
Vital Signs:
Vital Signs
Temp Pulse Resp BP Pulse Ox
98.6 F 72 16 124/77 94
07/29/24 08:00 07/29/24 11:09 07/29/24 11:09 07/29/24 11:09 07/29/24 11:31
I&O
07/28/24 07/29/24 07/30/24
06:59 06:59 06:59
Intake Total 5040.6 / 5130.4 4259.9 / 4470.4 964.3 / 964.3
Output Total 7575 / 7740 7690 / 8015 1125 / 1125
Balance -2534.4 / -2609.6 -3430.1 / -3544.6 -160.7 / -160.7
Review of Systems
-
Unable to obtain full review of systems at this time due to: Patient Intubation
Physical Exam
-
General: Morbidly Obese and Other (Intubated, IJ line on the left.)
HEENT: Moist Mucous Membranes
Respiratory: Clear to Auscultation (Bilateral upper lobes) and Crackles (Bilateral lower lobes.); Negative Wheezes, Rales or Rhonchi
Cardiac: Regular Rhythm and S1/S2; Negative Murmur, Rub or Gallop
GI: Soft, Nontender, Nondistended, Normal Bowel Sounds and Other (NG tube in place, rectal tube in place.)
Genito-urinary: Kilpatrick
Musculoskeletal: No Clubbing, No Cyanosis, Edema, Right Upper Extrem, Edema, Left Upper Extrem, Edema, Right Lower Extrem and Edema, Left Lower Extrem
Skin: Warm
Neuro: No Motor Deficits and Other (Intact corneal reflex, accommodation reflex, intact sternal rub.); Negative AO x 3
Psych: Calm
Data Reviewed
-
Medical Tests (Nuc Med, Echo etc): Image personally visualized and interpreted and Report Reviewed by me
Labs: Labs Reviewed by me and Discussed with Physician
--- NOTE | 2024-07-29 12:30 | PTCARENOTE ---
Systems reviewed. No major changes in assessment. Patient washed and repositioned for comfort. D5W ordered for hypernatremia. Repeat BMP @ 2000.
--- NOTE | 2024-07-29 12:55 | CM ---
IV/Precedex and Fentanyl. SBT for 3 hours, needed to be reintubated. May need tracheostomy if unable to extubate. Discharge POC. TBD based on medical progression.
--- NOTE | 2024-07-29 12:56 | W.PN.INTV ---
Today's Communication / Plan
Recommendations
- Discontinue a.m. Seroquel and increase nightly Seroquel to 100 mg.
- Lower IV Ativan frequency to every 6 hours as needed and start clonazepam 0.5 mg via feeding tube twice daily
- Continue Latuda, hold a.m. dose of fluvoxamine
- Precedex as needed
- Discontinue scheduled OxyContin and use only as needed for pain, also continue as needed fentanyl
- PT and OT evaluation
- Get a midline for IV access and discontinue central line after that
- Discontinue Unasyn and methylprednisolone
- Continue ASV mode of ventilation for now, will try SAT SBT again in a.m.
Assessment
-
Patient is a 49-year-old gentleman with history of hypertension, depression, who was brought from home via EMS as patient's found him lethargic and short of breath. Patient reportedly had been sick for the last 3 to 4 days. Patient required
15 L via nasal cannula initially and was subsequently transition to BiPAP support as his initial saturations were around 60%. Patient responded well to BiPAP and was noted to have hypercapnia also. Overnight he continued to develop worsening
hypercapnia and inability to ventilate and oxygenate and required intubation and mechanical ventilation. Post ventilation, patient has been very difficult to oxygenate. He has been on 100% FiO2 and PEEP has been slowly increased all the way up to
18 now. His PF ratio continues to be severely low. He has been on deep sedation and also paralytics were initiated. Patient found to have influenza A screen positive.
#1. Influenza A with severe acute hypoxic respiratory failure. (Intubated 07/15), complicated by VAP Streptococcus
-Patient was initially on 15 L oxygen, subsequently transitioned to BiPAP and now on mechanical ventilation
-07/15, patient had severely low PF ratio of 87 and [facility] was contacted for consideration of ECMO. Subsequently once patient was proned his PO2 significantly improved to above 300 hence transfer to [facility] was canceled.
-With severely reduced PF ratio, patient has required proning along with high FiO2 and high PEEP as high as 18, currently down to 50% FiO2 and 8 of PEEP
-Patient has been on lung protective mechanical ventilation, currently on ASV, PEEP of 8, FiO2 50%. Patient triggering all breaths himself, currently at 130% of minute ventilation.
-Off proning since 07/25
-Patient placed on SAT/SBT on 07/28. Tolerated well for about an hour and a half, subsequently patient appeared more lethargic however no tachypnea or tachycardia was noted and he was switched back to ASV. Will continue to attempt a daily SAT/SBT
-ENT service consulted, if unable to extubate by , plan for tracheostomy.
-Status posttreatment with Zosyn for ventilator associated pneumonia with Streptococcus noted on tracheal aspirate, switched to Unasyn, target to treat for a total of 10 days of antibiotics, then d/c.
-d/c steroids
-Right upper quadrant ultrasound, negative for cholecystitis. Patient previously was on cefepime and drug fever was also thought to be a possibility, hence was changed to Zosyn, currently now on Unasyn.
#1a. ICU delirium vs Metabolic encephalopathy with underlying psychiatric history
- [place] continues to be on hold
- Discontinue a.m. Seroquel and increase nightly Seroquel to 100 mg. Patient received multiple as needed doses of fentanyl and Ativan overnight
- Lower IV Ativan frequency to every 6 hours as needed and start clonazepam 0.5 mg via feeding tube twice daily
- Continue Latuda, hold a.m. dose of fluvoxamine
- Precedex as needed
- Discontinue scheduled OxyContin and use only as needed for pain, also continue as needed fentanyl
- PT and OT evaluation
#2. ESAU on admission. Cr was 2.9 on admission - 1.5 today, improving
-Nephrology service on case
-Off bicarb infusion
-2+ pedal edema on exam, given Lasix 40 mg IV x 1 on 07/28
#3. Hypotension with shock. Resolved. Suspect this is related to deep sedation as well as initiation of paralytic medications. Shock related to influenza A also in differential diagnosis.
- Now that patient is no longer being proned and FiO2 down to 50% with PEEP down to 8, sedation changed to Precedex
- Keep MAP above 65. Currently off pressors
- Echo checked 07/21 which was a technically difficult study with preserved LVEF at 60-65% with no regional WMA, mild concentric LVH, no significant valvular disease, normal RV size and function with normal RA size
#4. History of smoking. Patient might have underlying COPD.
- Continue DuoNebs QID
- No wheezing on exam now. Discontinued steroids in the setting of influenza A, now resumed given CT chest findings with concern for bronchiolitis as well as left lower lobe pneumonia with RLL opacities
- Nicotine patch
FEN:
Continue tube feeds
Continue insulin gtt with goal BG 140-180mg/dL
DVT prophylaxis with subcu heparin. GI prophylaxis with pantoprazole.
Continue ICU level of care for this critically ill patient
Critical care statement: A total of 48 minutes of critical care time was provided for this patient today. This includes management of unstable vital signs, evaluation of the patient at bedside, reviewing the patient's pertinent medical records
including radiographs, microbiology, laboratory evaluations, and discussion with primary team, consultants, pharmacy, nutrition, physical therapy, case management, charge nurse, critical care nursing, and respiratory therapy.
Subjective Dataa
Subjective Data
Date of Service:
Date of Service: July 29, 2024
Chief Complaint: Cloud [employer] Follow Up
Subjective:
Patient currently intubated, mechanically ventilated and sedated.
Review of Systems
General: Unobtainable - Sedation
Objective Data
Data Reviewed
Vital Signs / I&O / Oxygen:
Vital Signs
Temp Pulse Resp BP Pulse Ox
99.9 F 87 17 124/81 96
07/29/24 12:03 07/29/24 12:00 07/29/24 12:00 07/29/24 12:00 07/29/24 12:00
Intake and Output
07/28/24 07/29/24 07/30/24
06:59 06:59 06:59
Intake Total 5040.6 / 5130.4 4259.9 / 4470.4 1156.1 / 1156.1
Output Total 7575 / 7740 7690 / 8015 1340 / 1340
Balance -2534.4 / -2609.6 -3430.1 / -3544.6 -183.9 / -183.9
SaO2 [ASV] 96
SaO2 [CPAP/PSV] 95
SaO2 [A/C] 96
SaO2 95
Physical Exam
General: Comfortable
HEENT: Normocephalic and Anicteric
Cardiovascular: S1-S2 and Peripheral Edema (+2 lower extremity pitting edema bilaterally, improving with diuresis)
Respiratory: Non-Labored Respirations and ET Tube (min secretions )
GI: Soft, Non Tender and Normal Bowel Sounds
Neurology: Other (Appears more delirious)
Skin: Warm and Dry
Labs/Micro/Reports
Lab Data
07/29/24 03:02
Laboratory Results
07/29/24
04:25
pH 7.44
pCO2 39
pO2 67 L
HCO3 26.5
O2 Delivery Level
[2024-07-29] MEDS: D5W 1000 IV (13:05)
[2024-07-29 13:46] LABS: Glucose - Point of Care 192 mg/dl (70-99)
[2024-07-29 14:44] LABS: Glucose - Point of Care 188 mg/dl (70-99)
--- NOTE | 2024-07-29 15:44 | PTCARENOTE ---
[facility] TLC removed by VAT.
[2024-07-29 15:57] LABS: Glucose - Point of Care 173 mg/dl (70-99)
--- NOTE | 2024-07-29 16:30 | PTCARENOTE ---
Systems reviewed. No major changes. Patient resting comfortably. Lightly sedated. VSS.
[2024-07-29 17:47] LABS: Glucose - Point of Care 180 mg/dl (70-99)
[2024-07-29] MEDS: NOVOLIN R INSULIN INFUSION 100 IV (17:52)
[2024-07-29] MEDS: LIPITOR 20 MG TUBE (17:52)
[2024-07-29] MEDS: LATUDA 40 MG TUBE (17:52)
[2024-07-29] MEDS: NOVOLOG FLEXPEN 2 UNITS SC ×2 (17:54→23:25)
--- NOTE | 2024-07-29 18:06 | PTCARENOTE ---
Patient alert. Anxious and restless in bed. at bedside. Attempting to reorient and calm patient down. Patient following commands and nodding head.
[2024-07-29 19:33] LABS: Glucose - Point of Care 154 mg/dl (70-99)
[2024-07-29 19:49] LABS: Blood Urea Nitrogen 61 mg/dl (9-20); Calcium 8.7 mg/dl (8.4-10.2); Carbon Dioxide 25 mmol/L (22-30); Chloride 114 mmol/L (98-107); Estimated Creatinine Clearance 90 ml/min; Glucose 152 mg/dl (70-99); Potassium 4.2 mmol/L (3.5-5.1); Sodium 145 mmol/L (135-145); eGFR > 60.00
--- NOTE | 2024-07-29 20:02 | PTCARENOTE ---
Rec'd pt restless, tracking voice, OMARI at 3mm, not following commands, Precedex gtt at 1mic, fent 50mic iv given at 1910 for discomfort, wrists restrained for pt safety, at bedside, SR, bp stable, on glycemic protocal, weak distal pulses, skin
warm / dry, #8 oral ett- 26 cm- moved to R side asv 130, 8 peep, 50 %fio2, lungs coarse, percussion done, + bowel sounds, rectal trumpet draining brown liquid stool, R nares dobhoff- rec nepro at 65/hr & 100ml/hr h02 flush, no vomiting, abd obese,
ashford draining yellow urine, Dr louis notified of bmp results- no new orders
[2024-07-29] MEDS: SEROQUEL 100 MG TUBE (21:01)
[2024-07-29] MEDS: LUVOX 100 MG TUBE (21:01)
[2024-07-29 21:31] LABS: Glucose - Point of Care 166 mg/dl (70-99)
[2024-07-29 23:34] LABS: Glucose - Point of Care 174 mg/dl (70-99)
[2024-07-30] VITALS (33 sets, daily range): BP systolic 109–152; BP diastolic 69–129; PULSE 2–89; BMI 37.2
--- NOTE | 2024-07-30 00:13 | PTCARENOTE ---
sys reviewed, changes noted, percussion done, CHG bath done, linens changed
[2024-07-30] MEDS: PRECEDEX 100 IV ×5 (01:23→23:28)
[2024-07-30 01:39] LABS: Glucose - Point of Care 153 mg/dl (70-99)
[2024-07-30] MEDS: ROBITUSSIN 200 MG TUBE ×4 (03:14→16:51)
[2024-07-30 03:17] LABS: Venous Blood Gas B.E. 2.2 mmol/L (-4 to +4); Venous Blood Gas HCO3 26.5 mmol/L (22-27); Venous Blood Gas O2 Sat % 98.3 %; Venous Blood Gas pCO2 39 mmHg (35-48); Venous Blood Gas pH 7.44 (7.32-7.43); Venous Blood Gas pO2 142 mmHg (30-50)
[2024-07-30 03:18] LABS: % Basophils 0.1 % (0-2); % Eosinophils 1.8 % (0-6); % Immature Granulocytes 0.6 % (0-0.5); % Lymphocytes 15.2 % (20.5-51.1); % Monocytes 6.8 % (1.7-9.3); % Neutrophils 75.5 % (42.2-75.2); Absolute Eosinophils 0.2 10^3/uL (0-0.7); Absolute Immature Granulocytes 0.1 10^3/uL (0-0.05); Absolute Lymphocytes 1.6 10^3/uL (1.2-3.4); Absolute Monocytes 0.7 10^3/uL (0.1-0.6); Absolute Neutrophils 8.2 10^3/uL (1.4-6.5); Hematocrit 30.6 % (39.0-52.0); Hemoglobin 9.9 g/dL (13.0-18.0); Mean Corp Hgb Conc. 32.4 g/dL (33.0-37.0); Mean Corpuscular Hgb 29.7 pg (27.0-31.0); Mean Corpuscular Volume 91.9 fL (80.0-94.0); Mean Platelet Volume 11.4 fL (7.4-10.4); Nucleated Red Blood Cells % 0 % (-); Platelet Count 196 10^3/uL (130-400); Red Blood Cell Count 3.33 10^6/uL (4.70-6.10); Red Cell Dist. Width 13.7 % (11.5-14.5); White Blood Cell Count 10.8 10^3/uL (4.8-10.8)
[2024-07-30] MEDS: SUBLIMAZE 50 MCG IV ×2 (03:18→04:19)
--- NOTE | 2024-07-30 03:21 | PTCARENOTE ---
sys reviewed, banging on side rails, trying to put legs over side rails, restless,opens eyes to name, squeezes fingers to command, fent 50 glenroy iv given
[2024-07-30 03:36] LABS: Glucose - Point of Care 124 mg/dl (70-99)
[2024-07-30 03:42] LABS: ALT (SGPT) 121 U/L (0-50); AST (SGOT) 23 U/L (17-59); Alkaline Phosphatase 128 U/L (38-126); Blood Urea Nitrogen 54 mg/dl (9-20); Calcium 8.8 mg/dl (8.4-10.2); Carbon Dioxide 26 mmol/L (22-30); Chloride 115 mmol/L (98-107); Estimated Creatinine Clearance 97 ml/min; Glucose 158 mg/dl (70-99); Potassium 3.6 mmol/L (3.5-5.1); Sodium 146 mmol/L (135-145); Total Bilirubin 0.6 mg/dl (0.2-1.3); Total Protein 5.8 g/dl (6.3-8.2); eGFR > 60.00
--- NOTE | 2024-07-30 04:04 | PTCARENOTE ---
pt nodding head appropriately to questions asked, ett repos on left side at 26cm, percussion done
[2024-07-30] MEDS: NOVOLOG FLEXPEN SC ×2 (05:32→12:31)
[2024-07-30 05:41] LABS: Glucose - Point of Care 145 mg/dl (70-99)
[2024-07-30] MEDS: FLOVENT 220 MCG INHALER 4 PUFF INH (07:10)
[2024-07-30] MEDS: DUONEB 3 ML INH ×4 (07:10→20:41)
[2024-07-30] MEDS: TYLENOL ORAL SOLUTION 650 MG PO (07:40)
[2024-07-30] MEDS: D5W 1000 IV ×3 (07:40→23:28)
[2024-07-30] MEDS: HEPARIN 5000 UNITS SC ×3 (07:41→23:18)
[2024-07-30] MEDS: NSS (PRESERVATIVE FREE) 10 ML IV (07:42)
[2024-07-30] MEDS: SENNA SYRUP 8.8 MG TUBE (07:42)
[2024-07-30] MEDS: PROTONIX IV 40 MG IV (07:42)
[2024-07-30] MEDS: REFRESH CELLUVISC GEL 1 DROPS OPHTH (07:43)
[2024-07-30] MEDS: NORVASC 5 MG TUBE (07:43)
[2024-07-30] MEDS: KLONOPIN 0.5 MG TUBE (07:44)
[2024-07-30] MEDS: NICODERM TRANSDERMAL 21 MG TRANSDERM (07:44)
[2024-07-30 07:46] LABS: Glucose - Point of Care 126 mg/dl (70-99)
--- NOTE | 2024-07-30 07:48 | PN.DE.MGMTRT ---
Insulin Management
- -
07/30/2024: Diabetes Management Follow up
Patient admitted 07/14/24 via EMS as patient's found him lethargic and short of breath. He was admitted for acute hypoxemic respiratory failure, requiring intubation and mechanical ventilation. PMH: HTN, Depression and T2DM
Pt remains intubated, Day 13, unable to interview or interact, no family at bedside. Information obtained form chart review.
He was taking Zepbound 2.5mg weekly/ . A1C 6.0%, Cr 2.9 on admission
On 07/24, Pt was started on steroids, Pred 40mg Q8 hrs and tube feeding contributing to Hyperglycemia.
Pt remains critically ill, intubated, more responsive today than yesterday, possible extubation today. Tube feeds @ 65cc/hr. to stop shortly
Will transition to lantus 15 units now, insulin infusion off 2 hours after administered with novolog moderate scale Q 6 hours and Accucheks Q 6 hours.
Discussed with ICU rounding team and Nurse. Will cont to follow
Diabetes History
- -
Pre-Admission Diabetes Regimen
07/29/24 07/30/24
19:23 03:10
Creatinine 1.3 1.2
Lab Results
Hemoglobin A1c Cancelled 07/24/24 17:38
Insulin Pump Settings
IP Diabetes Regimen
07/29/24 07/29/24 07/29/24
07:38 09:32 11:29
Glucose
POC Glucose 130 H 116 H 139 H
07/29/24 07/29/24 07/29/24
13:34 14:32 15:44
Glucose
POC Glucose 192 H 188 H 173 H
07/29/24 07/29/24 07/29/24
17:31 19:22 19:23
Glucose 152 H
POC Glucose 180 H 154 H
07/29/24 07/29/24 07/30/24
21:20 23:23 01:28
Glucose
POC Glucose 166 H 174 H 153 H
07/30/24 07/30/24 07/30/24
03:10 03:24 05:30
Glucose 158 H
POC Glucose 124 H 145 H
07/30/24
07:35
Glucose
POC Glucose 126 H
Patient Education
[2024-07-30] MEDS: FERROUS SULFATE ORAL LIQUID 300 MG TUBE (09:17)
--- NOTE | 2024-07-30 09:24 | PTCARENOTE ---
Update with injection molding machine offbearer this am. Respiratory cares team at bedside. Will follow attempts to wean/SBT. Update npo plan of cares and status with diabetic paper steamer. Follow up glycemic plan of cares and drip management. Critical care nursing at
bedside thru am, redirecting behavior, reconstruct plan of am cares. Presently on 130%ASV, Fio2 50% and Peep 8cm. Will follow bedside thru weaning process and progress.
--- NOTE | 2024-07-30 09:29 | PTCARENOTE ---
Update with diabetic team. Await lantus coverage and follow up drip off post two hours and q six hour trends with coverage. Will continue accu data trends. Await update with pharmacy.
[2024-07-30 09:36] LABS: Glucose - Point of Care 172 mg/dl (70-99)
--- NOTE | 2024-07-30 09:42 | W.PN.NEPH.PH ---
Today's Communication / Plan
-
IVF
Assessment/Plan
-
Assessment
ESAU (unknown)
VDRF
InfA
HTN
Hypernatremia
polyuria
Plan
continue FWF 100ml/hr
continue IVF D5W, increase to 70ml/hr
goal will be to temper hypernatremia, rather than match output
follow BMP
no lasix
-
-
Date of Service: July 30, 2024
CC / HPI / ROS
-
Chief Complaint:
ESAU
History of Present Illness:
ESAU/Cr down to 1.2
Hemodynamically stable on Amlodipine
Remains intubated
Metabolic acidosis resolved
Hypernatremia up at 146
Remains on tube feeds with high FWF
Review of Systems:
non oliguric via [place]
intubated and sedated
Labs
-
Labs:
WBC 10.8 10^3/uL (4.8-10.8) 07/30/24 03:10
RBC 3.33 10^6/uL (4.70-6.10) L 07/30/24 03:10
Hgb 9.9 g/dL (13.0-18.0) L 07/30/24 03:10
Hct 30.6 % (39.0-52.0) L 07/30/24 03:10
Plt Count 196 10^3/uL (130-400) 07/30/24 03:10
Sodium 146 mmol/L (135-145) H 07/30/24 03:10
Potassium 3.6 mmol/L (3.5-5.1) 07/30/24 03:10
Chloride 115 mmol/L (98-107) H 07/30/24 03:10
Carbon Dioxide 26 mmol/L (22-30) 07/30/24 03:10
BUN 54 mg/dl (9-20) H 07/30/24 03:10
Creatinine 1.2 mg/dL (0.7-1.3) 07/30/24 03:10
eGFR > 60.00 07/30/24 03:10
Glucose 158 mg/dl (70-99) H 07/30/24 03:10
Calcium 8.8 mg/dl (8.4-10.2) 07/30/24 03:10
Phosphorus 3.8 mg/dl (2.5-4.5) 07/27/24 03:08
Wgz-B-Qctifocmenw Pept 184 pg/ml 07/21/24 03:07
Albumin 3.0 g/dl (3.5-5.0) L 07/30/24 03:10
Physical Exam
-
Vital Signs:
Vital Signs
Temp Pulse Resp BP Pulse Ox
99.2 F 68 15 113/74 98
07/30/24 07:58 07/30/24 09:00 07/30/24 09:00 07/30/24 09:00 07/30/24 09:00
Cardiovascular:: Regular rate and rhythm
Respiratory:: Bilateral: Coarse
Lung Excursion:: Normal
Abdomen:: Nontender and Soft
Bowel Sounds:: Normal
Extremity Edema:: +1: Bilateral:
--- NOTE | 2024-07-30 10:01 | PTCARENOTE ---
Update with patient via phone. Continue with sbt/weaning plan of cares and teaching. Await pharmacy follow up for conversion off insulin gtt. Weaning prescedex at this time.
--- NOTE | 2024-07-30 10:04 | PTCARENOTE ---
Nephrology at bedside. Update labs and trends. IVF adjust now npo. Follow up with pharmacy in am rounds.
--- NOTE | 2024-07-30 10:29 | PTCARENOTE ---
Continue progressive wean of prescedex. Continue sbt 45%fio2 8peep 8 pressure support. Abg during wean. Continue critical care at bedside.
[2024-07-30] MEDS: LANTUS 0.15 UNITS SC (10:34)
[2024-07-30 11:27] LABS: B.E. 2.9 mmol/L; HCO3 27.1 mmol/L (21-28); PCO2 39 mmHg (35-48); PO2 85 mmHg (83-108); pH 7.45 (7.35-7.45)
--- NOTE | 2024-07-30 11:33 | W.PN.HOSP.TC ---
Addendum entered and electronically signed by Gunner Almanza MD 07/31/24 13:40:
Acute hypoxemic respiratory failure now vent dependent. Secondary to pneumonia. Daily SAT SBT. Vent weaning per ICU. Continue GI prophylaxis.
CAP versus viral pneumonia versus aspiration continue Zosyn Solu-Medrol. Pulmonary toilet head of bed elevation
ESAU improving
Original Note:
Today's Communication/Plan
-
Unasyn, IV steroids discontinued.
Fluvoxamine on hold
Oxycodone dose reduced.
Spontaneous breathing trial today.
Assessment / Plan
Assessment / Plan
Assessment/plan
49-year-old male admitted to the ICU for acute hypoxic respiratory failure requiring intubation and mechanical ventilation. Switched to ASV, day 15 of VDRF.
Plan-
VDRF-
VDRF dependent pneumonia-
Patient tolerated spontaneous breathing trial for about 3 hours, but he stopped following verbal commands. Counted as failure to wean off and was reintubated.
Ventilated dependent-initially on BiPAP upon admission, was transition to mechanical ventilation on 07/15/2024. (On day of intubation, low PF ratio at 87 which subsequently improved to greater than 300).
Continues to remain on ASV since 07/26 with PS trials.
PEEP at 8, FiO2 50%. He was initially started on cefepime, and then there was concern for drug-induced fevers with cefepime and Precedex. Cefepime was switched to Zosyn with temporary improvement in fevers. Was switched to Unasyn which was
discontinued yesterday. Currently not on antibiotics.
Suspect his intermittent fevers are likely secondary to Precedex.
Tentative tracheostomy tomorrow. Spontaneous breathing trial today. Appreciate ENT help and vat skimmer management.
IV Protonix 40 mg once daily to prevent stress ulcerations.
ICU induced delirium-
Likely secondary to medications versus toxic metabolic encephalopathy.
Seroquel a.m. dose cutoff.
Night dose Seroquel bumped to 100 mg.
Overnight requiring Precedex at 1.
Fevers and CAP-
Initially attributed to flu and CAP with some aspiration.
Was switched to Zosyn, currently on Solu-Medrol taper 40 mg IV every 12 hours.
Receiving pulmonary toilet, HOB evaluation.
Could be drug-induced secondary to Precedex.
Monitor fever curve, trend temperatures.
ESAU and NAGMA-
Urine studies consistent with prerenal etiology
Suspect hypoperfusion injury secondary to circulatory shock upon initial presentation.
Serum creatinine improving, today at 1.5 with good urine output.
Bicarbonate drip discontinued, continue IV dextrose.
Trend BMP and urine output, avoid nephrotoxins.
Renally dose all medications.
Hypernatremia-
serum sodium at 147, free water flushes at 75 cc/h discontinued as serum sodium improved. Currently patient hyponatremic, mild. Suspect dilutional secondary to fluid overload versus secondary to IV Lasix.
Continue to trend serum sodium levels.
Serum sodium today at 147 again, continue free water flushes at 75 cc/h.
Hypokalemia-
Replaced potassium in the a.m.
Trend serum potassium levels.
Hypertension-
Continue amlodipine 10 mg
Multifactorial anemia-
Continue iron supplementation via tube monitor CBC
Chronic pain syndrome-
Morphine milliequivalents of opioids-discontinued
patient is currently on oxycodone 7 out of 10 doses.
Rest of the oxycodones for breakthrough pain not discontinued.
Schizophrenia and bipolar disorder-
Psychiatry on board
Currently lithium on hold given supratherapeutic levels and ESAU.
Goal lithium less than 0.7.
MANAGER PULMONARY home regimen- lurasidone,
Seroquel reduced to once at night dose, fluvoxamine discontinued, lithium on hold.
Appreciate psychiatry input.
Circulatory shock-resolved.
Initial blood cultures from 07/15 and repeat from 07/19 remain negative.
Required pressors (Levophed) for hemodynamic support.
Insulin gtt. for uncontrolled blood sugars
Goal blood glucose 180-220
Tube feeds-
Nephrin
DVT prophylaxis-
Heparin subcu
CODE STATUS-
Full code.
Anticipated Discharge: > 48 hours
Subjective/Interval History
-
Date of Service: July 30, 2024
Patient is sedated, and continues to be intubated
Objective Data
-
Labs:
Laboratory Results
07/30/24 07/30/24
03:10 11:17
WBC 10.8
Hgb 9.9 L
Hct 30.6 L
Plt Count 196
HCO3 27.1
Sodium 146 H
Potassium 3.6
Chloride 115 H
Carbon Dioxide 26
BUN 54 H
Creatinine 1.2
Glucose 158 H
Calcium 8.8
Total Bilirubin 0.6
AST 23
ALT 121 H
Alkaline Phosphatase 128 H
Vital Signs:
Vital Signs
Temp Pulse Resp BP Pulse Ox
99.2 F 69 17 122/80 100
07/30/24 07:58 07/30/24 11:23 07/30/24 11:23 07/30/24 10:00 07/30/24 11:23
I&O
07/29/24 07/30/24 07/31/24
06:59 06:59 06:59
Intake Total 4259.9 / 4470.4 5789.6 / 6034.8 731.6 / 731.6
Output Total 7690 / 8015 5635 / 5835 950 / 950
Balance -3430.1 / -3544.6 154.6 / 199.8 -218.4 / -218.4
Review of Systems
-
Unable to obtain full review of systems at this time due to: Patient Intubation
Physical Exam
-
General: Comfortable, Morbidly Obese and Other (Intubated and mechanically ventilated, central line in place)
HEENT: Moist Mucous Membranes
Respiratory: Clear to Auscultation and Crackles (In bilateral lower lobes.); Negative Wheezes, Rales or Rhonchi
Cardiac: Regular Rhythm and S1/S2; Negative Murmur, Rub or Gallop
GI: Soft, Nontender, Nondistended, Normal Bowel Sounds and Other (NG tube)
Musculoskeletal: No Clubbing, No Cyanosis, Edema, Right Upper Extrem, Edema, Left Upper Extrem, Edema, Right Lower Extrem and Edema, Left Lower Extrem
Skin: Warm
Neuro: DTR's Intact & Symmetrica; Negative AO x 3
Psych: Other (Sedated)
Data Reviewed
-
MRI: Image personally visualized and interpreted and Report Reviewed by me
Medical Tests (Nuc Med, Echo etc): Image personally visualized and interpreted, Report Reviewed by me and Discussed with Physician
Labs: Labs Reviewed by me and Discussed with Physician
--- NOTE | 2024-07-30 11:41 | PTCARENOTE ---
Prescedex wean continues, continue cpap/ps wean 45%, 8/8 abg as noted await traffic operator for extubation and follow up plan of cares. Family updated at bedside.
--- NOTE | 2024-07-30 12:05 | PTCARENOTE ---
Extubated to bipap 16/10 with 5lpm o2. Continue to reinforce events, provide emotional support, and supportive cares. Critical care nursing remains at bedside with machine maintenance servicer team and respiratory cares team. Prepping for dc of insulin drip post
lantus as ordered continue follow up accu data trends.
[2024-07-30 12:27] LABS: Glucose - Point of Care 122 mg/dl (70-99)
--- NOTE | 2024-07-30 12:51 | PTCARENOTE ---
Configuration Consultant at bedside update and review plan of cares/concerns with . Continue follow up pulmonary management will continue with nursing at bedside. Patient still with periods of anxiety and restlessness. Attempting to climb out fo bed, saying
i have to go home, go the bathroom and want to leave. Supportive cares ongoing. VSS afternoon cares provided.
--- NOTE | 2024-07-30 13:36 | CM ---
Met with patient & at bedside
CM role explained-offered support
Extubated today
PLAN: TBD based on medical progression, CM to continue to follow for needs
--- NOTE | 2024-07-30 14:22 | PTCARENOTE ---
Patient transition from BiPap to HiFlo. Interactive and able to redirect easily. Continue frequent reorientation and teaching. remains at bedside. Continue to follow up teaching, assessment trends and ongoing plan of cares.
--- NOTE | 2024-07-30 16:01 | PTOTSP ---
Dysphagia Eval
Patient at an elevated risk for dysphagia given prolonged intubation with recent extubation (07/15-07/30), need for HFNC, and prolonged NPO status while admitted with influenza with superimposed bacterial PNA. However, he currently presents with only
mild dysphonia and is at a young age which lowers his dysphagia risk.
Recommend:
1. IDDSI Level 4 Puree, IDDSI Level 0 Thin Liquids
2. Medications: in puree
3. Full supervision and assistance
4. Strategies: upright to 90 degrees, small single sips/bites, slow rate with breaks for breathing
5. Dysphagia f/u at the acute care level to determine if diet advancement appropriate and/or if instrumental swallowing assessment required
[2024-07-30] MEDS: LATUDA 40 MG TUBE (16:52)
[2024-07-30] MEDS: ATIVAN 0.5 MG IV ×2 (16:52→19:53)
[2024-07-30] MEDS: LATUDA 40 MG PO (16:58)
[2024-07-30 17:36] LABS: Glucose - Point of Care 143 mg/dl (70-99)
--- NOTE | 2024-07-30 17:42 | PTCARENOTE ---
Funeral Home Makeup Artist team in and out thru shift. Follow up medications and plan for pm and cares. Updates with pharmacy. at bedside thru shift. Patient continues with repetitive questions, constantly trying to climb out of bed, demanding to eat and
drink. Speech evaluation as updated, npo for now secondary to high risk pulmonary status. Patient presently stable on hiflo 50%[id number]. Does tolerate sips and chips. Will return to Bipap await update with respiratory cares team. Low dose prescedex
at this time, continue to monitor agitation and restlessness. Patient able to redirect. Continue with teaching and supportive cares.
--- NOTE | 2024-07-30 17:42 | W.PN.INTV ---
Today's Communication / Plan
Recommendations
- Patient extubated to BiPAP
- Continue BiPAP and high flow nasal cannula alternating every 2 hours during daytime and continue BiPAP at night for next 24 hours
- Speech therapy evaluation
- Lower nightly Seroquel
- Minimize sedating medications, can use Precedex as needed for agitation
Assessment
-
Patient is a 49-year-old gentleman with history of hypertension, depression, who was brought from home via EMS as patient's found him lethargic and short of breath. Patient reportedly had been sick for the last 3 to 4 days. Patient required
15 L via nasal cannula initially and was subsequently transition to BiPAP support as his initial saturations were around 60%. Patient responded well to BiPAP and was noted to have hypercapnia also. Overnight he continued to develop worsening
hypercapnia and inability to ventilate and oxygenate and required intubation and mechanical ventilation. Post ventilation, patient has been very difficult to oxygenate. He has been on 100% FiO2 and PEEP has been slowly increased all the way up to
18 now. His PF ratio continues to be severely low. He has been on deep sedation and also paralytics were initiated. Patient found to have influenza A screen positive.
#1. Influenza A with severe acute hypoxic respiratory failure. (Intubated 07/15), complicated by VAP Streptococcus
-Patient was initially on 15 L oxygen, subsequently transitioned to BiPAP and now on mechanical ventilation
-07/15, patient had severely low PF ratio of 87 and [facility] was contacted for consideration of ECMO. Subsequently once patient was proned his PO2 significantly improved to above 300 hence transfer to [facility] was canceled.
-With severely reduced PF ratio, patient has required proning along with high FiO2 and high PEEP as high as 18
-Patient had been on lung protective mechanical ventilation
-Completed treatment for VAP initially with Zosyn and then Unasyn, stress dose steroids have been discontinued
-ENT service was consulted for tracheostomy in view of prolonged ventilator dependence
-07/30, patient was tried on pressure support, tolerated well with stable hemodynamics and reassuring blood gas, he was subsequently extubated to BiPAP
-Will continue BiPAP alternating with high flow during the day and continue BiPAP at night at least over the next 24 hours, patient at high risk of reintubation
-Cancel tracheostomy scheduled for 07/31 unless patient developed respiratory failure and gets reintubated
#1a. ICU delirium vs Metabolic encephalopathy with underlying psychiatric history
- [place] continues to be on hold, will follow levels
- Lowered nightly Seroquel to 50 mg
- Continue to use Precedex as needed
- Continue home medication Latuda and fluvoxamine
- Lower as needed Ativan dose
- Discontinue clonazepam
- Continue to stay off OxyContin
- Continue Latuda, hold a.m. dose of fluvoxamine
- Precedex as needed
#2. ESAU on admission. Cr was 2.9 on admission - 1.2 today, improving
-Nephrology service on case
#3. Hypotension with shock. Resolved. Suspect this is related to deep sedation as well as initiation of paralytic medications. Shock related to influenza A also in differential diagnosis.
- Echo checked 07/21 which was a technically difficult study with preserved LVEF at 60-65% with no regional WMA, mild concentric LVH, no significant valvular disease, normal RV size and function with normal RA size
#4. History of smoking. Patient might have underlying COPD.
- Continue DuoNebs QID
- No wheezing on exam now. Off steroids.
- Nicotine patch
PT/OT.
Speech therapy consult.
DVT prophylaxis with subcu heparin. GI prophylaxis with pantoprazole.
Continue ICU level of care for this critically ill patient
Critical care statement: A total of 59 minutes of critical care time was provided for this patient today. This includes management of unstable vital signs, evaluation of the patient at bedside, reviewing the patient's pertinent medical records
including radiographs, microbiology, laboratory evaluations, and discussion with primary team, consultants, pharmacy, nutrition, physical therapy, case management, charge nurse, critical care nursing, and respiratory therapy.
Subjective Dataa
Subjective Data
Date of Service:
Date of Service: July 30, 2024
Chief Complaint: Machine Try Out Setter Follow Up
Subjective:
Patient more awake, alert and interactive. Able to respond to simple commands.
Review of Systems
Genitourinary: Other (Review of systems still somewhat limited due to patient's mental status changes)
Objective Data
Data Reviewed
Vital Signs / I&O / Oxygen:
Vital Signs
Temp Pulse Resp BP Pulse Ox
99.2 F 78 21 125/75 99
07/30/24 16:45 07/30/24 16:45 07/30/24 16:45 07/30/24 16:45 07/30/24 17:38
Intake and Output
07/29/24 07/30/24 07/31/24
06:59 06:59 06:59
Intake Total 4259.9 / 4470.4 5789.6 / 6034.8 1526.0 / 1526.0
Output Total 7690 / 8015 5635 / 5835 2550 / 2550
Balance -3430.1 / -3544.6 154.6 / 199.8 -1024.0 / -1024.0
SaO2 [ASV] 97
SaO2 [CPAP/PSV] 95
SaO2 [A/C] 96
SaO2 99
Nasal Cannula flow liters per 50
minute
Physical Exam
General: Comfortable
HEENT: Normocephalic and Anicteric
Cardiovascular: S1-S2 and Peripheral Edema (+2 lower extremity pitting edema bilaterally, improving with diuresis)
Respiratory: Non-Labored Respirations
GI: Soft, Non Tender and Normal Bowel Sounds
Neurology: Awake and Alert
Skin: Warm and Dry
Labs/Micro/Reports
Lab Data
07/30/24 03:10
07/30/24 03:10
Laboratory Results
07/30/24
11:17
pH 7.45
pCO2 39
pO2 85
HCO3 27.1
O2 Delivery Level
[2024-07-30] MEDS: LIPITOR 20 MG PO (17:52)
--- NOTE | 2024-07-30 18:25 | PTCARENOTE ---
update with director payment review medications plan of cares. Presently on HiFlo 50/50 saturation rate and effort within normal limits. Plan now for BiPap hs. thru pm shift. Continue follow up assessment trends. home at this time after pm update.
Continue supportive cares and emotional support for patient and family.
[2024-07-30] MEDS: SENOKOT 8.6 MG PO (19:54)
[2024-07-30] MEDS: ROBITUSSIN 200 MG PO ×2 (19:54→23:18)
--- NOTE | 2024-07-30 20:00 | PTCARENOTE ---
assumed care, pt disoriented to time and place, forgetful and restless throwing legs over the bed rails, B/L wrist restraints, TIFFANIE 4, nods appropriately, NSR on the monitor, + pulses, +1 GA and pedals, lungs diminished and coarse, HF 50/50 SpO2
98%, occasional cough, Q4 percussion per order, Pt removed RT with movement in bed, soft loose nunes brown stool, temp sensing [place] clear yellow output, skin dry and intact, prophylactic sacral foam, L neck dressing reinforced, Dex 0.2, D5 70ml, R
midline, safe environment provided, otherwise refer to documentation.
[2024-07-30] MEDS: FLOVENT 220 MCG INHALER 2 PUFF INH (20:41)
[2024-07-30 23:18] LABS: Glucose - Point of Care 131 mg/dl (70-99)
[2024-07-30] MEDS: LUVOX 100 MG PO (23:18)
[2024-07-30] MEDS: SEROQUEL 50 MG PO (23:18)
[2024-07-30] MEDS: ROXICODONE 10 MG PO (23:28)
[2024-07-31] VITALS (26 sets, daily range): BP systolic 105–168; BP diastolic 70–102; PULSE 2–113; O2SAT 93; BMI 36.6
--- NOTE | 2024-07-31 00:16 | PTCARENOTE ---
systems reviewed. pt c/o 12/19 leg pain Oxy given per order, CHG bath c linen change, Sats dropped to 87 on Bipap 16 4L, RT notified O2 increased to 12L sats 95, dex weaned per worklist, otherwise refer to documentation.
[2024-07-31] MEDS: ATIVAN 0.5 MG IV ×2 (01:43→15:04)
--- NOTE | 2024-07-31 04:17 | PTCARENOTE ---
systems reviewed, dex titrated per worklist, when pt falls into a deep sleep SpO2 drops to 87, O2 increased to max of 12-15L per RT, SpO2 recovers >92, O2 weaned down when sats recover, labs sent, safe environment maintained, otherwise refer to
documentation.
[2024-07-31 04:24] LABS: Hematocrit 27.6 % (39.0-52.0); Hemoglobin 8.6 g/dL (13.0-18.0); Mean Corp Hgb Conc. 31.2 g/dL (33.0-37.0); Mean Corpuscular Hgb 29.7 pg (27.0-31.0); Mean Corpuscular Volume 95.2 fL (80.0-94.0); Mean Platelet Volume 11.5 fL (7.4-10.4); Platelet Count 177 10^3/uL (130-400); Red Cell Dist. Width 13.4 % (11.5-14.5); White Blood Cell Count 9.2 10^3/uL (4.8-10.8)
[2024-07-31 04:32] LABS: Blood Urea Nitrogen 36 mg/dl (9-20); Calcium 8.6 mg/dl (8.4-10.2); Carbon Dioxide 32 mmol/L (22-30); Chloride 115 mmol/L (98-107); Estimated Creatinine Clearance 105 ml/min; Glucose 117 mg/dl (70-99); Lithium 0.2 mmol/L (0.6-1.2); Potassium 3.5 mmol/L (3.5-5.1); Sodium 148 mmol/L (135-145); Triglycerides 300 mg/dl (10-149); eGFR > 60.00
[2024-07-31] MEDS: ROBITUSSIN 200 MG PO ×4 (04:40→19:39)
[2024-07-31 05:24] LABS: Glucose - Point of Care 108 mg/dl (70-99)
[2024-07-31] MEDS: KLOR-CON 20 MEQ PO (06:10)
[2024-07-31] MEDS: PRECEDEX 100 IV ×3 (07:37→21:36)
[2024-07-31] MEDS: NICODERM TRANSDERMAL 21 MG TRANSDERM (07:38)
[2024-07-31] MEDS: PROTONIX IV 40 MG IV (07:38)
[2024-07-31] MEDS: NORVASC 5 MG PO (07:38)
[2024-07-31] MEDS: NSS (PRESERVATIVE FREE) 10 ML IV (07:38)
[2024-07-31] MEDS: LUVOX 50 MG PO (07:39)
[2024-07-31] MEDS: HEPARIN 5000 UNITS SC (07:39)
[2024-07-31] MEDS: SENOKOT 8.6 MG PO ×2 (07:39→19:39)
[2024-07-31] MEDS: TYLENOL ORAL SOLUTION 650 MG PO ×2 (07:40→11:36)
[2024-07-31] MEDS: DUONEB 3 ML INH (07:58)
[2024-07-31] MEDS: FLOVENT 220 MCG INHALER 2 PUFF INH (07:58)
--- NOTE | 2024-07-31 08:36 | PN.DE.MGMTRT ---
Insulin Management
- -
07/31/2024: Diabetes Management Follow up
Patient admitted 07/14/24 via EMS as patient's found him lethargic and short of breath. He was admitted Flu A +, acute hypoxemic respiratory failure, requiring intubation and mechanical ventilation. PMH: HTN, Depression and T2DM
He was taking Zepbound 2.5mg weekly/ for weight loss. A1C 6.0%, Cr 2.9 on admission
Pt is awake and alert, per nursing impulsive with repetitive questions. Extubated 07/30.
Transitioned to lantus 15 units daily 07/30. Glucose range 122 to 143. Cr 1.1, eGFR > 60. Fasting glucose 108, required no novolog moderate scale. Will reduce AM lantus to 10 units for tomorrow.
Discussed with Nurse. Will cont to follow
Diabetes History
- -
Pre-Admission Diabetes Regimen
07/31/24
04:05
Creatinine 1.1
Lab Results
Hemoglobin A1c Cancelled 07/24/24 17:38
Insulin Pump Settings
IP Diabetes Regimen
07/30/24 07/30/24 07/30/24
09:25 12:16 17:26
Glucose
POC Glucose 172 H 122 H 143 H
07/30/24 07/31/24 07/31/24
23:17 04:05 05:22
Glucose 117 H
POC Glucose 131 H 108 H
Meal type: Dinner
Meal type: Lunch
Patient Education
[2024-07-31] MEDS: LANTUS 0.15 UNITS SC (09:05)
--- NOTE | 2024-07-31 09:20 | W.PN.NEPH.PH ---
Today's Communication / Plan
-
follow BMP
Assessment/Plan
-
Assessment
ESAU (unknown)
VDRF
InfA
HTN
Hypernatremia
polyuria
Plan
can allow po fluids up to 2L
continue IVF D5W 100ml/hr
goal will be to temper hypernatremia, rather than match output
follow BMP
no lasix
-
-
Date of Service: July 31, 2024
CC / HPI / ROS
-
Chief Complaint:
ESAU
History of Present Illness:
ESAU/Cr down to 1.1
BP stable high
mild metabolic alkalosis 32
Hypernatremia up at 148
eating without issue
Review of Systems:
non oliguric via [place]
no CP/SOB
Labs
-
Labs:
WBC 9.2 10^3/uL (4.8-10.8) 07/31/24 04:05
RBC 2.90 10^6/uL (4.70-6.10) L 07/31/24 04:05
Hgb 8.6 g/dL (13.0-18.0) L 07/31/24 04:05
Hct 27.6 % (39.0-52.0) L 07/31/24 04:05
Plt Count 177 10^3/uL (130-400) 07/31/24 04:05
Sodium 148 mmol/L (135-145) H 07/31/24 04:05
Potassium 3.5 mmol/L (3.5-5.1) 07/31/24 04:05
Chloride 115 mmol/L (98-107) H 07/31/24 04:05
Carbon Dioxide 32 mmol/L (22-30) H 07/31/24 04:05
BUN 36 mg/dl (9-20) H 07/31/24 04:05
Creatinine 1.1 mg/dL (0.7-1.3) 07/31/24 04:05
eGFR > 60.00 07/31/24 04:05
Glucose 117 mg/dl (70-99) H 07/31/24 04:05
Calcium 8.6 mg/dl (8.4-10.2) 07/31/24 04:05
Phosphorus 3.8 mg/dl (2.5-4.5) 07/27/24 03:08
Qhe-V-Eitxwvdczor Pept 184 pg/ml 07/21/24 03:07
Albumin 3.0 g/dl (3.5-5.0) L 07/30/24 03:10
Physical Exam
-
Vital Signs:
Vital Signs
Temp Pulse Resp BP Pulse Ox
99.7 F 109 24 136/100 95
07/31/24 08:29 07/31/24 09:00 07/31/24 09:00 07/31/24 09:00 07/31/24 09:04
Cardiovascular:: Regular rate and rhythm
Respiratory:: Bilateral: Coarse
Lung Excursion:: Normal
Abdomen:: Nontender and Soft
Bowel Sounds:: Normal
Extremity Edema:: +1: Bilateral:
--- NOTE | 2024-07-31 09:26 | PTCARENOTE ---
O2 titration as peer photographic lithographer and respiratory team. 100% of breakfast taken with full feed, tolerated well. Update with hospitalist team and photographic lithographer team. Prescedex off this am. Patient remains interactive, cooperative and redirects easily.
Update with nephrology. Increase water intake as per recommendations. Follow up assessment, labs, and accu data trends. Continue teaching, supportive cares, and emotional support. Hourly rounds, frequent patient safety checks, and instruction
ongoing.
--- NOTE | 2024-07-31 10:38 | PTCARENOTE ---
Update in am rounds. Continue oral cares, mobility follow up with pt/ot. Will follow and update after evaluation. Update skin care technician team pulmonary plan of cares. O2 as ordered. Follow up fluid plan with pharmacy team. Labs as ordered. Update
patient via phone and father at bedside. Continue to reinforce plan with patient.
[2024-07-31] MEDS: ROXICODONE 10 MG PO ×2 (10:57→17:12)
[2024-07-31] MEDS: D5W 1000 IV ×2 (11:04→19:39)
--- NOTE | 2024-07-31 11:13 | PTCARENOTE ---
Patient [place] removed, incontinent of urine immediately. PT/OT at bedside with patient now, mobility, exercise program in process will follow up evaluation and plan for training. Father home at this time. Continue with updates and teaching. IVF
adjust and increase H2o intake as per nephrology. Follow up input output and post void.
--- NOTE | 2024-07-31 11:18 | W.PN.HOSP.TC ---
Addendum entered and electronically signed by Gunner Almanza MD 07/31/24 15:34:
Acute hypoxemic respiratory failure now vent dependent. Secondary to pneumonia. He was extubated on 07/30.
CAP versus viral pneumonia versus aspiration continue Zosyn Solu-Medrol. Pulmonary toilet head of bed elevation
ESAU improving
Hypernatremia worsening. Expect to improve as p.o. intake improves. Continue D5 water for now. Nephrology following.
Addendum entered and electronically signed by Gunner Almanza MD 07/31/24 13:42:
Acute hypoxemic respiratory failure now vent dependent. Secondary to pneumonia. Daily SAT SBT. Vent weaning per ICU. Continue GI prophylaxis.
CAP versus viral pneumonia versus aspiration continue Zosyn Solu-Medrol. Pulmonary toilet head of bed elevation
ESAU improving
Hypernatremia worsening. Expect to improve as p.o. intake improves. Continue D5 water for now. Nephrology following.
Original Note:
Today's Communication/Plan
-
Diet advanced to pur�ed diet
D5 to treat hypernatremia appreciate nephrology management
PT and OT to improve patient's strength.
Wean off BiPAP as tolerated.
Assessment / Plan
Assessment / Plan
Assessment/plan
49-year-old male admitted to the ICU for acute hypoxic respiratory failure requiring intubation and mechanical ventilation. Switched to ASV, day 15 of VDRF.
Plan-
VDRF-
VDRF dependent pneumonia-
Patient tolerated spontaneous breathing trial for about 3 hours, but he stopped following verbal commands. Counted as failure to wean off and was reintubated.
Ventilated dependent-initially on BiPAP upon admission, was transition to mechanical ventilation on 07/15/2024. (On day of intubation, low PF ratio at 87 which subsequently improved to greater than 300).
S/p successful SBT, currently on BiPAP-when examined on bedside, plan to wean off to mid flow if patient tolerates well.
He was initially started on cefepime, and then there was concern for drug-induced fevers with cefepime and Precedex. Cefepime was switched to Zosyn with temporary improvement in fevers. Was switched to Unasyn which was did not receive Precedex
since 07/30/2024. Antibiotics discontinued on 07/29/2024.
Suspect his intermittent fevers are likely secondary to Precedex -monitor fever curves.
No more tracheostomy. paper inspector management. Plan to downgrade if patient does well on BiPAP and mid flow nasal cannula.
IV Protonix 40 mg once daily to prevent stress ulcerations.
Speech therapy evaluation-pur�ed diet recommended. Diet advanced in the a.m. today.
ICU induced delirium-
Resolved.
Likely secondary to medications versus toxic metabolic encephalopathy.
Currently on Seroquel night dose of 100 mg.
Fevers and CAP-
Initially attributed to flu and CAP with some aspiration.
Was switched to Zosyn, currently on Solu-Medrol taper 40 mg IV every 12 hours.
Receiving pulmonary toilet, HOB evaluation.
Could be drug-induced secondary to Precedex.
Monitor fever curve, trend temperatures.
ESAU and NAGMA-
Urine studies consistent with prerenal etiology
Suspect hypoperfusion injury secondary to circulatory shock upon initial presentation.
Serum creatinine improving, today at 1.5 with good urine output.
Bicarbonate drip discontinued, continue IV dextrose.
Trend BMP and urine output, avoid nephrotoxins.
Renally dose all medications.
Hypernatremia-
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
serum sodium at 147, free water flushes at 75 cc/h discontinued as serum sodium improved. Currently patient hyponatremic, mild. Suspect dilutional secondary to fluid overload versus secondary to IV Lasix.
Continue to trend serum sodium levels.
Serum sodium today at 148 again, currently patient is receiving D5.-Appreciate nephrology help in management.
Encourage oral intake.
PT and OT on board
Reconsulted to get the patient up and walking.
Hypokalemia-
Replaced potassium in the a.m.
Trend serum potassium levels.
Hypertension-
Continue amlodipine 10 mg
Multifactorial anemia-
Continue iron supplementation via tube monitor CBC
Chronic pain syndrome-
Morphine milliequivalents of opioids-discontinued
patient is currently on oxycodone 7 out of 10 doses.
Rest of the oxycodones for breakthrough pain not discontinued.
Schizophrenia and bipolar disorder-
Psychiatry on board, dated psychiatry to reevaluate patient for lithium and psych regimen.
Currently lithium on hold given supratherapeutic levels and ESAU.
Goal lithium less than 0.7.
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
Seroquel reduced to once at night dose, fluvoxamine discontinued, lithium on hold.
Appreciate psychiatry input.
Circulatory shock-resolved.
Initial blood cultures from 07/15 and repeat from 07/19 remain negative.
Required pressors (Levophed) for hemodynamic support.
Insulin gtt. for uncontrolled blood sugars
Goal blood glucose 180-220
Tube feeds-
Nephrin
DVT prophylaxis-
Heparin subcu
CODE STATUS-
Full code.
Anticipated Discharge: > 48 hours
Subjective/Interval History
-
Date of Service: July 31, 2024
Patient states that he does not have complaints today. He would like to move around.
Objective Data
-
Labs:
Laboratory Results
07/31/24
04:05
WBC 9.2
Hgb 8.6 L
Hct 27.6 L
Plt Count 177
Sodium 148 H
Potassium 3.5
Chloride 115 H
Carbon Dioxide 32 H
BUN 36 H
Creatinine 1.1
Glucose 117 H
Calcium 8.6
Vital Signs:
Vital Signs
Temp Pulse Resp BP Pulse Ox
99.7 F 107 21 138/87 95
07/31/24 08:29 07/31/24 11:00 07/31/24 11:00 07/31/24 11:00 07/31/24 11:00
I&O
07/30/24 07/31/24 08/01/24
06:59 06:59 06:59
Intake Total 5789.6 / 6034.8 2733.4 / 2803.4 1160 / 1160
Output Total 5635 / 5835 1195 / 6766 1500 / 1500
Balance 154.6 / 199.8 -3741.6 / -3971.6 -340 / -340
Review of Systems
-
History Source: Patient
Constitutional: Reports Fatigue, Weakness and Other (Has good appetite,)
Respiratory: Reports Cough and Trouble Breathing
Cardiac: Reports No Symptoms
Abdomen/GI: Reports No Symptoms
Breast: Reports No Symptoms
Genitourinary: Reports No Symptoms
Musculoskeletal: Reports No Symptoms
Neuro: Reports Weakness
Allergy / Immunology: Reports No Symptoms
Physical Exam
-
General: No Apparent Distress and Comfortable
HEENT: Moist Mucous Membranes, Anicteric, [place] Conjunctivae and Other (Central line.); Negative Thrush
Respiratory: Clear to Auscultation (In bilateral upper lobes) and Crackles (Predominantly in left lower lobe, mild in light lower lobe.); Negative Wheezes, Rales or Rhonchi
Cardiac: Regular Rhythm and S1/S2; Negative Murmur, Rub or Gallop
GI: Soft, Nontender, Normal Bowel Sounds and Other (Could not comment on distention with the body habitus, and G-tube removed.)
Genito-urinary: Kilpatrick
Musculoskeletal: No Clubbing, No Cyanosis, Edema, Right Upper Extrem (Improving, minimal now.), Edema, Left Upper Extrem (Improving, minimal now.), Edema, Right Lower Extrem (Improving) and Edema, Left Lower Extrem (Improving.)
Neuro: AO x 3, No Motor Deficits and DTR's Intact & Symmetrica
Psych: Calm and Other (In soft restraints.)
Data Reviewed
-
Diagnostic Radiology: Image personally visualized and interpreted, Report Reviewed by me and Discussed with Physician
Labs: Labs Reviewed by me, Discussed with Physician and Discussed with Nurse
[2024-07-31 11:39] LABS: Glucose - Point of Care 140 mg/dl (70-99)
--- NOTE | 2024-07-31 11:41 | PTCARENOTE ---
Follow eval form PT/OT. Nursing at bedside. Complete bed bath linen change, will place on new bed remove from sport bed when available. Medicated for bilateral foot pain. Discuss concerns with lower leg strength and flexibility with pt/ot team.
Nursing remains at bedside. Very impulsive , very uncoordinated, and tremors vs shakiness noted. Follow up patient safety concerns thru shift. Patient more alert and interactive thru shift, some improvements in mentation continue. Patient in
constant need of redirection. and reinstruction.
[2024-07-31] MEDS: ROBITUSSIN PO (12:02)
[2024-07-31 12:04] LABS: Iron 51 ug/dl (49-181)
[2024-07-31 12:14] LABS: Percent Saturation 22 % (20-50); Total Iron Binding Capacity 222 ug/dl (261-462)
--- NOTE | 2024-07-31 12:45 | PTOTSP ---
Speech Language Pathology
Pt seen for dysphagia tx with lunch tray of pureed solids/thin liquids. Required full assist with P.O. No difficulty with puree. Impulsive rate noted with liquids via straw. No overt difficulty with thin liquids. Pureed chicken noodle soup very
thin, so provided via straw. With first sip, coughing episode noted. No other coughing noted. Also provided regular solid trials. Slightly prolonged mastication with trace diffuse oral residue, requiring oral wash.
Recommend:
(1) Upgrade to IDDSI Level 6 (soft/bite-sized) and thin liquids
(2) Aspiration precautions: sit upright, slow rate, full assist, ensure oral cavity clear post P.O.
(3) Meds whole in puree
(4) DENTAL MOLD MAKER to continue to follow
[2024-07-31 13:12] LABS: Folate 6.4 ng/ml (2.76-20); Vitamin B12 559 pg/ml (239-931)
--- NOTE | 2024-07-31 13:14 | PTCARENOTE ---
Patient working with speech. 95% of lunch taken with full feed. Continue to reorient, redirect and teaching ongoing plans in cares. Will update speech recommendations. Await family this afternoon for update. Continue ROM exercises, hand grasp
exercises, will update bed change. Continue with turns, skin cares and pulmonary toilet as needed. Nursing remains at bedside.
--- NOTE | 2024-07-31 15:21 | W.PN.UPDATE ---
Update Note
Progress Note Update
Pt seen at bedside, chart reviewed, spoke to who was also present at bedside. Pt extubated and speaking, however remains confused and unable to participate in meaningful interview. Noted to be looking up throughout interview - was able to shift
gaze when prompted, but then returned to looking up. Will monitor as pt resumed latuda 40mg and given illness is more prone to acute eps. Pt shivering throughout interview, which as per has been happening since extubation and seems to be
gradually improving.
Li level <0.2- as per has been stable on lithium for many years, has tried switching to other medications several times but they were not effective ( is going to find out names of medications)
Tentatively continue latuda 40mg, pt with significant hx of bipolar d/o and at risk of decompensation however still quite ill and at higher risk of psychotropic side effects - may need to switch to lower potency antipsychotic if eps is observed
Would not restart lithium at this time - is unsure of prior medication trials will review once these are obtained for other possible alternatives
Fluvoxamine 50mg can be restarted (was taking for OCD as per ) - discontinued 100mg HS as OCD is not going to be current concern and pt would benefit more from lower psychotropic load for the time being, can titrate back up if needed but would
defer this for outpatient basis at this time
--- NOTE | 2024-07-31 15:28 | W.PN.INTV ---
Today's Communication / Plan
Recommendations
- Zyprexa 5 mg intramuscular, twice daily as needed agitation
- Continue Precedex as needed
- PT/OT/speech therapy
- Switch to mid flow nasal cannula, continue BiPAP nightly and as needed
Assessment
-
Patient is a 49-year-old gentleman with history of hypertension, depression, who was brought from home via EMS as patient's found him lethargic and short of breath. Patient reportedly had been sick for the last 3 to 4 days. Patient required
15 L via nasal cannula initially and was subsequently transition to BiPAP support as his initial saturations were around 60%. Patient responded well to BiPAP and was noted to have hypercapnia also. Overnight he continued to develop worsening
hypercapnia and inability to ventilate and oxygenate and required intubation and mechanical ventilation. Post ventilation, patient has been very difficult to oxygenate. He has been on 100% FiO2 and PEEP has been slowly increased all the way up to
18 now. His PF ratio continues to be severely low. He has been on deep sedation and also paralytics were initiated. Patient found to have influenza A screen positive.
#1. Influenza A with severe acute hypoxic respiratory failure. (Intubated 07/15), complicated by VAP Streptococcus
-Patient was initially on 15 L oxygen, subsequently transitioned to BiPAP and now on mechanical ventilation
-07/15, patient had severely low PF ratio of 87 and [facility] was contacted for consideration of ECMO. Subsequently once patient was proned his PO2 significantly improved to above 300 hence transfer to [facility] was canceled.
-With severely reduced PF ratio, patient has required proning along with high FiO2 and high PEEP as high as 18
-Patient had been on lung protective mechanical ventilation
-Completed treatment for VAP initially with Zosyn and then Unasyn, stress dose steroids have been discontinued
-ENT service was consulted for tracheostomy in view of prolonged ventilator dependence
-07/30, patient was tried on pressure support, tolerated well with stable hemodynamics and reassuring blood gas, he was subsequently extubated to BiPAP
-BiPAP alternating with high flow nasal cannula continued over next 24 hours after extubation
- 07/31, transition to mid flow now. Will continue BiPAP nightly and as needed.
#1a. ICU delirium vs Metabolic encephalopathy with underlying psychiatric history
- [place] continues to be on hold, level 0.2 today.
- Continue nightly Seroquel to 50 mg, as needed Zyprexa intramuscular 5 mg twice daily ordered for agitation
- As needed Precedex
- Continue home medication Latuda and fluvoxamine
- As needed Ativan
- Discontinued clonazepam
- Continue to stay off OxyContin
- Continue Latuda, fluvoxamine
- Await further recommendations from psychiatry service
- Increase activity as tolerated, PT/OT/speech therapy.
#2. ESAU on admission. Cr was 2.9 on admission - 1.1 today, improving
-Nephrology service on case
- Good urine output
#3. Hypotension with shock. Resolved. Suspect this is related to deep sedation as well as initiation of paralytic medications. Shock related to influenza A also in differential diagnosis.
- Echo checked 07/21 which was a technically difficult study with preserved LVEF at 60-65% with no regional WMA, mild concentric LVH, no significant valvular disease, normal RV size and function with normal RA size
#4. History of smoking. Patient might have underlying COPD.
- Change DuoNebs to QID as needed
- No wheezing on exam now. Off steroids.
- Nicotine patch
PT/OT.
Speech therapy consult.
DVT prophylaxis with subcu heparin. GI prophylaxis with pantoprazole.
Continue ICU level of care for this critically ill patient
Critical care statement: A total of 48 minutes of critical care time was provided for this patient today. This includes management of unstable vital signs, evaluation of the patient at bedside, reviewing the patient's pertinent medical records
including radiographs, microbiology, laboratory evaluations, and discussion with primary team, consultants, pharmacy, nutrition, physical therapy, case management, charge nurse, critical care nursing, and respiratory therapy.
Subjective Dataa
Subjective Data
Date of Service:
Date of Service: July 31, 2024
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
Subjective:
Patient comfortably sitting in bed on mid flow cannula, doing well.
Review of Systems
Genitourinary: Other (Continues to be somewhat confused. Intermittent agitation noted)
Objective Data
Data Reviewed
Vital Signs / I&O / Oxygen:
Vital Signs
Temp Pulse Resp BP Pulse Ox
100.0 F 96 24 138/87 93
07/31/24 11:42 07/31/24 11:39 07/31/24 11:39 07/31/24 11:39 07/31/24 11:40
Intake and Output
07/30/24 07/31/24 08/01/24
06:59 06:59 06:59
Intake Total 5789.6 / 6034.8 2733.4 / 2803.4 2280 / 2280
Output Total 5635 / 5835 6475 / 6775 1500 / 1500
Balance 154.6 / 199.8 -3741.6 / -3971.6 780 / 780
SaO2 [ASV] 97
SaO2 [CPAP/PSV] 95
SaO2 [A/C] 96
SaO2 93
Nasal Cannula flow liters per 5
minute
Physical Exam
General: Comfortable
HEENT: Normocephalic and Anicteric
Cardiovascular: S1-S2 and Peripheral Edema (+2 lower extremity pitting edema bilaterally, improving with diuresis)
Respiratory: Non-Labored Respirations
GI: Soft, Non Tender and Normal Bowel Sounds
Neurology: Awake, Alert and Other (Not fully oriented.)
Skin: Warm and Dry
Labs/Micro/Reports
Lab Data
07/31/24 04:05
07/31/24 04:05
--- NOTE | 2024-07-31 15:44 | CM ---
Extubated. BiPap at HS, mid-flow NC. Therapy recommendation for SNF. Called for in-network facilities. They were unable to assist. Referrals will be sent to facilities to determine if in network. Discharge POC: SNF, referrals forwarded.
--- NOTE | 2024-07-31 15:54 | PTCARENOTE ---
Patient increasingly agitated, voided 500ml urine, attempts on bed georges with poor results, and further increase in agitation. Yelling at demanding to go home now, attempting to climb out of bed. Patient very high risk for injury and fall.
Several staff members at bedside to support patient and . Patient continually calling wrong name. Continue redirection, reorientation and instruction. Industrial Paramedic at bedside. Medications as per [place]. pharmacy team at bedside also to assist.
Restarted low dose prescedex and returned to BiPap. Straight cath patient as ordered, continue to monitor. Reinforce safety concerns, reinforce pulmonary concerns, continue icu level of cares. Respiratory team at bedsdie to assist pulmonary toilet
and Replace BiPap. Continue bedside nursing.
[2024-07-31] MEDS: LATUDA 40 MG PO (17:11)
[2024-07-31] MEDS: LIPITOR 20 MG PO (17:11)
[2024-07-31] MEDS: LOVENOX 40 MG SC (17:12)
[2024-07-31 17:26] LABS: Glucose - Point of Care 127 mg/dl (70-99)
--- NOTE | 2024-07-31 20:37 | PTCARENOTE ---
assumed care, disoriented to time and place, garbled speech when drowsy, follows some commands, occasionally tracks voice but returns to staring ahead, B/L wrist restraints, when pt awakes becomes restless throwing legs over bed rail, NSR on the
monitor sinus tach when restless, +1 GA and pedals, + pulses, Diminished and coarse throughout, SpO2 96% on midflow 6L, Q4 percussion per order, BSx4 round obese, voiding yellow output CC #25, L neck dressing dry and intact, prophylactic sacral
foam, Dex 0.4, D5 100ml, R midline, safe environment maintained, otherwise refer to documentation.
[2024-07-31] MEDS: SEROQUEL 50 MG PO (21:36)
[2024-07-31 21:41] LABS: Glucose - Point of Care 119 mg/dl (70-99)
[2024-08-01] VITALS (17 sets, daily range): BP systolic 120–192; BP diastolic 80–106; PULSE 2–128; O2SAT 94–96; BMI 36.8
--- NOTE | 2024-08-01 00:42 | PTCARENOTE ---
systems reviewed, dex gtt per worklist, tolerating BIPAP 16/10 6L with no drop in SpO2, safe environment maintained, otherwise refer to documentation.
[2024-08-01] MEDS: ROBITUSSIN 200 MG PO ×7 (01:37→23:23)
[2024-08-01] MEDS: ROXICODONE 10 MG PO (01:37)
[2024-08-01 03:13] LABS: Hematocrit 29.1 % (39.0-52.0); Hemoglobin 9.1 g/dL (13.0-18.0); Mean Corp Hgb Conc. 31.3 g/dL (33.0-37.0); Mean Corpuscular Hgb 29.6 pg (27.0-31.0); Mean Corpuscular Volume 94.8 fL (80.0-94.0); Mean Platelet Volume 11.2 fL (7.4-10.4); Platelet Count 188 10^3/uL (130-400); Red Blood Cell Count 3.07 10^6/uL (4.70-6.10); Red Cell Dist. Width 13.2 % (11.5-14.5); White Blood Cell Count 9.6 10^3/uL (4.8-10.8)
[2024-08-01 03:40] LABS: Blood Urea Nitrogen 26 mg/dl (9-20); Calcium 8.9 mg/dl (8.4-10.2); Carbon Dioxide 29 mmol/L (22-30); Chloride 112 mmol/L (98-107); Estimated Creatinine Clearance 105 ml/min; Glucose 108 mg/dl (70-99); Potassium 3.9 mmol/L (3.5-5.1); Sodium 144 mmol/L (135-145); eGFR > 60.00
[2024-08-01] MEDS: PRECEDEX 100 IV (03:44)
--- NOTE | 2024-08-01 03:46 | PTCARENOTE ---
systems reviewed, chg bath and linen change, labs sent, dex gtt per worklist, safe environment maintained, otherwise refer to documentation
[2024-08-01] MEDS: D5W 1000 IV (07:00)
[2024-08-01 07:38] LABS: Glucose - Point of Care 99 mg/dl (70-99)
[2024-08-01] MEDS: NOVOLOG FLEXPEN-MODERATE RESISTANCE SC ×3 (07:51→17:04)
[2024-08-01] MEDS: PROTONIX IV 40 MG IV (08:10)
[2024-08-01] MEDS: NSS (PRESERVATIVE FREE) 10 ML IV (08:10)
[2024-08-01] MEDS: MIRALAX 17 GRAMS TUBE (08:12)
[2024-08-01] MEDS: SENOKOT 8.6 MG PO (08:12)
[2024-08-01] MEDS: LUVOX 50 MG PO (08:12)
[2024-08-01] MEDS: NICODERM TRANSDERMAL 21 MG TRANSDERM (08:12)
[2024-08-01] MEDS: NORVASC 5 MG PO (08:12)
[2024-08-01] MEDS: LANTUS 0.1 UNITS SC (08:20)
[2024-08-01] MEDS: FEOSOL 325 MG PO (08:20)
--- NOTE | 2024-08-01 08:41 | PTCARENOTE ---
0700 Received pt on 0.6 mcg/kg/hr of Precedex, BiPAP, 1:1 and [place] wrist restraints. Arousable but lethargic. Precedex weaned down then turned off.
0800 BiPAP removed and pt placed on 5L NC, sating 92-95%, dropping to 86-88 at times when sleeping, recovers w/o intervention. Pt easily arousable though remains drowsy, following commands, confused and very forgetful, needing frequent
reorientation. [place] soft wrist restraints remain in place at this time for pt safety. 1:1 removed from room. VSS. HR NSR-ST, low 100's @ times. Full Assessment as documented. Will monitor closely.
--- NOTE | 2024-08-01 10:18 | PN.DE.MGMTRT ---
Insulin Management
- -
08/01/2024: Diabetes Management Follow up
Patient admitted 07/14/24 via EMS as patient's found him lethargic and short of breath. He was admitted Flu A +, acute hypoxemic respiratory failure, requiring intubation and mechanical ventilation. PMH: HTN, Depression and T2DM. Was taking
Zepbound 2.5mg weekly/ for weight loss. A1C 6.0%, Cr 2.9 on admission
Pt is awake and alert, mental status is improving but not at baseline, able to discuss diabetes care plan. Extubated 07/30. ESAU resolved, Cr 1.1, eGFR >60 today
Transitioned to Lantus 15 units daily 07/30. Glucose stable and in range FBG 108V, 99 POC this AM. Premeal 108 to 140, required no corrective insulin with meals.
Will stop Lantus and cont and moderate corrective insulin with meals. Was taking Zepbound 2.5mg weekly/ for weight loss, may resume med at discharge. Discussed with Nurse. Will cont to follow
Diabetes History
- -
Type of Diabetes: 2 requiring insulin
Pre-Admission Diabetes Regimen
08/01/24
03:04
Creatinine 1.1
Lab Results
Hemoglobin A1c Cancelled 07/24/24 17:38
Insulin Pump Settings
IP Diabetes Regimen
07/31/24 07/31/24 07/31/24
11:28 17:15 21:30
Glucose
POC Glucose 140 H 127 H 119 H
08/01/24 08/01/24
03:04 07:36
Glucose 108 H
POC Glucose 99
Meal type: Breakfast
Meal type: Lunch
Amount consumed: 100%
Amount consumed: 95%
Patient Education
[2024-08-01 11:36] LABS: Glucose - Point of Care 104 mg/dl (70-99)
--- NOTE | 2024-08-01 12:00 | PTCARENOTE ---
VSS. Wrist restraints removed. No other change in assessment.
--- NOTE | 2024-08-01 12:31 | W.PN.NEPH.PH ---
Today's Communication / Plan
-
follow labs
Assessment/Plan
-
Assessment
ESAU (unknown)
VDRF
InfA
HTN
Hypernatremia
polyuria
Plan
soidum improving with hypotonic fluids and improving po intake
decrease IVF rate to 75 and recheck labs later
if sodium cont to improve likely attempt weaning of IVF
he still seem to have sig UOP
ESAU essentially resolved
follow BMP
-
-
Date of Service: August 01, 2024
CC / HPI / ROS
-
Chief Complaint:
ESAU
History of Present Illness:
ESAU/Cr down to 1.1
BP stable
mild metabolic alkalosis better a t29
Hypernatremia better at 144
eating without issue
Review of Systems:
non oliguric off [place]
no CP/SOB
Labs
-
Labs:
WBC 9.6 10^3/uL (4.8-10.8) 08/01/24 03:04
RBC 3.07 10^6/uL (4.70-6.10) L 08/01/24 03:04
Hgb 9.1 g/dL (13.0-18.0) L 08/01/24 03:04
Hct 29.1 % (39.0-52.0) L 08/01/24 03:04
Plt Count 188 10^3/uL (130-400) 08/01/24 03:04
eGFR > 60.00 08/01/24 03:04
Phosphorus 3.8 mg/dl (2.5-4.5) 07/27/24 03:08
Tqb-E-Myhkcjdxvwa Pept 184 pg/ml 07/21/24 03:07
Albumin 3.0 g/dl (3.5-5.0) L 07/30/24 03:10
Physical Exam
-
Vital Signs:
Vital Signs
Temp Pulse Resp BP Pulse Ox
98.1 F 68 17 129/97 95
08/01/24 12:00 08/01/24 08:12 08/01/24 06:00 08/01/24 08:12 08/01/24 10:23
Cardiovascular:: Regular rate and rhythm
Respiratory:: Bilateral: Coarse
Lung Excursion:: Normal
Abdomen:: Nontender and Soft
Extremity Edema:: None: Bilateral:
[place] Catheter: No
--- NOTE | 2024-08-01 12:37 | W.PN.HOSP.TC ---
Addendum entered and electronically signed by Gunner Almanza MD 08/01/24 15:33:
NAD
Scleral Anicteric
MMM
No JVD
CTABL
Regular but tachycardic, S1/S2
Soft, NT, ND, BS+
Warm, Dry
AAO
Influenza A with severe acute hypoxemic respiratory failure complicated by VAP Streptococcus
Extubated on 07/30
Required BiPAP nightly and as needed at bedtime
Currently on 4 L and BiPAP at night
ICU delirium versus metabolic encephalopathy
Avoid sedatives Ativan and clonazepam discontinued
As needed Precedex
Increase nightly Seroquel and continue Zyprexa as needed for agitation
[place] held due to high lithium level
ESAU
Improving
Nephrology following
Hypernatremia
With free water deficit continue D5 drip encourage oral intake
Hypotension with shock, resolved
History of smoking
NRT
Hypertension
Continue to pretenses
Original Note:
Today's Communication/Plan
-
Off of D5.
Resumed fluvoxamine 50 mg.
Tentatively on Latuda.
IV Ativan held.
Seroquel to 75 mg nightly.
Assessment / Plan
Assessment / Plan
Assessment/plan
49-year-old male admitted to the ICU for acute hypoxic respiratory failure requiring intubation and mechanical ventilation. Switched to ASV, day 15 of VDRF.
Plan-
VDRF-
VDRF dependent pneumonia-
Patient tolerated spontaneous breathing trial for about 3 hours, but he stopped following verbal commands. Counted as failure to wean off and was reintubated.
Ventilated dependent-initially on BiPAP upon admission, was transition to mechanical ventilation on 07/15/2024. (On day of intubation, low PF ratio at 87 which subsequently improved to greater than 300).
S/p successful SBT, currently on BiPAP-when examined on bedside, plan to wean off to mid flow if patient tolerates well.
He was initially started on cefepime, and then there was concern for drug-induced fevers with cefepime and Precedex. Cefepime was switched to Zosyn with temporary improvement in fevers. Was switched to Unasyn which was did not receive Precedex
since 07/30/2024. Antibiotics discontinued on 07/29/2024. Currently wearing CPAP in the night, and high flow in the AM.
Suspect his intermittent fevers are likely secondary to Precedex -monitor fever curves.
No more tracheostomy. 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 Plan to downgrade if patient does well on BiPAP and mid flow nasal cannula.
IV Protonix 40 mg once daily to prevent stress ulcerations.
Speech therapy evaluation-pur�ed diet recommended. Diet advanced in the a.m. today.
ICU induced delirium-
Single episode of agitation and delirium yesterday night, continues to have Precedex in the night.
Likely secondary to medications versus toxic metabolic encephalopathy.
Currently on Seroquel night dose of 100 mg.
Fevers and CAP-
Initially attributed to flu and CAP with some aspiration.
Was switched to Zosyn, currently on Solu-Medrol taper 40 mg IV every 12 hours.
Receiving pulmonary toilet, HOB evaluation.
Could be drug-induced secondary to Precedex.
Monitor fever curve, trend temperatures.
ESAU and NAGMA-
Urine studies consistent with prerenal etiology
Suspect hypoperfusion injury secondary to circulatory shock upon initial presentation.
Serum creatinine improving, today at 1.5 with good urine output.
Bicarbonate drip discontinued, continue IV dextrose.
Trend BMP and urine output, avoid nephrotoxins.
Renally dose all medications.
Hypernatremia-
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
serum sodium at 147, free water flushes at 75 cc/h discontinued as serum sodium improved. Currently patient hyponatremic, mild. Suspect dilutional secondary to fluid overload versus secondary to IV Lasix.
Continue to trend serum sodium levels.
Currently serum sodium back to baseline, off of D5 drip.
Encourage oral intake.
PT and OT on board
Reconsulted to get the patient up and walking.
Hypokalemia-
Replaced potassium in the a.m.
Trend serum potassium levels.
Hypertension-
Continue amlodipine 10 mg
Multifactorial anemia-
Continue iron supplementation via tube monitor CBC
Chronic pain syndrome-
Morphine milliequivalents of opioids-discontinued
patient is currently on oxycodone 7 out of 10 doses.
Rest of the oxycodones for breakthrough pain not discontinued.
Schizophrenia and bipolar disorder-
Psychiatry on board, dated psychiatry to reevaluate patient for lithium and psych regimen.
Currently lithium on hold given supratherapeutic levels and ESAU.
Goal lithium less than 0.7.
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
Seroquel reduced to once at night dose, fluvoxamine discontinued, lithium on hold.
Appreciate psychiatry input.
Circulatory shock-resolved.
Initial blood cultures from 07/15 and repeat from 07/19 remain negative.
Required pressors (Levophed) for hemodynamic support.
Insulin gtt. for uncontrolled blood sugars
Goal blood glucose 180-220
Tube feeds-
Nephrin
DVT prophylaxis-
Heparin subcu
CODE STATUS-
Full code.
Anticipated Discharge: > 48 hours
Subjective/Interval History
-
Date of Service: August 01, 2024
Overnight had a single episode of agitation, was using CPAP.
Continues to get Precedex in the night.
Objective Data
-
Labs:
Laboratory Results
08/01/24 08/01/24
03:04 16:00
WBC 9.6
Hgb 9.1 L
Hct 29.1 L
Plt Count 188
Sodium 144 Pending
Potassium 3.9 Pending
Chloride 112 H Pending
Carbon Dioxide 29 Pending
BUN 26 H Pending
Creatinine 1.1 Pending
Glucose 108 H Pending
Calcium 8.9 Pending
Vital Signs:
Vital Signs
Temp Pulse Resp BP Pulse Ox
98.1 F 68 17 129/97 95
08/01/24 12:00 08/01/24 08:12 08/01/24 06:00 08/01/24 08:12 08/01/24 10:23
I&O
07/31/24 08/01/24 08/02/24
06:59 06:59 06:59
Intake Total 2733.4 / 2803.4 4882.7 / 5001.7 2008
Output Total 6475 / 6775 4125 / 4125 100 / 100
Balance -3741.6 / -3971.6 757.7 / 876.7 1908 / 1908
Review of Systems
-
Unable to obtain full review of systems at this time due to: Patient Non-verbal (Sedated.)
Physical Exam
-
General: No Apparent Distress and Comfortable
HEENT: Moist Mucous Membranes and [place] Conjunctivae; Negative Thrush
Respiratory: Clear to Auscultation (In bilateral upper lobes) and Crackles (In bilateral lower lobes, left greater than right.); Negative Wheezes, Rales or Rhonchi
Cardiac: Regular Rhythm and S1/S2; Negative Murmur, Rub or Gallop
GI: Soft, Nontender, Nondistended and Normal Bowel Sounds
Musculoskeletal: No Clubbing, No Cyanosis, Edema, Right Upper Extrem (Improving), Edema, Left Upper Extrem (Improving), Edema, Right Lower Extrem (Improving) and Edema, Left Lower Extrem (Improving)
Skin: Warm
Neuro: AO x 3
Psych: Calm
Data Reviewed
-
Labs: Labs Reviewed by me, Discussed with Physician and Discussed with Nurse
--- NOTE | 2024-08-01 12:51 | W.PN.INTV ---
Today's Communication / Plan
Recommendations
- Increase Seroquel to 75 mg nightly
- Discontinue IV Ativan
- Continue as needed Precedex/IM Zyprexa
- PT/OT, increase activity as tolerated
- BiPAP nightly and as needed, continue nasal cannula during daytime
Assessment
-
Patient is a 49-year-old gentleman with history of hypertension, depression, who was brought from home via EMS as patient's found him lethargic and short of breath. Patient reportedly had been sick for the last 3 to 4 days. Patient required
15 L via nasal cannula initially and was subsequently transition to BiPAP support as his initial saturations were around 60%. Patient responded well to BiPAP and was noted to have hypercapnia also. Overnight he continued to develop worsening
hypercapnia and inability to ventilate and oxygenate and required intubation and mechanical ventilation. Post ventilation, patient has been very difficult to oxygenate. He has been on 100% FiO2 and PEEP has been slowly increased all the way up to
18 now. His PF ratio continues to be severely low. He has been on deep sedation and also paralytics were initiated. Patient found to have influenza A screen positive.
#1. Influenza A with severe acute hypoxic respiratory failure. (Intubated 07/15-07/30/2024), complicated by VAP Streptococcus
-Patient was initially on 15 L oxygen, subsequently transitioned to BiPAP and later intubated
-Prolonged stay on mechanical ventilation with use of paralytics, proning in view of severely reduced PF ratio
-Stay was complicated by VAP due to Streptococcus F, initially treated with cefepime/Zosyn later transitioned to Unasyn along with stress dose steroids, currently off
-07/30, patient tolerated pressure support well and was extubated to BiPAP
-24 hours after extubation, patient was kept on nightly BiPAP and during daytime high flow nasal cannula was alternated with BiPAP every 2 hours
-08/01, currently patient is on nasal cannula at 4 L saturating 96% during daytime and BiPAP at night
#2. ICU delirium vs Metabolic encephalopathy with underlying psychiatric history
- [place] level was elevated on admission, continues to be on hold
- Increase nightly Seroquel to 75 mg and continue Zyprexa intramuscular 5 mg twice daily as needed agitation
- As needed Precedex
- Continue Latuda and fluvoxamine
- DC Ativan
- Discontinued clonazepam
- Continue to stay off OxyContin
- Increase activity as tolerated, PT/OT/speech therapy
- Gradually improving
#2. ESAU on admission. Cr was 2.9 on admission - 1.1 today, improving
-Nephrology service on case
-Good urine output
#3. Hypotension with shock. Resolved. Suspect this is related to deep sedation as well as initiation of paralytic medications. Shock related to influenza A also in differential diagnosis.
- Echo checked 07/21 which was a technically difficult study with preserved LVEF at 60-65% with no regional WMA, mild concentric LVH, no significant valvular disease, normal RV size and function with normal RA size
#4. History of smoking. Patient might have underlying COPD.
- Change DuoNebs to QID as needed
- No wheezing on exam now. Off steroids.
- Nicotine patch
PT/OT.
Speech therapy consult.
DVT prophylaxis with subcu heparin. GI prophylaxis with pantoprazole.
Continue ICU level of care for this critically ill patient
Critical care statement: A total of 51 minutes of critical care time was provided for this patient today. This includes management of unstable vital signs, evaluation of the patient at bedside, reviewing the patient's pertinent medical records
including radiographs, microbiology, laboratory evaluations, and discussion with primary team, consultants, pharmacy, nutrition, physical therapy, case management, charge nurse, critical care nursing, and respiratory therapy.
Subjective Dataa
Subjective Data
Date of Service:
Date of Service: August 01, 2024
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
Subjective:
Patient comfortably sitting in bed, in no acute distress, currently on nasal cannula.
Review of Systems
Genitourinary: Other (Still somewhat confused however denies any pain.)
Objective Data
Data Reviewed
Vital Signs / I&O / Oxygen:
Vital Signs
Temp Pulse Resp BP Pulse Ox
98.1 F 68 17 129/97 95
08/01/24 12:00 08/01/24 08:12 08/01/24 06:00 08/01/24 08:12 08/01/24 10:23
Intake and Output
07/31/24 08/01/24 08/02/24
06:59 06:59 06:59
Intake Total 2733.4 / 2803.4 4882.7 / 5001.7 2008
Output Total 6475 / 6775 4125 / 4125 100 / 100
Balance -3741.6 / -3971.6 757.7 / 876.7 1908 / 1908
SaO2 [ASV] 97
SaO2 [CPAP/PSV] 95
SaO2 [A/C] 96
SaO2 95
Nasal Cannula flow liters per 5
minute
Physical Exam
General: Comfortable
HEENT: Normocephalic and Anicteric
Cardiovascular: S1-S2 and Peripheral Edema (Improving)
Respiratory: Non-Labored Respirations
GI: Soft, Non Tender and Normal Bowel Sounds
Neurology: Other (Drowsy but wakes up with little stimulation.)
Skin: Warm and Dry
Labs/Micro/Reports
Lab Data
08/01/24 03:04
--- NOTE | 2024-08-01 14:45 | CM ---
Discharge POC: SNF. Referrals forwarded.
[2024-08-01 16:30] LABS: Blood Urea Nitrogen 19 mg/dl (9-20); Calcium 8.5 mg/dl (8.4-10.2); Carbon Dioxide 25 mmol/L (22-30); Chloride 113 mmol/L (98-107); Estimated Creatinine Clearance 115 ml/min; Glucose 103 mg/dl (70-99); Potassium 3.7 mmol/L (3.5-5.1); Sodium 141 mmol/L (135-145); eGFR > 60.00
--- NOTE | 2024-08-01 16:36 | PTCARENOTE ---
Assumed care of pt. Assessment unchanged from prior assessment-see flowsheet.
[2024-08-01] MEDS: D5W IV (17:04)
[2024-08-01] MEDS: LIPITOR 20 MG PO (17:04)
--- NOTE | 2024-08-01 17:04 | W.PN.UPDATE ---
Update Note
Progress Note Update
Pt seen at bedside, chart reviewed. Able to shift gaze more easily & spontaneously today, not shivering as he was the day prior. Difficult to engage in meaningful interview, often responds with 'I'm fine' regardless of question posed, even with
orientation questions. Is calm throughout interview, watching tv. Intermittently restless but not needing restraints as much as previously. Still easily confused and suspect with intermittent AVH as pt seems to be looking at something unseen at
times.
Continue current regimen - may consider stopping latuda if restlessness persists separately from agitation as cannot rule out contribution of akathisia, though pt did previously tolerate it well
[2024-08-01] MEDS: LOVENOX 40 MG SC (17:05)
[2024-08-01] MEDS: LATUDA 40 MG PO (17:05)
[2024-08-01 17:11] LABS: Glucose - Point of Care 106 mg/dl (70-99)
[2024-08-01] MEDS: SENOKOT PO (19:13)
--- NOTE | 2024-08-01 21:02 | PTCARENOTE ---
received pt from [facility], upon initial assessment, patient had saturated bed, patient given full bed bath and new linens. patient in restraints as he was found crawling oob from nm. patient alert with flat affect, able to answer yes/no
questions and follow simple commands. patient able to tell me name and as well his wifes name and . no c/o pain or discomfort, ROM performed while in restraints. patient had full glass of water, swallowing without issue. no further needs
at this time, will stay at bedside when PEN RIDER places patient on his bipap this evening.
[2024-08-01] MEDS: SEROQUEL 75 MG PO (21:16)
[2024-08-01 21:59] LABS: Glucose - Point of Care 93 mg/dl (70-99)
[2024-08-02] VITALS (21 sets, daily range): BP systolic 141–176; BP diastolic 90–111; PULSE 2–88; BMI 35.7
[2024-08-02 03:53] LABS: Hematocrit 29.7 % (39.0-52.0); Hemoglobin 9.5 g/dL (13.0-18.0); Mean Corpuscular Hgb 29.8 pg (27.0-31.0); Mean Corpuscular Volume 93.1 fL (80.0-94.0); Mean Platelet Volume 10.5 fL (7.4-10.4); Platelet Count 215 10^3/uL (130-400); Red Blood Cell Count 3.19 10^6/uL (4.70-6.10); Red Cell Dist. Width 13.2 % (11.5-14.5); White Blood Cell Count 10.1 10^3/uL (4.8-10.8)
[2024-08-02] MEDS: ROBITUSSIN 200 MG PO ×2 (04:13→07:56)
--- NOTE | 2024-08-02 04:16 | PTCARENOTE ---
patient in bed, restraints in place and sitter at bedside while bipap is on. patient remains incontinent, states he needs urinal after he saturates bed/linens/pads. patient offers no c/o pain or discomfort. labs drawn and sent, will await any new
orders.
[2024-08-02 04:20] LABS: Blood Urea Nitrogen 15 mg/dl (9-20); Calcium 8.8 mg/dl (8.4-10.2); Carbon Dioxide 26 mmol/L (22-30); Chloride 115 mmol/L (98-107); Estimated Creatinine Clearance 105 ml/min; Glucose 98 mg/dl (70-99); Potassium 3.5 mmol/L (3.5-5.1); Sodium 148 mmol/L (135-145); eGFR > 60.00
--- NOTE | 2024-08-02 04:32 | W.PN.UPDATE ---
Update Note
Progress Note Update
NA 148 restarted D5 drip.
[2024-08-02] MEDS: D5W 1000 IV (06:14)
--- NOTE | 2024-08-02 07:17 | PTCARENOTE ---
vital signs filed for previous shift from [id number].
[2024-08-02] MEDS: SENOKOT 8.6 MG PO (07:54)
[2024-08-02] MEDS: NORVASC 5 MG PO (07:54)
[2024-08-02] MEDS: NICODERM TRANSDERMAL 21 MG TRANSDERM (07:54)
[2024-08-02] MEDS: LUVOX 50 MG PO (07:54)
[2024-08-02] MEDS: MIRALAX 17 GRAMS TUBE (07:54)
[2024-08-02] MEDS: NSS (PRESERVATIVE FREE) 10 ML IV (07:54)
[2024-08-02] MEDS: PROTONIX IV 40 MG IV (07:55)
[2024-08-02 08:00] LABS: Glucose - Point of Care 112 mg/dl (70-99)
[2024-08-02] MEDS: NOVOLOG FLEXPEN-MODERATE RESISTANCE SC ×3 (08:00→17:46)
--- NOTE | 2024-08-02 09:10 | W.PN.INTV ---
Today's Communication / Plan
Recommendations
- Increase Seroquel to 100 mg nightly
- Patient can be transferred out of ICU, will place order for IMU. Pulmonary team will continue to follow the patient
Assessment
-
Patient is a 49-year-old gentleman with history of hypertension, depression, who was brought from home via EMS as patient's found him lethargic and short of breath. Patient reportedly had been sick for the last 3 to 4 days. Patient required
15 L via nasal cannula initially and was subsequently transition to BiPAP support as his initial saturations were around 60%. Patient responded well to BiPAP and was noted to have hypercapnia also. Overnight he continued to develop worsening
hypercapnia and inability to ventilate and oxygenate and required intubation and mechanical ventilation. Post ventilation, patient has been very difficult to oxygenate. He has been on 100% FiO2 and PEEP has been slowly increased all the way up to
18 now. His PF ratio continues to be severely low. He has been on deep sedation and also paralytics were initiated. Patient found to have influenza A screen positive.
#1. Influenza A with severe acute hypoxic respiratory failure. (Intubated 07/15-07/30/2024), complicated by VAP Streptococcus
-Patient was initially on 15 L oxygen, subsequently transitioned to BiPAP and later intubated
-Prolonged stay on mechanical ventilation with use of paralytics, proning in view of severely reduced PF ratio
-Stay was complicated by VAP due to Streptococcus F, initially treated with cefepime/Zosyn later transitioned to Unasyn along with stress dose steroids, currently off
-07/30, patient tolerated pressure support well and was extubated to BiPAP
-24 hours after extubation, patient was kept on nightly BiPAP and during daytime high flow nasal cannula was alternated with BiPAP every 2 hours
-08/01, currently patient is on nasal cannula at 6 L saturating 96% during daytime and BiPAP at night
#2. ICU delirium vs Metabolic encephalopathy with underlying psychiatric history
- [place] level was elevated on admission, continues to be on hold
- Increase nightly Seroquel to 100 mg and continue Zyprexa intramuscular 5 mg twice daily as needed agitation
- Has been off Precedex
- Continue Latuda and fluvoxamine
- DC Ativan
- Discontinued clonazepam
- Continue to stay off OxyContin
- Increase activity as tolerated, PT/OT/speech therapy
- Gradually improving
#2. ESAU on admission. Cr was 2.9 on admission -normal now
-Nephrology service on case
-Good urine output
- D5 was resumed for mild hyponatremia.
#3. Hypotension with shock. Resolved. Suspect this is related to deep sedation as well as initiation of paralytic medications. Shock related to influenza A also in differential diagnosis.
- Echo checked 07/21 which was a technically difficult study with preserved LVEF at 60-65% with no regional WMA, mild concentric LVH, no significant valvular disease, normal RV size and function with normal RA size
#4. History of smoking. Patient might have underlying COPD.
- Change DuoNebs to QID as needed
- No wheezing on exam now. Off steroids.
- Nicotine patch
PT/OT.
Speech therapy consult.
DVT prophylaxis with subcu heparin. GI prophylaxis with pantoprazole.
Patient can be transferred to stepdown unit, IMU.
Critical care statement: A total of 45 minutes of critical care time was provided for this patient today. This includes management of unstable vital signs, evaluation of the patient at bedside, reviewing the patient's pertinent medical records
including radiographs, microbiology, laboratory evaluations, and discussion with primary team, consultants, pharmacy, nutrition, physical therapy, case management, charge nurse, critical care nursing, and respiratory therapy.
Subjective Dataa
Subjective Data
Date of Service:
Date of Service: August 02, 2024
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
Subjective:
Patient comfortably lying in bed in no acute distress.
Review of Systems
Genitourinary: Other (Awake alert however still somewhat confused.)
Objective Data
Data Reviewed
Vital Signs / I&O / Oxygen:
Vital Signs
Temp Pulse Resp BP Pulse Ox
99.9 F 115 31 176/91 90
08/02/24 07:37 08/02/24 09:00 08/02/24 09:00 08/02/24 09:00 08/02/24 08:00
Intake and Output
08/01/24 08/02/24 08/03/24
06:59 06:59 06:59
Intake Total 4882.7 / 5001.7 3584 / 3659 345 / 345
Output Total 4125 / 4125 250 / 250
Balance 757.7 / 876.7 3334 / 3409 345 / 345
SaO2 [ASV] 97
SaO2 [CPAP/PSV] 95
SaO2 [A/C] 96
SaO2 90
Nasal Cannula flow liters per 6
minute
Physical Exam
General: Comfortable
HEENT: Normocephalic and Anicteric
Cardiovascular: S1-S2 and Peripheral Edema (Improving)
Respiratory: Non-Labored Respirations
GI: Soft, Non Tender and Normal Bowel Sounds
Neurology: Other (Drowsy but wakes up with little stimulation.)
Skin: Warm and Dry
Labs/Micro/Reports
Lab Data
08/02/24 03:39
08/02/24 03:39
--- NOTE | 2024-08-02 09:27 | W.PN.HOSP.TC ---
Today's Communication/Plan
-
Assessment / Plan
Assessment / Plan
NAD
Scleral Anicteric
MMM
No JVD
CTABL
Regular but tachycardic, S1/S2
Soft, NT, ND, BS+
Warm, Dry
AAO
Influenza A with severe acute hypoxemic respiratory failure complicated by VAP Streptococcus
Extubated on 07/30
Required BiPAP nightly and as needed at bedtime
Currently on 4 L and BiPAP at night
ICU delirium versus metabolic encephalopathy
Avoid sedatives Ativan and clonazepam discontinued
As needed Precedex
Increase nightly Seroquel and continue Zyprexa as needed for agitation
[place] held due to high lithium level
Precedex now off for 24hours
ESAU
Improving
Nephrology following
Hypernatremia
With free water deficit continue D5 drip encourage oral intake
Hypotension with shock, resolved
History of smoking
NRT
Hypertension
Continue to antihypertenives
Anticipated Discharge: > 48 hours
Subjective/Interval History
-
Date of Service: August 02, 2024
seen and examined. no new complaints. no acute overnight events
Objective Data
-
Labs:
Laboratory Results
08/02/24
03:39
WBC 10.1
Hgb 9.5 L
Hct 29.7 L
Plt Count 215
Sodium 148 H
Potassium 3.5
Chloride 115 H
Carbon Dioxide 26
BUN 15
Creatinine 1.1
Glucose 98
Calcium 8.8
Vital Signs:
Vital Signs
Temp Pulse Resp BP Pulse Ox
99.9 F 115 31 176/91 90
08/02/24 07:37 08/02/24 09:00 08/02/24 09:00 08/02/24 09:00 08/02/24 08:00
I&O
08/01/24 08/02/24 08/03/24
06:59 06:59 06:59
Intake Total 4882.7 / 5001.7 3584 / 3659 345 / 345
Output Total 4125 / 4125 250 / 250
Balance 757.7 / 876.7 3334 / 3409 345 / 345
--- NOTE | 2024-08-02 11:24 | PTCARENOTE ---
Rec'd pt at 0700. Pt restless in bed, pt had urinated all over linens and onto floor. Pericare done and linens changed. Pt able to state name and , otherwise confused to place, time and situation. Will answer simple questions appropriately and
follow commands, not always consistent. Monitor ST. Lungs dim, pox 91% on 6LNC. +BS, abd large/round/nt. Pt incont frequently for large amts of yellow urine and requires frequent bed changes, pt will kick Covidien pads OOB onto floor covered in
urine and linens will be saturated. Pt yells out occasionally, restraints in place. Pt for transfer to IMU.
--- NOTE | 2024-08-02 11:46 | W.PN.NEPH.PH ---
Today's Communication / Plan
-
check U osmo, cont D5w
labs in am
Assessment/Plan
-
Assessment
ESAU (unknown)
VDRF
InfA
HTN
Hypernatremia
polyuria
Plan
unable to tolerate off hypotonic fluids as sodium rises off IVF
D5W was resume earlier this morning
encourage po intake and recheck U osmo
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
if he is unable to be off hypotonic fluids may have to try low dose DDAVP
cr stable
follow BMP
d/w nursing
-
-
Date of Service: August 02, 2024
CC / HPI / ROS
-
Chief Complaint:
ESAU
History of Present Illness:
ESAU/Cr down to 1.1-stable
BP stable
Hypernatremia up at 148
eating without issue
Review of Systems:
non oliguric off [place]
no CP/SOB
Labs
-
Labs:
WBC 10.1 10^3/uL (4.8-10.8) 08/02/24 03:39
RBC 3.19 10^6/uL (4.70-6.10) L 08/02/24 03:39
Hgb 9.5 g/dL (13.0-18.0) L 08/02/24 03:39
Hct 29.7 % (39.0-52.0) L 08/02/24 03:39
Plt Count 215 10^3/uL (130-400) 08/02/24 03:39
Sodium 148 mmol/L (135-145) H 08/02/24 03:39
Potassium 3.5 mmol/L (3.5-5.1) 08/02/24 03:39
Chloride 115 mmol/L (98-107) H 08/02/24 03:39
Carbon Dioxide 26 mmol/L (22-30) 08/02/24 03:39
BUN 15 mg/dl (9-20) 08/02/24 03:39
Creatinine 1.1 mg/dL (0.7-1.3) 08/02/24 03:39
eGFR > 60.00 08/02/24 03:39
Glucose 98 mg/dl (70-99) 08/02/24 03:39
Calcium 8.8 mg/dl (8.4-10.2) 08/02/24 03:39
Phosphorus 3.8 mg/dl (2.5-4.5) 07/27/24 03:08
Ion-P-Jjtbvkzvxyk Pept 184 pg/ml 07/21/24 03:07
Albumin 3.0 g/dl (3.5-5.0) L 07/30/24 03:10
Physical Exam
-
Vital Signs:
Vital Signs
Temp Pulse Resp BP Pulse Ox
99.9 F 124 39 166/101 91
08/02/24 07:37 08/02/24 11:00 08/02/24 11:00 08/02/24 11:00 08/02/24 11:00
Cardiovascular:: Regular rate and rhythm
Respiratory:: Bilateral: Coarse
Lung Excursion:: Normal
Abdomen:: Nontender and Soft
Extremity Edema:: None: Bilateral:
[place] Catheter: No
[2024-08-02 12:31] LABS: Glucose - Point of Care 133 mg/dl (70-99)
--- NOTE | 2024-08-02 15:25 | W.PN.UPDATE ---
Update Note
Progress Note Update
Pt seen at bedside, chart reviewed. Pt has been noted to be restlessless often since yesterday, is redirectable when this happens but seems to occur more often. Pt acknowledges feeling quite restless, as if wanting to 'jump out of skin' at times,
some mild PMA observed during interview. Pt still not full and consistently oriented but improving in cognition/clarity - able to respond more meaningfully today and with appropriate responses though still becomes confused quickly during interview.
Stopped latuda 40mg hs as this may be causing or worsening restlessness
continue seroquel 100mg hs - added 25mg bidprn acute agitation if needed, though as noted pt has been redirectable thus far
- may be able to transition to seroquel as primary psychotropic instead of latuda, however would defer this decision until pt is further improved
[2024-08-02] MEDS: LIPITOR 20 MG PO (17:46)
[2024-08-02] MEDS: LOVENOX 40 MG SC (17:47)
[2024-08-02 17:53] LABS: Glucose - Point of Care 129 mg/dl (70-99)
--- NOTE | 2024-08-02 20:20 | PTCARENOTE ---
Received pt at shift change, restrained for safety; AAOx1, pt knows he's in [place] but could not state the type of place, able to follow simple commands. NSR on the monitor. Pt tolerating 10L midflow, SpO2 94%, lungs diminished throughout. Pt
incontinent of urine and spilled a large cup of water throughout the bed. PM hygiene performed, CHG bath provided, linens changed. Percussion through sport bed initiated per order, pt tolerated well. Remainder of assessment as documented, safe
environment maintained, pt resting comfortably in bed watching a movie, call cook in left hand.
[2024-08-02] MEDS: SEROQUEL 100 MG PO (21:04)
[2024-08-02] MEDS: SENOKOT PO (21:15)
--- NOTE | 2024-08-02 21:30 | PTCARENOTE ---
Pt moved from 3348 to 3350 closer to the nurses station for closer monitoring off restraints when BiPAP is initiated.
--- NOTE | 2024-08-02 22:11 | PTCARENOTE ---
RT @ the bedside, pt drowsy/falling asleep, placed on BiPAP without issue, restraints removed at this time.
[2024-08-02 22:46] LABS: Glucose - Point of Care 146 mg/dl (70-99)
[2024-08-02 23:06] LABS: Transferrin 168 mg/dL (200-360)
[2024-08-03] VITALS (12 sets, daily range): BP systolic 128–172; BP diastolic 79–113; PULSE 2–104; BMI 34.6
[2024-08-03 01:02] LABS: Osmolality Urine 159 mOsm/kg (300-900)
[2024-08-03 01:13] LABS: Urine Sodium 38 mmol/L (30-90)
--- NOTE | 2024-08-03 02:29 | PTCARENOTE ---
Pt increasingly restless, rolling around in the bed, throwing arms and legs over the side rails and sitting up in bed. Pt denies pain, urinal utilized. Pt adamantly requesting the BiPAP mask be removed; BiPAP removed, pt placed back on 10L midlfow
with SpO2 95%. Ice water provided per request. Pt continues to be restless, rolling around in the bed and reaching over the side rails. New bed alarm placed under pt. D/w covering BLOOD BANK TECHNOLOGIST, new restraint order placed and pt placed in b/l soft wrist
restraints for pt safety. Pt tolerating well at this time, resting comfortably in bed watching a movie, safe environment maintained.
[2024-08-03 04:12] LABS: Hematocrit 29.8 % (39.0-52.0); Hemoglobin 9.2 g/dL (13.0-18.0); Mean Corp Hgb Conc. 30.9 g/dL (33.0-37.0); Mean Corpuscular Hgb 29.1 pg (27.0-31.0); Mean Corpuscular Volume 94.3 fL (80.0-94.0); Mean Platelet Volume 10.4 fL (7.4-10.4); Platelet Count 231 10^3/uL (130-400); Red Blood Cell Count 3.16 10^6/uL (4.70-6.10); Red Cell Dist. Width 13.4 % (11.5-14.5); White Blood Cell Count 9.2 10^3/uL (4.8-10.8)
[2024-08-03 04:36] LABS: Blood Urea Nitrogen 9 mg/dl (9-20); Calcium 8.8 mg/dl (8.4-10.2); Carbon Dioxide 26 mmol/L (22-30); Chloride 113 mmol/L (98-107); Estimated Creatinine Clearance 103 ml/min; Glucose 107 mg/dl (70-99); Potassium 3.2 mmol/L (3.5-5.1); Sodium 147 mmol/L (135-145); eGFR > 60.00
[2024-08-03 07:56] LABS: Glucose - Point of Care 91 mg/dl (70-99)
[2024-08-03] MEDS: NOVOLOG FLEXPEN-MODERATE RESISTANCE SC ×3 (09:30→18:02)
[2024-08-03] MEDS: NICODERM TRANSDERMAL 21 MG TRANSDERM (09:31)
[2024-08-03] MEDS: SENOKOT PO ×2 (09:31→21:12)
[2024-08-03] MEDS: NORVASC 5 MG PO (09:31)
[2024-08-03] MEDS: MIRALAX 17 GRAMS TUBE (09:31)
[2024-08-03] MEDS: LUVOX 50 MG PO (09:31)
[2024-08-03] MEDS: KCL 40 MEQ PO (10:52)
--- NOTE | 2024-08-03 10:56 | W.PN.HOSP.TC ---
Today's Communication/Plan
-
Assessment / Plan
Assessment / Plan
NAD
Scleral Anicteric
MMM
No JVD
CTABL
Regular but tachycardic, S1/S2
Soft, NT, ND, BS+
Warm, Dry
AAO
Influenza A with severe acute hypoxemic respiratory failure complicated by VAP Streptococcus
Extubated on 07/30
Required BiPAP nightly and as needed at bedtime
Currently on 4 L and BiPAP at night
ICU delirium versus metabolic encephalopathy
Avoid sedatives Ativan and clonazepam discontinued
As needed Precedex
Increase nightly Seroquel and continue Zyprexa as needed for agitation
Dasher held due to high lithium level
Precedex now off for 24hours
ESAU
Improving
Nephrology following
Hypernatremia
With free water deficit continue D5 drip encourage oral intake
Hypotension with shock, resolved
History of smoking
NRT
Hypertension
Continue to antihypertenives
Anticipated Discharge: 24 - 48 hours
Subjective/Interval History
-
Date of Service: August 03, 2024
Seen and examined. No new complaints. No acute overnight events.
Objective Data
-
Labs:
Laboratory Results
08/03/24
03:56
WBC 9.2
Hgb 9.2 L
Hct 29.8 L
Plt Count 231
Sodium 147 H
Potassium 3.2 L
Chloride 113 H
Carbon Dioxide 26
BUN 9
Creatinine 1.1
Glucose 107 H
Calcium 8.8
Vital Signs:
Vital Signs
Temp Pulse Resp BP Pulse Ox
98.8 F 107 29 150/90 96
08/03/24 03:00 08/03/24 06:06 08/03/24 06:06 08/03/24 04:55 08/03/24 07:55
I&O
08/02/24 08/03/24 08/04/24
06:59 06:59 06:59
Intake Total 3584 / 3659 4040 / 4040
Output Total 250 / 250 750 / 750
Balance 3334 / 3409 3290 / 3290
[2024-08-03] MEDS: ORETIC 12.5 MG PO (11:00)
--- NOTE | 2024-08-03 11:07 | W.PN.NEPH.PH ---
Today's Communication / Plan
-
see plan
Assessment/Plan
-
Assessment
ESAU (unknown)
VDRF
InfA
HTN
Hypernatremia
polyuria
Plan
unable to tolerate off hypotonic fluids as sodium rises off IVF
U osmo low 159 suggest possible nephrogenic DI from Li use
will try HCTZ , if fails consider DDAVP
encourage po intake
he does report of having sodium issues, polyuria and polydipsia for long time
replace k
cr stable
BP high resume losartan, cont CCB, likely resume atenolol soon too
follow BMP
d/w nursing
-
-
Date of Service: August 03, 2024
CC / HPI / ROS
-
Chief Complaint:
ESAU
History of Present Illness:
ESAU/Cr down to 1.1-stable, k low 3.2
BP stable
Hypernatremia up at 147
eating without issue
Review of Systems:
non oliguric off [place]
no CP/SOB
c/o thirsty
Labs
-
Labs:
WBC 9.2 10^3/uL (4.8-10.8) 08/03/24 03:56
RBC 3.16 10^6/uL (4.70-6.10) L 08/03/24 03:56
Hgb 9.2 g/dL (13.0-18.0) L 08/03/24 03:56
Hct 29.8 % (39.0-52.0) L 08/03/24 03:56
Plt Count 231 10^3/uL (130-400) 08/03/24 03:56
Sodium 147 mmol/L (135-145) H 08/03/24 03:56
Potassium 3.2 mmol/L (3.5-5.1) L 08/03/24 03:56
Chloride 113 mmol/L (98-107) H 08/03/24 03:56
Carbon Dioxide 26 mmol/L (22-30) 08/03/24 03:56
BUN 9 mg/dl (9-20) 08/03/24 03:56
Creatinine 1.1 mg/dL (0.7-1.3) 08/03/24 03:56
eGFR > 60.00 08/03/24 03:56
Glucose 107 mg/dl (70-99) H 08/03/24 03:56
Calcium 8.8 mg/dl (8.4-10.2) 08/03/24 03:56
Phosphorus 3.8 mg/dl (2.5-4.5) 07/27/24 03:08
Lxw-Y-Fziwtgmuclf Pept 184 pg/ml 07/21/24 03:07
Albumin 3.0 g/dl (3.5-5.0) L 07/30/24 03:10
Physical Exam
-
Vital Signs:
Vital Signs
Temp Pulse Resp BP Pulse Ox
98.8 F 107 29 150/90 96
08/03/24 03:00 08/03/24 06:06 08/03/24 06:06 08/03/24 04:55 08/03/24 07:55
Cardiovascular:: Regular rate and rhythm
Respiratory:: Bilateral: Coarse
Lung Excursion:: Normal
Abdomen:: Nontender and Soft
Extremity Edema:: None: Bilateral:
[place] Catheter: No
[2024-08-03 11:54] LABS: Glucose - Point of Care 122 mg/dl (70-99)
--- NOTE | 2024-08-03 13:42 | W.PN.PUL3 ---
Today's Communication / Plan
-
- Continue nasal cannula during daytime and BiPAP nightly
- Delirium precautions
- Will arrange outpatient follow-up for pulmonary function testing as well as sleep study
Assessment
-
Patient is a 49-year-old gentleman with history of hypertension, depression, who was brought from home via EMS as patient's found him lethargic and short of breath. Patient reportedly had been sick for the last 3 to 4 days. Patient required
15 L via nasal cannula initially and was subsequently transition to BiPAP support as his initial saturations were around 60%. Patient responded well to BiPAP and was noted to have hypercapnia also. Overnight he continued to develop worsening
hypercapnia and inability to ventilate and oxygenate and required intubation and mechanical ventilation. Post ventilation, patient has been very difficult to oxygenate. He has been on 100% FiO2 and PEEP has been slowly increased all the way up to
18 now. His PF ratio continues to be severely low. He has been on deep sedation and also paralytics were initiated. Patient found to have influenza A screen positive.
#1. Influenza A with severe acute hypoxic respiratory failure. (Intubated 07/15-07/30/2024), complicated by VAP (Streptococcus Group F)
-Patient was initially on 15 L oxygen, subsequently transitioned to BiPAP and later intubated 07/15
-Prolonged stay on mechanical ventilation with use of paralytics, proning in view of severely reduced PF ratio as well as high PEEP up to 18.
-Stay was complicated by VAP due to Streptococcus F, initially treated with cefepime/Zosyn later transitioned to Unasyn along with stress dose steroids, currently off antibiotics
-07/30, patient tolerated pressure support well and was extubated to BiPAP. Kept him on alternating high flow nasal cannula versus BiPAP for the first 24 hours.
-Currently on nasal cannula during daytime and BiPAP at night
-As patient continues to improve, nightly BiPAP eventually can be weaned off in coming days
#2. ICU delirium vs Metabolic encephalopathy with underlying psychiatric history
- Gradually improving, currently on Seroquel nightly and as needed Zyprexa
- Psychiatry service on case
Other medical issues:
-ESAU, Improved
-Hypotension with Shock, resolved
-History of smoking. Patient might have underlying COPD. Out patient follow up with Pulmonary clinic
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 Out patient sleep study
PT/OT.
Speech therapy consult.
DVT prophylaxis with subcu heparin. GI prophylaxis with pantoprazole.
Total time spent on this consultation/encounter ____ minutes which includes review of history, physical exam, medications, laboratory data, personal review of imaging, extensive review of outpatient records, discussion with care team and respiratory
therapy.
Subjective Data
-
Date of Service:
Date of Service: August 03, 2024
Subjective:
Patient comfortably lying in bed, in no acute distress. Appears more awake, alert and interactive.
Review of Systems
Genitourinary: Other (All 14 systems reviewed and negative except as stated above in the history of present illness. Intermittent restlessness)
Objective Data
Data Reviewed
Vital Signs / I&O / Oxygen:
Vital Signs
Temp Pulse Resp BP Pulse Ox
98.3 F 115 28 156/103 93
08/03/24 11:10 08/03/24 13:00 08/03/24 13:00 08/03/24 12:00 08/03/24 12:00
Intake and Output
08/02/24 08/03/24 08/04/24
06:59 06:59 06:59
Intake Total 3584 / 3659 4040 / 4040 120 / 120
Output Total 250 / 250 750 / 750
Balance 3334 / 3409 3290 / 3290 120 / 120
SaO2 [ASV] 97
SaO2 [CPAP/PSV] 95
SaO2 [A/C] 96
SaO2 93
Nasal Cannula flow liters per 6
minute
Physical Exam
General: Comfortable
HEENT: Normocephalic
Cardiovascular: S1-S2 and Peripheral Edema
Respiratory: Clear
GI: Soft and Non Distended
Neurology: Awake, Alert and Other (Oriented times 2 during my evaluation. )
Skin: Warm
Labs/Micro/Reports
Lab Data
08/03/24 03:56
08/03/24 03:56
[2024-08-03 16:47] LABS: Glucose - Point of Care 110 mg/dl (70-99)
[2024-08-03] MEDS: LOVENOX 40 MG SC (18:20)
[2024-08-03] MEDS: LIPITOR 20 MG PO (18:20)
--- NOTE | 2024-08-03 18:39 | W.PN.UPDATE ---
Update Note
Progress Note Update
Pt seen at bedside, chart reviewed, present at bedside. Pt has been less overtly restless, however becomes intermittently confused and agitated still, in particular during second half of the night and at times throughout the day. Able to
meaningfully answer some questions , oriented to self and vaguely to place - does report AVH intermittently which can be distressing. As per , is overall improving consistently but remains not himself and easily confused.
Eye gaze is noted to shift much more easily today - as noted before, this may have been related to latuda or may not, however given improvement in restlessness would not restart latuda.
Increased seroquel to 25mg AM/125mg hs - ongoing episodes of avh and distress as well as to compensate for stopping latuda
- continue 25mg bidprn acute agitation if needed, though as noted pt has been redirectable thus far
[2024-08-03] MEDS: SEROQUEL 100 MG PO (21:11)
[2024-08-03] MEDS: COZAAR 50 MG PO (21:12)
[2024-08-03] MEDS: SEROQUEL 25 MG PO (21:12)
[2024-08-03] MEDS: KCL 20 MEQ PO (21:12)
--- NOTE | 2024-08-03 21:30 | PTCARENOTE ---
Received pt at shift change; AAOx1, pt was able to recognize he was in [facility] in a 'treatment center', denies pain, offers no complaints. Pt remains confused/forgetful, b/l wrist restraints in place for pt safety per order, remains
neurovascularly intact, see flowsheet. Received pt on 7L O2 via midflow cannula, SpO2 95%, lungs sound diminished. NSR on the monitor, sinus tachycardia with activity. Grossly incontinent, PM hygiene performed, assisted with ice water. Remainder of
assessment as documented. Percussion through sport bed initiated per order. Pt resting comfortably in bed, call cook within reach.
[2024-08-03 21:38] LABS: Glucose - Point of Care 97 mg/dl (70-99)
--- NOTE | 2024-08-03 22:56 | PTCARENOTE ---
RT at the bedside, pt placed on BiPAP, sitter at the bedside, restraints remain intact. Safe environment maintained.
[2024-08-04] VITALS (11 sets, daily range): BP systolic 128–169; BP diastolic 85–109; PULSE 2–71; BMI 34.0
[2024-08-04 06:04] LABS: Hematocrit 32.2 % (39.0-52.0); Mean Corp Hgb Conc. 31.1 g/dL (33.0-37.0); Mean Corpuscular Hgb 29.4 pg (27.0-31.0); Mean Corpuscular Volume 94.7 fL (80.0-94.0); Mean Platelet Volume 10.3 fL (7.4-10.4); Platelet Count 276 10^3/uL (130-400); Red Cell Dist. Width 13.4 % (11.5-14.5); White Blood Cell Count 10.3 10^3/uL (4.8-10.8)
[2024-08-04 06:51] LABS: Blood Urea Nitrogen 10 mg/dl (9-20); Calcium 9.1 mg/dl (8.4-10.2); Carbon Dioxide 25 mmol/L (22-30); Chloride 115 mmol/L (98-107); Estimated Creatinine Clearance 101 ml/min; Glucose 91 mg/dl (70-99); Potassium 4.1 mmol/L (3.5-5.1); Sodium 148 mmol/L (135-145); eGFR > 60.00
--- NOTE | 2024-08-04 07:56 | W.PN.HOSP.TC ---
Addendum entered and electronically signed by Yo Brooks MD 08/04/24 13:55:
Seen and examined by me independently in collaboration with the medical language specialist.
Lab data and imaging data reviewed.
Addendum as below :
Improved from respiratory standpoint. Currently on 4 L of oxygen.
Finished antiviral and antibiotics. Continue current respiratory support measures and wean oxygen as able.
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 Hydrochlorothiazide being tried. Will continue with IV fluids to manage his fluid losses for today and reevaluate tomorrow. Discussed with nephrology today.
Patient noted to have shakes during my visit. No fever noted. Suspect chills. Check blood cultures. Will give Tylenol and follow fever curve for now. No similar complaints yesterday or preceding days.
Discussed with father at bedside
Total time spent on today's encounter was 52 minutes which included time spent in counseling the patient/family regarding diagnosis and treatment plan as listed above, goals of care, and symptom management. Case was discussed with nursing staff,
specialists, and care coordinators/case management. All labs and imaging personally reviewed by me. Remainder the time spent in detailed review of previous records, lab data, imaging, and other medical provider documentation.
Original Note:
Today's Communication/Plan
-
PT and OT.
D5.
Amlodipine 10 mg.
HCTZ.
Assessment / Plan
Assessment / Plan
Doavwidlif-53-qyhb-old male with a PMHx significant for hypertension, depression presented to the hospital for acute onset shortness of breath, was diagnosed with influenza A associated ARDS, severe acute hypoxic respiratory failure complicated by
ventilator associated pneumonia.
Plan-
VRDF dependent acute hypoxic respiratory failure-
Secondary to influenza A, ventilator dependence resolved-extubated on 07/30/2024.
Course complicated by ventilator associated pneumonia-Streptococcus group F
S/p prolonged mechanical ventilation and paralytics, resulting in deep severe deconditioning.
Received cefepime/Zosyn that was later transitioned to Unasyn along with stress dosing of steroids-completed the course.
Currently patient is on BiPAP at night and mid flow nasal cannula during the daytime.
Plan to wean off BiPAP in the nighttime, continue to wean off oxygen to low-flow and room air as tolerated.
Currently on mid flow 6 L nasal cannula.
ICU delirium versus metabolic encephalopathy
Gradually improving, currently on Seroquel nightly, a.m. Seroquel resumed by psychiatry.
As needed Zyprexa
Precedex discontinued
[place] on hold, psychiatry on board, fluvoxamine resumed, appreciate psychiatry help in management.
Avoid sedatives
ESAU
Improving -serum creatinine at 1.1, could be new baseline.
Nephrology following up, appreciate inputs.
Hypernatremia -
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
Nephrology following up, off of D5 drip yesterday-08/03/2024.
Currently 1 dose of D5 1000 mL of D5, and HCTZ.
Appreciate nephrology help with hyponatremia.
PT and OT on board
Reconsulted to get the patient up and walking.
Hypokalemia-
Replaced potassium in the a.m.
Trend serum potassium levels.
Hypertension-
Continue amlodipine 10 mg, losartan 50 mg twice daily resumed yesterday-08/03/2024.
HCTZ 25 added for hypernatremia
Trend blood pressures-continues to remain high.
Multifactorial anemia-
Continue iron supplementation via tube monitor CBC
Chronic pain syndrome-
Morphine milliequivalents of opioids-discontinued
patient is currently on oxycodone 7 out of 10 doses.
Rest of the oxycodones for breakthrough pain not discontinued.
Schizophrenia and bipolar disorder-
Psychiatry on board, dated psychiatry to reevaluate patient for lithium and psych regimen.
Currently lithium on hold given supratherapeutic levels and ESAU.
Goal lithium less than 0.7.
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
History of smoking
NRT -not on NRT, recommend management.
Circulatory shock-resolved.
Initial blood cultures from 07/15 and repeat from 07/19 remain negative.
Required pressors (Levophed) for hemodynamic support.
Insulin gtt. for uncontrolled blood sugars
Goal blood glucose 180-220
DVT prophylaxis-
Heparin subcu
CODE STATUS-
Full code.
Anticipated Discharge: > 48 hours
Subjective/Interval History
-
Date of Service: August 04, 2024
Patient reports to have new onset chills, no fevers recorded.
He reports feeling weak and extremely fatigued,
PT and OT orders dropped off the chart, hence patient has not been working with PT and OT for the last 2 days.
His mood has been stable currently.
Objective Data
-
Labs:
Laboratory Results
08/04/24
05:46
WBC 10.3
Hgb 10.0 L
Hct 32.2 L
Plt Count 276
Sodium 148 H
Potassium 4.1 D
Chloride 115 H
Carbon Dioxide 25
BUN 10
Creatinine 1.1
Glucose 91
Calcium 9.1
Vital Signs:
Vital Signs
Temp Pulse Resp BP Pulse Ox
98.6 F 107 19 150/94 99
08/04/24 03:00 08/04/24 05:00 08/04/24 05:00 08/04/24 04:00 08/04/24 05:00
I&O
08/03/24 08/04/24 08/05/24
06:59 06:59 06:59
Intake Total 4040 / 4040 3000 / 3000 240 / 240
Output Total 750 / 750
Balance 3290 / 3290 3000 / 3000 240 / 240
Review of Systems
-
History Source: Patient
Constitutional: Reports Chills; Denies Fever or Fatigue
EENT: Reports No Symptoms Reported
Respiratory: Reports Trouble Breathing
Cardiac: Denies No Symptoms
Abdomen/GI: Denies No Symptoms
Genitourinary: Reports No Symptoms
Musculoskeletal: Reports No Symptoms
Hematologic / Lymphatic: Reports No Symptoms
Physical Exam
-
General: Well Developed, Well Nourished and Comfortable (Breathing on mid flow nasal cannula-at 8 L.)
HEENT: Moist Mucous Membranes
Respiratory: Clear to Auscultation (In bilateral upper lobes.); Negative Wheezes, Rales, Rhonchi or Crackles
Cardiac: Regular Rhythm and S1/S2; Negative Murmur, Rub or Gallop
GI: Soft, Nontender, Normal Bowel Sounds and Other (Could not comment on distention-due to body habitus.)
Musculoskeletal: No Clubbing, No Cyanosis and No Edema
Neuro: No Motor Deficits
Hematologic / Lymphatic: Lymphadenopathy
Psych: Calm
Data Reviewed
-
Labs: Labs Reviewed by me, Discussed with Physician and Discussed with Nurse
[2024-08-04 08:17] LABS: Glucose - Point of Care 77 mg/dl (70-99)
--- NOTE | 2024-08-04 09:13 | W.PN.PUL3 ---
Today's Communication / Plan
-
- Continue to wean nasal cannula, target oxygen saturation 90 to 92%
- Continue nightly BiPAP for now, plan to wean over coming days
- Discharge planning
- Outpatient follow-up with pulmonary clinic after discharge
Assessment
-
Patient is a 49-year-old gentleman with history of hypertension, depression, who was brought from home via EMS as patient's found him lethargic and short of breath. Patient reportedly had been sick for the last 3 to 4 days. Patient required
15 L via nasal cannula initially and was subsequently transition to BiPAP support as his initial saturations were around 60%. Patient responded well to BiPAP and was noted to have hypercapnia also. Overnight he continued to develop worsening
hypercapnia and inability to ventilate and oxygenate and required intubation and mechanical ventilation. Post ventilation, patient has been very difficult to oxygenate. He has been on 100% FiO2 and PEEP has been slowly increased all the way up to
18 now. His PF ratio continues to be severely low. He has been on deep sedation and also paralytics were initiated. Patient found to have influenza A screen positive.
#1. Influenza A with severe acute hypoxic respiratory failure. (Intubated 07/15-07/30/2024), complicated by VAP (Streptococcus Group F)
-Patient was initially on 15 L oxygen, subsequently transitioned to BiPAP and later intubated 07/15
-Prolonged stay on mechanical ventilation with use of paralytics, proning in view of severely reduced PF ratio as well as high PEEP up to 18.
-Stay was complicated by VAP due to Streptococcus F, initially treated with cefepime/Zosyn later transitioned to Unasyn along with stress dose steroids, currently off antibiotics
-07/30, patient tolerated pressure support well and was extubated to BiPAP. Kept him on alternating high flow nasal cannula versus BiPAP for the first 24 hours.
-Currently on nasal cannula during daytime and BiPAP at night
-As patient continues to improve, nightly BiPAP eventually can be weaned off in coming days
- Saturating 100% on 6 L continue to wean
#2. ICU delirium vs Metabolic encephalopathy with underlying psychiatric history
- Gradually improving, currently on Seroquel nightly and as needed Zyprexa
- Psychiatry service on case
Other medical issues:
-ESAU, Improved
-Hypotension with Shock, resolved
-History of smoking. Patient might have underlying COPD. Out patient follow up with Pulmonary clinic
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 Out patient sleep study
PT/OT.
Speech therapy consult.
DVT prophylaxis with subcu heparin. GI prophylaxis with pantoprazole.
Total time spent on this consultation/encounter _48___ minutes which includes review of history, physical exam, medications, laboratory data, personal review of imaging, extensive review of outpatient records, discussion with care team and
respiratory therapy.
Subjective Data
-
Date of Service:
Date of Service: August 04, 2024
Subjective:
Patient comfortably lying in bed in no acute distress.
Review of Systems
Genitourinary: Other (No new symptoms reported.)
Objective Data
Data Reviewed
Vital Signs / I&O / Oxygen:
Vital Signs
Temp Pulse Resp BP Pulse Ox
98.4 F 107 19 150/94 99
08/04/24 08:33 08/04/24 05:00 08/04/24 05:00 08/04/24 04:00 08/04/24 05:00
Intake and Output
08/03/24 08/04/24 08/05/24
06:59 06:59 06:59
Intake Total 4040 / 4040 3000 / 3000 240 / 240
Output Total 750 / 750
Balance 3290 / 3290 3000 / 3000 240 / 240
SaO2 [ASV] 97
SaO2 [CPAP/PSV] 95
SaO2 [A/C] 96
SaO2 99
Nasal Cannula flow liters per 7
minute
Physical Exam
General: Comfortable
HEENT: Normocephalic
Cardiovascular: S1-S2 and Peripheral Edema (Nearly resolved)
Respiratory: Clear
GI: Soft and Non Distended
Neurology: Awake, Alert and Other (Oriented times 2 during my evaluation. )
Skin: Warm
Labs/Micro/Reports
Lab Data
08/04/24 05:46
08/04/24 05:46
[2024-08-04] MEDS: COZAAR 50 MG PO ×2 (09:51→21:47)
[2024-08-04] MEDS: LUVOX 50 MG PO (09:51)
[2024-08-04] MEDS: NORVASC 10 MG PO (09:51)
[2024-08-04] MEDS: SEROQUEL 25 MG PO ×2 (09:51→21:48)
[2024-08-04] MEDS: MIRALAX TUBE (09:52)
[2024-08-04] MEDS: NICODERM TRANSDERMAL 21 MG TRANSDERM (09:52)
[2024-08-04] MEDS: SENOKOT PO (09:53)
[2024-08-04] MEDS: ORETIC 25 MG PO (09:54)
[2024-08-04] MEDS: NOVOLOG FLEXPEN-MODERATE RESISTANCE SC ×3 (10:20→17:43)
[2024-08-04] MEDS: FEOSOL 325 MG PO (11:10)
[2024-08-04] MEDS: TYLENOL 650 MG PO (11:10)
--- NOTE | 2024-08-04 11:20 | W.PN.NEPH.PH ---
Today's Communication / Plan
-
increase HCTZ
resume BB
d5w 1lit
Assessment/Plan
-
Assessment
ESAU (unknown)
VDRF
InfA
HTN
Hypernatremia
polyuria
Plan
unable to tolerate off hypotonic fluids
U osmo low 159 suggest possible nephrogenic DI from Li use
increase dose of HCTZ , if fails consider DDAVP
encourage po intake
will provide d5w 1lit today
he does report of having sodium issues, polyuria and polydipsia for long time
BP high resume losartan, cont CCB, resume atenolol
follow BMP
d/w nursing and primary
-
-
Date of Service: August 04, 2024
CC / HPI / ROS
-
Chief Complaint:
ESAU
History of Present Illness:
ESAU/Cr stable at 1.1-stable, k better at 4.1
BP stable
Hypernatremia up at 148
eating without issue
Review of Systems:
non oliguric off [place]
no CP/SOB
c/o thirsty
wt decreasing
Labs
-
Labs:
WBC 10.3 10^3/uL (4.8-10.8) 08/04/24 05:46
RBC 3.40 10^6/uL (4.70-6.10) L 08/04/24 05:46
Hgb 10.0 g/dL (13.0-18.0) L 08/04/24 05:46
Hct 32.2 % (39.0-52.0) L 08/04/24 05:46
Plt Count 276 10^3/uL (130-400) 08/04/24 05:46
Sodium 148 mmol/L (135-145) H 08/04/24 05:46
Potassium 4.1 mmol/L (3.5-5.1) D 08/04/24 05:46
Chloride 115 mmol/L (98-107) H 08/04/24 05:46
Carbon Dioxide 25 mmol/L (22-30) 08/04/24 05:46
BUN 10 mg/dl (9-20) 08/04/24 05:46
Creatinine 1.1 mg/dL (0.7-1.3) 08/04/24 05:46
eGFR > 60.00 08/04/24 05:46
Glucose 91 mg/dl (70-99) 08/04/24 05:46
Calcium 9.1 mg/dl (8.4-10.2) 08/04/24 05:46
Phosphorus 3.8 mg/dl (2.5-4.5) 07/27/24 03:08
Laz-F-Aqszpmukfrb Pept 184 pg/ml 07/21/24 03:07
Albumin 3.0 g/dl (3.5-5.0) L 07/30/24 03:10
Physical Exam
-
Vital Signs:
Vital Signs
Temp Pulse Resp BP Pulse Ox
98.4 F 107 19 150/94 99
08/04/24 08:33 08/04/24 05:00 08/04/24 05:00 08/04/24 04:00 08/04/24 05:00
Cardiovascular:: Regular rate and rhythm
Respiratory:: Bilateral: Coarse
Lung Excursion:: Normal
Abdomen:: Nontender and Soft
Extremity Edema:: None: Bilateral: (trace)
[place] Catheter: No
[2024-08-04 12:03] LABS: Glucose - Point of Care 132 mg/dl (70-99)
[2024-08-04] MEDS: TENORMIN 25 MG PO (13:31)
[2024-08-04] MEDS: D5W 1000 IV (13:31)
--- NOTE | 2024-08-04 16:15 | W.PN.UPDATE ---
Update Note
Progress Note Update
49 y/o man seen by me for first time but who has been in the hospital for 21 days and has been followed by Psychiatry. He is now in IMU,has been extubated but is being followed by Nephrology and Pulmonology. He has a history of Bipolar
Disorder and treated by Aneudy Wu MD for many years. He apparently has been fairly stable in recent years, although in past had psych hospitalizations. 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
now unemployed. In good marriage; works for [employer].
He reports having had both depressive and manic episodes and psychosis.
He has been taken off of lithium due to toxic level and potentially effects on renal functioning. Has also been taken off of Luvox (was NPO). Was restarted on Latuda, but this was recently stopped as it may have been causing akathisia. He had
been on Seroquel with Latuda, presumably to help sleep. Seroquel has been continued and is being titrated -- now at 25 mg. AM and 125 mg. HS + PRN. Although Seroquel is associated with weight gain, he is on a relatively low dose and monotherapy
would be ideal of it will stabilize him.
He presents as a large man, mildly sedated, speech slightly slow, on O2 by NC. He apparently was very displaced in his bed and the nursing staff just adjusted his position and changed his bedding. Although he thought he heard goats one night, he
denies hallucinations and delusions. Does not seem to be paranoid at all. Cognition seems to be good. Fairly insightful.
I think it best to continue medications unchanged at this time. There may be a PRN of Zyprexa still ordered which I will discontinue.
Psychiatry will follow.
[2024-08-04] MEDS: LOVENOX 40 MG SC (17:43)
[2024-08-04] MEDS: LIPITOR 20 MG PO (17:43)
[2024-08-04 17:53] LABS: Glucose - Point of Care 112 mg/dl (70-99)
[2024-08-04 21:09] LABS: Glucose - Point of Care 123 mg/dl (70-99)
[2024-08-04] MEDS: SENOKOT 8.6 MG PO (21:47)
[2024-08-04] MEDS: SEROQUEL 100 MG PO (21:47)
[2024-08-05] VITALS (23 sets, daily range): BP systolic 78–127; BP diastolic 59–98; PULSE 2–76; O2SAT 91; BMI 32.9
[2024-08-05 06:45] LABS: Hematocrit 28.7 % (39.0-52.0); Hemoglobin 8.8 g/dL (13.0-18.0); Mean Corp Hgb Conc. 30.7 g/dL (33.0-37.0); Mean Corpuscular Hgb 29.4 pg (27.0-31.0); Mean Platelet Volume 9.9 fL (7.4-10.4); Platelet Count 301 10^3/uL (130-400); Red Blood Cell Count 2.99 10^6/uL (4.70-6.10); Red Cell Dist. Width 13.5 % (11.5-14.5)
[2024-08-05 07:17] LABS: Blood Urea Nitrogen 11 mg/dl (9-20); Calcium 8.9 mg/dl (8.4-10.2); Carbon Dioxide 30 mmol/L (22-30); Chloride 108 mmol/L (98-107); Estimated Creatinine Clearance 99 ml/min; Glucose 100 mg/dl (70-99); Potassium 3.9 mmol/L (3.5-5.1); Sodium 144 mmol/L (135-145); eGFR > 60.00
[2024-08-05 07:33] LABS: Glucose - Point of Care 85 mg/dl (70-99)
[2024-08-05] MEDS: NOVOLOG FLEXPEN-MODERATE RESISTANCE SC ×2 (07:53→17:44)
--- NOTE | 2024-08-05 07:54 | PN.DE.MGMTRT ---
Insulin Management
- -
08/05/2024: Diabetes Management Follow up
Patient admitted 07/14/24 via EMS as patient's found him lethargic and short of breath. He was admitted Flu A +, acute hypoxemic respiratory failure, requiring intubation and mechanical ventilation. PMH: HTN, Depression, bipolar and T2DM. Was
taking Zepbound 2.5mg weekly/ for weight loss. A1C 6.0%, Cr 2.9 on admission
Pt is awake and alert, mental status is improving but not at baseline, able to discuss diabetes care plan. Extubated 07/30. ESAU resolved, Cr 1.1, eGFR >60 today
Currently ordered moderate corrective insulin with meals, has required 0 units. Glucose range 77 to 132. Will make no change to corrective insulin.
Was taking Zepbound 2.5mg weekly/ for weight loss, may resume med at discharge.
Discussed with Nurse. Will cont to follow
Diabetes History
- -
Pre-Admission Diabetes Regimen
08/05/24
06:22
Creatinine 1.1
Lab Results
Hemoglobin A1c Cancelled 07/24/24 17:38
Insulin Pump Settings
IP Diabetes Regimen
08/04/24 08/04/24 08/04/24
08:06 11:51 17:41
Glucose
POC Glucose 77 132 H 112 H
08/04/24 08/05/24 08/05/24
20:57 06:22 07:22
Glucose 100 H
POC Glucose 123 H 85
Meal type: Dinner
Amount consumed: 0
Patient Education
[2024-08-05] MEDS: NORVASC 10 MG PO (07:55)
[2024-08-05] MEDS: COZAAR 50 MG PO ×2 (07:55→19:54)
[2024-08-05] MEDS: ORETIC 25 MG PO (07:56)
[2024-08-05] MEDS: LUVOX 50 MG PO (07:56)
[2024-08-05] MEDS: TYLENOL ORAL SOLUTION PO (07:56)
[2024-08-05] MEDS: TENORMIN 25 MG PO (07:56)
[2024-08-05] MEDS: SENOKOT 8.6 MG PO ×2 (07:56→19:54)
[2024-08-05] MEDS: MIRALAX 17 GRAMS TUBE (07:56)
[2024-08-05] MEDS: NICODERM TRANSDERMAL 21 MG TRANSDERM (07:56)
[2024-08-05] MEDS: SEROQUEL 25 MG PO ×2 (07:56→21:07)
--- NOTE | 2024-08-05 08:54 | W.PN.PUL3 ---
Today's Communication / Plan
-
PT/OT, out of bed to chair, ambulate
Assess oxygenation on room air, target saturation 90 to 92%
Off antibiotics
May require ABG depending on clinical course
Reviewed with respiratory care
Assessment
-
Patient is a 49-year-old gentleman with history of hypertension, depression, who was brought from home via EMS as patient's found him lethargic and short of breath. Patient reportedly had been sick for the last 3 to 4 days. Patient required
15 L via nasal cannula initially and was subsequently transition to BiPAP support as his initial saturations were around 60%. Patient responded well to BiPAP and was noted to have hypercapnia also. Overnight he continued to develop worsening
hypercapnia and inability to ventilate and oxygenate and required intubation and mechanical ventilation. Post ventilation, patient has been very difficult to oxygenate. He has been on 100% FiO2 and PEEP has been slowly increased all the way up to
18 now. His PF ratio continues to be severely low. He has been on deep sedation and also paralytics were initiated. Patient found to have influenza A screen positive.
#1. Influenza A with severe acute hypoxic respiratory failure. (Intubated 07/15-07/30/2024), complicated by VAP (Streptococcus Group F)
-Patient was initially on 15 L oxygen, subsequently transitioned to BiPAP and later intubated 07/15
-Prolonged stay on mechanical ventilation with use of paralytics, proning in view of severely reduced PF ratio as well as high PEEP up to 18.
-Stay was complicated by VAP due to Streptococcus F, initially treated with cefepime/Zosyn later transitioned to Unasyn along with stress dose steroids, currently off antibiotics
-07/30, patient tolerated pressure support well and was extubated to BiPAP. Kept him on alternating high flow nasal cannula versus BiPAP for the first 24 hours.
-Currently on nasal cannula during daytime and BiPAP at night
-As patient continues to improve, nightly BiPAP eventually can be weaned off in coming days. Requiring 8 L with BiPAP at night
-Saturating 100% on 6 L continue to wean. Check saturation on room air. Chest x-ray 07/29/2024 without acute findings
#2. ICU delirium vs Metabolic encephalopathy with underlying psychiatric history
- Gradually improving, currently on Seroquel nightly and as needed Zyprexa
- Psychiatry service on case
Other medical issues:
-ESAU, Improved
-Hypotension with Shock, resolved
-History of smoking. Patient might have underlying COPD. Out patient follow up with Pulmonary clinic
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 Out patient sleep study
PT/OT.
Speech therapy consult.
DVT prophylaxis with subcu heparin. GI prophylaxis with pantoprazole.
Subjective Data
-
Date of Service:
Date of Service: August 05, 2024
Subjective:
Patient appears fatigued but is without complaints. Denies significant cough, chest pain, abdominal pain, nausea. Tolerated BiPAP 16/10 with 8 L
currently on 6L 94%
Objective Data
Data Reviewed
Vital Signs / I&O / Oxygen:
Vital Signs
Temp Pulse Resp BP Pulse Ox
98.8 F 77 27 122/91 98
08/05/24 07:45 08/05/24 08:00 08/05/24 08:00 08/05/24 07:55 08/05/24 08:00
Intake and Output
08/04/24 08/05/24 08/06/24
06:59 06:59 06:59
Intake Total 3000 / 3000 840 / 840 300 / 300
Output Total 1200 / 1200
Balance 3000 / 3000 -360 / -360 300 / 300
SaO2 [ASV] 97
SaO2 [CPAP/PSV] 95
SaO2 [A/C] 96
SaO2 98
Nasal Cannula flow liters per 6
minute
Physical Exam
General: Comfortable and Other (RUE picc)
HEENT: Normocephalic
Cardiovascular: S1-S2, Regular Rhythm, Murmur (n) and Peripheral Edema (tr)
Respiratory: Clear
GI: Soft and Non Distended
Neurology: Awake, Alert and Other (generally fatigued)
Skin: Warm
Labs/Micro/Reports
Lab Data
08/05/24 06:22
08/05/24 06:22
--- NOTE | 2024-08-05 10:29 | W.PN.NEPH.PH ---
Today's Communication / Plan
-
BMP in the morning
Continue HCTZ
Assessment/Plan
-
Assessment
ESAU (unknown)
VDRF
InfA
HTN
Hypernatremia
polyuria
Plan
unable to tolerate off hypotonic fluids
U osmo low 159 suggest possible nephrogenic DI from Li use
Urine output decreased with addition of HCTZ
encourage po intake
he does report of having sodium issues, polyuria and polydipsia for long time
Sodium stable
BMP
-
-
Date of Service: August 05, 2024
CC / HPI / ROS
-
Chief Complaint:
ESAU
History of Present Illness:
ESAU/Cr stable
BP stable
Hypernatremia improved high normal
eating without issue
Review of Systems:
non oliguric /no polyuria
no CP/SOB
Labs
-
Labs:
WBC 11.0 10^3/uL (4.8-10.8) H 08/05/24 06:22
RBC 2.99 10^6/uL (4.70-6.10) L 08/05/24 06:22
Hgb 8.8 g/dL (13.0-18.0) L 08/05/24 06:22
Hct 28.7 % (39.0-52.0) L 08/05/24 06:22
Plt Count 301 10^3/uL (130-400) 08/05/24 06:22
Sodium 144 mmol/L (135-145) 08/05/24 06:22
Potassium 3.9 mmol/L (3.5-5.1) 08/05/24 06:22
Chloride 108 mmol/L (98-107) H 08/05/24 06:22
Carbon Dioxide 30 mmol/L (22-30) 08/05/24 06:22
BUN 11 mg/dl (9-20) 08/05/24 06:22
Creatinine 1.1 mg/dL (0.7-1.3) 08/05/24 06:22
eGFR > 60.00 08/05/24 06:22
Glucose 100 mg/dl (70-99) H 08/05/24 06:22
Calcium 8.9 mg/dl (8.4-10.2) 08/05/24 06:22
Phosphorus 3.8 mg/dl (2.5-4.5) 07/27/24 03:08
Vfr-E-Sfwrgabbhgd Pept 184 pg/ml 07/21/24 03:07
Albumin 3.0 g/dl (3.5-5.0) L 07/30/24 03:10
Physical Exam
-
Vital Signs:
Vital Signs
Temp Pulse Resp BP Pulse Ox
98.8 F 77 27 122/91 98
08/05/24 07:45 08/05/24 08:00 08/05/24 08:00 08/05/24 07:55 08/05/24 08:00
Cardiovascular:: Regular rate and rhythm
Respiratory:: Bilateral: Coarse
Lung Excursion:: Normal
Abdomen:: Nontender and Soft
Extremity Edema:: None: Bilateral: (trace)
Kilpatrick Catheter: Yes
[2024-08-05 11:33] LABS: Glucose - Point of Care 168 mg/dl (70-99)
--- NOTE | 2024-08-05 11:58 | RESPNOTE ---
1140 - Lowered nasal cannula from 5 lpm to 2lpm for an SPO2 of 94%. Will attempt room air trial later today.
[2024-08-05] MEDS: NOVOLOG FLEXPEN-MODERATE RESISTANCE 1 UNITS SC (12:09)
--- NOTE | 2024-08-05 12:10 | W.PN.HOSP.TC ---
Addendum entered and electronically signed by Renetta Yarbrough MD, Resident 08/05/24 14:11:
CT PE protocol positive for moderate volume pulmonary embolism with no right ventricular strain. Received [place] text update from radiology attending Dr. Styles. Starting the patient on heparin drip.
Addendum entered and electronically signed by Yo Brooks MD 08/05/24 14:09:
Seen and examined by me independently in collaboration with the medical receptionist.
Lab data and imaging data reviewed.
Addendum as below :
Patient is alert and oriented to self and place but not to the month of the day. He knew what year it was.
He is noted to be tachypneic. Was also noted yesterday. Today complains of some nonspecific discomfort in his chest. Loud P2 heard. Chest sounded clear to me today. Last chest x-ray 07/29 showed significant improved left basilar opacity which is
suspected atelectasis. He is on Lovenox but with loud P2 and unexplained tachypnea check D-dimer and it was elevated. Subsequent CT chest shows moderate volume PE. Started on IV heparin. Check an ultrasound of the legs.
Total time spent on today's encounter was 52 minutes which included time spent in counseling the patient/family regarding diagnosis and treatment plan as listed above, goals of care, and symptom management. Case was discussed with nursing staff,
specialists, and care coordinators/case management. All labs and imaging personally reviewed by me. Remainder the time spent in detailed review of previous records, lab data, imaging, and other medical provider documentation.
Original Note:
Today's Communication/Plan
-
Wean off of oxygen
PT OT, out of bed to chair, ambulate.
Discontinue sports bed for percussion therapy.
Oxygenation to maintain at 90 to 92%.
Continue HCTZ, BMP in the morning.
Assessment / Plan
Assessment / Plan
[id number]-old male with a PMHx significant for hypertension, depression presented to the hospital for acute onset shortness of breath, was diagnosed with influenza A associated ARDS, severe acute hypoxic respiratory failure complicated by
ventilator associated pneumonia.
Plan-
VRDF dependent acute hypoxic respiratory failure-
Secondary to influenza A, ventilator dependence resolved-extubated on 07/30/2024.
Course complicated by ventilator associated pneumonia-Streptococcus group F
S/p prolonged mechanical ventilation and paralytics, resulting in deep severe deconditioning.
Received cefepime/Zosyn that was later transitioned to Unasyn along with stress dosing of steroids-completed the course.
Currently patient is on BiPAP at night and mid flow nasal cannula during the daytime.
Plan to wean off BiPAP in the nighttime, continue to wean off oxygen to low-flow and room air as tolerated.
Currently weaned off of oxygen completely.
Patient continues to remain tachypneic, is complaining of mid chest pain that is not variable with breathing, D-dimer to rule out pulmonary embolism-no calf tenderness or erythema or swelling noted.
If elevated D-dimers plan to get a CT PE protocol.
ICU delirium versus metabolic encephalopathy
Gradually improving, currently on Seroquel nightly, a.m. Seroquel resumed by psychiatry.
As needed Zyprexa
Precedex discontinued
[place] on hold, psychiatry on board, fluvoxamine resumed, appreciate psychiatry help in management.
Avoid sedatives
ESAU
Improving -serum creatinine at 1.1, could be new baseline.
Nephrology following up, appreciate inputs.
Hypernatremia -
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
Nephrology following up, off of D5 drip yesterday-08/03/2024.
Currently 1 dose of D5 1000 mL of D5, and HCTZ.
Appreciate nephrology help with hyponatremia.
PT and OT on board
Reconsulted to get the patient up and walking.
Hypokalemia-
Replaced potassium in the a.m.
Trend serum potassium levels.
Hypertension-
Continue amlodipine 10 mg, losartan 50 mg twice daily resumed yesterday-08/03/2024.
HCTZ 25 added for hypernatremia
Trend blood pressures-continues to remain high.
Multifactorial anemia-
Continue iron supplementation via tube monitor CBC
Chronic pain syndrome-
Morphine milliequivalents of opioids-discontinued
patient is currently on oxycodone 7 out of 10 doses.
Rest of the oxycodones for breakthrough pain not discontinued.
Schizophrenia and bipolar disorder-
Psychiatry on board, dated psychiatry to reevaluate patient for lithium and psych regimen.
Currently lithium on hold given supratherapeutic levels and ESAU.
Goal lithium less than 0.7.
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
History of smoking
NRT -not on NRT, recommend management.
Circulatory shock-resolved.
Initial blood cultures from 07/15 and repeat from 07/19 remain negative.
Required pressors (Levophed) for hemodynamic support.
Insulin gtt. for uncontrolled blood sugars
Goal blood glucose 180-220
DVT prophylaxis-
Heparin subcu
CODE STATUS-
Full code.
Anticipated Discharge: > 48 hours
Subjective/Interval History
-
Date of Service: August 05, 2024
Patient reports feeling weak, chest pain, shortness of breath. His chest pain is right in the middle of discharge started about 2 hours ago, and is tachypneic.
His chest pain is nonradiating.
Objective Data
-
Labs:
Laboratory Results
08/05/24
06:22
WBC 11.0 H
Hgb 8.8 L
Hct 28.7 L
Plt Count 301
Sodium 144
Potassium 3.9
Chloride 108 H
Carbon Dioxide 30
BUN 11
Creatinine 1.1
Glucose 100 H
Calcium 8.9
Vital Signs:
Vital Signs
Temp Pulse Resp BP Pulse Ox
98.8 F 77 27 122/91 94
08/05/24 07:45 08/05/24 08:00 08/05/24 08:00 08/05/24 07:55 08/05/24 11:40
I&O
08/04/24 08/05/24 08/06/24
06:59 06:59 06:59
Intake Total 3000 / 3000 840 / 840 300 / 300
Output Total 1200 / 1200
Balance 3000 / 3000 -360 / -360 300 / 300
Review of Systems
-
History Source: Patient
Constitutional: Reports Fatigue
EENT: Reports No Symptoms Reported
Respiratory: Reports Trouble Breathing; Denies Cough
Cardiac: Reports Chest Pain; Denies Palpitations, PND or Orthopnea
Abdomen/GI: Reports No Symptoms
Genitourinary: Reports No Symptoms
Musculoskeletal: Reports Muscle Pain
Skin: Reports No Symptoms
Neuro: Reports No Symptoms
Endocrine: Reports No Symptoms
Hematologic / Lymphatic: Reports No Symptoms
Physical Exam
-
General: No Apparent Distress and Comfortable
HEENT: Moist Mucous Membranes
Respiratory: Clear to Auscultation; Negative Wheezes, Rales, Rhonchi or Crackles
Cardiac: Regular Rhythm and S1/S2; Negative Murmur, Rub or Gallop
GI: Soft, Nontender, Nondistended and Normal Bowel Sounds
Genito-urinary: No Costovertebral Tender
Musculoskeletal: No Clubbing, No Cyanosis and No Edema
Skin: Warm
Neuro: AO x 3 and No Motor Deficits
Psych: Calm
Data Reviewed
-
CT Scan: Image personally visualized and interpreted, Report Reviewed by me and Discussed with Physician
Medical Tests (Nuc Med, Echo etc): Report Reviewed by me and Discussed with Physician
Labs: Labs Reviewed by me and Discussed with Physician
[2024-08-05 12:29] LABS: D-Dimer 6.21 ug/mlFEU (0.00-0.50)
[2024-08-05] MEDS: TYLENOL ORAL SOLUTION 650 MG PO (12:49)
[2024-08-05 14:36] LABS: Hematocrit 29.4 % (39.0-52.0); Hemoglobin 9.3 g/dL (13.0-18.0); Mean Corp Hgb Conc. 31.6 g/dL (33.0-37.0); Mean Corpuscular Volume 94.8 fL (80.0-94.0); Mean Platelet Volume 9.9 fL (7.4-10.4); Platelet Count 274 10^3/uL (130-400); Red Cell Dist. Width 13.5 % (11.5-14.5); White Blood Cell Count 10.9 10^3/uL (4.8-10.8)
[2024-08-05 15:05] LABS: APTT 35.8 Sec (23.4-35.0)
[2024-08-05] MEDS: HEPARIN 8300 UNITS IV (15:28)
[2024-08-05] MEDS: HEPARIN 25000 UNITS/250 ML IV (15:33)
--- NOTE | 2024-08-05 15:43 | RESPNOTE ---
1535 - Patient tested for a PE on CAT scan this afternoon. On 2 lpm patient desated into 80's per RN. I increased nasal cannula from 2 lpm to 3 lpm for an SPO2 of 93%.
[2024-08-05 16:50] LABS: Glucose - Point of Care 90 mg/dl (70-99)
--- NOTE | 2024-08-05 19:51 | PTCARENOTE ---
This RN cannot verify accuracy of VS saved prior to 19:00.
[2024-08-05] MEDS: LIPITOR 20 MG PO (21:07)
[2024-08-05] MEDS: SEROQUEL 100 MG PO (21:07)
[2024-08-05 21:45] LABS: Glucose - Point of Care 133 mg/dl (70-99)
[2024-08-05 22:18] LABS: APTT 83.4 Sec (23.4-35.0)
[2024-08-06] VITALS (15 sets, daily range): BP systolic 104–151; BP diastolic 67–99; PULSE 2–82; O2SAT 93
--- NOTE | 2024-08-06 00:22 | PTCARENOTE ---
Confirmed with previous RN that 18:00 lipitor had not been given. Dose given by this RN at documented time. Pt agreeable to wear BiPAP HS. Pt not restrained at this time, tolerating mask. Denies complaints at this time. Bed alarm in place for pt
safety. Call cook within reach.
[2024-08-06] MEDS: HEPARIN 25000 UNITS/250 ML IV (04:36)
[2024-08-06 05:22] LABS: APTT 68.6 Sec (23.4-35.0)
[2024-08-06 05:31] LABS: Blood Urea Nitrogen 14 mg/dl (9-20); Calcium 8.8 mg/dl (8.4-10.2); Carbon Dioxide 27 mmol/L (22-30); Chloride 108 mmol/L (98-107); Estimated Creatinine Clearance 91 ml/min; Glucose 106 mg/dl (70-99); Sodium 143 mmol/L (135-145); eGFR > 60.00
[2024-08-06] MEDS: HEPARIN 4200 UNITS IV (06:01)
--- NOTE | 2024-08-06 08:08 | PN.DE.MGMTRT ---
Insulin Management
- -
08/06/2024: Diabetes Management Follow up
Patient admitted 07/14/24 via EMS as patient's found him lethargic and short of breath. He was admitted Flu A +, acute hypoxemic respiratory failure, requiring intubation and mechanical ventilation. PMH: HTN, Depression, bipolar and T2DM. Was
taking Zepbound 2.5mg weekly/ for weight loss. A1C 6.0%, Cr 2.9 on admission
Pt is awake and alert, mental status is improving but not at baseline, aware of surroundings, but not date/time, able to discuss diabetes care plan. Extubated 07/30. ESAU resolved, Cr 1.1, eGFR >60 today. s/p chest CT - bilateral PE; s/p peripheral
vascular ultrasound - bilateral DVT L > R.
Currently ordered moderate corrective insulin with meals, has required 1 unit. Glucose range 86 to 168. Will make no change to corrective insulin.
Was taking Zepbound 2.5mg weekly/ for weight loss, may resume med at discharge.
Discussed with Nurse. Will cont to follow
Diabetes History
- -
Type of Diabetes: 2
Pre-Admission Diabetes Regimen
08/06/24
04:50
Creatinine 1.2
Lab Results
Hemoglobin A1c Cancelled 07/24/24 17:38
Insulin Pump Settings
IP Diabetes Regimen
08/05/24 08/05/24 08/05/24
11:21 16:38 21:33
Glucose
POC Glucose 168 H 90 133 H
08/06/24
04:50
Glucose 106 H
POC Glucose
Meal type: Breakfast
Amount consumed: 100%
Patient Education
[2024-08-06] MEDS: TENORMIN PO (08:18)
[2024-08-06] MEDS: NOVOLOG FLEXPEN-MODERATE RESISTANCE SC ×2 (08:18→13:18)
[2024-08-06] MEDS: NICODERM TRANSDERMAL 21 MG TRANSDERM (08:19)
[2024-08-06] MEDS: ORETIC 25 MG PO (08:20)
[2024-08-06] MEDS: MIRALAX 17 GRAMS TUBE (08:20)
[2024-08-06] MEDS: LUVOX 50 MG PO (08:21)
[2024-08-06] MEDS: SENOKOT 8.6 MG PO ×2 (08:21→19:38)
[2024-08-06] MEDS: SEROQUEL 25 MG PO ×2 (08:21→21:27)
[2024-08-06] MEDS: FEOSOL 325 MG PO (08:23)
--- NOTE | 2024-08-06 08:30 | W.PN.HOSP.TC ---
Today's Communication/Plan
-
Physiatry consult.
Switch to Eliquis in the evening.
10 mg of Eliquis twice daily for 14 doses.
PT and OT.
Assessment / Plan
Assessment / Plan
[id number] male with a PMHx significant for hypertension, depression presented to the hospital for acute onset shortness of breath, was diagnosed with influenza A associated ARDS, severe acute hypoxic respiratory failure complicated by
ventilator associated pneumonia.
Plan-
Acute PE-
CT chest positive for moderate pulmonary embolism.
Echocardiogram with no evidence of right ventricular strain.
Patient was started on heparin drip yesterday.
Plan to discontinue heparin drip at 6 PM, and resume 10 mg of Eliquis twice a day for 14 doses.
Antiphospholipid antibody syndrome workup pending.
Peripheral vascular ultrasound showed bilateral DVT left greater than right.
Downgrade to telemetry,
Advance diet to regular.
Acute deconditioning-
Secondary to prolonged ICU stay, and intubation.
PT and OT recommended acute rehab.
Dr. Apodaca consulted.
VRDF dependent acute hypoxic respiratory failure-
Secondary to influenza A, ventilator dependence resolved-extubated on 07/30/2024.
Course complicated by ventilator associated pneumonia-Streptococcus group F
S/p prolonged mechanical ventilation and paralytics, resulting in deep severe deconditioning.
Received cefepime/Zosyn that was later transitioned to Unasyn along with stress dosing of steroids-completed the course.
Currently patient is on BiPAP at night and mid flow nasal cannula during the daytime.
Plan to wean off BiPAP in the nighttime, continue to wean off oxygen to low-flow and room air as tolerated.
Currently weaned off of oxygen completely.
ICU delirium versus metabolic encephalopathy
Gradually improving, currently on Seroquel nightly, a.m. Seroquel resumed by psychiatry.
As needed Zyprexa.
Patient did not have any episodes of agitation overnight yesterday. Delirium likely resolving.
Precedex discontinued
[place] on hold, psychiatry on board, fluvoxamine resumed, appreciate psychiatry help in management.
Avoid sedatives
ESAU
Improving -serum creatinine at 1.1, could be new baseline.
Nephrology following up, appreciate inputs.
Hypernatremia -
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
Nephrology following up, off of D5 drip yesterday-08/03/2024.
D5 discontinued and currently remains on HCTZ. HCTZ.
Appreciate nephrology help with hyponatremia.
Patient currently with urine output of 2.9 L, heading towards free water deficit again.
PT and OT on board
Reconsulted to get the patient up and walking.
Hypokalemia-
Resolved.
Trend serum potassium levels.
Hypertension-
Continue amlodipine 10 mg, losartan 50 mg twice daily resumed yesterday-08/03/2024.
HCTZ 25 added for hypernatremia
Added holding parameters on losartan, discontinued home dose of atenolol-likely contributing to his bradycardia.
Also in the addition of HCTZ likely driving his soft blood pressures.
Trend blood pressures-continues to remain high.
Multifactorial anemia-
Continue iron supplementation via tube monitor CBC
Chronic pain syndrome-
Morphine milliequivalents of opioids-discontinued
patient is currently on oxycodone 7 out of 10 doses.
Rest of the oxycodones for breakthrough pain not discontinued.
Schizophrenia and bipolar disorder-
Psychiatry on board, dated psychiatry to reevaluate patient for lithium and psych regimen.
Currently lithium on hold given supratherapeutic levels and ESAU.
Latuda discontinued for akathisia.
Goal lithium less than 0.7.
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
History of smoking
NRT -not on NRT, recommend management.
Circulatory shock-resolved.
Initial blood cultures from 07/15 and repeat from 07/19 remain negative.
Required pressors (Levophed) for hemodynamic support.
Insulin gtt. for uncontrolled blood sugars
Goal blood glucose 180-220
DVT prophylaxis-
Heparin subcu
CODE STATUS-
Full code.
Anticipated Discharge: 24 - 48 hours
Subjective/Interval History
-
Date of Service: August 06, 2024
Patient reports no symptoms today, he is stable, denies having shortness of breath or discomfort. No episodes of loose stools.
Objective Data
-
Labs:
Laboratory Results
08/05/24 08/06/24 08/06/24
21:55 04:50 12:00
APTT 83.4 H 68.6 H Pending
Sodium 143
Potassium 4.0
Chloride 108 H
Carbon Dioxide 27
BUN 14
Creatinine 1.2
Glucose 106 H
Calcium 8.8
Vital Signs:
Vital Signs
Temp Pulse Resp BP Pulse Ox
98.5 F 74 17 110/85 98
08/06/24 03:14 08/06/24 08:20 08/06/24 06:06 08/06/24 08:20 08/06/24 06:06
I&O
08/05/24 08/06/24 08/07/24
06:59 06:59 06:59
Intake Total 840 / 840 420 / 420
Output Total 1200 / 1200 2925 / 2925
Balance -360 / -360 -2505 / -2505
Review of Systems
-
History Source: Patient
Constitutional: Reports No Symptoms
Respiratory: Reports No Symptoms
Abdomen/GI: Reports No Symptoms
Genitourinary: Reports No Symptoms
Musculoskeletal: Reports No Symptoms
Neuro: Reports No Symptoms
Endocrine: Reports No Symptoms
Allergy / Immunology: Reports No Symptoms
Physical Exam
-
General: No Apparent Distress and Comfortable (On 4 L mid flow nasal cannula.)
HEENT: Moist Mucous Membranes, Anicteric and [place] Conjunctivae
Respiratory: Clear to Auscultation; Negative Wheezes, Rales, Rhonchi or Crackles
Cardiac: Regular Rhythm and S1/S2 (loud p2); Negative Murmur, Rub or Gallop
GI: Soft, Nontender, Nondistended and Normal Bowel Sounds
Genito-urinary: No Costovertebral Tender
Musculoskeletal: No Clubbing, No Cyanosis and No Edema
Skin: Warm
Neuro: AO x 3 and No Motor Deficits
Psych: Calm
Data Reviewed
-
Medical Tests (Nuc Med, Echo etc): Image personally visualized and interpreted
Labs: Labs Reviewed by me, Discussed with Physician and Discussed with Nurse
--- NOTE | 2024-08-06 09:45 | W.PN.PUL3 ---
Today's Communication / Plan
-
Patient appears to be comfortable
Oxygen requirement noted, required 10 L with sleep on BiPAP
CT chest with bilateral PE, Doppler bilateral DVT
Continue heparin therapy
Obtain baseline EKG. consider echocardiogram depending on clinical course
Echocardiogram 07/21/2024 with normal biventricular function
Assessment
-
Patient is a 49-year-old gentleman with history of hypertension, depression, who was brought from home via EMS as patient's found him lethargic and short of breath. Patient reportedly had been sick for the last 3 to 4 days. Patient required
15 L via nasal cannula initially and was subsequently transition to BiPAP support as his initial saturations were around 60%. Patient responded well to BiPAP and was noted to have hypercapnia also. Overnight he continued to develop worsening
hypercapnia and inability to ventilate and oxygenate and required intubation and mechanical ventilation. Post ventilation, patient has been very difficult to oxygenate. He has been on 100% FiO2 and PEEP has been slowly increased all the way up to
18 now. His PF ratio continues to be severely low. He has been on deep sedation and also paralytics were initiated. Patient found to have influenza A screen positive.
#1. Influenza A with severe acute hypoxic respiratory failure. (Intubated 07/15-07/30/2024), complicated by VAP (Streptococcus Group F)
-Patient was initially on 15 L oxygen, subsequently transitioned to BiPAP and later intubated 07/15
-Prolonged stay on mechanical ventilation with use of paralytics, proning in view of severely reduced PF ratio as well as high PEEP up to 18.
-Stay was complicated by VAP due to Streptococcus F, initially treated with cefepime/Zosyn later transitioned to Unasyn along with stress dose steroids, currently off antibiotics
-07/30, patient tolerated pressure support well and was extubated to BiPAP. Kept him on alternating high flow nasal cannula versus BiPAP for the first 24 hours.
-Currently on nasal cannula during daytime and BiPAP at night
-As patient continues to improve, nightly BiPAP eventually can be weaned off in coming days. Requiring 10 L with BiPAP at night
-Saturating 100% on 6 L continue to wean. 90% on room air. Chest x-ray 07/29/2024 without acute findings
#2. ICU delirium vs Metabolic encephalopathy with underlying psychiatric history
- Gradually improving, currently on Seroquel nightly and as needed Zyprexa
- Psychiatry service on case
#3. Acute PE
- Patient with increased tachypnea yesterday, persistent oxygen requirement despite normal chest x-ray, normal exam. CTA consistent with bilateral PE, ordered by primary service. Bilateral lower extremity DVT also noted. Heparin started
- Follow clinically. Will obtain baseline EKG. Of note echocardiogram 07/21/2024 with normal biventricular function, pressures could not be determined
Other medical issues:
-ESAU, Improved
-Hypotension with Shock, resolved
-History of smoking. Patient might have underlying COPD. Out patient follow up with Pulmonary clinic
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 Out patient sleep study
PT/OT.
Speech therapy consult.
DVT prophylaxis with subcu heparin. GI prophylaxis with pantoprazole.
Subjective Data
-
Date of Service:
Date of Service: August 06, 2024
Subjective:
Primary complaint is fatigue. Patient denies chest pain, lightheadedness, significant cough, abdominal pain. Tolerated BiPAP 16/10, required 10 L
Objective Data
Data Reviewed
Vital Signs / I&O / Oxygen:
Vital Signs
Temp Pulse Resp BP Pulse Ox
98.2 F 74 17 110/85 98
08/06/24 07:10 08/06/24 08:20 08/06/24 06:06 08/06/24 08:20 08/06/24 06:06
Intake and Output
08/05/24 08/06/24 08/07/24
06:59 06:59 06:59
Intake Total 840 / 840 420 / 420
Output Total 1200 / 1200 2925 / 2925 775 / 775
Balance -360 / -360 -2505 / -2505 -775 / -775
SaO2 [ASV] 97
SaO2 [CPAP/PSV] 95
SaO2 [A/C] 96
SaO2 98
Nasal Cannula flow liters per 6
minute
Physical Exam
General: Comfortable and Other (RUE picc)
HEENT: Normocephalic
Cardiovascular: S1-S2, Regular Rhythm, Murmur (n) and Peripheral Edema (tr)
Respiratory: Clear, Crackles (n), Rhonchi (n) and Non-Labored Respirations
GI: Soft and Non Distended
Neurology: Awake, Alert, Oriented and Other (generally fatigued)
Skin: Warm and Rash (n)
Labs/Micro/Reports
Lab Data
08/05/24 14:24
08/06/24 04:50
Laboratory Results
08/05/24 08/05/24 08/06/24
14:24 21:55 04:50
APTT 35.8 H 83.4 H 68.6 H
Microbiology
08/05/24 08:11 Blood/Venous Blood Culture - Preliminary
No Growth in 24 hours- Final report to follow
08/05/24 06:22 Blood/Venous Blood Culture - Preliminary
No Growth in 24 hours- Final report to follow
--- NOTE | 2024-08-06 10:39 | W.PN.NEPH.PH ---
Today's Communication / Plan
-
follow labs on HCTZ
Assessment/Plan
-
Assessment
ESAU (unknown)
VDRF
InfA
HTN
Hypernatremia
polyuria
Plan:
sodium stable on HCTZ
noted PE and DVT on heparin gtt
stable renal function
U osmo was low 159 suggest possible nephrogenic DI from Li use
encourage po intake
cotn O2 support-pulm follows
Bp are low end-holding CCB and BB(low HR)
d/w pt and primary
d/w nursing
labs in am
-
-
Date of Service: August 06, 2024
CC / HPI / ROS
-
Chief Complaint:
ESAU
History of Present Illness:
ESAU/Cr stable
BP was low on 08/05 but stable today
Hypernatremia improved na 143
eating without issue
on 2lit of O2
Review of Systems:
non oliguric /no polyuria with ashford
no CP
no sob at rest
Labs
-
Labs:
WBC 10.9 10^3/uL (4.8-10.8) H 08/05/24 14:24
RBC 3.10 10^6/uL (4.70-6.10) L 08/05/24 14:24
Hgb 9.3 g/dL (13.0-18.0) L 08/05/24 14:24
Hct 29.4 % (39.0-52.0) L 08/05/24 14:24
Plt Count 274 10^3/uL (130-400) 08/05/24 14:24
Sodium 143 mmol/L (135-145) 08/06/24 04:50
Potassium 4.0 mmol/L (3.5-5.1) 08/06/24 04:50
Chloride 108 mmol/L (98-107) H 08/06/24 04:50
Carbon Dioxide 27 mmol/L (22-30) 08/06/24 04:50
BUN 14 mg/dl (9-20) 08/06/24 04:50
Creatinine 1.2 mg/dL (0.7-1.3) 08/06/24 04:50
eGFR > 60.00 08/06/24 04:50
Glucose 106 mg/dl (70-99) H 08/06/24 04:50
Calcium 8.8 mg/dl (8.4-10.2) 08/06/24 04:50
Phosphorus 3.8 mg/dl (2.5-4.5) 07/27/24 03:08
Jwt-E-Slmybwkefiu Pept 184 pg/ml 07/21/24 03:07
Albumin 3.0 g/dl (3.5-5.0) L 07/30/24 03:10
Physical Exam
-
Vital Signs:
Vital Signs
Temp Pulse Resp BP Pulse Ox
98.2 F 74 17 110/85 92
08/06/24 07:10 08/06/24 08:20 08/06/24 06:06 08/06/24 08:20 08/06/24 09:45
Cardiovascular:: Regular rate and rhythm
Respiratory:: Bilateral: Coarse
Lung Excursion:: Normal
Abdomen:: Nontender and Soft
Extremity Edema:: None: Bilateral:
Ashford Catheter: Yes
--- NOTE | 2024-08-06 11:28 | CM ---
Addendum entered by Ct Mak RN 08/06/24 16:10:
CM Consult: Cost Eliquis
Spoke with pharmacist, DAVID Mukherjee; Eliquis is $50/month.
Spoke with patient's Kassandra; ok with cost of Eliquis with $10/month copay card- informed her CM will leave at bedside for her tomorrow. Explained copay card activation and instruction to use on first fill of med.
Resident Linnea notified patient's ok with Eliquis cost with plan to provide copay card.
Plan provide Eliquis Copay Card.
Plan follow up after seen by Physiatry.
Original Note:
Patient with Dx bilateral PE/influenza A s/p extubation, ICU delirium vs metabolic encephalopathy with underlying psych Hx. O2 2L. BiPAP HS. Receiving Heparin gtt. Dysphagia diet. Per nurse; A/O. PT/OT recommend SNF vs Acute Rehab. Physiatry
Consult pending.
Messages with Resident Linnea; she feels he is doing much better and they are planning on discharging him by Sunday. Physiatry Consult ordered and CM spoke with Tal.
Spoke with Tal Humphries Liaison; they will review the referral.
Spoke with patient's Kassandra; feels patient is improving and she is aware that he will need rehab. Kassandra is interested in [facility]. Answered her questions about the insurance process for acute rehab.
Plan follow up after seen by Physiatry.
[2024-08-06 13:00] LABS: Glucose - Point of Care 102 mg/dl (70-99)
--- NOTE | 2024-08-06 15:56 | W.PN.UPDATE ---
Update Note
Progress Note Update
patient seen chart reviewed. this patient is known to me from the time of his admit. while he has suffered complications of influenza pneumonia including dvt and pe from the perspective of this software writer who saw him intubated on admit he appears much
improved. nursing tells me he had some moments in the past 24 hours where he was confused but this afternoon he was able to engage in appropriate conversation about his psych illness and treatment. his psych hx includes mood instability ocd sx
depression and anxiety. he has seen dr turcios for many years. he is aware of the issue w lithium at the start of his stay here. he is feeling comfortable so far on current meds . latuda was recommended by this software writer but he felt restless which was
attributed to akathisia and he was started on seroquel my only caveat is that seroquel does prolong qtc and his qtc has lengthened and is now 495. would recheck frequently. would not use seroquel prn at this point . dc'ed zyprexa im prn and
seroquel prn. would use ativan if non medical alternatives do not work if patient gets agitated which hopefully is not likely at this point. patient expressed dismay that he feels lacking in energy and strength. encouraged him to be patient. his
body and mind have been through a great ordeal and i reassured him he has made progress already but it will take some time. will follow
--- NOTE | 2024-08-06 16:37 | W.PN.UPDATE ---
Update Note
Progress Note Update
Seen and examined by me independently in collaboration with the medical genetics director.
Lab data and imaging data reviewed.
Addendum as below :
Patient feels improved with the breathing. Oxygenating okay on 2 L of nasal cannula. Hemodynamically stable. H&H stable. Ultrasound leg positive for DVT. Echocardiogram pending. Continue with IV heparin and check for the cost of Eliquis.
Pulmonary following.
Continue the physical therapy.
Transferred to telemetry.
--- NOTE | 2024-08-06 16:57 | DOWNTIME ---
There was a [employer] 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 Downtime documentation of patient's care, including medication administrations, has been reconciled in the electronic record per guidelines. Refer to the
patient's paper chart under the miscellaneous tab to see printed paper medication records and downtime forms.
[2024-08-06 17:14] LABS: APTT 85.4 Sec (23.4-35.0)
--- NOTE | 2024-08-06 18:01 | PTCARENOTE ---
Pt oriented today, calm, cooeprative. OOB to chair x2 assist, now back to bed. Resting comfortably
[2024-08-06 18:04] LABS: Glucose - Point of Care 173 mg/dl (70-99)
[2024-08-06] MEDS: NOVOLOG FLEXPEN-MODERATE RESISTANCE 1 UNITS SC (18:07)
[2024-08-06] MEDS: LIPITOR 20 MG PO (18:09)
[2024-08-06] MEDS: ELIQUIS 10 MG PO (18:09)
[2024-08-06] MEDS: COZAAR 50 MG PO (19:38)
--- NOTE | 2024-08-06 19:50 | PTCARENOTE ---
This RN cannot verify accuracy of VS prior to start of shift at 19:00.
[2024-08-06] MEDS: SEROQUEL 100 MG PO (21:27)
--- NOTE | 2024-08-06 21:32 | PTCARENOTE ---
Pt received from IMU RN. Pt pulled into bed from IMU bed. Pt AAOx3, receptive to room and call cook. Pt bed in lowest position and call cook within reach. Pt educated on importance of call cook usage, pt relays understanding and cooperation. Will
continue with current plan of care.
[2024-08-06 22:16] LABS: Glucose - Point of Care 179 mg/dl (70-99)
[2024-08-07] VITALS (8 sets, daily range): BP systolic 93–119; BP diastolic 58–91; PULSE 2–86; O2SAT 91
[2024-08-07 07:53] LABS: Hematocrit 28.5 % (39.0-52.0); Mean Corp Hgb Conc. 31.6 g/dL (33.0-37.0); Mean Corpuscular Hgb 29.3 pg (27.0-31.0); Mean Corpuscular Volume 92.8 fL (80.0-94.0); Mean Platelet Volume 9.9 fL (7.4-10.4); Platelet Count 161 10^3/uL (130-400); Red Blood Cell Count 3.07 10^6/uL (4.70-6.10); Red Cell Dist. Width 13.4 % (11.5-14.5); White Blood Cell Count 6.6 10^3/uL (4.8-10.8)
[2024-08-07] MEDS: LUVOX 50 MG PO (08:04)
[2024-08-07] MEDS: ORETIC 25 MG PO (08:04)
--- NOTE | 2024-08-07 08:04 | PN.DE.MGMTRT ---
Insulin Management
- -
08/07/2024: Diabetes Management Follow up
Patient admitted 07/14/24 via EMS as patient's found him lethargic and short of breath. He was admitted Flu A +, acute hypoxemic respiratory failure, requiring intubation and mechanical ventilation. PMH: HTN, Depression, bipolar and T2DM. Was
taking Zepbound 2.5mg weekly/ for weight loss. A1C 6.0%, Cr 2.9 on admission
Pt is awake and alert, mental status is improving, able to discuss diabetes care plan. Extubated 07/30. ESAU resolved, Cr 1.1, eGFR >60 today. s/p chest CT - bilateral PE; s/p peripheral vascular ultrasound - bilateral DVT L > R.
Currently ordered moderate corrective insulin with meals, has required 1 unit. Glucose range 106 to 179. Will make no change to corrective insulin. Diet changed to Regular, will change to 2000 calories.
Was taking Zepbound 2.5mg weekly/ for weight loss, may resume med at discharge.
Discussed with Nurse. Will cont to follow
Diabetes History
- -
Type of Diabetes: 2
Pre-Admission Diabetes Regimen
Lab Results
Hemoglobin A1c Cancelled 07/24/24 17:38
Insulin Pump Settings
IP Diabetes Regimen
08/06/24 08/06/24 08/06/24
12:48 17:52 22:04
POC Glucose 102 H 173 H 179 H
Patient Education
[2024-08-07] MEDS: SEROQUEL 25 MG PO ×2 (08:05→21:31)
[2024-08-07] MEDS: SENOKOT 8.6 MG PO ×2 (08:05→20:19)
[2024-08-07] MEDS: ELIQUIS 10 MG PO ×2 (08:05→20:19)
[2024-08-07] MEDS: NICODERM TRANSDERMAL 21 MG TRANSDERM (08:06)
[2024-08-07] MEDS: MIRALAX 17 GRAMS TUBE (08:08)
[2024-08-07 08:13] LABS: Glucose - Point of Care 91 mg/dl (70-99)
[2024-08-07] MEDS: COZAAR 50 MG PO ×2 (08:38→20:19)
[2024-08-07] MEDS: NOVOLOG FLEXPEN-MODERATE RESISTANCE SC ×3 (08:38→17:18)
[2024-08-07 10:10] LABS: Blood Urea Nitrogen 13 mg/dl (9-20); Calcium 8.6 mg/dl (8.4-10.2); Carbon Dioxide 29 mmol/L (22-30); Chloride 107 mmol/L (98-107); Estimated Creatinine Clearance 91 ml/min; Glucose 104 mg/dl (70-99); Potassium 3.5 mmol/L (3.5-5.1); Sodium 141 mmol/L (135-145); eGFR > 60.00
--- NOTE | 2024-08-07 10:25 | W.PN.HOSP.TC ---
Addendum entered and electronically signed by Yo Brooks MD 08/07/24 13:08:
Seen and examined by me independently in collaboration with the medical office rep.
Lab data and imaging data reviewed.
Addendum as below :
Improved shortness of breath. No chest pain. Improving oxygenation-currently on 2 L. Wean as able.
Anticoagulation transfer send and to [facility] now.
Await manager of selection and assessment input.
Start discharge plan.
Original Note:
Today's Communication/Plan
-
Pending physiatry evaluation.
Continue Eliquis 10 mg twice daily-s/p 2 doses
Stable, plan for discharge.
Assessment / Plan
Assessment / Plan
[id number]-old male with a PMHx significant for hypertension, depression presented to the hospital for acute onset shortness of breath, was diagnosed with influenza A associated ARDS, severe acute hypoxic respiratory failure complicated by
ventilator associated pneumonia.
Plan-
Acute PE-
CT chest positive for moderate pulmonary embolism.
Echocardiogram with no evidence of right ventricular strain.
Patient was started on heparin drip yesterday.
Plan to discontinue heparin drip at 6 PM, and resume 10 mg of Eliquis twice a day for 14 doses.
Antiphospholipid antibody syndrome workup pending.
Peripheral vascular ultrasound showed bilateral DVT left greater than right.
Downgrade to telemetry,
Advance diet to regular.
Acute deconditioning-
Secondary to prolonged ICU stay, and intubation.
PT and OT recommended acute rehab.
Dr. Apodaca consulted.
VRDF dependent acute hypoxic respiratory failure-
Secondary to influenza A, ventilator dependence resolved-extubated on 07/30/2024.
Course complicated by ventilator associated pneumonia-Streptococcus group F
S/p prolonged mechanical ventilation and paralytics, resulting in deep severe deconditioning.
Received cefepime/Zosyn that was later transitioned to Unasyn along with stress dosing of steroids-completed the course.
Currently patient is on BiPAP at night and mid flow nasal cannula during the daytime.
Plan to wean off BiPAP in the nighttime, continue to wean off oxygen to low-flow and room air as tolerated.
Currently weaned off of oxygen completely.
ICU delirium versus metabolic encephalopathy
Gradually improving, currently on Seroquel nightly, a.m. Seroquel resumed by psychiatry.
As needed Zyprexa.
Patient did not have any episodes of agitation overnight yesterday. Delirium likely resolving.
Precedex discontinued
[facility] on hold, psychiatry on board, fluvoxamine resumed, appreciate psychiatry help in management.
Avoid sedatives
ESAU
Improving -serum creatinine at 1.1, could be new baseline.
Nephrology following up, appreciate inputs.
Hypernatremia -
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
Nephrology following up, off of D5 drip yesterday-08/03/2024.
D5 discontinued and currently remains on HCTZ. HCTZ.
Appreciate nephrology help with hyponatremia.
Patient currently with urine output of 2.9 L, heading towards free water deficit again.
PT and OT on board
Reconsulted to get the patient up and walking.
Hypokalemia-
Resolved.
Trend serum potassium levels.
Hypertension-
Continue amlodipine 10 mg, losartan 50 mg twice daily resumed yesterday-08/03/2024.
HCTZ 25 added for hypernatremia
Added holding parameters on losartan, discontinued home dose of atenolol-likely contributing to his bradycardia.
Also in the addition of HCTZ likely driving his soft blood pressures.
Trend blood pressures-continues to remain high.
Multifactorial anemia-
Continue iron supplementation via tube monitor CBC
Chronic pain syndrome-
Morphine milliequivalents of opioids-discontinued
patient is currently on oxycodone 7 out of 10 doses.
Rest of the oxycodones for breakthrough pain not discontinued.
Schizophrenia and bipolar disorder-
Psychiatry on board, dated psychiatry to reevaluate patient for lithium and psych regimen.
Currently lithium on hold given supratherapeutic levels and ESAU.
Latuda discontinued for akathisia.
Goal lithium less than 0.7.
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
History of smoking
NRT -not on NRT, recommend management.
Circulatory shock-resolved.
Initial blood cultures from 07/15 and repeat from 07/19 remain negative.
Required pressors (Levophed) for hemodynamic support.
Insulin gtt. for uncontrolled blood sugars
Goal blood glucose 180-220
DVT prophylaxis-
Heparin subcu
CODE STATUS-
Full code.
Anticipated Discharge: Within 24 hours
Subjective/Interval History
-
Date of Service: August 07, 2024
Neil is complaining of right-sided back pain in his mid back, attributing it change in the bed and uncomfortable positioning in the bed overnight. He reports his pain to be nonradiating, spasmodic and intermittent. He is frustrated that he feels
weak on his legs and it is difficult for him to walk. He reports that his shortness of breath improved.
Objective Data
-
Labs:
Laboratory Results
08/07/24
06:37
WBC 6.6
Hgb 9.0 L
Hct 28.5 L
Plt Count 161 D
Sodium 141
Potassium 3.5
Chloride 107
Carbon Dioxide 29
BUN 13
Creatinine 1.2
Glucose 104 H
Calcium 8.6
Vital Signs:
Vital Signs
Temp Pulse Resp BP Pulse Ox
98.0 F 77 20 113/64 97
08/07/24 07:30 08/07/24 07:30 08/07/24 07:30 08/07/24 07:30 08/07/24 07:35
I&O
08/06/24 08/07/24 08/08/24
06:59 06:59 06:59
Intake Total 420 / 420 120 / 120
Output Total 2925 / 2925 2074
Balance -2505 / -2505 -1954 /
Review of Systems
-
History Source: Patient
Constitutional: Reports Fatigue
EENT: Reports No Symptoms Reported
Respiratory: Reports Trouble Breathing
Cardiac: Reports No Symptoms
Abdomen/GI: Reports Constipated
Breast: Reports No Symptoms
Genitourinary: Reports No Symptoms
Musculoskeletal: Reports No Symptoms
Skin: Reports No Symptoms
Neuro: Reports No Symptoms
Hematologic / Lymphatic: Reports No Symptoms
Allergy / Immunology: Reports No Symptoms
Physical Exam
-
General: No Apparent Distress and Comfortable (On 2 L nasal cannula flow.)
HEENT: Moist Mucous Membranes, Anicteric and [place] Conjunctivae
Respiratory: Clear to Auscultation; Negative Wheezes, Rales, Rhonchi or Crackles
Cardiac: Regular Rhythm and S1/S2 (Loud P2); Negative Murmur, Rub or Gallop
GI: Soft, Nontender, Nondistended and Normal Bowel Sounds
Genito-urinary: No Costovertebral Tender
Musculoskeletal: No Clubbing, No Cyanosis and No Edema
Skin: Warm
Neuro: AO x 3, No Motor Deficits and DTR's Intact & Symmetrica
Psych: Calm
Data Reviewed
-
Labs: Labs Reviewed by me, Discussed with Physician and Discussed with Nurse
[2024-08-07 11:46] LABS: Glucose - Point of Care 111 mg/dl (70-99)
--- NOTE | 2024-08-07 11:50 | VATNOTE ---
Biopatch on pt's midline saturated with serous drainage, dressing changed (see worklist documentation).
--- NOTE | 2024-08-07 12:18 | W.PN.UPDATE ---
Update Note
Progress Note Update
patient seen chart reviewed. discussed w nursing and with dr walton. the patient remains able to converse appropriately. i don't see mood lability but he is very fragile physically. he complains of being tired with no energy. reiterated he has been
very ill and explained that his hgb is quite low at nine. dr walton is investigating this....anemia of acute inflammation and anemia of phlebotomy are possibilites although at this point workup in progress. did not change seroquel but i am a little
concerned it could be sedating him. also concern re qtc. will repeat ecg today and check certainly would not increase seroquel. will continue to follow
[2024-08-07] MEDS: TYLENOL ORAL SOLUTION 650 MG PO ×2 (12:36→20:19)
--- NOTE | 2024-08-07 13:22 | W.PN.NEPH.PH ---
Today's Communication / Plan
-
follow labs
d/c plan
Assessment/Plan
-
Assessment
ESAU (unknown)
VDRF
InfA
HTN
Hypernatremia
polyuria
Plan:
sodium stable on HCTZ
noted PE and DVT on AC
stable renal function
Bp stable on ARB and HCTZ, hold CCB and BB(low HR)
d/c plan
-
-
Date of Service: August 07, 2024
CC / HPI / ROS
-
Chief Complaint:
ESAU
History of Present Illness:
ESAU/Cr stable 1.2
BP was low on 08/05 but stable today
Hypernatremia improved na 141
eating without issue
on 2lit of O2
Review of Systems:
non oliguric /no polyuria with ashford
no CP
no sob at rest
Labs
-
Labs:
WBC 6.6 10^3/uL (4.8-10.8) 08/07/24 06:37
RBC 3.07 10^6/uL (4.70-6.10) L 08/07/24 06:37
Hgb 9.0 g/dL (13.0-18.0) L 08/07/24 06:37
Hct 28.5 % (39.0-52.0) L 08/07/24 06:37
Plt Count 161 10^3/uL (130-400) D 08/07/24 06:37
Sodium 141 mmol/L (135-145) 08/07/24 06:37
Potassium 3.5 mmol/L (3.5-5.1) 08/07/24 06:37
Chloride 107 mmol/L (98-107) 08/07/24 06:37
Carbon Dioxide 29 mmol/L (22-30) 08/07/24 06:37
BUN 13 mg/dl (9-20) 08/07/24 06:37
Creatinine 1.2 mg/dL (0.7-1.3) 08/07/24 06:37
eGFR > 60.00 08/07/24 06:37
Glucose 104 mg/dl (70-99) H 08/07/24 06:37
Calcium 8.6 mg/dl (8.4-10.2) 08/07/24 06:37
Phosphorus 3.8 mg/dl (2.5-4.5) 07/27/24 03:08
Ikg-P-Oqzlhnjnorv Pept 184 pg/ml 07/21/24 03:07
Albumin 3.0 g/dl (3.5-5.0) L 07/30/24 03:10
Physical Exam
-
Vital Signs:
Vital Signs
Temp Pulse Resp BP Pulse Ox
97.7 F 92 20 113/70 93
08/07/24 11:27 08/07/24 11:27 08/07/24 11:27 08/07/24 11:27 08/07/24 11:27
Cardiovascular:: Regular rate and rhythm
Respiratory:: Bilateral: Coarse
Lung Excursion:: Normal
Abdomen:: Nontender and Soft
Extremity Edema:: None: Bilateral:
Ashford Catheter: No
--- NOTE | 2024-08-07 14:05 | W.PN.PUL3 ---
Today's Communication / Plan
-
Decreased oxygen at night with BiPAP to 2 L
Continue nocturnal BiPAP for now
Continue anticoagulation for PE
PT/OT, out of bed to chair, ambulate
Would likely require rehabilitation
Assessment
-
Patient is a 49-year-old gentleman with history of hypertension, depression, who was brought from home via EMS as patient's found him lethargic and short of breath. Patient reportedly had been sick for the last 3 to 4 days. Patient required
15 L via nasal cannula initially and was subsequently transition to BiPAP support as his initial saturations were around 60%. Patient responded well to BiPAP and was noted to have hypercapnia also. Overnight he continued to develop worsening
hypercapnia and inability to ventilate and oxygenate and required intubation and mechanical ventilation. Post ventilation, patient has been very difficult to oxygenate. He has been on 100% FiO2 and PEEP has been slowly increased all the way up to
18 now. His PF ratio continues to be severely low. He has been on deep sedation and also paralytics were initiated. Patient found to have influenza A screen positive.
#1. Influenza A with severe acute hypoxic respiratory failure. (Intubated 07/15-07/30/2024), complicated by VAP (Streptococcus Group F)
-Patient was initially on 15 L oxygen, subsequently transitioned to BiPAP and later intubated 07/15
-Prolonged stay on mechanical ventilation with use of paralytics, proning in view of severely reduced PF ratio as well as high PEEP up to 18.
-Stay was complicated by VAP due to Streptococcus F, initially treated with cefepime/Zosyn later transitioned to Unasyn along with stress dose steroids, currently off antibiotics
-07/30, patient tolerated pressure support well and was extubated to BiPAP. Kept him on alternating high flow nasal cannula versus BiPAP for the first 24 hours.
-Currently on nasal cannula during daytime and BiPAP at night
-As patient continues to improve, nightly BiPAP eventually can be weaned off in coming days. Requiring 10 L with BiPAP at night. Decrease supplemental oxygen at night to 2 L with BiPAP
-Saturating 100% on 6 L continue to wean. 90% on room air. Chest x-ray 07/29/2024 without acute findings
#2. ICU delirium vs Metabolic encephalopathy with underlying psychiatric history
- Gradually improving, currently on Seroquel nightly and as needed Zyprexa
- Psychiatry service on case
#3. Acute PE
- Patient with increased tachypnea yesterday, persistent oxygen requirement despite normal chest x-ray, normal exam. CTA consistent with bilateral PE, ordered by primary service. Bilateral lower extremity DVT also noted. Heparin started
- Echocardiogram 08/06 was normal biventricular function, no significant change. Of note echocardiogram 07/21/2024 with normal biventricular function, pressures could not be determined
- EKG with normal sinus rhythm
Would likely require rehabilitation, ongoing PT/OT
Follow-up information left in chart
Other medical issues:
-ESAU, Improved
-Hypotension with Shock, resolved
-History of smoking. Patient might have underlying COPD. Out patient follow up with Pulmonary clinic
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 Out patient sleep study
PT/OT.
Speech therapy consult.
DVT prophylaxis: Now on anticoagulation for PE. Was on prophylaxis. GI prophylaxis with pantoprazole.
Subjective Data
-
Date of Service:
Date of Service: August 07, 2024
Subjective:
Patient continues to have shortness of breath. Denies chest pain, lightheadedness, cough, mopped assist. Denies any changes since yesterday
Objective Data
Data Reviewed
Vital Signs / I&O / Oxygen:
Vital Signs
Temp Pulse Resp BP Pulse Ox
97.7 F 92 20 113/70 93
08/07/24 11:27 08/07/24 11:27 08/07/24 11:27 08/07/24 11:27 08/07/24 11:27
Intake and Output
08/06/24 08/07/24 08/08/24
06:59 06:59 06:59
Intake Total 420 / 420 120 / 120
Output Total 2924 / 2925 2074
Balance -2504 / -2504 -1954 /
SaO2 [ASV] 97
SaO2 [CPAP/PSV] 95
SaO2 [A/C] 96
SaO2 93
Nasal Cannula flow liters per 2
minute
Physical Exam
General: Comfortable and Other (RUE picc)
HEENT: Normocephalic
Cardiovascular: S1-S2, Regular Rhythm, Murmur (n) and Peripheral Edema (tr)
Respiratory: Clear, Crackles (n), Rhonchi (n) and Non-Labored Respirations
GI: Soft and Non Distended
Neurology: Awake, Alert, Oriented and Other (generally fatigued)
Skin: Warm and Rash (n)
Labs/Micro/Reports
Lab Data
08/07/24 06:37
08/07/24 06:37
Laboratory Results
08/06/24
13:42
APTT 85.4 H
Microbiology
08/05/24 08:11 Blood/Venous Blood Culture - Preliminary
No Growth in 48 hours- Final report to follow
08/05/24 06:22 Blood/Venous Blood Culture - Preliminary
No Growth in 48 hours- Final report to follow
--- NOTE | 2024-08-07 15:38 | CM ---
Chart reviewed. Acute rehab is being recommended. Physiatry assessment pending. Patient on 2L O2.
Spoke w/ Monique Bertrand/[facility] liaison, no beds this week at . Updated patient and spouse bedside of no beds this week and physiatry assessment pending to be completed. CM inquired w/ spouse and patient if other [facility] locations can be considered if
needed, spouse would like to wait until physiatry assessment is completed first.
Eliquis $10 copay coupon provided
Plan: [facility]; pending physiatry assessment
[2024-08-07 16:58] LABS: Glucose - Point of Care 121 mg/dl (70-99)
[2024-08-07] MEDS: LIPITOR 20 MG PO (17:19)
[2024-08-07 21:10] LABS: Glucose - Point of Care 176 mg/dl (70-99)
[2024-08-07] MEDS: SEROQUEL 100 MG PO (21:31)
[2024-08-08] VITALS (8 sets, daily range): BP systolic 99–145; BP diastolic 52–81; PULSE 2–95; O2SAT 91
[2024-08-08 06:37] LABS: Blood Urea Nitrogen 13 mg/dl (9-20); Calcium 9.1 mg/dl (8.4-10.2); Carbon Dioxide 27 mmol/L (22-30); Chloride 107 mmol/L (98-107); Estimated Creatinine Clearance 91 ml/min; Glucose 102 mg/dl (70-99); Potassium 4.2 mmol/L (3.5-5.1); Sodium 141 mmol/L (135-145); eGFR > 60.00
--- NOTE | 2024-08-08 07:06 | PN.DE.MGMTRT ---
Insulin Management
- -
08/08/2024: Diabetes Management Follow up
Patient admitted 07/14/24 via EMS as patient's found him lethargic and short of breath. He was admitted Flu A +, acute hypoxemic respiratory failure, requiring intubation and mechanical ventilation. PMH: HTN, Depression, bipolar and T2DM. Was
taking Zepbound 2.5mg weekly/ for weight loss. A1C 6.0%, Cr 2.9 on admission
Pt is awake and alert, mental status is improving, able to discuss diabetes care plan. Extubated 07/30. ESAU resolved, Cr 1.2, eGFR >60 today. s/p chest CT - bilateral PE; s/p peripheral vascular ultrasound - bilateral DVT L > R.
Currently ordered moderate corrective insulin with meals, has required 1 unit. Glucose range 91 to 176. Will make no change to corrective insulin.
Was taking Zepbound 2.5mg weekly/ for weight loss, may resume med at discharge.
Discussed with Nurse. Will cont to follow
Diabetes History
- -
Type of Diabetes: 2
Pre-Admission Diabetes Regimen
08/07/24 08/08/24
06:37 05:52
Creatinine 1.2 1.2
Lab Results
Hemoglobin A1c Cancelled 07/24/24 17:38
Insulin Pump Settings
IP Diabetes Regimen
08/07/24 08/07/24 08/07/24
06:37 08:12 11:35
Glucose 104 H
POC Glucose 91 111 H
08/07/24 08/07/24 08/08/24
16:52 21:08 05:52
Glucose 102 H
POC Glucose 121 H 176 H
Meal type: Lunch
Meal type: Breakfast
Amount consumed: 90%
Amount consumed: 75%
Patient Education
[2024-08-08] MEDS: COZAAR 50 MG PO ×2 (08:01→20:57)
[2024-08-08] MEDS: LUVOX 50 MG PO (08:02)
[2024-08-08] MEDS: ORETIC 25 MG PO (08:02)
[2024-08-08] MEDS: SEROQUEL 25 MG PO ×2 (08:02→20:56)
[2024-08-08] MEDS: ELIQUIS 10 MG PO ×2 (08:02→20:55)
[2024-08-08] MEDS: MIRALAX TUBE (08:03)
[2024-08-08] MEDS: NICODERM TRANSDERMAL 21 MG TRANSDERM (08:03)
[2024-08-08] MEDS: SENOKOT PO ×2 (08:04→20:56)
[2024-08-08] MEDS: FEOSOL 325 MG PO (08:07)
[2024-08-08 08:26] LABS: Glucose - Point of Care 100 mg/dl (70-99)
[2024-08-08] MEDS: NOVOLOG FLEXPEN-MODERATE RESISTANCE SC ×3 (08:44→17:02)
--- NOTE | 2024-08-08 08:45 | CON.MD ---
Documented by User: Benita Valerio PA-C 08/08/24 17:02
Consultation - Medical
-
Referring Provider:�
Chief Complaint:�Debility
�
History of Present Illness:�49-year-old male with a PMH of ( hypertension, depression) presented to the hospital for acute onset shortness of breath, was diagnosed with influenza A associated ARDS, severe acute hypoxic respiratory failure requiring
15 L via nasal cannula initially and was subsequently transition to BiPAP support as his initial saturations were around 60%. Patient responded well to BiPAP and was noted to have hypercapnia also that subsequently required intubation and
mechanical ventilation on 07/15/24 complicated by ventilator associated pneumonia-Streptococcus group F. He was extubated on 07/30/2024. He was placed on deep sedation and paralytics initially. Post ventilation, he has been very difficult to
oxygenate. He was treated with cefepime/Zosyn that was later transitioned to Unasyn along with stress dosing of steroids with completion of the course. Currently on wean off BiPAP in the nighttime, requiring 10 L with BiPAP at night. Decrease
supplemental oxygen at night to 2 L with BiPAP and mid flow nasal cannula during the daytime. Plan is to wean off BiPAP in the nighttime and continue to wean off oxygen to low flow and room air as tolerated. As of, saturating 100% on 6 L continue
to wean per hospitalist note. 90% on room air. Chest x-ray 07/29/2024 without acute findings
Per pulmonary note as of 08/07/2024-history of smoking�patient might have underlying COPD. Outpatient follow-up with pulmonary clinic recommended. Suspected sleep apnea with obesity. Outpatient sleep study recommended.
CT chest positive for moderate b/l pulmonary embolism.
Echocardiogram with no evidence of right ventricular strain.
Patient was started on heparin drip
Plan to discontinue heparin drip and resume 10 mg of Eliquis twice a day for 14 doses. Eliquis 10mg was resumed on 08/06 x 7 days then 5mg bid
Antiphospholipid antibody syndrome workup pending.
Peripheral vascular ultrasound showed bilateral DVT left greater than right.
Downgrade to telemetry,
Advance diet to regular.
Patient had ICU delirium versus metabolic encephalopathy with gradual improvement. Currently on Seroquel at nighttime and Seroquel in the morning resumed by psychiatry. He is also on as needed Zyprexa. Precedex was discontinued. [address] on hold,
psychiatry on board, fluvoxamine resumed. Avoid sedatives. Patient with severe deconditioning due to prolonged mechanical ventilation and paralytics that is affecting ADL and ambulation.
Patient seen and examined. He appears calm and oriented. He reports to have slept well last night. Reports appetite is good and that he is moving his bowels. He denies any chest pain, headache, lightheadedness, nausea, vomiting, fever, chills.
He reports occasional dizziness with standing and walking and some shortness of breath with exertion. He is currently off oxygen seated on his bed. He has indwelling Kilpatrick catheter.
Patient was upgraded to regular solid and thin liquids by speech on 08/06/24 with recommendation of speech to continue to follow to monitor tolerance of diet and determine if patient would benefit from instrumental assessment
�
Past Medical History:� hypertension, depression
Procedure History:�Colonoscopy and biopsy 2020
Family History:�DM, heart disease-Mom
�
Social History:�
Functional Level Premorbidly:�Independent with all activities�
Functional Level Currently:�Bed mobility�supervision, transfer�min assist, ambulated 10 feet forward and 10 feet that were with rolling walker and min assist at slow pace, unsteady especially when backing up to chair, fatigues quickly, toileting
dependent, upper lower extremity�dependent, eating�min assist, grooming mod assist. Patient was upgraded to regular solid and thin liquids by speech on 08/06/24 with recommendation of speech to continue to follow to monitor tolerance of diet and
determine if patient would benefit from instrumental assessment
�
�
Tobacco:�Denies�
Alcohol:�Denies�
Drug use:�Denies�
�
Lives with:�Spouse
24-hour assistance available:�No
Number of floors:�Multilevel
# steps to enter:�
# steps to second floor: FF
Potential First floor set up:�yes
Driving:�yes
Occupation:�In between job
�
�
Allergies:�
Allergy/AdvReac Type Severity Reaction Status Date / Time
grass pollen Allergy Intermediate Rash Verified 07/14/24 08:56
�
Review of Systems:�
Constitutional: (x) Normal _fatigue
Eye: (x) Normal _
Ear/Nose/Throat: (x) Normal _
Respiratory: (x) abNormal _ SOB, PE
Cardiovascular: (x) Normal _
Gastrointestinal: (x) Normal _
Genitourinary: (x) abNormal _urinary retention, with Kilpatrick
Musculoskeletal: (x) Normal _
Integumentary: (x) Normal _
Neurologic: (x) Normal _
Psychiatric: (x) Normal _
Endocrine: (x) Normal _
Hematologic/Lymphatic: (x) abNormal _DVT left more than right
Allergic/Immunologic: (x) Normal _
�
Medications:�
Active Current Visit Medication List
Category Date Time Status
Acetaminophen [Tylenol Oral Solution] Med 07/18/24 00:50 Active
650 mg PO Q4HPRN PRN
Amlodipine [Norvasc] Med 08/04/24 08:00 Hold
10 mg PO DAILY
Apixaban [Eliquis] Med 08/06/24 18:00 Active
10 mg PO BID
Apixaban [Eliquis] Med 08/13/24 20:00 Active
5 mg PO BID
Atorvastatin [Lipitor] Med 07/30/24 18:00 Active
20 mg PO QPM
Bisacodyl [Dulcolax] Med 07/15/24 05:02 Active
10 mg RECTAL DAILYPRN PRN
Dextrose 50%-Water [Dextrose 50% Syringe] Med 07/24/24 17:38 Active
12.5 grams IV [id number] PRN
Ferrous Sulfate [Feosol] Med 08/01/24 08:00 Active
325 mg PO MoWeFr@0800
Flush (0.9% Sodium Chloride) [Flush (Nss)] Med 07/15/24 06:00 Active
See Dose Instructions IV PER PROTOCOL
Fluvoxamine [Luvox] Med 07/31/24 08:00 Active
50 mg PO DAILY
Hydrochlorothiazide [Oretic] Med 08/04/24 08:00 Active
25 mg PO DAILY
Insulin Aspart Corrective Mod [Novolog Flexpen-Moderate Med 08/01/24 07:30 Active
Resistance]
See Protocol SC AC
Losartan [Cozaar] Med 08/03/24 20:00 Active
50 mg PO BID
Midodrine [ProAmatine] Med 07/30/24 17:00 Active
5 mg PO Q4HPRN PRN
Nicotine [Nicoderm Transdermal] Med 07/14/24 17:49 Active
21 mg TRANSDERM DAILY
Polyethylene Glycol Powder [Miralax] Med 07/30/24 17:03 Active
17 grams PO BIDPRN PRN
Polyethylene Glycol Powder [Miralax] Med 08/01/24 08:00 Active
17 grams TUBE DAILY
Quetiapine Fumarate [Seroquel] Med 08/03/24 22:00 Active
100 mg PO HS
Quetiapine Fumarate [Seroquel] Med 08/04/24 08:00 Active
25 mg PO DAILY
Quetiapine Fumarate [Seroquel] Med 08/03/24 22:00 Active
25 mg PO HS
Remove Patch [Remove Nicotine Patch] Med 07/18/24 22:00 Active
See Dose Instructions REMOVE HS
Sennosides [Senokot] Med 07/30/24 20:00 Active
8.6 mg PO BID
�
Vitals:�
Temp Pulse Resp BP Pulse Ox
99.5 F 89 20 104/67 90
08/07/24 15:25 08/07/24 15:25 08/07/24 15:25 08/07/24 15:25 08/07/24 15:25
Height 5 ft 10 in
Actual Weight 104.1 kg
Body Mass Index (BMI) 32.9
�
Physical Exam:�
General Appearance/Observation: Well-developed, well-nourished individual in no apparent distress.�Sitting on edge of bed without oxygen
Pain/Comfort Assessment: Denies�
Mood/Affect: Calm, flat affect, answers question appropriately
�
Integumentary/Operative Site:�
�� Pressure Ulcer Evaluation: absent over heels.�
��
�� Other Type of Wound: absent�
��
Eyes: Conjunctiva/Lids: normal���� Pupils: pupils equal round and reactive to light and Accommodation�
Ears/Nose/Throat: oral mucosa moist,� throat clear.������������ Lips/Teeth/Gums: normal�
Neck: No muscle spasm or tenderness�
Cardiovascular: Heart: regular, no murmur�
Pulses: dorsalis pedis 2+ bilaterally�
Respiratory: Respiratory Effort/Chest Expansion: normal������� Auscultation: Lower lobe coarse sounds to auscultation bilaterally�
Gastrointestinal: abdomen not tender, no distension, normal abdominal bowel sounds
Genitourinary: No Kilpatrick�
Extremities:�Edema: None�Cyanosis: None�Trophic�changes: None
�
Neurology Exam:
Orientation: Alert, Oriented to self, Time: month but not date, [facility] then corrected with �
Memory: Intact for immediate medical concerns
Comprehension: Intact
Two step command: Intact
Naming: Intact
Cranial Nerves:
�� CNII:�Pupillary light reflex: Intact����Visual Field: Intact
�� CN III, IV, : Extraocular muscles: Intact�
�� CN V:�Facial Sensation�at�Forehead: Intact,�Maxilla: Intact,�Mandible: Intact
�� CN VII:�Facial movement: Symmetric
�� CN VIII:�Hearing: Normal
�� CN IX/X:�Speech & swallow: Normal,�a little hoarse Position of Uvula: Midline
�� CN XI:�Shoulder shrug: Symmetric
�� CN XII:�Tongue protrusion: Midline
Sensory:
�� Light touch: Intact in bilateral upper and lower extremities
��
�
Reflexes:
�� Biceps: 2+ bilaterally
�� Brachioradialis: 2+ bilaterally
�� Triceps: 2+ bilaterally
�� Patellar: 2+ bilaterally
�� Achilles: 2+ bilaterally
�� Babinski: Down going bilaterally
�� Clonus: None
�� Priyanka: Negative bilaterally�
Cerebellar: Dysmetria/Ataxia: None�
Musculoskeletal:
Motor: (Manual muscle scale 0-5)�
Muscle SA EF WE EE FF FA HF KE DF EHL PF
Right� 5 5 5 5 5 5 5 5 5 5 5
Left 5 5 5 5 5 5 5 5 5 5 5
�
Tone: Normal in all extremities�
Range of Motion: Passively within normal limits in all extremities�
�
Lab Results:
Labs
WBC 6.6 10^3/uL (4.8-10.8) 08/07/24 06:37
RBC 3.07 10^6/uL (4.70-6.10) L 08/07/24 06:37
Hgb 9.0 g/dL (13.0-18.0) L 08/07/24 06:37
Hct 28.5 % (39.0-52.0) L 08/07/24 06:37
MCV 92.8 fL (80.0-94.0) 08/07/24 06:37
MCH 29.3 pg (27.0-31.0) 08/07/24 06:37
MCHC 31.6 g/dL (33.0-37.0) L 08/07/24 06:37
RDW 13.4 % (11.5-14.5) 08/07/24 06:37
Plt Count 161 10^3/uL (130-400) D 08/07/24 06:37
MPV 9.9 fL (7.4-10.4) 08/07/24 06:37
Abs Immat Gran (auto) 0.1 10^3/uL (0-0.05) H 07/30/24 03:10
Absolute Neuts (auto) 8.2 10^3/uL (1.4-6.5) H 07/30/24 03:10
Absolute Lymphs (auto) 1.6 10^3/uL (1.2-3.4) 07/30/24 03:10
Absolute Monos (auto) 0.7 10^3/uL (0.1-0.6) H 07/30/24 03:10
Absolute Eos (auto) 0.2 10^3/uL (0-0.7) 07/30/24 03:10
Absolute Basos (auto) 0.0 10^3/uL (0-0.2) 07/30/24 03:10
Immature Gran % 0.6 % (0-0.5) H 07/30/24 03:10
Neutrophils % 75.5 % (42.2-75.2) H 07/30/24 03:10
Lymphocytes % 15.2 % (20.5-51.1) L 07/30/24 03:10
Monocytes % 6.8 % (1.7-9.3) 07/30/24 03:10
Eosinophils % 1.8 % (0-6) 07/30/24 03:10
Basophils % 0.1 % (0-2) 07/30/24 03:10
Nucleated RBC % 0 % (-) 07/30/24 03:10
ESR 89 mm/hour (0-20) H 07/25/24 03:56
Retic Count 2.2 % (0.4-2.8) 07/21/24 03:07
PT 13.1 Sec (11.4-14.6) 07/15/24 04:33
INR 0.96 07/15/24 04:33
APTT 85.4 Sec (23.4-35.0) H 08/06/24 13:42
D-Dimer 6.21 ug/mlFEU (0.00-0.50) H 08/05/24 11:33
pH 7.45 (7.35-7.45) 07/30/24 11:17
pCO2 39 mmHg (35-48) 07/30/24 11:17
pO2 85 mmHg (83-108) 07/30/24 11:17
HCO3 27.1 mmol/L (21-28) 07/30/24 11:17
Base Excess 2.9 mmol/L 07/30/24 11:17
ABG O2 Sat (Measured) 100.0 % (94-98) H 07/30/24 11:17
VBG pH 7.44 (7.32-7.43) H 07/30/24 03:10
VBG pCO2 39 mmHg (35-48) 07/30/24 03:10
VBG pO2 142 mmHg (30-50) H 07/30/24 03:10
VBG HCO3 26.5 mmol/L (22-27) 07/30/24 03:10
VBG O2 Sat (Flako) 98.3 % 07/30/24 03:10
VBG Base Excess 2.2 mmol/L (-4 to +4) 07/30/24 03:10
VBG O2 Therapy 07/30/24 03:10
O2 Delivery Level 07/30/24 11:17
Sodium 141 mmol/L (135-145) 08/07/24 06:37
Potassium 3.5 mmol/L (3.5-5.1) 08/07/24 06:37
Chloride 107 mmol/L (98-107) 08/07/24 06:37
Carbon Dioxide 29 mmol/L (22-30) 08/07/24 06:37
BUN 13 mg/dl (9-20) 08/07/24 06:37
Creatinine 1.2 mg/dL (0.7-1.3) 08/07/24 06:37
Estimated Creat Clear 91 ml/min 08/07/24 06:37
eGFR > 60.00 08/07/24 06:37
Glucose 104 mg/dl (70-99) H 08/07/24 06:37
Hemoglobin A1c Cancelled 07/24/24 17:38
Lactic Acid 0.8 mmol/L (0.7-2.0) 07/24/24 14:39
Calcium 8.6 mg/dl (8.4-10.2) 08/07/24 06:37
Phosphorus 3.8 mg/dl (2.5-4.5) 07/27/24 03:08
Magnesium 2.0 mg/dl (1.6-2.3) 07/29/24 03:02
Iron 51 ug/dl (49-181) 07/31/24 04:05
TIBC 222 ug/dl (261-462) L 07/31/24 04:05
% Saturation 22 % (20-50) 07/31/24 04:05
Transferrin 168 mg/dL (200-360) L 07/31/24 04:05
Ferritin 271.0 ng/ml (17.9-464.0) 07/31/24 04:05
Total Bilirubin 0.6 mg/dl (0.2-1.3) 07/30/24 03:10
Direct Bilirubin 0.6 mg/dl (0.0-0.4) H 07/19/24 04:04
AST 23 U/L (17-59) 07/30/24 03:10
ALT 121 U/L (0-50) H 07/30/24 03:10
Alkaline Phosphatase 128 U/L (38-126) H 07/30/24 03:10
Troponin I < 0.012 ng/ml 07/14/24 08:48
C-Reactive Protein 57.70 mg/L (0.0-10.00) H 07/25/24 03:56
Vof-G-Iparyvqtisl Pept 184 pg/ml 07/21/24 03:07
Total Protein 5.8 g/dl (6.3-8.2) L 07/30/24 03:10
Albumin 3.0 g/dl (3.5-5.0) L 07/30/24 03:10
Triglycerides 300 mg/dl (10-149) H 07/31/24 04:05
Vitamin B12 559 pg/ml (239-931) 07/31/24 04:05
Folate 6.4 ng/ml (2.76-20) 07/31/24 04:05
Urine Color Yellow 07/14/24 20:39
Urine Clarity Clear (Clear) 07/14/24 20:39
Urine pH 6.0 (5.0-9.0) 07/14/24 20:39
Ur Specific Cisco 1.010 (<1.030) 07/14/24 20:39
Urine Ketones Negative (Negative) 07/14/24 20:39
Ur Occult Blood Reflex Negative (Negative) 07/14/24 20:39
Urine Nitrite (Reflex) Negative (Negative) 07/14/24 20:39
Urine Bilirubin Negative (Negative) 07/14/24 20:39
Urine Urobilinogen Negative (Neg - 1+) 07/14/24 20:39
Leukocyte Esterase Rfl Negative (Negative) 07/14/24 20:39
Urine RBC 0-2 /HPF (0-2) 07/14/24 20:39
Urine WBC (Reflex) 0-2 /HPF (0-5) 07/14/24 20:39
Ur Squamous Epith Cells 6-10 /LPF (Few) 07/14/24 20:39
Urine Bacteria (Reflex) Few (Negative) A 07/14/24 20:39
Urine Osmolality 159 mOsm/kg (300-900) L 08/03/24 00:48
Urine Creatinine 87.100 mg/dl 07/22/24 12:23
Urine Sodium 38 mmol/L (30-90) 08/03/24 00:48
Urine Glucose Negative (Negative) 07/14/24 20:39
Urine Albumin (Reflex) 1+ (Neg - Trace) A 07/14/24 20:39
Random Vancomycin 16.1 ug/ml 07/15/24 04:[address] 0.2 mmol/L (0.6-1.2) L 07/31/24 04:05
Influenza Type A Source Resp swab 07/15/24 16:02
Influenza A RNA INAAT Detected (Not Detected) A 07/15/24 16:02
[place] Influenza H5 Not detected (Not Detected) 07/15/24 16:02
SARS-CoV-2 Antigen Negative (Negative) 07/14/24 08:48
POC Glucose 121 mg/dl (70-99) H 08/07/24 16:52
�
Diagnostic Results:�as per HPI�
�
Assessment: 49-year-old male with ADL and ambulatory dysfunction secondary to acute deconditioning from prolong immobilization, intubation, respiratory failure and PE.
�
Plan�
PM&R�PT/OT to increase independence with ADLs, improve balance, coordination, endurance, strength, mobility, community reintegration, decreased burden of care on others and family education.�
�
Debility: Due to prolonged intubation, hospitalization and PE, influenza. PT/OT
CT chest positive for moderate pulmonary embolism.
Echocardiogram with no evidence of right ventricular strain.
Patient was started on heparin drip yesterday.
Heparin drip discontinued and resume 10 mg of Eliquis twice a day for 14 doses then 5mg bid.
Antiphospholipid antibody syndrome workup pending.
Peripheral vascular ultrasound showed bilateral DVT left greater than right.
Advance diet to regular.
Acute deconditioning-
Secondary to prolonged ICU stay, and intubation.
PT and OT
VRDF dependent acute hypoxic respiratory failure-
Secondary to influenza A, ventilator dependence resolved-extubated on 07/30/2024.
Course complicated by ventilator associated pneumonia-Streptococcus group F
S/p prolonged mechanical ventilation and paralytics, resulting in deep severe deconditioning.
Received cefepime/Zosyn that was later transitioned to Unasyn along with stress dosing of steroids-completed the course.
Currently patient is on BiPAP at night and mid flow nasal cannula during the daytime.
Plan to wean off BiPAP in the nighttime, continue to wean off oxygen to low-flow and room air as tolerated.
ICU delirium versus metabolic encephalopathy
Gradually improving, currently on Seroquel nightly, a.m. Seroquel resumed by psychiatry.
As needed Zyprexa.
Patient did not have any episodes of agitation overnight yesterday. Delirium likely resolving.
Precedex discontinued
[address] on hold, psychiatry on board, fluvoxamine resumed, appreciate psychiatry help in management.
Avoid sedatives
ESAU
Improving -serum creatinine at 1.1, could be new baseline.
Nephrology following up, appreciate inputs.
Hypernatremia -
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
Nephrology following up, off of D5 drip. Remains on HCTZ.
Na+ 141 as of 08/07
Hypokalemia-
Resolved. Trend serum potassium levels.
Hypertension-
Continue amlodipine 10 mg, losartan 50 mg twice daily
HCTZ 25 added for hypernatremia
Added holding parameters on losartan, discontinued home dose of atenolol-likely contributing to his bradycardia.
Hold CCB and BB - low HR
Trend blood pressures-continues to remain high.
anemia-Multifactorial
Continue iron supplementation monitor CBC
Circulatory shock-resolved.
Initial blood cultures from 07/15 and repeat from 07/19 remain negative.
Required pressors (Levophed) for hemodynamic support.
Uncontrolled blood sugars: Moderate sliding scale
Psych: Schizophrenia and bipolar disorder-
Currently lithium on hold given supratherapeutic levels and ESAU.
Latuda discontinued for akathisia.
Goal lithium less than 0.7.
[employer] home regimen- lurasidone. Currently on Luvox 50 mg daily, Seroquel 25 mg daily, 25 bedtime, 100 at bedtime
Skin: monitor for pressure sores/rashes/lesions.�
Chronic pain syndrome- Was on oxycodone. completed: acetaminophen as needed.�
Bowel: Colace and Senna, PRN bisacodyl.�
Bladder: Time void, PVRs, PRN straight cath.�
Tobacco Abuse: Smoking cessation counseling. Need to find out why smoking whether it is nicotine withdrawal, habit, or oral fixation.� Continue NicoDerm patch
GI Prophylaxis: Pantoprazole�
Pulmonary: Incentive spirometry�
Bilateral DVT- Heparin switched to Eliquis 10 mg twice daily until 08/13/24 then 5 mg bid
Obesity: Continue to family court counsellor patient about diet adjustments to control obesity. Body habitus and increased force to move body and extremities causes further difficulty with functional tasks.�
Safety: Continue to reinforce assistance with all transfers.�
Code Status:� Full code
Dispo�(date/plan/equipment needs): Home with family care.� Social history reviewed.�
�
Functional and Medical Goals:�Modified Independent with ADL�s, ambulation, transfers�
Discharge Destination:�Acute inpatient rehabilitation once medically stable and cleared by all specialists
SUMMARY
Things that must be addressed in Hospital prior to discharge:�
Patient's oxygenation to be stable with activities prior to discharge and be off Bipap at night prior to discharge
��� Please comment on patient's psych medications- Does psych plans on resuming [address] or will patient be discharged on current meds?
��� Blood pressure must be less than 180 systolic and 100 diastolic for 24 hours before being stable for transfer to SNF/acute rehab.
Electrolytes and Hgb to remain stable prior to discharge.
Patient's oxygenation to be stable with activities prior to discharge
�
Discharge Destination:�Acute inpatient rehabilitation once medically stable and cleared by all specialists
�
Thank you for allowing me to care for your patient. Please contact me with any questions or concerns.

Documented by User: Edinson Apodaca MD 08/08/24 21:02
Consultation - Medical
-
Chief Complaint:�Debility
�
History of Present Illness:�49-year-old male with a PMH of ( hypertension, depression) presented to the hospital for acute onset shortness of breath, was diagnosed with influenza A associated ARDS, severe acute hypoxic respiratory failure requiring
15 L via nasal cannula initially and was subsequently transition to BiPAP support as his initial saturations were around 60%. Patient responded well to BiPAP and was noted to have hypercapnia also that subsequently required intubation and
mechanical ventilation on 07/15/24 complicated by ventilator associated pneumonia-Streptococcus group F. He was extubated on 07/30/2024. He was placed on deep sedation and paralytics initially. Post ventilation, he has been very difficult to
oxygenate. He was treated with cefepime/Zosyn that was later transitioned to Unasyn along with stress dosing of steroids with completion of the course. Currently on wean off BiPAP in the nighttime, requiring 10 L with BiPAP at night. Decrease
supplemental oxygen at night to 2 L with BiPAP and mid flow nasal cannula during the daytime. Plan is to wean off BiPAP in the nighttime and continue to wean off oxygen to low flow and room air as tolerated. As of, saturating 100% on 6 L continue
to wean per hospitalist note. 90% on room air. Chest x-ray 07/29/2024 without acute findings
Per pulmonary note as of 08/07/2024-history of smoking�patient might have underlying COPD. Outpatient follow-up with pulmonary clinic recommended. Suspected sleep apnea with obesity. Outpatient sleep study recommended.
CT chest positive for moderate b/l pulmonary embolism.
Echocardiogram with no evidence of right ventricular strain.
Patient was started on heparin drip
Plan to discontinue heparin drip and resume 10 mg of Eliquis twice a day for 14 doses. Eliquis 10mg was resumed on 08/06 x 7 days then 5mg bid
Antiphospholipid antibody syndrome workup pending.
Peripheral vascular ultrasound showed bilateral DVT left greater than right.
Downgrade to telemetry,
Advance diet to regular.
Patient had ICU delirium versus metabolic encephalopathy with gradual improvement. Currently on Seroquel at nighttime and Seroquel in the morning resumed by psychiatry. He is also on as needed Zyprexa. Precedex was discontinued. [address] on hold,
psychiatry on board, fluvoxamine resumed. Avoid sedatives. Patient with severe deconditioning due to prolonged mechanical ventilation and paralytics that is affecting ADL and ambulation.
Patient seen and examined. He appears calm and oriented. He reports to have slept well last night. Reports appetite is good and that he is moving his bowels. He denies any chest pain, headache, lightheadedness, nausea, vomiting, fever, chills.
He reports occasional dizziness with standing and walking and some shortness of breath with exertion. He is currently off oxygen seated on his bed. He has indwelling Kilpatrick catheter.
Patient was upgraded to regular solid and thin liquids by speech on 08/06/24 with recommendation of speech to continue to follow to monitor tolerance of diet and determine if patient would benefit from instrumental assessment
�
Past Medical History:� hypertension, depression
Procedure History:�Colonoscopy and biopsy 2020
Family History:�DM, heart disease-Mom
�
Social History:�
Functional Level Premorbidly:�Independent with all activities�
Functional Level Currently:�Bed mobility�supervision, transfer�min assist, ambulated 10 feet forward and 10 feet that were with rolling walker and min assist at slow pace, unsteady especially when backing up to chair, fatigues quickly, toileting
dependent, upper lower extremity�dependent, eating�min assist, grooming mod assist. Patient was upgraded to regular solid and thin liquids by speech on 08/06/24 with recommendation of speech to continue to follow to monitor tolerance of diet and
determine if patient would benefit from instrumental assessment
�
�
Tobacco:�Denies�
Alcohol:�Denies�
Drug use:�Denies�
�
Lives with:�Spouse
24-hour assistance available:�No
Number of floors:�Multilevel
# steps to enter:�
# steps to second floor: FF
Potential First floor set up:�yes
Driving:�yes
Occupation:�In between job
�
�
Allergies:�
Allergy/AdvReac Type Severity Reaction Status Date / Time
grass pollen Allergy Intermediate Rash Verified 07/14/24 08:56
�
Review of Systems:�
Constitutional: (x) Normal _fatigue
Eye: (x) Normal _
Ear/Nose/Throat: (x) Normal _
Respiratory: (x) abNormal _ SOB, PE
Cardiovascular: (x) Normal _
Gastrointestinal: (x) Normal _
Genitourinary: (x) abNormal _urinary retention, with Kilpatrick
Musculoskeletal: (x) Normal _
Integumentary: (x) Normal _
Neurologic: (x) Normal _
Psychiatric: (x) Normal _
Endocrine: (x) Normal _
Hematologic/Lymphatic: (x) abNormal _DVT left more than right
Allergic/Immunologic: (x) Normal _
�
Medications:�
Active Current Visit Medication List
Category Date Time Status
Acetaminophen [Tylenol Oral Solution] Med 07/18/24 00:50 Active
650 mg PO Q4HPRN PRN
Amlodipine [Norvasc] Med 08/04/24 08:00 Hold
10 mg PO DAILY
Apixaban [Eliquis] Med 08/06/24 18:00 Active
10 mg PO BID
Apixaban [Eliquis] Med 08/13/24 20:00 Active
5 mg PO BID
Atorvastatin [Lipitor] Med 07/30/24 18:00 Active
20 mg PO QPM
Bisacodyl [Dulcolax] Med 07/15/24 05:02 Active
10 mg RECTAL DAILYPRN PRN
Dextrose 50%-Water [Dextrose 50% Syringe] Med 07/24/24 17:38 Active
12.5 grams IV [id number] PRN
Ferrous Sulfate [Feosol] Med 08/01/24 08:00 Active
325 mg PO MoWeFr@0800
Flush (0.9% Sodium Chloride) [Flush (Nss)] Med 07/15/24 06:00 Active
See Dose Instructions IV PER PROTOCOL
Fluvoxamine [Luvox] Med 07/31/24 08:00 Active
50 mg PO DAILY
Hydrochlorothiazide [Oretic] Med 08/04/24 08:00 Active
25 mg PO DAILY
Insulin Aspart Corrective Mod [Novolog Flexpen-Moderate Med 08/01/24 07:30 Active
Resistance]
See Protocol SC AC
Losartan [Cozaar] Med 08/03/24 20:00 Active
50 mg PO BID
Midodrine [ProAmatine] Med 07/30/24 17:00 Active
5 mg PO Q4HPRN PRN
Nicotine [Nicoderm Transdermal] Med 07/14/24 17:49 Active
21 mg TRANSDERM DAILY
Polyethylene Glycol Powder [Miralax] Med 07/30/24 17:03 Active
17 grams PO BIDPRN PRN
Polyethylene Glycol Powder [Miralax] Med 08/01/24 08:00 Active
17 grams TUBE DAILY
Quetiapine Fumarate [Seroquel] Med 08/03/24 22:00 Active
100 mg PO HS
Quetiapine Fumarate [Seroquel] Med 08/04/24 08:00 Active
25 mg PO DAILY
Quetiapine Fumarate [Seroquel] Med 08/03/24 22:00 Active
25 mg PO HS
Remove Patch [Remove Nicotine Patch] Med 07/18/24 22:00 Active
See Dose Instructions REMOVE HS
Sennosides [Senokot] Med 07/30/24 20:00 Active
8.6 mg PO BID
�
Vitals:�
Temp Pulse Resp BP Pulse Ox
99.5 F 89 20 104/67 90
08/07/24 15:25 08/07/24 15:25 08/07/24 15:25 08/07/24 15:08/07/24 15:25
Height 5 ft 10 in
Actual Weight 104.1 kg
Body Mass Index (BMI) 32.9
�
Physical Exam:�
General Appearance/Observation: Well-developed, well-nourished male in no apparent distress.�Sitting on edge of bed without oxygen
Pain/Comfort Assessment: Denies�
Mood/Affect: Calm, flat affect, answers question appropriately
�
Integumentary/Operative Site:�
�� Pressure Ulcer Evaluation: absent over heels.�
��
Eyes: Conjunctiva/Lids: normal���� Pupils: pupils equal round and reactive to light and Accommodation�
Ears/Nose/Throat: oral mucosa moist,� throat clear.������������ Lips/Teeth/Gums: normal�
Neck: No muscle spasm or tenderness�
Cardiovascular: Heart: regular, no murmur�
Pulses: dorsalis pedis 2+ bilaterally�
Respiratory: Respiratory Effort/Chest Expansion: normal������� Auscultation: Lower lobe coarse sounds to auscultation bilaterally�
Gastrointestinal: abdomen not tender, no distension, normal abdominal bowel sounds
Genitourinary: No Kilpatrick�
Extremities:�Edema: None�Cyanosis: None�Trophic�changes: None
�
Neurology Exam:
Orientation: Alert, Oriented to self, Time: month but not date, [facility] then corrected with �
Memory: Intact for immediate medical concerns
Comprehension: Intact
Two step command: Intact
Naming: Intact
Cranial Nerves:
�� CNII:�Pupillary light reflex: Intact����Visual Field: Intact
�� CN III, IV, : Extraocular muscles: Intact�
�� CN V:�Facial Sensation�at�Forehead: Intact,�Maxilla: Intact,�Mandible: Intact
�� CN VII:�Facial movement: Symmetric
�� CN VIII:�Hearing: Normal
�� CN IX/X:�Speech & swallow: Normal,�a little hoarse Position of Uvula: Midline
�� CN XI:�Shoulder shrug: Symmetric
�� CN XII:�Tongue protrusion: Midline
Sensory:
�� Light touch: Intact in bilateral upper and lower extremities
��
�
Reflexes:
�� Biceps: 2+ bilaterally
�� Brachioradialis: 2+ bilaterally
�� Triceps: 2+ bilaterally
�� Patellar: 2+ bilaterally
�� Achilles: 2+ bilaterally
�� Babinski: Down going bilaterally
�� Clonus: None
�� Priyanka: Negative bilaterally�
Cerebellar: Dysmetria/Ataxia: None�
Musculoskeletal:
Motor: (Manual muscle scale 0-5)�
Muscle SA EF WE EE FF FA HF KE DF EHL PF
Right� 5 5 5 5 5 5 4 5 5 5 5
Left 5 5 5 5 5 5 4 5 5 5 5
�
Tone: Normal in all extremities�
Range of Motion: Passively within normal limits in all extremities�
�
Lab Results:
Labs
WBC 6.6 10^3/uL (4.8-10.8) 08/07/24 06:37
RBC 3.07 10^6/uL (4.70-6.10) L 08/07/24 06:37
Hgb 9.0 g/dL (13.0-18.0) L 08/07/24 06:37
Hct 28.5 % (39.0-52.0) L 08/07/24 06:37
MCV 92.8 fL (80.0-94.0) 08/07/24 06:37
MCH 29.3 pg (27.0-31.0) 08/07/24 06:37
MCHC 31.6 g/dL (33.0-37.0) L 08/07/24 06:37
RDW 13.4 % (11.5-14.5) 08/07/24 06:37
Plt Count 161 10^3/uL (130-400) D 08/07/24 06:37
MPV 9.9 fL (7.4-10.4) 08/07/24 06:37
Abs Immat Gran (auto) 0.1 10^3/uL (0-0.05) H 07/30/24 03:10
Absolute Neuts (auto) 8.2 10^3/uL (1.4-6.5) H 07/30/24 03:10
Absolute Lymphs (auto) 1.6 10^3/uL (1.2-3.4) 07/30/24 03:10
Absolute Monos (auto) 0.7 10^3/uL (0.1-0.6) H 07/30/24 03:10
Absolute Eos (auto) 0.2 10^3/uL (0-0.7) 07/30/24 03:10
Absolute Basos (auto) 0.0 10^3/uL (0-0.2) 07/30/24 03:10
Immature Gran % 0.6 % (0-0.5) H 07/30/24 03:10
Neutrophils % 75.5 % (42.2-75.2) H 07/30/24 03:10
Lymphocytes % 15.2 % (20.5-51.1) L 07/30/24 03:10
Monocytes % 6.8 % (1.7-9.3) 07/30/24 03:10
Eosinophils % 1.8 % (0-6) 07/30/24 03:10
Basophils % 0.1 % (0-2) 07/30/24 03:10
Nucleated RBC % 0 % (-) 07/30/24 03:10
ESR 89 mm/hour (0-20) H 07/25/24 03:56
Retic Count 2.2 % (0.4-2.8) 07/21/24 03:07
PT 13.1 Sec (11.4-14.6) 07/15/24 04:33
INR 0.96 07/15/24 04:33
APTT 85.4 Sec (23.4-35.0) H 08/06/24 13:42
D-Dimer 6.21 ug/mlFEU (0.00-0.50) H 08/05/24 11:33
pH 7.45 (7.35-7.45) 07/30/24 11:17
pCO2 39 mmHg (35-48) 07/30/24 11:17
pO2 85 mmHg (83-108) 07/30/24 11:17
HCO3 27.1 mmol/L (21-28) 07/30/24 11:17
Base Excess 2.9 mmol/L 07/30/24 11:17
ABG O2 Sat (Measured) 100.0 % (94-98) H 07/30/24 11:17
VBG pH 7.44 (7.32-7.43) H 07/30/24 03:10
VBG pCO2 39 mmHg (35-48) 07/30/24 03:10
VBG pO2 142 mmHg (30-50) H 07/30/24 03:10
VBG HCO3 26.5 mmol/L (22-27) 07/30/24 03:10
VBG O2 Sat (Flako) 98.3 % 07/30/24 03:10
VBG Base Excess 2.2 mmol/L (-4 to +4) 07/30/24 03:10
VBG O2 Therapy 07/30/24 03:10
O2 Delivery Level 07/30/24 11:17
Sodium 141 mmol/L (135-145) 08/07/24 06:37
Potassium 3.5 mmol/L (3.5-5.1) 08/07/24 06:37
Chloride 107 mmol/L (98-107) 08/07/24 06:37
Carbon Dioxide 29 mmol/L (22-30) 08/07/24 06:37
BUN 13 mg/dl (9-20) 08/07/24 06:37
Creatinine 1.2 mg/dL (0.7-1.3) 08/07/24 06:37
Estimated Creat Clear 91 ml/min 08/07/24 06:37
eGFR > 60.00 08/07/24 06:37
Glucose 104 mg/dl (70-99) H 08/07/24 06:37
Hemoglobin A1c Cancelled 07/24/24 17:38
Lactic Acid 0.8 mmol/L (0.7-2.0) 07/24/24 14:39
Calcium 8.6 mg/dl (8.4-10.2) 08/07/24 06:37
Phosphorus 3.8 mg/dl (2.5-4.5) 07/27/24 03:08
Magnesium 2.0 mg/dl (1.6-2.3) 07/29/24 03:02
Iron 51 ug/dl (49-181) 07/31/24 04:05
TIBC 222 ug/dl (261-462) L 07/31/24 04:05
% Saturation 22 % (20-50) 07/31/24 04:05
Transferrin 168 mg/dL (200-360) L 07/31/24 04:05
Ferritin 271.0 ng/ml (17.9-464.0) 07/31/24 04:05
Total Bilirubin 0.6 mg/dl (0.2-1.3) 07/30/24 03:10
Direct Bilirubin 0.6 mg/dl (0.0-0.4) H 07/19/24 04:04
AST 23 U/L (17-59) 07/30/24 03:10
ALT 121 U/L (0-50) H 07/30/24 03:10
Alkaline Phosphatase 128 U/L (38-126) H 07/30/24 03:10
Troponin I < 0.012 ng/ml 07/14/24 08:48
C-Reactive Protein 57.70 mg/L (0.0-10.00) H 07/25/24 03:56
Xqx-X-Bzcotcknkfs Pept 184 pg/ml 07/21/24 03:07
Total Protein 5.8 g/dl (6.3-8.2) L 07/30/24 03:10
Albumin 3.0 g/dl (3.5-5.0) L 07/30/24 03:10
Triglycerides 300 mg/dl (10-149) H 07/31/24 04:05
Vitamin B12 559 pg/ml (239-931) 07/31/24 04:05
Folate 6.4 ng/ml (2.76-20) 07/31/24 04:05
Urine Color Yellow 07/14/24 20:39
Urine Clarity Clear (Clear) 07/14/24 20:39
Urine pH 6.0 (5.0-9.0) 07/14/24 20:39
Ur Specific Cisco 1.010 (<1.030) 07/14/24 20:39
Urine Ketones Negative (Negative) 07/14/24 20:39
Ur Occult Blood Reflex Negative (Negative) 07/14/24 20:39
Urine Nitrite (Reflex) Negative (Negative) 07/14/24 20:39
Urine Bilirubin Negative (Negative) 07/14/24 20:39
Urine Urobilinogen Negative (Neg - 1+) 07/14/24 20:39
Leukocyte Esterase Rfl Negative (Negative) 07/14/24 20:39
Urine RBC 0-2 /HPF (0-2) 07/14/24 20:39
Urine WBC (Reflex) 0-2 /HPF (0-5) 07/14/24 20:39
Ur Squamous Epith Cells 6-10 /LPF (Few) 07/14/24 20:39
Urine Bacteria (Reflex) Few (Negative) A 07/14/24 20:39
Urine Osmolality 159 mOsm/kg (300-900) L 08/03/24 00:48
Urine Creatinine 87.100 mg/dl 07/22/24 12:23
Urine Sodium 38 mmol/L (30-90) 08/03/24 00:48
Urine Glucose Negative (Negative) 07/14/24 20:39
Urine Albumin (Reflex) 1+ (Neg - Trace) A 07/14/24 20:39
Random Vancomycin 16.1 ug/ml 07/15/24 04:[address] 0.2 mmol/L (0.6-1.2) L 07/31/24 04:05
Influenza Type A Source Resp swab 07/15/24 16:02
Influenza A RNA INAAT Detected (Not Detected) A 07/15/24 16:02
[place] Influenza H5 Not detected (Not Detected) 07/15/24 16:02
SARS-CoV-2 Antigen Negative (Negative) 07/14/24 08:48
POC Glucose 121 mg/dl (70-99) H 08/07/24 16:52
�
Diagnostic Results:�as per HPI�
�
Assessment: 49-year-old male with ADL and ambulatory dysfunction secondary to acute deconditioning from prolong immobilization, intubation, respiratory failure and PE.
�
Plan�
PM&R�PT/OT to increase independence with ADLs, improve balance, coordination, endurance, strength, mobility, community reintegration, decreased burden of care on others and family education.�
�
Debility: Due to prolonged intubation, hospitalization and PE, influenza. PT/OT
CT chest positive for moderate pulmonary embolism.
Echocardiogram with no evidence of right ventricular strain.
Patient was started on heparin drip yesterday.
Heparin drip discontinued and resume 10 mg of Eliquis twice a day for 14 doses then 5mg bid.
Antiphospholipid antibody syndrome workup pending.
Peripheral vascular ultrasound showed bilateral DVT left greater than right.
Advance diet to regular.
Acute deconditioning-
Secondary to prolonged ICU stay, and intubation.
PT and OT
VRDF dependent acute hypoxic respiratory failure-
Secondary to influenza A, ventilator dependence resolved-extubated on 07/30/2024.
Course complicated by ventilator associated pneumonia-Streptococcus group F
S/p prolonged mechanical ventilation and paralytics, resulting in deep severe deconditioning.
Received cefepime/Zosyn that was later transitioned to Unasyn along with stress dosing of steroids-completed the course.
Currently patient is on BiPAP at night and mid flow nasal cannula during the daytime.
Plan to wean off BiPAP in the nighttime, continue to wean off oxygen to low-flow and room air as tolerated.
ICU delirium versus metabolic encephalopathy
Gradually improving, currently on Seroquel nightly, a.m. Seroquel resumed by psychiatry.
As needed Zyprexa.
Patient did not have any episodes of agitation overnight yesterday. Delirium likely resolving.
Precedex discontinued
[address] on hold, psychiatry on board, fluvoxamine resumed, appreciate psychiatry help in management.
Avoid sedatives
ESAU
Improving -serum creatinine at 1.1, could be new baseline.
Nephrology following up, appreciate inputs.
Hypernatremia -
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
Nephrology following up, off of D5 drip. Remains on HCTZ.
Na+ 141 as of 08/07
Hypokalemia-
Resolved. Trend serum potassium levels.
Hypertension-
Continue amlodipine 10 mg, losartan 50 mg twice daily
HCTZ 25 added for hypernatremia
Added holding parameters on losartan, discontinued home dose of atenolol-likely contributing to his bradycardia.
Hold CCB and BB - low HR
Trend blood pressures-continues to remain high.
anemia-Multifactorial
Continue iron supplementation monitor CBC
Circulatory shock-resolved.
Initial blood cultures from 07/15 and repeat from 07/19 remain negative.
Required pressors (Levophed) for hemodynamic support.
Uncontrolled blood sugars: Moderate sliding scale
Psych: Schizophrenia and bipolar disorder-
Currently lithium on hold given supratherapeutic levels and ESAU.
Latuda discontinued for akathisia.
Goal lithium less than 0.7.
STEEL [employer]OX [employer]E [employer]ERTER home regimen- lurasidone. Currently on Luvox 50 mg daily, Seroquel 25 mg daily, 25 bedtime, 100 at bedtime
Skin: monitor for pressure sores/rashes/lesions.�
Chronic pain syndrome- Was on oxycodone. completed: acetaminophen as needed.�
Bowel: Colace and Senna, PRN bisacodyl.�
Bladder: Time void, PVRs, PRN straight cath.�
Tobacco Abuse: Smoking cessation counseling. Need to find out why smoking whether it is nicotine withdrawal, habit, or oral fixation.� Continue NicoDerm patch
GI Prophylaxis: Pantoprazole�
Pulmonary: Incentive spirometry�
Bilateral DVT- Heparin switched to Eliquis 10 mg twice daily until 08/13/24 then 5 mg bid
Obesity: Continue to family court counsellor patient about diet adjustments to control obesity. Body habitus and increased force to move body and extremities causes further difficulty with functional tasks.�
Safety: Continue to reinforce assistance with all transfers.�
Code Status:� Full code
Dispo�(date/plan/equipment needs): Home with family care.� Social history reviewed.�
Functional and Medical Goals:�Modified Independent with ADL�s, ambulation, transfers�
Discharge Destination:�Acute inpatient rehabilitation once medically stable and cleared by all specialists
Things that must be addressed in Hospital prior to discharge:�
Patient's oxygenation to be stable with activities prior to discharge and be off Bipap at night prior to discharge
��� Please comment on patient's psych medications- Does psych plans on resuming [address] or will patient be discharged on current meds?
��� Blood pressure must be less than 180 systolic and 100 diastolic for 24 hours before being stable for transfer to SNF/acute rehab.
Electrolytes and Hgb to remain stable prior to discharge.
Patient's oxygenation to be stable with activities prior to discharge
�
Discharge Destination:�Acute inpatient rehabilitation once medically stable and cleared by all specialists
Attending Statement:
I saw and examined the patient today.� Reviewed care plan with patient, therapy, nursing, and physician press assistant and feeder.� I agree with the above subjective and physical exam, and plan as documented by CELIA Valerio with adjustments made as necessary.
�
Thank you for allowing me to care for your patient. Please contact me with any questions or concerns.
Consultation
-
Date/Time Consultation Performed: 08/08/2024
Requesting Provider: Dr. Ailyn Brooks
Performing Provider: Dr. Edinson Apodaca
Reason for Consultation: rehabilitation placement
--- NOTE | 2024-08-08 09:53 | W.PN.NEPH.PH ---
Today's Communication / Plan
-
Signed off
Assessment/Plan
-
Assessment
ESAU (unknown)
VDRF
InfA
HTN
Hypernatremia
polyuria
Plan:
sodium stable on HCTZ
noted PE and DVT on AC
stable renal function
Bp stable on ARB and HCTZ, hold CCB and BB(low HR)
d/c plan
Will sign off
-
-
Date of Service: August 08, 2024
CC / HPI / ROS
-
Chief Complaint:
ESAU
History of Present Illness:
ESAU/Cr stable 1.2
BP was low on 08/05 but stable today
Hypernatremia improved na 141
eating without issue
on 2lit of O2
Review of Systems:
non oliguric /no polyuria with ashford
no CP
no sob at rest
Labs
-
Labs:
WBC 6.6 10^3/uL (4.8-10.8) 08/07/24 06:37
RBC 3.07 10^6/uL (4.70-6.10) L 08/07/24 06:37
Hgb 9.0 g/dL (13.0-18.0) L 08/07/24 06:37
Hct 28.5 % (39.0-52.0) L 08/07/24 06:37
Plt Count 161 10^3/uL (130-400) D 08/07/24 06:37
Sodium 141 mmol/L (135-145) 08/08/24 05:52
Potassium 4.2 mmol/L (3.5-5.1) 08/08/24 05:52
Chloride 107 mmol/L (98-107) 08/08/24 05:52
Carbon Dioxide 27 mmol/L (22-30) 08/08/24 05:52
BUN 13 mg/dl (9-20) 08/08/24 05:52
Creatinine 1.2 mg/dL (0.7-1.3) 08/08/24 05:52
eGFR > 60.00 08/08/24 05:52
Glucose 102 mg/dl (70-99) H 08/08/24 05:52
Calcium 9.1 mg/dl (8.4-10.2) 08/08/24 05:52
Phosphorus 3.8 mg/dl (2.5-4.5) 07/27/24 03:08
Rnp-A-Bxivxecpygd Pept 184 pg/ml 07/21/24 03:07
Albumin 3.0 g/dl (3.5-5.0) L 07/30/24 03:10
Physical Exam
-
Vital Signs:
Vital Signs
Temp Pulse Resp BP Pulse Ox
98.2 F 91 22 99/75 92
08/08/24 07:00 08/08/24 07:00 08/08/24 07:00 08/08/24 07:00 08/08/24 07:00
Cardiovascular:: Regular rate and rhythm
Respiratory:: Bilateral: Coarse
Lung Excursion:: Normal
Abdomen:: Nontender and Soft
Extremity Edema:: None: Bilateral:
Ashford Catheter: No
--- NOTE | 2024-08-08 10:23 | CM ---
Patient seen at bedside
PT rec Acute Rehab
await physiatry consult
Spoke with Monique Mo at [facility] - no bed available today
patient on BIPAP HS
Will need to obtain ins auth prior to going to Rehab
PLAN: [facility], await physiatry consult, will need auth
--- NOTE | 2024-08-08 10:45 | W.PN.PUL3 ---
Addendum entered and electronically signed by Senthil Funez MD 08/08/24 11:33:
I contacted as unable to provide discharge information
Reviewed clinical course
Physical therapy ambulated today 40 feet without oxygen requirement
Provided pulmonary office number and follow-up instructions in 1 month
All questions answered
Original Note:
Today's Communication / Plan
-
Continue anticoagulation per primary service
Continue BiPAP while inpatient
Recommend follow-up in the sleep clinic, pulmonary clinic
Increase activity, ambulate
We will sign off. Please call with questions
Assessment
-
Patient is a 49-year-old gentleman with history of hypertension, depression, who was brought from home via EMS as patient's found him lethargic and short of breath. Patient reportedly had been sick for the last 3 to 4 days. Patient required
15 L via nasal cannula initially and was subsequently transition to BiPAP support as his initial saturations were around 60%. Patient responded well to BiPAP and was noted to have hypercapnia also. Overnight he continued to develop worsening
hypercapnia and inability to ventilate and oxygenate and required intubation and mechanical ventilation. Post ventilation, patient has been very difficult to oxygenate. He has been on 100% FiO2 and PEEP has been slowly increased all the way up to
18 now. His PF ratio continues to be severely low. He has been on deep sedation and also paralytics were initiated. Patient found to have influenza A screen positive.
#1. Influenza A with severe acute hypoxic respiratory failure. (Intubated 07/15-07/30/2024), complicated by VAP (Streptococcus Group F)
-Patient was initially on 15 L oxygen, subsequently transitioned to BiPAP and later intubated 07/15
-Prolonged stay on mechanical ventilation with use of paralytics, proning in view of severely reduced PF ratio as well as high PEEP up to 18.
-Stay was complicated by VAP due to Streptococcus F, initially treated with cefepime/Zosyn later transitioned to Unasyn along with stress dose steroids, currently off antibiotics
-07/30, patient tolerated pressure support well and was extubated to BiPAP. Kept him on alternating high flow nasal cannula versus BiPAP for the first 24 hours.
-Currently on nasal cannula during daytime and BiPAP at night
-As patient continues to improve, nightly BiPAP eventually can be weaned off in coming days. Requiring 10 L with BiPAP at night. Decrease supplemental oxygen at night to 2 L with BiPAP
- Presently on room air, comfortable. Chest x-ray 07/29/2024 without acute findings
#2. ICU delirium vs Metabolic encephalopathy with underlying psychiatric history
- Gradually improving, currently on Seroquel nightly and as needed Zyprexa
- Psychiatry service on case
#3. Acute PE
- Patient with increased tachypnea yesterday, persistent oxygen requirement despite normal chest x-ray, normal exam. CTA consistent with bilateral PE, ordered by primary service. Bilateral lower extremity DVT also noted. Heparin started,
transition to oral therapy
- Echocardiogram 08/06 was normal biventricular function, no significant change. Of note echocardiogram 07/21/2024 with normal biventricular function, pressures could not be determined
- EKG with normal sinus rhythm
Would likely require rehabilitation, ongoing PT/OT
Follow-up information left in chart
Patient would benefit with outpatient sleep evaluation
Information left in chart
We will sign off. Please call with questions
Other medical issues:
-ESAU, Improved
-Hypotension with Shock, resolved
-History of smoking. Patient might have underlying COPD. Out patient follow up with Pulmonary clinic
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 Out patient sleep study
PT/OT.
Speech therapy consult.
DVT prophylaxis: Now on anticoagulation for PE. Was on prophylaxis. GI prophylaxis with pantoprazole.
Subjective Data
-
Date of Service:
Date of Service: August 08, 2024
Subjective:
Patient presently on room air. He is without complaints. Denies shortness of breath, chest pain, cough. Tolerated BiPAP with 4 L overnight. Patient cannot recall trying BiPAP
Objective Data
Data Reviewed
Vital Signs / I&O / Oxygen:
Vital Signs
Temp Pulse Resp BP Pulse Ox
98.2 F 91 22 99/75 92
08/08/24 07:00 08/08/24 07:00 08/08/24 07:00 08/08/24 07:00 08/08/24 07:00
Intake and Output
08/07/24 08/08/24 08/09/24
06:59 06:59 06:59
Intake Total 120 / 120 600 / 600
Output Total 20745 / 2674
Balance -1954 / -2074
SaO2 [ASV] 97
SaO2 [CPAP/PSV] 95
SaO2 [A/C] 96
SaO2 92
Nasal Cannula flow liters per 94
minute
Physical Exam
General: Comfortable and Other (RUE picc)
HEENT: Normocephalic
Cardiovascular: S1-S2, Regular Rhythm, Murmur (n) and Peripheral Edema (tr)
Respiratory: Clear, Crackles (n), Rhonchi (n) and Non-Labored Respirations
GI: Soft and Non Distended
Neurology: Awake, Alert and No Motor Deficits (Able to sit up without assistance)
Skin: Warm and Rash (n)
Labs/Micro/Reports
Lab Data
08/07/24 06:37
08/08/24 05:52
Microbiology
08/05/24 08:11 Blood/Venous Blood Culture - Preliminary
No Growth in 72 hours- Final report to follow
08/05/24 06:22 Blood/Venous Blood Culture - Preliminary
No Growth in 72 hours- Final report to follow
[2024-08-08 12:29] LABS: Glucose - Point of Care 114 mg/dl (70-99)
--- NOTE | 2024-08-08 12:52 | W.PN.UPDATE ---
Update Note
Progress Note Update
patient seen chart reviewed. discussed with nursing. at bedside. patient was a little more interactive today. we talked about a number of issues. he told me about his life prior to this illness. he was unaware of the seriousness of his
condition at admit. he learned this from his father by telephone. he was heartened by being able to walk 40 feet without o2. he is committed to working hard in rehab. we did discuss the seroquel again. 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 qtc is better at 483. discussed the importance of quitting smoking. modalities for smoking cessation which is of the utmost importance were addressed w him. will follow
[2024-08-08] MEDS: TYLENOL ORAL SOLUTION 650 MG PO (13:02)
--- NOTE | 2024-08-08 14:07 | W.PN.HOSP.TC ---
Addendum entered and electronically signed by Yo Brooks MD 08/08/24 14:35:
Seen and examined by me independently in collaboration with the medical office receptionist.
Lab data and imaging data reviewed.
Addendum as below :
Respiratory status continues to improve. Currently on room air. Continue with Eliquis.
Hemoglobin stable though anemic. Heme-negative. Suspect anemia may be secondary to acute inflammation/anemia phlebotomy. Iron studies does not suggest iron deficiency. Patient advised to follow-up with a CBC as outpatient and consider hematology
evaluation if persistently anemic.
Medically stable for discharge to rehab. Await disposition.
Original Note:
Today's Communication/Plan
-
Pending physiatry evaluation.
Stable for discharge.
Assessment / Plan
Assessment / Plan
Ejbwqmcwtr-68-osco-old male with a PMHx significant for hypertension, depression presented to the hospital for acute onset shortness of breath, was diagnosed with influenza A associated ARDS, severe acute hypoxic respiratory failure complicated by
ventilator associated pneumonia.
Plan-
Acute PE-
CT chest positive for moderate pulmonary embolism.
Echocardiogram with no evidence of right ventricular strain.
Patient was started on heparin drip yesterday.
Plan to discontinue heparin drip at 6 PM, and resume 10 mg of Eliquis twice a day for 14 doses.
Antiphospholipid antibody syndrome workup pending.
Peripheral vascular ultrasound showed bilateral DVT left greater than right.
Downgrade to telemetry,
Advance diet to regular.
Acute deconditioning-
Secondary to prolonged ICU stay, and intubation.
PT and OT recommended acute rehab.
Dr. Apodaca consulted. Evaluation pending.
VRDF dependent acute hypoxic respiratory failure-
Secondary to influenza A, ventilator dependence resolved-extubated on 07/30/2024.
Course complicated by ventilator associated pneumonia-Streptococcus group F
S/p prolonged mechanical ventilation and paralytics, resulting in deep severe deconditioning.
Received cefepime/Zosyn that was later transitioned to Unasyn along with stress dosing of steroids-completed the course.
Currently patient is on BiPAP at night and mid flow nasal cannula during the daytime.
Plan to wean off BiPAP in the nighttime, continue to wean off oxygen to low-flow and room air as tolerated.
Currently weaned off of oxygen completely.
ICU delirium versus metabolic encephalopathy
Gradually improving, currently on Seroquel nightly, a.m. Seroquel resumed by psychiatry.
As needed Zyprexa.
Patient did not have any episodes of agitation overnight yesterday. Delirium likely resolving.
Precedex discontinued
[place] on hold, psychiatry on board, fluvoxamine resumed, appreciate psychiatry help in management.
Avoid sedatives
ESAU
Improving -serum creatinine at 1.1, could be new baseline.
Nephrology following up, appreciate inputs.
Hypernatremia -
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
Nephrology following up, off of D5 drip yesterday-08/03/2024.
D5 discontinued and currently remains on HCTZ. HCTZ.
Appreciate nephrology help with hyponatremia.
Patient currently with urine output of 2.9 L, heading towards free water deficit again.
PT and OT on board
Reconsulted to get the patient up and walking.
Hypokalemia-
Resolved.
Trend serum potassium levels.
Hypertension-
Continue amlodipine 10 mg, losartan 50 mg twice daily resumed yesterday-08/03/2024.
HCTZ 25 added for hypernatremia
Added holding parameters on losartan, discontinued home dose of atenolol-likely contributing to his bradycardia.
Also in the addition of HCTZ likely driving his soft blood pressures.
Trend blood pressures-continues to remain high.
Multifactorial anemia-
Continue iron supplementation via tube monitor CBC
Chronic pain syndrome-
Morphine milliequivalents of opioids-discontinued
patient is currently on oxycodone 7 out of 10 doses.
Rest of the oxycodones for breakthrough pain not discontinued.
Schizophrenia and bipolar disorder-
Psychiatry on board, dated psychiatry to reevaluate patient for lithium and psych regimen.
Currently lithium on hold given supratherapeutic levels and ESAU.
Latuda discontinued for akathisia.
Goal lithium less than 0.7.
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
History of smoking
NRT -not on NRT, recommend management.
Circulatory shock-resolved.
Initial blood cultures from 07/15 and repeat from 07/19 remain negative.
Required pressors (Levophed) for hemodynamic support.
Insulin gtt. for uncontrolled blood sugars
Goal blood glucose 180-220
DVT prophylaxis-
Heparin subcu
CODE STATUS-
Full code.
Anticipated Discharge: Within 24 hours
Subjective/Interval History
-
Date of Service: August 08, 2024
Complaint of mid to low right sided back pain, nonradiating. From positioning in bed discomfort.
Objective Data
-
Labs:
Laboratory Results
08/08/24
05:52
Sodium 141
Potassium 4.2
Chloride 107
Carbon Dioxide 27
BUN 13
Creatinine 1.2
Glucose 102 H
Calcium 9.1
Vital Signs:
Vital Signs
Temp Pulse Resp BP Pulse Ox
97.7 F 100 20 108/73 93
08/08/24 11:00 08/08/24 11:00 08/08/24 11:00 08/08/24 11:00 08/08/24 11:00
I&O
08/07/24 08/08/24 08/09/24
06:59 06:59 06:59
Intake Total 120 / 120 600 / 600
Output Total 2074 / 2074 2675 / 267
Balance -1954 / -2074 /
Review of Systems
-
History Source: Patient
Constitutional: Reports No Symptoms
Respiratory: Reports No Symptoms
Abdomen/GI: Reports No Symptoms
Genitourinary: Reports No Symptoms
Musculoskeletal: Reports Other (Back pain.)
Neuro: Reports No Symptoms
Hematologic / Lymphatic: Reports No Symptoms
Physical Exam
-
General: No Apparent Distress and Comfortable
HEENT: Moist Mucous Membranes
Respiratory: Clear to Auscultation; Negative Wheezes, Rales, Rhonchi or Crackles
Cardiac: Regular Rhythm and S1/S2; Negative Murmur, Rub or Gallop
GI: Soft, Nontender, Nondistended and Normal Bowel Sounds
Musculoskeletal: Negative No Clubbing, No Cyanosis, Edema, Right Lower Extrem or Edema, Left Lower Extrem
Neuro: AO x 3 and No Motor Deficits
Psych: Calm
Data Reviewed
-
Labs: Labs Reviewed by me and Discussed with Physician
[2024-08-08 16:39] LABS: Glucose - Point of Care 108 mg/dl (70-99)
[2024-08-08] MEDS: LIPITOR 20 MG PO (17:08)
[2024-08-08] MEDS: SEROQUEL 100 MG PO (20:56)
[2024-08-08 21:51] LABS: Glucose - Point of Care 133 mg/dl (70-99)
[2024-08-09 01:48] LABS: Beta-2-Glycoprotein I Ab. IgG <10 SGU (<=20); Beta-2-Glycoprotein I Ab. IgM <10 SMU (<=20)
[2024-08-09 04:50] VITALS: PULSE 2
[2024-08-09 07:13] LABS: Glucose - Point of Care 107 mg/dl (70-99)
[2024-08-09 07:17] VITALS: BP 109/75
[2024-08-09] MEDS: NOVOLOG FLEXPEN-MODERATE RESISTANCE SC ×3 (07:18→17:17)
[2024-08-09] MEDS: MIRALAX 17 GRAMS TUBE (08:44)
[2024-08-09] MEDS: NICODERM TRANSDERMAL 21 MG TRANSDERM (08:45)
[2024-08-09] MEDS: ORETIC 25 MG PO (08:45)
[2024-08-09] MEDS: LUVOX 50 MG PO (08:45)
[2024-08-09] MEDS: COZAAR 50 MG PO ×2 (08:46→21:02)
[2024-08-09] MEDS: ELIQUIS 10 MG PO ×2 (08:46→21:02)
[2024-08-09] MEDS: SEROQUEL 25 MG PO ×2 (08:46→21:03)
[2024-08-09] MEDS: SENOKOT 8.6 MG PO (08:46)
[2024-08-09 09:00] LABS: Cardiolipin IgA Antibody <10 APL (<=11); Cardiolipin IgM Antibody <10 MPL (<=12); Cardiolipin Igg Antibody <10 GPL (<=14)
[2024-08-09 09:33] LABS: Blood Urea Nitrogen 13 mg/dl (9-20); Carbon Dioxide 25 mmol/L (22-30); Chloride 105 mmol/L (98-107); Estimated Creatinine Clearance 91 ml/min; Glucose 99 mg/dl (70-99); Potassium 3.8 mmol/L (3.5-5.1); Sodium 140 mmol/L (135-145); eGFR > 60.00
--- NOTE | 2024-08-09 10:27 | W.PN.UPDATE ---
Update Note
Progress Note Update
Patient is presently worried about being able to go to rehab, concerned about slow progress but realizes he is slowly improving. He is also concerned about the Seroquel although he has apparently been on it for a long time ; he reports it was
prescribed by Dr. Wu, his OP psychiatrist. He feels he still has mood swings and cetraily is affect is resprticted as mood is sad and anxious but related to his concerns regarding his medical condition.
Supportive intervention given.
Would continue the current dose of Seroquel.
Will continue F/U.
[2024-08-09 12:32] LABS: Glucose - Point of Care 93 mg/dl (70-99)
--- NOTE | 2024-08-09 13:32 | W.PN.HOSP.TC ---
Addendum entered and electronically signed by Yo Brooks MD 08/09/24 13:58:
Seen and examined by me independently in collaboration with the emergency medical tech.
Lab data and imaging data reviewed.
Addendum as below :
Patient feels his mood is not great today and was hoping to see some adjustments to his medication. Psychiatrist on the floor who will take a look at him.
Medically he has been stable for discharge to acute rehab. Ongoing disposition efforts. Discussed with case management today.
Original Note:
Today's Communication/Plan
-
Stable for discharge.
Continue Eliquis.
Continue PT and OT
Pending [facility] rehab.
Assessment / Plan
Assessment / Plan
Uhzbdtguog-83-gtsk-old male with a PMHx significant for hypertension, depression presented to the hospital for acute onset shortness of breath, was diagnosed with influenza A associated ARDS, severe acute hypoxic respiratory failure complicated by
ventilator associated pneumonia.
Plan-
Acute PE-
CT chest positive for moderate pulmonary embolism.
Echocardiogram with no evidence of right ventricular strain.
Patient was started on heparin drip yesterday.
Plan to discontinue heparin drip at 6 PM, and resume 10 mg of Eliquis twice a day for 14 doses.
Antiphospholipid antibody syndrome workup pending.
Peripheral vascular ultrasound showed bilateral DVT left greater than right.
Downgrade to telemetry,
Advance diet to regular.
Acute deconditioning-
Secondary to prolonged ICU stay, and intubation.
PT and OT recommended acute rehab.
Dr. Apodaca consulted. [facility]
VRDF dependent acute hypoxic respiratory failure-
Secondary to influenza A, ventilator dependence resolved-extubated on 07/30/2024.
Course complicated by ventilator associated pneumonia-Streptococcus group F
S/p prolonged mechanical ventilation and paralytics, resulting in deep severe deconditioning.
Received cefepime/Zosyn that was later transitioned to Unasyn along with stress dosing of steroids-completed the course.
Currently patient is on BiPAP at night and mid flow nasal cannula during the daytime.
Plan to wean off BiPAP in the nighttime, continue to wean off oxygen to low-flow and room air as tolerated.
Currently weaned off of oxygen completely.
ICU delirium versus metabolic encephalopathy
Gradually improving, currently on Seroquel nightly, a.m. Seroquel resumed by psychiatry.
As needed Zyprexa.
Patient did not have any episodes of agitation overnight yesterday. Delirium likely resolving.
Precedex discontinued
Friend on hold, psychiatry on board, fluvoxamine resumed, appreciate psychiatry help in management.
Avoid sedatives
ESAU
Improving -serum creatinine at 1.1, could be new baseline.
Nephrology following up, appreciate inputs.
Hypernatremia -
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
Nephrology following up, off of D5 drip yesterday-08/03/2024.
D5 discontinued and currently remains on HCTZ. HCTZ.
Appreciate nephrology help with hyponatremia.
Patient currently with urine output of 2.9 L, heading towards free water deficit again.
PT and OT on board
Reconsulted to get the patient up and walking.
Hypokalemia-
Resolved.
Trend serum potassium levels.
Hypertension-
Continue amlodipine 10 mg, losartan 50 mg twice daily resumed yesterday-08/03/2024.
HCTZ 25 added for hypernatremia
Added holding parameters on losartan, discontinued home dose of atenolol-likely contributing to his bradycardia.
Also in the addition of HCTZ likely driving his soft blood pressures.
Trend blood pressures-continues to remain high.
Multifactorial anemia-
Continue iron supplementation via tube monitor CBC
Chronic pain syndrome-
Morphine milliequivalents of opioids-discontinued
patient is currently on oxycodone 7 out of 10 doses.
Rest of the oxycodones for breakthrough pain not discontinued.
Schizophrenia and bipolar disorder-
Psychiatry on board, dated psychiatry to reevaluate patient for lithium and psych regimen.
Psych reevaluated him
Currently lithium on hold given supratherapeutic levels and ESAU.
Latuda discontinued for akathisia.
Goal lithium less than 0.7.
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
History of smoking
NRT -not on NRT, recommend management.
Circulatory shock-resolved.
Initial blood cultures from 07/15 and repeat from 07/19 remain negative.
Required pressors (Levophed) for hemodynamic support.
Insulin gtt. for uncontrolled blood sugars
Goal blood glucose 180-220
DVT prophylaxis-
Heparin subcu
CODE STATUS-
Full code.
Anticipated Discharge: 24 - 48 hours
Subjective/Interval History
-
Date of Service: August 09, 2024
Patient is reporting of back pain and needs a medication for back pain. He also states that he feels depressed and is having mood swings from prolonged hospital stay. His medication regimen was changed during this hospital stay, his Latuda was
discontinued, lithium was discontinued. Psychiatrist updated.
Objective Data
-
Labs:
Laboratory Results
08/09/24
08:29
Sodium 140
Potassium 3.8
Chloride 105
Carbon Dioxide 25
BUN 13
Creatinine 1.2
Glucose 99
Calcium 9.0
Vital Signs:
Vital Signs
Temp Pulse Resp BP Pulse Ox
98.1 F 105 16 109/75 97
08/09/24 07:17 08/09/24 08:45 08/09/24 07:17 08/09/24 08:45 08/09/24 07:17
I&O
08/08/24 08/09/24 08/10/24
06:59 06:59 06:59
Intake Total 600 / 600 1680 / 1680
Output Total 2675 / 2675 1000 / 1000
Balance -2074 / 680 / 680
Review of Systems
-
History Source: Patient
Constitutional: Reports Fatigue and Weakness; Denies No Appetite (Good appetite)
Respiratory: Reports No Symptoms
Cardiac: Reports No Symptoms
Abdomen/GI: Reports No Symptoms
Genitourinary: Reports No Symptoms
Musculoskeletal: Reports Other (Right-sided unilateral back pain.)
Skin: Reports No Symptoms
Neuro: Reports No Symptoms
Endocrine: Reports No Symptoms
Hematologic / Lymphatic: Reports No Symptoms
Allergy / Immunology: Reports No Symptoms
Physical Exam
-
General: No Apparent Distress and Comfortable
HEENT: Moist Mucous Membranes
Respiratory: Clear to Auscultation; Negative Wheezes, Rales, Rhonchi or Crackles
Cardiac: Regular Rhythm and S1/S2; Negative Murmur, Rub or Gallop
GI: Soft, Nontender, Nondistended and Normal Bowel Sounds
Genito-urinary: No Costovertebral Tender
Musculoskeletal: No Clubbing, No Cyanosis and No Edema
Skin: Warm
Neuro: AO x 3 and No Motor Deficits
Psych: Calm and Depressed
Data Reviewed
-
Labs: Labs Reviewed by me and Discussed with Physician
[2024-08-09 15:22] VITALS: BP 104/68
[2024-08-09 17:16] LABS: Glucose - Point of Care 129 mg/dl (70-99)
[2024-08-09] MEDS: LIPITOR 20 MG PO (17:18)
[2024-08-09] MEDS: PERCOCET 5/325 1 TABLET PO (17:45)
[2024-08-09] MEDS: SENOKOT PO (20:30)
[2024-08-09] MEDS: SEROQUEL 100 MG PO (21:03)
[2024-08-09 21:54] LABS: Glucose - Point of Care 121 mg/dl (70-99)
[2024-08-09 23:00] VITALS: BP 98/60; PULSE 110; PULSE 2
[2024-08-10 04:00] VITALS: PULSE 2
[2024-08-10 07:00] VITALS: BP 108/71
[2024-08-10 07:44] LABS: Glucose - Point of Care 105 mg/dl (70-99)
[2024-08-10] MEDS: NOVOLOG FLEXPEN-MODERATE RESISTANCE SC ×3 (07:47→16:37)
[2024-08-10] MEDS: NICODERM TRANSDERMAL 21 MG TRANSDERM (08:13)
[2024-08-10] MEDS: COZAAR 50 MG PO ×2 (08:15→21:04)
[2024-08-10] MEDS: LUVOX 50 MG PO (08:15)
[2024-08-10] MEDS: ELIQUIS 10 MG PO ×2 (08:15→21:05)
[2024-08-10] MEDS: SENOKOT 8.6 MG PO (08:16)
[2024-08-10] MEDS: ORETIC 25 MG PO (08:16)
[2024-08-10] MEDS: MIRALAX 17 GRAMS TUBE (08:16)
[2024-08-10] MEDS: SEROQUEL 25 MG PO ×2 (08:16→21:05)
[2024-08-10] MEDS: PERCOCET 5/325 1 TABLET PO ×2 (10:47→17:45)
--- NOTE | 2024-08-10 11:11 | W.PN.UPDATE ---
Update Note
Progress Note Update
Patient is better today,feels more optimistic as he is going to go the rehab unit. His mood is reasonably stable on the Seroquel, still somehat anxious but responds appropriately to humor and his affect is congruent with thought content.
He has a plan of continuing with his OP mental health treatment.
I would continue current psychotropic meds.
Will continue F/U
[2024-08-10 11:34] LABS: Glucose - Point of Care 112 mg/dl (70-99)
--- NOTE | 2024-08-10 14:13 | W.PN.HOSP.TC ---
Addendum entered and electronically signed by Yo Brooks MD 08/10/24 15:43:
Seen and examined by me independently in collaboration with the medical van driver.
Lab data and imaging data reviewed.
Addendum as below :
Remains medically stable for discharge to acute rehab. Await authorization to go to [facility].
Original Note:
Today's Communication/Plan
-
Stable for discharge to [facility].
Assessment / Plan
Assessment / Plan
Esnprhuycb-29-utby-old male with a PMHx significant for hypertension, depression presented to the hospital for acute onset shortness of breath, was diagnosed with influenza A associated ARDS, severe acute hypoxic respiratory failure complicated by
ventilator associated pneumonia.
Plan-
Stable for discharge to [facility]
Acute PE-
CT chest positive for moderate pulmonary embolism.
Echocardiogram with no evidence of right ventricular strain.
Patient was started on heparin drip yesterday.
Plan to discontinue heparin drip at 6 PM, and resume 10 mg of Eliquis twice a day for 14 doses.
Antiphospholipid antibody syndrome workup pending.
Peripheral vascular ultrasound showed bilateral DVT left greater than right.
Downgrade to telemetry,
Advance diet to regular.
Acute deconditioning-
Secondary to prolonged ICU stay, and intubation.
PT and OT recommended acute rehab.
Dr. Apodaca consulted. [facility]
VRDF dependent acute hypoxic respiratory failure-
Secondary to influenza A, ventilator dependence resolved-extubated on 07/30/2024.
Course complicated by ventilator associated pneumonia-Streptococcus group F
S/p prolonged mechanical ventilation and paralytics, resulting in deep severe deconditioning.
Received cefepime/Zosyn that was later transitioned to Unasyn along with stress dosing of steroids-completed the course.
Currently patient is on BiPAP at night and mid flow nasal cannula during the daytime.
Plan to wean off BiPAP in the nighttime, continue to wean off oxygen to low-flow and room air as tolerated.
Currently weaned off of oxygen completely.
ICU delirium versus metabolic encephalopathy
Gradually improving, currently on Seroquel nightly, a.m. Seroquel resumed by psychiatry.
As needed Zyprexa.
Patient did not have any episodes of agitation overnight yesterday. Delirium likely resolving.
Precedex discontinued
[place] on hold, psychiatry on board, fluvoxamine resumed, appreciate psychiatry help in management.
Avoid sedatives
ESAU
Improving -serum creatinine at 1.1, could be new baseline.
Nephrology following up, appreciate inputs.
Hypernatremia -
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
Nephrology following up, off of D5 drip yesterday-08/03/2024.
D5 discontinued and currently remains on HCTZ. HCTZ.
Appreciate nephrology help with hyponatremia.
Patient currently with urine output of 2.9 L, heading towards free water deficit again.
PT and OT on board
Reconsulted to get the patient up and walking.
Hypokalemia-
Resolved.
Trend serum potassium levels.
Hypertension-
Continue amlodipine 10 mg, losartan 50 mg twice daily resumed yesterday-08/03/2024.
HCTZ 25 added for hypernatremia
Added holding parameters on losartan, discontinued home dose of atenolol-likely contributing to his bradycardia.
Also in the addition of HCTZ likely driving his soft blood pressures.
Trend blood pressures-continues to remain high.
Multifactorial anemia-
Continue iron supplementation via tube monitor CBC
Chronic pain syndrome-
Morphine milliequivalents of opioids-discontinued
patient is currently on oxycodone 7 out of 10 doses.
Rest of the oxycodones for breakthrough pain not discontinued.
Schizophrenia and bipolar disorder-
Psychiatry on board, dated psychiatry to reevaluate patient for lithium and psych regimen.
Psych reevaluated him
Currently lithium on hold given supratherapeutic levels and ESAU.
Latuda discontinued for akathisia.
Goal lithium less than 0.7.
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
History of smoking
NRT -not on NRT, recommend management.
Circulatory shock-resolved.
Initial blood cultures from 07/15 and repeat from 07/19 remain negative.
Required pressors (Levophed) for hemodynamic support.
Insulin gtt. for uncontrolled blood sugars
Goal blood glucose 180-220
DVT prophylaxis-
Heparin subcu
CODE STATUS-
Full code.
Anticipated Discharge: Within 24 hours
Subjective/Interval History
-
Date of Service: August 10, 2024
No new symptoms today, mood is good
Objective Data
-
Vital Signs:
Vital Signs
Temp Pulse Resp BP Pulse Ox
98.1 F 99 18 108/71 94
08/10/24 07:00 08/10/24 08:15 08/10/24 07:00 08/10/24 08:15 08/10/24 07:00
I&O
08/09/24 08/10/24 08/11/24
06:59 06:59 06:59
Intake Total 1680 / 1680 450 / 450 700 / 700
Output Total 1000 / 1000 750 / 750 400 / 400
Balance 680 / 680 -300 / -300 300 / 300
Review of Systems
-
History Source: Patient
All other systems: Reviewed and negative
Physical Exam
-
General: No Apparent Distress and Comfortable (on room air)
HEENT: Moist Mucous Membranes, Anicteric and [place] Conjunctivae
Respiratory: Clear to Auscultation; Negative Wheezes, Rales, Rhonchi or Crackles
Cardiac: Regular Rhythm and S1/S2; Negative Murmur, Rub or Gallop
GI: Soft, Nontender, Nondistended and Normal Bowel Sounds
Musculoskeletal: No Clubbing, No Cyanosis and No Edema
Neuro: AO x 3, No Motor Deficits and DTR's Intact & Symmetrica
Psych: Calm
[2024-08-10 15:00] VITALS: BP 128/75
[2024-08-10 16:34] LABS: Glucose - Point of Care 91 mg/dl (70-99)
[2024-08-10] MEDS: LIPITOR 20 MG PO (17:45)
[2024-08-10] MEDS: SENOKOT PO (20:49)
[2024-08-10 21:03] LABS: Glucose - Point of Care 124 mg/dl (70-99)
[2024-08-10] MEDS: SEROQUEL 100 MG PO (21:05)
[2024-08-10 23:00] VITALS: PULSE 112; PULSE 2
[2024-08-10 23:08] VITALS: BP 130/85
[2024-08-11 07:00] VITALS: BP 117/82
[2024-08-11] MEDS: SEROQUEL 25 MG PO ×2 (07:53→21:00)
[2024-08-11] MEDS: ELIQUIS 10 MG PO ×2 (07:53→19:26)
[2024-08-11] MEDS: LUVOX 50 MG PO (07:53)
[2024-08-11] MEDS: SENOKOT 8.6 MG PO ×2 (07:54→19:26)
[2024-08-11] MEDS: COZAAR 50 MG PO (07:54)
[2024-08-11] MEDS: ORETIC 25 MG PO (07:54)
[2024-08-11 07:55] LABS: Glucose - Point of Care 127 mg/dl (70-99)
[2024-08-11] MEDS: NICODERM TRANSDERMAL 21 MG TRANSDERM (07:55)
[2024-08-11] MEDS: NOVOLOG FLEXPEN-MODERATE RESISTANCE SC ×2 (07:55→16:57)
[2024-08-11] MEDS: MIRALAX 17 GRAMS TUBE (07:57)
[2024-08-11] MEDS: FEOSOL 325 MG PO (08:00)
--- NOTE | 2024-08-11 08:35 | PN.DE.MGMTRT ---
Insulin Management
- -
08/11/2024: Diabetes Management Follow up
Patient admitted 07/14/24 via EMS as patient's found him lethargic and short of breath. He was admitted Flu A +, acute hypoxemic respiratory failure, requiring intubation and mechanical ventilation. PMH: HTN, Depression, bipolar and T2DM. Was
taking Zepbound 2.5mg weekly/ for weight loss. A1C 6.0%, Cr 2.9 on admission
Pt is awake and alert, resting in bed, offers no complaints, mental status is improving, able to discuss diabetes care plan.
Extubated 07/30. ESAU resolved, Cr 1.2, eGFR >60 today. s/p chest CT - bilateral PE; s/p peripheral vascular ultrasound - bilateral DVT L > R.
Currently ordered moderate corrective insulin with meals. Glucose range 91 to 112, has not required any coverage.
Will make no change to corrective insulin regimen.
Was taking Zepbound 2.5mg weekly/ for weight loss, may resume med at discharge.
Discussed with Nurse. Will cont to follow
Diabetes History
- -
Type of Diabetes: 2
Pre-Admission Diabetes Regimen
Lab Results
Hemoglobin A1c Cancelled 07/24/24 17:38
Insulin Pump Settings
IP Diabetes Regimen
08/10/24 08/10/24 08/10/24
11:32 16:33 21:00
POC Glucose 112 H 91 124 H
08/11/24
07:54
POC Glucose 127 H
Meal type: Lunch
Meal type: Breakfast
Amount consumed: 0
Amount consumed: 100%
Patient Education
--- NOTE | 2024-08-11 09:17 | W.PN.HOSP.TC ---
Addendum entered and electronically signed by Parish Lugo MD 08/11/24 20:19:
Attending Addendum-
I saw and evaluated the patient. I reviewed the resident�s note and agree with findings and plan as documented in the resident�s note. Sub: feels good. denies SI of HI. Urinating as usual. Full 12 point ROS reviewed and negative except as
documented Exam: Vitals reviewed in chart GEN-NAd heart RRR lungs clear abd soft LE no edema Neuro AAO x 3
Plan:
#Acute PE plus B/L LE DVT -
Echocardiogram with no evidence of right ventricular strain.
Patient was started on heparin drip yesterday.
cont loading eliquis dose x 7 days
Antiphospholipid antibody syndrome workup pending.
cont telemetry,
#Acute deconditioning-
Secondary to prolonged ICU stay, and intubation.
repeat PT OT eval today
for [facility] in am
#VRDF dependent acute hypoxic respiratory failure-
Secondary to influenza A, ventilator dependence resolved-extubated on 07/30/2024.
Course complicated by ventilator associated pneumonia-Streptococcus group F
Received cefepime/Zosyn that was later transitioned to Unasyn along with stress dosing of steroids-completed the course.
Currently patient is on BiPAP at night and mid flow nasal cannula during the daytime.
Plan to wean off BiPAP
Currently weaned off of oxygen
#ICU delirium versus metabolic encephalopathy
Gradually improving, currently on Seroquel nightly, a.m. Seroquel resumed by psychiatry.
As needed Zyprexa.
Patient did not have any episodes of agitation overnight yesterday. Delirium likely resolving.
was on Precedex which was discontinued
[place] on hold, psychiatry on board, fluvoxamine resumed, appreciate psychiatry help in management.
dc latuda
#ESAU
-resolved
#Hypernatremia -
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
Nephrology following
D5 discontinued and currently remains on HCTZ
Appreciate nephrology help with hyponatremia.
check BMP in am
#Hypokalemia-
Resolved.
#Hypertension-
Continue amlodipine and losartan
HCTZ 25 added for hypernatremia
discontinued home dose of atenolol-likely contributing to his bradycardia.
#Multifactorial anemia-
Continue iron supplementation via tube monitor CBC
#Chronic pain syndrome-
Morphine milliequivalents of opioids-discontinued
Rest of the oxycodone for breakthrough pain not discontinued.
#Schizophrenia and bipolar disorder-
Psychiatry on board
Psych reevaluated him
Currently lithium on hold
Latuda discontinued for akathisia.
- cont seroquel and fluvoxamine
# Tob abuse
NRT -not on NRT, recommend management.
advised to quit
Circulatory shock-resolved.
Initial blood cultures from 07/15 and repeat from 07/19 remain negative.
Required pressors (Levophed) for hemodynamic support.
#obesity
- cont zepbound for weight loss
DVT prophylaxis-
Heparin subcu
CODE STATUS-
Full code.
Dispo DC to [facility] in am
Time spent coordinating care, review of plan of care with resident, personally reviewed records in EMR, med rec, consults, notes, labs, radiology, d/w nursing � 53 mins
Original Note:
Today's Communication/Plan
-
Awaiting bed at [facility]
Assessment / Plan
Assessment / Plan
Ppzjxfkshl-57-vuzh-old male with a PMHx significant for hypertension, depression presented to the hospital for acute onset shortness of breath, was diagnosed with influenza A associated ARDS, severe acute hypoxic respiratory failure complicated by
ventilator associated pneumonia.
Plan
[facility]
#Acute PE
CT chest positive for moderate pulmonary embolism.
Peripheral vascular ultrasound showed bilateral DVT left greater than right.
Echocardiogram with no evidence of right ventricular strain.
Patient was started on heparin drip.
Transitioned to 10 mg of Eliquis twice a day for 14 doses-through 08/13/2024, 5 mg twice a day thereafter.
Antiphospholipid antibody syndrome workup�negative
#Acute deconditioning
Secondary to prolonged ICU stay, and intubation.
PT and OT recommended acute rehab.
Dr. Apodaca consulted-recommended that the patient would benefit from acute rehab.
[facility]
#VRDF dependent acute hypoxic respiratory failure-
Secondary to influenza A, ventilator dependence resolved-extubated on 07/30/2024.
Course complicated by ventilator associated pneumonia-Streptococcus group F
S/p prolonged mechanical ventilation and paralytics, resulting in deep severe deconditioning.
Received cefepime/Zosyn that was later transitioned to Unasyn along with stress dosing of steroids-completed the course.
Currently patient is on BiPAP at night
#ICU delirium versus metabolic encephalopathy
Gradually improving, currently on Seroquel
As needed Zyprexa.
Patient did not have any episodes of agitation overnight
#Hypernatremia
Resolved
#PT and OT on board
Reconsulted
#Hypertension
Continue amlodipine 10 mg, losartan 50 mg
HCTZ 25 added for hypernatremia
holding parameters on losartan, discontinued home dose of atenolol-likely contributing to his bradycardia.
Also in the addition of HCTZ likely driving his soft blood pressures.
Trend blood pressures
#Multifactorial anemia
Continue iron supplementation
#Chronic pain syndrome
Percocet as needed
#Schizophrenia and bipolar disorder
Continue Seroquel
#History of smoking
NRT -not on NRT, recommend management.
DVT prophylaxis-
Heparin subcu
CODE STATUS-
Full code.
Anticipated Discharge: Within 24 hours
Subjective/Interval History
-
Date of Service: August 11, 2024
Patient does not report any acute overnight events. Awaiting for his discharge to rehab
On BiPAP at night
Objective Data
-
Vital Signs:
Vital Signs
Temp Pulse Resp BP Pulse Ox
98.1 F 114 18 117/82 95
08/11/24 07:00 08/11/24 07:00 08/11/24 07:00 08/11/24 07:00 08/11/24 07:00
I&O
08/10/24 08/11/24 08/12/24
06:59 06:59 06:59
Intake Total 450 / 450 1660 / 1660
Output Total 750 / 750 1550 / 1550
Balance -300 / -300 110 / 110
Physical Exam
-
General: Well Developed and Well Nourished
HEENT: Normocephalic and Atraumatic
Respiratory: Clear to Auscultation
Cardiac: Regular Rhythm and S1/S2
GI: Soft, Nontender, Nondistended and Normal Bowel Sounds
Skin: Warm and Dry
Neuro: Awake, Alert, Oriented and AO x 3
Psych: Calm
[2024-08-11 11:42] LABS: Glucose - Point of Care 182 mg/dl (70-99)
[2024-08-11] MEDS: NOVOLOG FLEXPEN-MODERATE RESISTANCE 1 UNITS SC (12:32)
--- NOTE | 2024-08-11 13:55 | CM ---
Spoke w/ Monique Bertrand/[facility] liaison, poss bed tomorrow for patient. Patient no longer needing BiPaP, now on room air.
Discussed w/ patient and spouse, they only are considering [facility] at , does not want to explore other [place] locations as it is too far
KILEY called [facility] cert line- to initiate auth. Spoke w/ [facility], requested for clinicals to be faxed for review
KILEY faxed clinicals to [phone]

Plan: [facility], pending auth
[2024-08-11 15:00] VITALS: BP 95/78
[2024-08-11] MEDS: PERCOCET 5/325 1 TABLET PO (15:19)
[2024-08-11 16:42] LABS: Glucose - Point of Care 129 mg/dl (70-99)
[2024-08-11] MEDS: LIPITOR 20 MG PO (17:29)
[2024-08-11] MEDS: COZAAR PO (19:31)
[2024-08-11] MEDS: SEROQUEL 100 MG PO (21:00)
[2024-08-11 21:23] LABS: Glucose - Point of Care 124 mg/dl (70-99)
[2024-08-11 22:55] VITALS: PULSE 2
[2024-08-11 23:04] VITALS: BP 110/63
--- NOTE | 2024-08-12 06:13 | W.DCSUMMARY ---
Addendum entered and electronically signed by Parish Lugo MD 08/13/24 13:53:
Read, reviewed, and agree.
Theodore Lugo MD
Original Note:
Documented by User: Jerson Wood MD, Resident 08/13/24 05:59
Discharge Summary
Discharge Data
Date of Admission: 07/14/24
Date of Discharge: 08/12/24
-
Pending Results: No
Hospital Course
Discharging Physician : Dr. Lugo, .
Disposition : Acute rehab
Primary care physician : Dr. Voss
Principal Discharge diagnosis : Acute hypoxic respiratory failure secondary to influenza pneumonia/ventilator associated pneumonia, pulmonary embolism/DVT, nephrogenic DI, toxic metabolic encephalopathy.
Chronic Discharge diagnosis : Hypertension,Obesity (morbid), Peripheral neuropathy, Bipolar disorder, depression.
Hospital Course : Patient was admitted to hospital on 07/14/2024 for severe influenza A resulting in a diagnosis of new onset acute hypoxic respiratory failure.� His hospital course was complicated by VDRF, VAP, acute toxic metabolic encephalopathy,
acute pulmonary embolism, bilateral DVT, nephrogenic diabetes insipidus, acute deconditioning.
Acute hypoxic respiratory failure-VDRF, VAP.
Upon admission patient was high flow nasal cannula with 15 L, then escalated to BiPAP
And then intubated on 07/15/2024.� He continued to remain on mechanical ventilation through 07/30/2024.� During this prolonged intubation for 16 days he also developed ventilator associated pneumonia with group B streptococcus.� For this he was
initially started on cefepime and Zosyn, ID was consulted and was later transitioned to Unasyn with stress dosing of steroids.� Patient finished his course of antibiotics on 07/29/2024. after extubation he was transition to high flow nasal cannula in
the a.m. and BiPAP in the night, patient became completely oxygen independent on 08/05/2024.� But continued to remain on BiPAP in the nights.
Acute PE, bilateral DVT-
On 08/02, and 08/03 patient continued to remain tachycardic and tachypneic despite being on mid flow nasal cannula and BiPAP.� On auscultation patient had a loud P2, despite being on Lovenox for DVT prophylaxis-we had a suspicion for DVT from his
acute severe influenza A.� We obtained a D-dimer levels which were high, and hence we proceeded with a chest CT PE protocol that yielded positive for moderate volume pulmonary embolus.� Patient was started on heparin drip on 08/03, continued to
remain on heparin drip through 08/04 evening, and then was transition to Eliquis 10 mg twice daily dosing that will end on 08/13/2024 with the a.m. dose.� Patient can then be transition to Eliquis 5 mg twice daily on the night of 08/13/24.
acute deconditioning-Upon extubation patient has 0 strength and required maximal assistance with Tiffany lifts, likely secondary to prolonged use of paralytics and disuse atrophy from mechanical ventilation and prolonged bedbound nurse.� PT and OT was
consulted, patient started doing some physical therapy and started noticing progress day by day.
Nephrogenic diabetes insipidus, ESAU-
When patient was on intubation, patient had an ESAU with a serum creatinine that went up to 3.2, nephrology was consulted and nephrology followed up with the patient consistently.� He was also found to have hypernatremia for which he received D5
water continuously.� Patient's hypernatremia was found to be secondary to free volume deficit from lithium.� His lithium levels were high and his blood secondary to ESAU, initially his lithium was held.� And then patient was removed off of lithium.�
His ESAU resolved by 07/30 after extubation.� Since he continued to remain in nephrogenic diabetes insipidus with free water deficit of greater than 3.5 L consistently even after extubation his lithium was discontinued permanently and
hydrochlorothiazide was added for sodium excretion as well as blood pressure control.All nephrotoxic drugs were held until his ESAU resolved.
Given his bradycardia, decision was made to discontinue atenolol 25 mg.
Toxic metabolic encephalopathy, and bipolar depression-
Patient had several episodes of agitation through his ICU and IMU stay before being downgraded to telemetry on 08/05/2024.� This was suspected secondary to prolonged ICU stay versus psychotic episodes from not being on lithium.� Patient also had
akathisia on 08/03 and 08/04 which is attributed to his home medication Latuda, and Latuda was discontinued.
Psychiatry followed throughout his hospital course, and made several changes to his medications.� He is stable on fluvoxamine 50 mg in the a.m., and Seroquel 25 mg in the a.m. and 125 mg in the p.m.
Given his acute deconditioning patient is deemed to be a candidate for discharge to acute rehab, and patient is being discharged to [facility] rehab.
Discharge Plan
-
Patient Disposition: Acute Rehab Facility
Discharge Diagnosis/Procedures: Influenza A, VRDF, VAP, acute PE, nephrogenic diabetes insipidus, depression, bipolar,
Condition: Fair
Diet: Low Cholesterol and Diabetic, Carb Controlled
Activity: As tolerated
Driving Restrictions: Not until seen by your Dr
Bathing Restrictions: None
Referrals:
Osmin Starr MD [Active, Pulmonary Medicine]
Referral Note: in 2 weeks after discharge
Giovani Voss MD [Family Provider]
Referral Note: 1 week
Prescriptions:
New
bisacodyl 10 mg Suppository
10 mg FL DAILYPRN PRN (Reason: no BM within 72 hours) Qty: 0 0RF
Eliquis 5 mg Tablet
10 mg PO BID Qty: 0 0RF
Eliquis 5 mg Tablet
5 mg PO BID 30 Days Qty: 60 1RF
Rx Instructions:
start on 08/13 8:oo pm, and
take twice daily there after.
ferrous sulfate [FeroSul] 325 mg (65 mg iron) Tablet
325 mg PO MoWeFr@0800 Qty: 0 0RF
polyethylene glycol 3350 17 gram Powder In Packet
17 g PO BIDPRN PRN (Reason: constipation) Qty: 0 0RF
sennosides [Cindy-dmitriy] 8.6 mg Tablet
8.6 mg PO BID Qty: 0 0RF
midodrine 5 mg Tablet
5 mg PO Q4HPRN PRN (Reason: SBP<90mmHg) Qty: 0 0RF
hydrochlorothiazide 25 mg Tablet
25 mg PO DAILY 30 Days Qty: 30 1RF
quetiapine 25 mg Tablet
25 mg PO BID 30 Days Qty: 60 0RF
Rx Instructions:
FOR 30 DAYS
acetaminophen 325 mg Tablet
650 mg PO Q6HPRN PRN (Reason: mild pain/ fever>100.5F) Qty: 0 0RF
quetiapine 100 mg Tablet
100 mg PO HS 30 Days Qty: 30 0RF
Continued
atorvastatin [Lipitor] 20 mg Tablet
20 mg PO QPM
losartan 50 mg Tablet
50 mg PO BID
fluvoxamine 50 mg Tablet
50 mg PO DAILY
Zepbound 2.5 mg/0.5 mL Solution
2.5 mg SC TH
amlodipine [Norvasc] 10 mg Tablet
10 mg PO DAILY
Discontinued
atenolol 25 mg Tablet
25 mg PO DAILY
fluvoxamine 100 mg Tablet
100 mg PO HS
pregabalin [Lyrica] 50 mg Capsule
100 mg PO HS
quetiapine [Seroquel] 50 mg Tablet
50 mg PO HS
lurasidone 40 mg Tablet
40 mg PO QPM
ibuprofen [Motrin] 400 mg Tablet
400 mg PO Q6HPRN PRN (Reason: mild pain)
lithium carbonate 300 mg Tablet Extended Release
1,200 mg PO HS
Discharge Orders:
Discharge Patient (As Directed); Ordered 08/12/24
Ordered By: Jerson Wood
Discharge Date and Time
Discharge Date/Time: 08/12/24 16:17
Print Language: OMANI

Documented by User: Parish Lugo MD 08/13/24 13:52
Discharge Summary
Discharge Data
Date of Admission: 07/14/24
Date of Discharge: 08/13/24
Discharge Plan
-
Patient Disposition: Acute Rehab Facility
Discharge Diagnosis/Procedures: Influenza A, VRDF, VAP, acute PE, nephrogenic diabetes insipidus, depression, bipolar,
Condition: Fair
Diet: Low Cholesterol and Diabetic, Carb Controlled
Activity: As tolerated
Driving Restrictions: Not until seen by your Dr
Bathing Restrictions: None
Referrals:
Osmin Starr MD [Active, Pulmonary Medicine]
Referral Note: in 2 weeks after discharge
Giovani Voss MD [Family Provider]
Referral Note: 1 week
Prescriptions:
New
bisacodyl 10 mg Suppository
10 mg FL DAILYPRN PRN (Reason: no BM within 72 hours) Qty: 0 0RF
Eliquis 5 mg Tablet
10 mg PO BID Qty: 0 0RF
Eliquis 5 mg Tablet
5 mg PO BID 30 Days Qty: 60 1RF
Rx Instructions:
start on 08/13 8:oo pm, and
take twice daily there after.
ferrous sulfate [FeroSul] 325 mg (65 mg iron) Tablet
325 mg PO MoWeFr@0800 Qty: 0 0RF
polyethylene glycol 3350 17 gram Powder In Packet
17 g PO BIDPRN PRN (Reason: constipation) Qty: 0 0RF
sennosides [Cindy-dmitriy] 8.6 mg Tablet
8.6 mg PO BID Qty: 0 0RF
midodrine 5 mg Tablet
5 mg PO Q4HPRN PRN (Reason: SBP<90mmHg) Qty: 0 0RF
hydrochlorothiazide 25 mg Tablet
25 mg PO DAILY 30 Days Qty: 30 1RF
quetiapine 25 mg Tablet
25 mg PO BID 30 Days Qty: 60 0RF
Rx Instructions:
FOR 30 DAYS
acetaminophen 325 mg Tablet
650 mg PO Q6HPRN PRN (Reason: mild pain/ fever>100.5F) Qty: 0 0RF
quetiapine 100 mg Tablet
100 mg PO HS 30 Days Qty: 30 0RF
Continued
atorvastatin [Lipitor] 20 mg Tablet
20 mg PO QPM
losartan 50 mg Tablet
50 mg PO BID
fluvoxamine 50 mg Tablet
50 mg PO DAILY
Zepbound 2.5 mg/0.5 mL Solution
2.5 mg SC TH
amlodipine [Norvasc] 10 mg Tablet
10 mg PO DAILY
Discontinued
atenolol 25 mg Tablet
25 mg PO DAILY
fluvoxamine 100 mg Tablet
100 mg PO HS
pregabalin [Lyrica] 50 mg Capsule
100 mg PO HS
quetiapine [Seroquel] 50 mg Tablet
50 mg PO HS
lurasidone 40 mg Tablet
40 mg PO QPM
ibuprofen [Motrin] 400 mg Tablet
400 mg PO Q6HPRN PRN (Reason: mild pain)
lithium carbonate 300 mg Tablet Extended Release
1,200 mg PO HS
Discharge Orders:
Discharge Patient (As Directed); Ordered 08/12/24
Ordered By: Jerson Wood
Discharge Date and Time
Discharge Date/Time: 08/12/24 16:17
Print Language: OMANI
--- NOTE | 2024-08-12 06:13 | W.PN.HOSP.TC ---
Addendum entered and electronically signed by Parish Lugo MD 08/12/24 22:25:
Attending Addendum-
I saw and evaluated the patient. I reviewed the resident�s note and agree with findings and plan as documented in the resident�s note. Sub: ready for dc. denies SI of HI. Urinating as usual. Full 12 point ROS reviewed and negative except as
documented Exam: Vitals reviewed in chart GEN-NAd heart RRR lungs clear abd soft LE no edema Neuro AAO x 3
Plan:
#Acute PE plus B/L LE DVT -
Echocardiogram with no evidence of right ventricular strain.
Patient was started on heparin drip yesterday.
cont loading eliquis dose x 7 days
Antiphospholipid antibody syndrome workup pending.
cont telemetry,
#Acute deconditioning-
Secondary to prolonged ICU stay, and intubation.
repeated PT OT eval
for [place] today
#VRDF dependent acute hypoxic respiratory failure-
Secondary to influenza A, ventilator dependence resolved-extubated on 07/30/2024.
Course complicated by ventilator associated pneumonia-Streptococcus group F
Received cefepime/Zosyn that was later transitioned to Unasyn along with stress dosing of steroids-completed the course.
Currently patient is on BiPAP at night and mid flow nasal cannula during the daytime.
BiPAPqhs at [place]
Currently weaned off of oxygen
#ICU delirium versus metabolic encephalopathy
Gradually improving, currently on Seroquel nightly, a.m. Seroquel resumed by psychiatry.
As needed Zyprexa.
Patient did not have any episodes of agitation overnight yesterday. Delirium likely resolving.
was on Precedex which was discontinued
[place] on hold, psychiatry on board, fluvoxamine resumed, appreciate psychiatry help in management.
dc latuda
#ESAU
-resolved
#Hypernatremia -
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
Nephrology following
D5 discontinued and currently remains on HCTZ
Appreciate nephrology help with hyponatremia.
BMP reviewed and stable
#Hypokalemia-
Resolved.
#Hypertension-
Continue amlodipine and losartan
HCTZ 25 added for hypernatremia
discontinued home dose of atenolol-likely contributing to his bradycardia.
#Multifactorial anemia-
Continue iron supplementation via tube monitor CBC
#Chronic pain syndrome-
Morphine milliequivalents of opioids-discontinued
Rest of the oxycodone for breakthrough pain not discontinued.
#Schizophrenia and bipolar disorder-
Psychiatry on board
Psych reevaluated him
Currently lithium on hold
Latuda discontinued for akathisia.
- cont seroquel and fluvoxamine
# Tob abuse
NRT -not on NRT, recommend management.
advised to quit
Circulatory shock-resolved.
Initial blood cultures from 07/15 and repeat from 07/19 remain negative.
Required pressors (Levophed) for hemodynamic support.
#obesity
- cont zepbound for weight loss
DVT prophylaxis-
Heparin subcu
CODE STATUS-
Full code.
[facility]
Time spent coordinating care, DC planning, review of DC plan of care with resident, transition of care, review of records, med rec/scripts sent electronically, consults, notes, d/w consultants, nursing, family, and CM� 32 mins
Original Note:
Today's Communication/Plan
-
Discharged to [facility]
Assessment / Plan
Assessment / Plan
Cawzukkmix-7-qqcg-old male with a PMHx significant for hypertension, depression presented to the hospital for acute onset shortness of breath, was diagnosed with influenza A associated ARDS, severe acute hypoxic respiratory failure complicated by
ventilator associated pneumonia.
Plan
[facility]
#Acute PE
CT chest positive for moderate pulmonary embolism.
Peripheral vascular ultrasound showed bilateral DVT left greater than right.
Echocardiogram with no evidence of right ventricular strain.
Patient was started on heparin drip.
Transitioned to 10 mg of Eliquis twice a day for 14 doses-through 08/13/2024, 5 mg twice a day thereafter.
Antiphospholipid antibody syndrome workup�negative
#Acute deconditioning
Secondary to prolonged ICU stay, and intubation.
PT and OT recommended acute rehab.
Dr. Apodaca consulted-recommended that the patient would benefit from acute rehab.
Awaiting bed at [facility]
#VRDF dependent acute hypoxic respiratory failure-
Secondary to influenza A, ventilator dependence resolved-extubated on 07/30/2024.
Course complicated by ventilator associated pneumonia-Streptococcus group F
S/p prolonged mechanical ventilation and paralytics, resulting in deep severe deconditioning.
Received cefepime/Zosyn that was later transitioned to Unasyn along with stress dosing of steroids-completed the course.
Currently patient is on BiPAP at night
#ICU delirium versus metabolic encephalopathy
Gradually improving, currently on Seroquel, continue at discharge
Patient did not have any episodes of agitation overnight
#Hypernatremia
Resolved
#PT and OT on board
#Hypertension
Continue amlodipine 10 mg, losartan 50 mg
HCTZ 25 added for hypernatremia, continue at discharge
holding parameters on losartan, discontinued home dose of atenolol-likely contributing to his bradycardia.
Also in the addition of HCTZ likely driving his soft blood pressures.
Trend blood pressures
#Multifactorial anemia
Continue iron supplementation
#Chronic pain syndrome
Percocet as needed
#Schizophrenia and bipolar disorder
Continue Seroquel
#History of smoking
NRT -not on NRT, recommend management.
DVT prophylaxis-
Heparin subcu
CODE STATUS-
Full code.
Anticipated Discharge: Today
Subjective/Interval History
-
Date of Service: August 12, 2024
Patient is walking in the hallway, no episodes of dizziness.
Objective Data
-
Labs:
Laboratory Results
08/12/24
06:00
WBC Pending
Hgb Pending
Hct Pending
Plt Count Pending
Sodium Pending
Potassium Pending
Chloride Pending
Carbon Dioxide Pending
BUN Pending
Creatinine Pending
Glucose Pending
Calcium Pending
Vital Signs:
Vital Signs
Temp Pulse Resp BP Pulse Ox
98.2 F 108 18 110/63 96
08/11/24 23:04 08/11/24 23:04 08/11/24 23:04 08/11/24 23:04 08/11/24 23:04
I&O
08/10/24 08/11/24 08/12/24
06:59 06:59 06:59
Intake Total 450 / 450 1660 / 1660 1840 / 1840
Output Total 750 / 750 1550 / 1550 300 / 300
Balance -300 / -300 110 / 110 1540 / 1540
Physical Exam
-
General: Well Developed, Well Nourished and No Apparent Distress
HEENT: Normocephalic and Atraumatic
Respiratory: Clear to Auscultation
Cardiac: Regular Rhythm and S1/S2
GI: Soft, Nontender, Nondistended and Normal Bowel Sounds
Skin: Warm and Dry
Neuro: Awake, Alert, Oriented and AO x 3
Psych: Calm
[2024-08-12 07:00] VITALS: BP 116/80
[2024-08-12 08:02] LABS: Hematocrit 30.9 % (39.0-52.0); Hemoglobin 9.8 g/dL (13.0-18.0); Mean Corp Hgb Conc. 31.7 g/dL (33.0-37.0); Mean Corpuscular Volume 91.4 fL (80.0-94.0); Mean Platelet Volume 10.1 fL (7.4-10.4); Platelet Count 310 10^3/uL (130-400); Red Blood Cell Count 3.38 10^6/uL (4.70-6.10); White Blood Cell Count 5.2 10^3/uL (4.8-10.8)
--- NOTE | 2024-08-12 08:10 | PN.DE.MGMTRT ---
Insulin Management
- -
08/12/2024: Diabetes Management Follow up
Patient admitted 07/14/24 via EMS as patient's found him lethargic and short of breath. He was admitted Flu A +, acute hypoxemic respiratory failure, requiring intubation and mechanical ventilation. PMH: HTN, Depression, bipolar and T2DM. Was
taking Zepbound 2.5mg weekly/ for weight loss. A1C 6.0%, Cr 2.9 on admission
Pt is awake and alert, resting in bed, offers no complaints, mental status stable, able to discuss diabetes care plan.
Extubated 07/30. ESAU resolved, Cr 1.2, eGFR >60 today. s/p chest CT - bilateral PE; s/p peripheral vascular ultrasound - bilateral DVT L > R.
Currently ordered moderate corrective insulin with meals. Glucose range 124 to 182, required 1 unit corrective with lunch.
Patient for possible d/c to [place] today.
Will make no change to corrective insulin regimen.
Was taking Zepbound 2.5mg weekly/ for weight loss, may resume med at discharge.
Discussed with Nurse. Will cont to follow
Diabetes History
- -
Type of Diabetes: 2
Pre-Admission Diabetes Regimen
Lab Results
Hemoglobin A1c Cancelled 07/24/24 17:38
Insulin Pump Settings
IP Diabetes Regimen
08/11/24 08/11/24 08/11/24
11:41 16:41 21:21
POC Glucose 182 H 129 H 124 H
Meal type: Lunch
Meal type: Breakfast
Amount consumed: 100%
Amount consumed: 100%
Patient Education
[2024-08-12 08:12] LABS: Glucose - Point of Care 98 mg/dl (70-99)
[2024-08-12] MEDS: NOVOLOG FLEXPEN-MODERATE RESISTANCE SC ×2 (08:16→12:09)
[2024-08-12] MEDS: NICODERM TRANSDERMAL 21 MG TRANSDERM (08:18)
[2024-08-12] MEDS: MIRALAX 17 GRAMS TUBE (08:18)
[2024-08-12] MEDS: SENOKOT 8.6 MG PO (08:19)
[2024-08-12] MEDS: LUVOX 50 MG PO (08:19)
[2024-08-12] MEDS: SEROQUEL 25 MG PO (08:20)
[2024-08-12] MEDS: COZAAR 50 MG PO (08:20)
[2024-08-12] MEDS: ELIQUIS 10 MG PO (08:20)
[2024-08-12] MEDS: ORETIC 25 MG PO (08:21)
[2024-08-12 08:39] LABS: Blood Urea Nitrogen 14 mg/dl (9-20); Calcium 8.8 mg/dl (8.4-10.2); Carbon Dioxide 24 mmol/L (22-30); Chloride 104 mmol/L (98-107); Estimated Creatinine Clearance 84 ml/min; Glucose 106 mg/dl (70-99); Sodium 137 mmol/L (135-145); eGFR > 60.00
[2024-08-12 11:37] LABS: Glucose - Point of Care 112 mg/dl (70-99)
--- NOTE | 2024-08-12 11:37 | CM ---
Addendum entered by Iva Peace 08/12/24 13:07:
CM received call from Rodney with [facility], inquiring if anywhere in documentation it is recommended for patient to discharge to acute rehab/tolerate 3 hrs of therapy a day, CM reviewed PT/OT notes from 08/11 recommending acute rehab/3 hrs of
therapy a day, faxed to [phone]. Auth approved 08/12-08/18, next review 08/19 to [phone], reference #[id number]. CM spoke with Monique Bertrand from [facility], able to accept patient today. TT to Resident with update, reviewed with Nurse. Patient seen
bedside and updated.
Plan; [facility]
Report: [id number]

Original Note:
CM reviewed chart, placed call to [facility] , spoke with Ervin Bro, provided pending reference number, auth remains pending. Update to Resident. CM will continue to follow for all discharge planning needs.

Plan: [facility], pending auth
[2024-08-12 14:52] VITALS: BP 105/75
== END 2024-08-12 16:17 | DRG 207 ==
LOC: 4 WEST ACU 11:38
PROVIDERS: Internal Medicine; Internal Medicine Critical Care Medicine; Nurse Practitioner Family; Nurse Practitioner Primary Care; Physician Assistant; Psychiatry & Neurology Psychiatry; Radiology Diagnostic Radiology; Student in an Organized Health Care Education/Training Program; ADMITTING PHYSICIAN Student in an Organized Health Care Education/Training Program; ATTENDING PHYSICIAN Family Medicine; CONSULT PHYSICIAN Internal Medicine Critical Care Medicine; CONSULT PHYSICIAN Otolaryngology; CONSULT PHYSICIAN Physical Medicine & Rehabilitation; CONSULT PHYSICIAN Specialist; EMERGENCY PHYSICIAN Student in an Organized Health Care Education/Training Program; FAMILY PHYSICIAN Internal Medicine
PROC: 5A09357 Assistance with Respiratory Ventilation, Less than 24 Consecutive Hours, Continuous Positive Airway Pressure (ICD-10-PCS; 2024-07-14)
PROC: 03HY32Z Insertion of Monitoring Device into Upper Artery, Percutaneous Approach (ICD-10-PCS; 2024-07-15)
PROC: 5A1955Z Respiratory Ventilation, Greater than 96 Consecutive Hours (ICD-10-PCS; 2024-07-15)
PROC: 4A133J1 Monitoring of Arterial Pulse, Peripheral, Percutaneous Approach (ICD-10-PCS; 2024-07-15)
PROC: 0DH67UZ Insertion of Feeding Device into Stomach, Via Natural or Artificial Opening (ICD-10-PCS; 2024-07-15)
PROC: 4A133B1 Monitoring of Arterial Pressure, Peripheral, Percutaneous Approach (ICD-10-PCS; 2024-07-15)
PROC: 02H633Z Insertion of Infusion Device into Right Atrium, Percutaneous Approach (ICD-10-PCS; 2024-07-15)
PROC: 0BH17EZ Insertion of Endotracheal Airway into Trachea, Via Natural or Artificial Opening (ICD-10-PCS; 2024-07-15)
PROC: 5A09C5K Assistance with Respiratory Ventilation, 8-24 Consecutive Hours, Intubated Prone Positioning (ICD-10-PCS; 2024-07-16)
PROC: 5A0935A Assistance with Respiratory Ventilation, Less than 24 Consecutive Hours, High Flow/Velocity Cannula (ICD-10-PCS; 2024-07-30)
DX: J96.01 Acute respiratory failure with hypoxia (principal); A41.89 Other specified sepsis; J10.01 Influenza due to other identified influenza virus with the same other identified influenza virus pneumonia; R65.21 Severe sepsis with septic shock; G92.8 Other toxic encephalopathy; R57.8 Other shock; I26.99 Other pulmonary embolism without acute cor pulmonale; F17.203 Nicotine dependence unspecified, with withdrawal; N17.9 Acute kidney failure, unspecified; E87.0 Hyperosmolality and hypernatremia; J95.851 Ventilator associated pneumonia; Z99.11 Dependence on respirator [ventilator] status; E87.20 Acidosis, unspecified; N25.1 Nephrogenic diabetes insipidus; F05 Delirium due to known physiological condition; E87.1 Hypo-osmolality and hyponatremia; I82.412 Acute embolism and thrombosis of left femoral vein; I82.433 Acute embolism and thrombosis of popliteal vein, bilateral; I82.443 Acute embolism and thrombosis of tibial vein, bilateral; I82.452 Acute embolism and thrombosis of left peroneal vein; I82.422 Acute embolism and thrombosis of left iliac vein; J96.02 Acute respiratory failure with hypercapnia; E87.6 Hypokalemia; G89.4 Chronic pain syndrome; K80.20 Calculus of gallbladder without cholecystitis without obstruction; R16.1 Splenomegaly, not elsewhere classified; R73.9 Hyperglycemia, unspecified; T38.0X5A Adverse effect of glucocorticoids and synthetic analogues, initial encounter; D64.9 Anemia, unspecified; R26.2 Difficulty in walking, not elsewhere classified; G62.9 Polyneuropathy, unspecified; E87.5 Hyperkalemia; L89.891 Pressure ulcer of other site, stage 1; R74.01 Elevation of levels of liver transaminase levels; B95.1 Streptococcus, group B, as the cause of diseases classified elsewhere; Y84.8 Other medical procedures as the cause of abnormal reaction of the patient, or of later complication, without mention of misadventure at the time of the procedure; Y92.230 Patient room in hospital as the place of occurrence of the external cause; F42.9 Obsessive-compulsive disorder, unspecified; F31.9 Bipolar disorder, unspecified; E66.01 Morbid (severe) obesity due to excess calories; J30.1 Allergic rhinitis due to pollen; I10 Essential (primary) hypertension; G47.30 Sleep apnea, unspecified; F20.9 Schizophrenia, unspecified; K21.9 Gastro-esophageal reflux disease without esophagitis; Z11.52 Encounter for screening for COVID-19; Z79.85 Long-term (current) use of injectable non-insulin antidiabetic drugs; Z68.36 Body mass index [BMI] 36.0-36.9, adult
CPT/HCPCS: 93308; 36600; 70450; 71045; 71250; 71275; 74018; 74176; 76700; 80048; 80053; 80178; 80202; 81003; 81015; 82248; 82570; 82607; 82728; 82746; 82805; 82962; 83036; 83540; 83550; 83605; 83735; 83880; 83935; 84100; 84132; 84300; 84466; 84478; 84484; 85025; 85027; 85045; 85379; 85610; 85652; 85730; 86140; 86146; 86147; 87040; 87070; 87077; 87147; 87205; 87449; 87502; 87641; 87811; 87899; 92526; 92610; 93005; 93306; 93970; 94002; 94003; 94640; 94660; 96361; 96374; 97116; 97163; 97164; 97167; 97168; 97530; 97535; 99291; J2358; Q9967

== ENCOUNTER → 2024-10-02 12:00 | Outpatient (REF) | payer BC, SELFPAY | LOC: DHSLP 12:00 | PROVIDERS: ATTENDING PHYSICIAN Internal Medicine Critical Care Medicine; FAMILY PHYSICIAN Internal Medicine | DX: G47.33 Obstructive sleep apnea (adult) (pediatric) (principal); R09.02 Hypoxemia | CPT/HCPCS: 95800 ==

== ENCOUNTER 2024-11-05 19:30 | Emergency (ER) | payer BC, SELFPAY ==
[2024-11-05 19:35] VITALS: BP 144/89
--- NOTE | 2024-11-05 21:39 | ED.GENMED ---
History of Present Illness
General
Chief Complaint: Dental Problem
Time Seen by Provider: 11/05/24 20:41
History of Present Illness
History of Present Illness:
49-year-old male with prior history of PE on Eliquis presenting to the emergency department for bleeding after a dental procedure. Patient notes that he had a growth at his upper palate and went to the dentist today and he removed it in the office.
He notes that his anticoagulation was not stopped prior to the procedure, however was a minor removal. He notes since the procedure earlier today, has had persistent oozing from the site. Denies any significant pain. He is concerned regarding
his anticoagulation. Denies additional acute medical complaints or concerns
Phy Exam
Physical Exam
Physical Exam:
General: Well-appearing, no clinical signs of dehydration, nontoxic and in no acute distress
HEENT: protecting airway, evidence of gross removal between tooth #8 and 9, clotted with no active bleeding
Neck: appears supple
CV: Normal heart rate
Resp: No accessory muscle use, no increased work of breathing
Abd: No distention
Extremities: No deformities, no swelling
Neuro: alert, no focal neurologic deficit
: deferred
Rectal: deferred
Psych: Normal affect
Skin: Intact
Course
Vital Signs
Initial and Last Documented VS:
Initial Vital Signs
Temp Pulse Resp BP Pulse Ox
98.7 F 104 20 144/89 96
11/05/24 19:35 11/05/24 19:35 11/05/24 19:35 11/05/24 19:35 11/05/24 19:35
Last Documented Vital Signs
Temp Pulse Resp BP Pulse Ox
98.7 F 104 20 144/89 96
11/05/24 19:35 11/05/24 19:35 11/05/24 19:35 11/05/24 19:35 11/05/24 19:35
MDM/Problems Addressed
MDM/Problems Addressed:
49-year-old male on anticoagulation presenting for bleeding after dental procedure. Vital signs are significant for mild tachycardia.
On exam patient is resting comfortably, no acute distress or discomfort. No active bleeding from site of gross removal. It is currently clotted off. Plan for reassessment in 30 minutes to ensure no additional active bleeding.
21:45- On reassessment, no active bleeding, remains hemodynamically stable. Feel stable for discharge. Advised direct pressure if bleeding returns. Return precautions discussed and patient verbalized understanding
*Pulse Oximetry
SaO2: 96
Oxygen Mode of Delivery: Room air
Patient hypoxic: no
*Critical Care Note
Total Time (30-74mins, 75-104mins- exclusive of procedures): Not Applicable
ED Attending Note
-
Portions of this chart may have been created with voice recognition software.� Occasional wrong word or��sound alike� substitutions may have occurred due to the inherent limitations of voice recognition software.
Discharge Plan
Departure
Prescriptions:
No Action
fluvoxamine 50 mg Tablet
50 mg PO DAILY
Zepbound 2.5 mg/0.5 mL Solution
2.5 mg SC TH
polyethylene glycol 3350 17 gram Powder In Packet
17 g PO BIDPRN PRN (Reason: constipation) Qty: 0 0RF
docusate sodium 100 mg Capsule
100 mg PO BID 30 Days Qty: 60 0RF
bisacodyl 5 mg Tablet,Delayed Release (Dr/Ec)
10 mg PO DAILYPRN PRN (Reason: Constipation) 30 Days Qty: 30 0RF
nicotine 14 mg/24 hr Patch 24 Hour
14 mg transdermal DAILY 30 Days Qty: 30 0RF
lidocaine 4 % Adhesive Patch,Medicated
1 patch topical DAILY 30 Days Qty: 30 0RF
magnesium oxide 500 mg magnesium Tablet
500 mg PO HS 30 Days Qty: 30 0RF
gabapentin 100 mg Capsule
200 mg PO HS 30 Days Qty: 60 0RF
metoprolol tartrate 25 mg Tablet
12.5 mg PO BID 30 Days Qty: 30 0RF
quetiapine 25 mg Tablet
25 mg PO BID 30 Days Qty: 60 0RF
midodrine 5 mg Tablet
5 mg PO DAILY 30 Days Qty: 30 0RF
quetiapine 100 mg Tablet
100 mg PO HS 30 Days Qty: 30 0RF
sennosides [Cindy-dmitriy] 8.6 mg Tablet
8.6 mg PO BID Qty: 0 0RF
acetaminophen 325 mg Tablet
650 mg PO Q6HPRN PRN (Reason: mild pain) Qty: 0 0RF
ferrous sulfate [FeroSul] 325 mg (65 mg iron) Tablet
325 mg PO MoWeFr@0800 30 Days Qty: 90 0RF
atorvastatin [Lipitor] 20 mg Tablet
20 mg PO QPM 30 Days Qty: 30 0RF
Eliquis 5 mg Tablet
5 mg PO BID 30 Days Qty: 60 1RF
Rx Instructions:
start on 08/13 8:oo pm, and
take twice daily there after.
Referrals:
Giovani Voss MD [Family Provider, Internal Medicine]
Interventions
Interventions:
*General Assessment Last Done: 11/05/24 19:35
Discharge Date and Time
Print Language: SLOVENIAN
[2024-11-05 21:54] VITALS: BP 136/96
== END 2024-11-05 21:56 | disposition home or self-care (01) ==
LOC: EMR 19:30
PROVIDERS: EMERGENCY PHYSICIAN Student in an Organized Health Care Education/Training Program; FAMILY PHYSICIAN Internal Medicine
DX: K91.840 Postprocedural hemorrhage of a digestive system organ or structure following a digestive system procedure (principal); Z79.01 Long term (current) use of anticoagulants; Z86.711 Personal history of pulmonary embolism
CPT/HCPCS: 99281

== ENCOUNTER → 2024-11-12 07:24 | Outpatient (REF) | payer BC, SELFPAY | LOC: HWRAD 07:24 | PROVIDERS: ATTENDING PHYSICIAN Internal Medicine Critical Care Medicine; FAMILY PHYSICIAN Internal Medicine | DX: J18.9 Pneumonia, unspecified organism (principal); M54.50 Low back pain, unspecified | CPT/HCPCS: 71046; 72110 ==